=== PATIENT | male | born 1945 | race Caucasian/White ===

== ENCOUNTER 2019-10-08 09:54 | Outpatient (CLI) | payer MEDICARE, OTHER, SELFPAY ==
[2019-10-08 11:52] LABS: Hematocrit 39.4 % (42.0-52.0); Mean Corpuscular Hemoglobin 32.4 pg (28.0-34.0); Mean Corpuscular Volume 98.3 fL (80-94); Mean Platelet Volume 8.3 fL (7.4-10.4); Nucleated Red Blood Cells % 0 %; Platelet Count 307 10^3/cmm (130-400); Red Blood Count 4.01 10^6/uL (4.1-5.3); Red Cell Distribution Width 12.5 % (12.1-15.1)
[2019-10-08 12:03] LABS: Alanine Aminotransferase 23 U/L (0-41); Albumin Level 4.2 g/dL (3.5-5.2); Alkaline Phosphatase 59 IU/L (40-130); Anion Gap 14.4 (5-19); Aspartate Amino Transferase 22 U/L (0-40); Blood Urea Nitrogen 5 mg/dL (8-23); Calcium 9.2 mg/dL (8.5-10.5); Carbon Dioxide 26 mmol/L (22-29); Chloride 93 mmol/L (98-107); Globulin 2.6 g/dL (1.3-4.6); Glucose 91 mg/dL (65-115); Lactate Dehydrogenase 196 U/L (135-225); Osmolality Calculated 263 mOsm/kg (285-295); Potassium 4.4 mmol/L (3.5-5.1); Sodium 129 mmol/L (136-145); Total Bilirubin 0.7 mg/dL (0.15-1.2); Total Protein 6.8 g/dL (6.6-8.7)
[2019-10-08 12:31] LABS: White Blood Count 34.3 10^3/uL (4.0-10.0)
[2019-10-08 12:33] LABS: Absolute Eosinophils 0.3 10^3/cmm (0.0-0.7); Absolute Segmented Neutrophil 6.5 10/cmm (1.6-7.1); Eosinophils 1 %; Lymphocytes 73 %; Lymphocytes Absolute 26.1 10^3/cmm (1.2-3.4); Monocytes Absolute 1.4 10^3/cmm (0.1-0.6); Platelet Estimate Normal (Normal); Segmented Neutrophils 19 %; Total Cells Counted 100 (0-100)
[2019-10-08 12:43] LABS: Erythrocyte Sedimentation Rate 15 mm/hr (0-10)
--- NOTE | 2019-10-08 16:57 | ONC CON_ITS ---
Dr. Conley New Patient Note Patient: Reilly Friedman Unit #: [id number]: 1945 Dicatated By: Reilly Conley M.D.Date of Visit: Oct 08, 2019 Onc MED New Patient/Consult Referring Physician: Dr. Manolo Centeno M.D. Chief Complaint: Chronic leukocytic leukemia. History of Present Illness: This is a 73-year-old man with chronic lymphocytic leukemia, Guerrero stage 0 at initial diagnosis in July 2017. In June 2017 he [place] [facility] for chest pain. His cardiac evaluation was unrevealing. His CBC, though, did show significant lymphocytosis with a total white blood cell count of 22,100 and an absolute lymphocyte count of 15,400. Hemoglobin was normal at 14.1 g with hematocrit 43.5%. The platelet count was slightly elevated at 407,000. His CT pulmonary angiogram at that time showed small pulmonary nodules in both lung bases. There was no lymphadenopathy reported. He was then seen in [place] by Dr. Anjel Pineda on 08/01/2017. A flow cytometry study was consistent with chronic lymphocytic leukemia. His FISH panel for CLL showed 13 q. 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 His staging CT scans of the chest, abdomen, and pelvis on 07/12/2017 showed no lymphadenopathy or hepatosplenomegaly. Small pulmonary nodules were again noted. Overall, his evaluation was consistent with Guerrero stage 0 chronic lymphocytic leukemia with favorable prognostic profile, and he was recommended to be followed on observation/expectant management. As of his follow-up visit with Dr. Goldberg at the [facility] oncology clinic in April 2018 his absolute lymphocyte count was unchanged stable at 15,000 with hemoglobin 14.2 g and platelet count 227,000. He appeared stable clinically, and he continued on observation/expectant management. 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 He was successfully treated with TPA. He was last seen at the [facility] oncology clinic in February 2019. He again appeared stable and he was recommended to continue observation/expectant management. On 09/04/2019 he had seen [address] Dr. Centeno's office with a generalized pruritic skin eruption. He was given a Depo-Medrol injection followed by a prednisone taper. He is seen now for further management of the chronic lymphocytic leukemia. His skin eruption did show improvement on the prednisone, but he had subsequently developed a somewhat different eruption in the axilla and groin area bilaterally. He has been feeling pretty good generally, though he says his energy has not been as good ever since his stroke. 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 He describes his appetite is medium. His weight is down about 5 pounds. He has occasional night sweating. He has had a cough all winter. Is mostly nonproductive. He does not complain of shortness of breath and he has not been having chest pain. He does have some acid reflux, but it is pretty well controlled with medication. He has no other GI complaints. Bladder function remains adequate. He is seeing Dr. House. He has some generalized aching, but that is associated with activity. He has just occasional headache. He has had lightheadedness/dysequilibrium when he bends over and gets up. This is been an ongoing problem since his stroke. He has no numbness/paresthesia or other focal neurologic symptoms. Past Medical History: His medical history includes benign prostatic hypertrophy, chronic lymphocytic leukemia, degenerative arthritis, dyslipidemia, gastroesophageal reflux disease, and hypertension. He has a history of stroke in April 2018. Past Surgical History: His surgical/procedural history includes arthroscopic left knee surgery, colonoscopy, inguinal hernia repair on both sides, and Mohs surgery for left facial skin cancer in 2019. Medications: Aspirin 1 Tablet (of 81 mg) Oral daily, Clopidogrel Bisulfate 1 Tablet (of 75 mg) Oral daily, Flonase 1 [place](s) (of 50 mcg/act) Suspension Nasal daily, Lisinopril 1 Tablet (of 40 mg) Oral daily, Omeprazole 1 Capsule (of 20 mg) Capsule Delayed Release Oral daily, Promethazine-DM 5 - 10 mL (of 6.25-15 mg/5mL) Syrup Oral q 4 to 6 hours PRN, Simvastatin 1 tablespoonful(s) (of 40 mg) Tablet Oral at bedtime, Tamsulosin HCl 1 Capsule (of 0.4 mg) Oral daily Allergies: Celery, Demerol, and Penicillins. Social History: Mr. Friedman is . 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 He is a non-smoker. He does not drink alcohol. Family History: Father of prostate cancer at age 84. Mother had multiple medical problems including heart disease and breast cancer. She at age 85. He had one sister who had rheumatoid arthritis and with complications of dementia. Review Of Symptoms: Constitutional - His energy has been as good since his stroke in 2019. He is able to do moderate farm work. His appetite is good and weight is down 5 pounds over the last month. No fever. He has occasional night sweats. ECOG score is 1, Eyes - He has altered vision, he wears glasses, ENMT - He has hearing loss. No tinnitus. He has sinus congestion/drainage. No mouth sores. No sore throat or difficulty swallowing, Hematologic/Lymphatic - He bruises easily, Respiratory - No shortness of breath. He has had a cough since . It is mostly nonproductive. No pleuritic pain or hemoptysis, Cardiovascular - No angina pain. No palpitations, Gastrointestinal - No nausea or vomiting. His heartburn is adequately managed with omeprazole. No diarrhea or constipation. No blood in the stool or black stools, Genitourinary (M) - No dysuria or hematuria. No urinary frequency. No urgency or incontinence. He sees Dr. House, Musculoskeletal - He has generalized aches, Integumentary - He has a skin rash that has been present for a few weeks, Neurologic - No headache. He has occasional lightheadedness when he bends over. No numbness or tingling. He had a stroke in 2019, Psychiatric - No anxiety or depression. He does not sleep well. Vital Signs: Performed on Oct 08, 2019 10:53: 0, 23.38, 2.00 sq.m, 72.00 in, 97 %, 71 /min, 20 /min, 165/79 mm(hg) (HIGH), 98.1 F (LOW), and 172.4 lbs (HIGH). Physical Examination: Constitutional - He appears to be in good general health, Eyes - Sclerae nonicteric. Conjunctivae clear, ENMT - No lesions noted in the oral cavity, Neck - No mass or thyromegaly, Hematologic/Lymphatic - No cervical, clavicular, or axillary adenopathy, Respiratory - Lungs are clear with good air movement bilaterally, Cardiovascular - Heart rhythm is regular. There is no murmur, gallop, or rub noted, Abdomen - Soft and non-tender. He has a ventral hernia. Liver and spleen are not enlarged. There is no abdominal mass or ascites noted and there is no inguinal adenopathy, Back/Spine - No spine or CVA tenderness noted, Extremities - No edema. Pedal pulses are palpable bilaterally, Integumentary - There is a maculopapular skin eruption in the both axillae and in the groin area bilaterally. There are no suspicious skin lesions noted, Neurologic - He has a mild tremor. There no focal neurologic deficits noted. Impression: 1. Patient with chronic lymphocytic leukemia, Guerrero stage 0 at initial diagnosis in July 2017. He had favorable prognostic indicators including 13q deletion by FISH and mutated IGVH. Observation/expectant management was recommended. 2. He had recently presented with generalized pruritic skin eruption. The underlying cause is uncertain. It is possible that it is associated with the underlying CLL, but unlikely. It does appear to be responding to the steroid. He has a different skin eruption now, which may be a secondary Soila infection. His other medical illnesses include 3. Hypertension. 4. Dyslipidemia. 5. GERD. 6. Benign prostatic hypertrophy. 7. Degenerative arthritis. 8. Anxiety/depression. 9. 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 He has been followed on observation/expectant management for the chronic lymphocytic leukemia. As of his follow-up visit in February 2019 he appeared stable clinically with no significant progression of the leukemia. Plan: He will have laboratory studies today to include CBC, comprehensive metabolic profile, LDH level, and sed rate. In the absence of any significant disease progression, he will continue on observation/expectant management at a 3-month interval schedule. In the meantime, he will be given fluconazole 200 mg daily for 7 days and a prescription for nystatin/triamcinolone cream to use topically. Signed By: Reilly Conley M.D. <<Signature on File>>
== END 2019-10-08 09:55 | disposition home or self-care (01) ==
PROVIDERS: PCP Family Medicine; Visit Provider Internal Medicine Medical Oncology
DX: C91.10 Chronic lymphocytic leukemia of B-cell type not having achieved remission (principal); I10 Essential (primary) hypertension; E78.5 Hyperlipidemia, unspecified; K21.9 Gastro-esophageal reflux disease without esophagitis; N40.0 Benign prostatic hyperplasia without lower urinary tract symptoms; M19.90 Unspecified osteoarthritis, unspecified site; F41.8 Other specified anxiety disorders; Z86.73 Personal history of transient ischemic attack (TIA), and cerebral infarction without residual deficits
CPT/HCPCS: 80053; 83615; 85007; 85025; 85651; 99205

== ENCOUNTER → 2019-11-01 09:08 | Outpatient (BNVA) | payer MEDICARE, OTHER, SELFPAY | PROVIDERS: PCP Family Medicine; Visit Provider Urology | DX: N40.1 Benign prostatic hyperplasia with lower urinary tract symptoms (principal); Z12.5 Encounter for screening for malignant neoplasm of prostate | CPT/HCPCS: 81001 ==

== ENCOUNTER 2020-02-13 14:12 | Outpatient (CLI) | payer MEDICARE, OTHER, SELFPAY ==
[2020-02-13 14:38] LABS: Hematocrit 37.8 % (42.0-52.0); Hemoglobin 12.7 g/dL (11.7-16.6); Mean Corpuscular HGB Conc 33.6 g/dL (30.0-36.0); Mean Corpuscular Hemoglobin 32.9 pg (28.0-34.0); Mean Corpuscular Volume 97.9 fL (80-94); Mean Platelet Volume 8.5 fL (7.4-10.4); Platelet Count 270 10^3/cmm (130-400); Red Blood Count 3.86 10^6/uL (4.1-5.3); Red Cell Distribution Width 12.2 % (12.1-15.1)
[2020-02-13 14:59] LABS: Alanine Aminotransferase 26 U/L (0-41); Albumin Level 4.3 g/dL (3.5-5.2); Alkaline Phosphatase 48 IU/L (40-130); Anion Gap 14.2 (5-19); Aspartate Amino Transferase 23 U/L (0-40); Blood Urea Nitrogen 6 mg/dL (8-23); Calcium 8.9 mg/dL (8.5-10.5); Carbon Dioxide 23 mmol/L (22-29); Chloride 95 mmol/L (98-107); Glucose 108 mg/dL (65-115); Lactate Dehydrogenase 173 U/L (135-225); Osmolality Calculated 264 mOsm/kg (285-295); Potassium 4.2 mmol/L (3.5-5.1); Sodium 128 mmol/L (136-145); Total Bilirubin 0.5 mg/dL (0.15-1.2); Total Protein 6.3 g/dL (6.6-8.7)
[2020-02-13 15:46] LABS: Slide Review Slide Review Perform
[2020-02-13 15:50] LABS: Absolute Eosinophils 0.3 10^3/cmm (0.0-0.7); Absolute Segmented Neutrophil 7.8 10/cmm (1.6-7.1); Eosinophils 1 %; Lymphocytes 34 %; Segmented Neutrophils 23 %; Total Cells Counted 100 (0-100)
[2020-02-13 15:51] LABS: Absolute Neutrophil 7.8 10^3/cmm (1.4-6.5); Platelet Estimate Normal (Normal)
--- NOTE | 2020-02-13 16:43 | ONC FU_ITS ---
Dr. Conley Patient Follow-Up Note Patient: Reilly Friedman Unit #: [id number]: 1945 Dicatated By: Reilly Conley M.D.Date of Visit:Feb 13, 2020 Onc Med Follow-up/Prog Note Chief Complaint: Chronic leukocytic leukemia. History of Present Illness: This is a 74 year-old man with chronic lymphocytic leukemia, Guerrero stage 0 at initial diagnosis in July 2017. In June 2017 he was seen in the [facility] [place] for chest pain. His cardiac evaluation was unrevealing. His CBC, though, did show significant lymphocytosis with a total white blood cell count of 22,100 and an absolute lymphocyte count of 15,400. Hemoglobin was normal at 14.1 g with hematocrit 43.5%. The platelet count was slightly elevated at 407,000. His CT pulmonary angiogram at that time showed small pulmonary nodules in both lung bases. There was no lymphadenopathy reported. He was then seen in [place] by Dr. Anjel Pineda on 08/01/2017. A flow cytometry study was consistent with chronic lymphocytic leukemia. His FISH panel for CLL showed 13 q. 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 His staging CT scans of the chest, abdomen, and pelvis on 07/12/2017 showed no lymphadenopathy or hepatosplenomegaly. Small pulmonary nodules were again noted. Overall, his evaluation was consistent with Guerrero stage 0 chronic lymphocytic leukemia with favorable prognostic profile, and he was recommended to be followed on observation/expectant management. As of his follow-up visit with Dr. Goldberg at the [facility] oncology clinic in April 2018 his absolute lymphocyte count was unchanged stable at 15,000 with hemoglobin 14.2 g and platelet count 227,000. He appeared stable clinically, and he continued on observation/expectant management. 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 He was successfully treated with TPA. He was last seen at the [facility] oncology clinic in February 2019. He again appeared stable and he was recommended to continue observation/expectant management. I had seen him initially on 10/08/2019, as he had desired to continue follow-up for his chronic lymphocytic leukemia locally. At that point he was having some issues with the skin eruption, but there appeared to be no indication for treatment of the chronic lymphocytic leukemia, and he continued on observation/expectant management. His medical illnesses, in addition to the stroke in April 2018, include hypertension, dyslipidemia, GERD, degenerative arthritis, and benign prostatic hypertrophy. He is a non-smoker. He is seen for a follow-up visit. He has been feeling good generally. He does not do as much strenuous work as he used to, but he remains very active. His ECOG score is 1. He has good appetite. He has no fever or night sweats. He has chronic cough, attributable to medication. He has no shortness of breath or chest pain. He has no GI or complaints. He has no significant joint or bone pain. He has no focal neurologic symptoms. Medications: Aspirin 1 Tablet (of 81 mg) Oral daily, Clopidogrel Bisulfate 1 Tablet (of 75 mg) Oral daily, Flonase 1 [place](s) (of 50 mcg/act) Suspension Nasal daily, Lisinopril 1 Tablet (of 40 mg) Oral daily, Omeprazole 1 Capsule (of 20 mg) Capsule Delayed Release Oral daily, Promethazine-DM 5 - 10 mL (of 6.25-15 mg/5mL) Syrup Oral q 4 to 6 hours PRN, Simvastatin 1 tablespoonful(s) (of 40 mg) Tablet Oral at bedtime, Tamsulosin HCl 1 Capsule (of 0.4 mg) Oral daily Allergies: Celery, Demerol, and Penicillins. Review of Systems: Constitutional - He has been feeling good generally. He has pretty good energy and he is very active, but he is not doing strenuous work now. His appetite is okay and his weight is stable. He has no fever or night sweats. ECOG score is 1, ENMT - He has some sinus drainage. No mouth sores. No sore throat or difficulty swallowing, Hematologic/Lymphatic - He has easy bruising, Respiratory - No shortness of breath. He has some chronic cough, presumably medication related. No pleuritic pain or hemoptysis, Cardiovascular - No angina pain. No palpitations, Gastrointestinal - No nausea or vomiting. His acid reflux is adequately managed with medication. No diarrhea or constipation. No blood in the stool or black stools, Genitourinary (M) - No dysuria or hematuria. No urinary frequency. No urgency or incontinence, Musculoskeletal - No joint or bone pain, Integumentary - He has just occasional, mild flareups with the skin eruption, adequately managed with topical medication, Neurologic - He has occasional headache on the left side. He has occasional orthostatic lightheadedness. No numbness or tingling. No other focal neurologic symptoms, Psychiatric - No anxiety or depression. No insomnia. Vital Signs: Performed on Feb 13, 2020 15:48 Height - 72.00 in Weight - 173.4 lbs (HIGH) BSA - 2.01 sq.m BMI - 23.52 Temperature - 98.6 F Pulse - 70 /min Respiration - 18 /min BP - 153/73 mm(hg) (HIGH) O2 Sat - 98 % Pain - 0 Physical Examination: Constitutional - He looks good generally, Eyes - Sclerae nonicteric. Conjunctivae clear, ENMT - No lesions noted in the oral cavity, Hematologic/Lymphatic - No cervical, clavicular, or axillary adenopathy, Respiratory - Lungs are clear with good air movement bilaterally, Cardiovascular - Heart rhythm is regular. There is no murmur, gallop, or rub noted, Abdomen - Soft. Liver and spleen are not enlarged. There is no abdominal mass or ascites noted and there is no inguinal adenopathy, Extremities - No edema, Neurologic - No focal neurologic deficits noted. Lab/Imaging: Test performed on Feb 13, 2020 14:22 LDH (Total) 173 U/L Sodium 128 mmol/L Potassium 4.2 mmol/L Chloride 95 mmol/L CO2 23 mmol/L Anion Gap 14.2 BUN 6 mg/dL Creatinine 0.8 mg/dL Cr Clearance (Est) 90.12 mL/min Glucose 108 mg/dL Osmolality - Calculated 264 mOsm/kg Calcium 8.9 mg/dL Protein, Total 6.3 g/dL Albumin 4.3 g/dL Globulin 2.0 g/dL Bilirubin, Total 0.5 mg/dL ALT (SGPT) 26 U/L AST (SGOT) 23 U/L Alkaline Phosphatase 48 IU/L WBC 34.0 10 3/uL Manual Segs % 23 % Manual Bands % 0.0 % RBC 3.86 10 6/uL HGB 12.7 g/dL Manual Lymphs % 34 % Atypical Lymphs % 42.0 % HCT 37.8 % MCV 97.9 fL Total Cells Counted 100 Manual Monos % 0.0 % MCH 32.9 pg Manual Eos % 1 % MCHC 33.6 g/dL Manual Basos % 0.0 % RDW 12.2 % Platelet Count 270 10 3/cmm MPV 8.5 fL CBC Slide Review Slide Review Perform Platelet Estimate Normal Manual Segs Abs 7.8 10/cmm Manual Bands Abs 0.0 10 3/cmm Manual Neutrophils Abs 7.8 10 3/cmm Manual Monocytes Abs 0.0 10 3/cmm Manual Eosinophils Abs 0.3 10 3/cmm Manual Basophils Abs 0.0 10 3/cmm Impression: 1. Patient with chronic lymphocytic leukemia, Guerrero stage 0 at initial diagnosis in July 2017. He had favorable prognostic indicators including 13q deletion by FISH and mutated IGVH. Observation/expectant management was recommended. 2. He had recently presented with generalized pruritic skin eruption. The underlying cause is uncertain. It is possible that it is associated with the underlying CLL, but unlikely. It does appear to be responding to the steroid. He has a different skin eruption now, which may be a secondary Soila infection. His other medical illnesses include 3. Hypertension. 4. Dyslipidemia. 5. GERD. 6. Benign prostatic hypertrophy. 7. Degenerative arthritis. 8. Anxiety/depression. 9. 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 He has been followed on observation/expectant management. Since initial diagnosis there has been some increase in the lymphocyte count, though recently it has been stable. His other blood counts remain normal. Overall, he has been doing well clinically with no significant progression of the chronic lymphocytic leukemia. Plan: He remains on observation/expectant management. As his blood counts have remained stable, I will just see him for a follow-up visit in 6 months. Signed By: Reilly Conley M.D. <<Signature on File>>
[2020-02-13 17:12] LABS: Erythrocyte Sedimentation Rate 5 mm/hr (0-10)
== END 2020-02-13 14:13 | disposition home or self-care (01) ==
LOC: ONCMED 14:18
PROVIDERS: PCP Family Medicine; Visit Provider Internal Medicine Medical Oncology
DX: Z08 Encounter for follow-up examination after completed treatment for malignant neoplasm (principal); Z85.6 Personal history of leukemia; I10 Essential (primary) hypertension; E78.5 Hyperlipidemia, unspecified; K21.9 Gastro-esophageal reflux disease without esophagitis; N40.0 Benign prostatic hyperplasia without lower urinary tract symptoms; M19.90 Unspecified osteoarthritis, unspecified site; F41.9 Anxiety disorder, unspecified; F32.9 Major depressive disorder, single episode, unspecified; Z86.73 Personal history of transient ischemic attack (TIA), and cerebral infarction without residual deficits; Z79.899 Other long term (current) drug therapy
CPT/HCPCS: 36415; 80053; 83615; 85007; 85025; 85651; G0463

== ENCOUNTER 2020-08-14 10:42 | Outpatient (CLI) | payer MEDICARE, OTHER, SELFPAY ==
[2020-08-14 11:42] LABS: Basophils # 0.1 10^3/uL (0.0-0.1); Basophils % 0.3 %; Eosinophils # 0.1 10^3/uL (0.0-0.8); Eosinophils % 0.4 %; Hematocrit 41.3 % (42.0-52.0); Hemoglobin 13.7 g/dL (11.7-16.6); Lymphocytes # 26.7 10^3/uL (0.8-4.8); Lymphocytes % 83.1 %; Mean Corpuscular HGB Conc 33.2 g/dL (30.0-36.0); Mean Corpuscular Volume 99.5 fL (80-94); Mean Platelet Volume 8.5 fL (7.4-10.4); Monocytes # 0.8 10^3/uL (0.2-0.9); Monocytes % 2.5 %; Neutrophils # 4.34 10^3/uL (1.8-7.7); Neutrophils % 13.5 %; Nucleated Red Blood Cells % 0 %; Platelet Count 297 10^3/cmm (130-400); Red Blood Count 4.15 10^6/uL (4.1-5.3); Red Cell Distribution Width 12.3 % (12.1-15.1)
[2020-08-14 12:02] LABS: Alanine Aminotransferase 26 U/L (0-41); Albumin Level 4.3 g/dL (3.5-5.2); Alkaline Phosphatase 51 IU/L (40-130); Anion Gap 11.2 (5-19); Aspartate Amino Transferase 23 U/L (0-40); Blood Urea Nitrogen 6 mg/dL (8-23); Calcium 8.8 mg/dL (8.5-10.5); Carbon Dioxide 27 mmol/L (22-29); Chloride 96 mmol/L (98-107); Globulin 2.1 g/dL (1.3-4.6); Glucose 91 mg/dL (65-115); Lactate Dehydrogenase 188 U/L (135-225); Osmolality Calculated 267 mOsm/kg (285-295); Potassium 4.2 mmol/L (3.5-5.1); Sodium 130 mmol/L (136-145); Total Bilirubin 0.7 mg/dL (0.15-1.2); Total Protein 6.4 g/dL (6.6-8.7)
[2020-08-14 12:08] LABS: White Blood Count 32.2 10^3/uL (4.0-10.0)
[2020-08-14 12:09] LABS: Slide Review Slide Review Perform
--- NOTE | 2020-08-17 13:09 | ONC FU_ITS ---
Dr. Conley Patient Follow-Up Note Patient: Reilly Friedman Unit #: [id number]: 1945 Dicatated By: Reilly Conley M.D.Date of Visit:August 14, 2020 Onc Med Follow-up/Prog Note Chief Complaint: Chronic leukocytic leukemia. History of Present Illness: This is a 74 year-old man with chronic lymphocytic leukemia, Guerrero stage 0 at initial diagnosis in July 2017. In June 2017 he was seen in the [facility] [place] emergency room for chest pain. His cardiac evaluation was unrevealing. His CBC, though, did show significant lymphocytosis with a total white blood cell count of 22,100 and an absolute lymphocyte count of 15,400. Hemoglobin was normal at 14.1 g with hematocrit 43.5%. The platelet count was slightly elevated at 407,000. His CT pulmonary angiogram at that time showed small pulmonary nodules in both lung bases. There was no lymphadenopathy reported. He was then seen in [place] by Dr. Anjel Pineda on 08/01/2017. A flow cytometry study was consistent with chronic lymphocytic leukemia. His FISH panel for CLL showed 13 q. 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 His staging CT scans of the chest, abdomen, and pelvis on 07/12/2017 showed no lymphadenopathy or hepatosplenomegaly. Small pulmonary nodules were again noted. Overall, his evaluation was consistent with Guerrero stage 0 chronic lymphocytic leukemia with favorable prognostic profile, and he was recommended to be followed on observation/expectant management. As of his follow-up visit with Dr. Goldberg at the [facility] oncology clinic in April 2018 his absolute lymphocyte count was unchanged stable at 15,000 with hemoglobin 14.2 g and platelet count 227,000. He appeared stable clinically, and he continued on observation/expectant management. 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 He was successfully treated with TPA. He was last seen at the [facility] oncology clinic in February 2019. He again appeared stable and he was recommended to continue observation/expectant management. I had seen him initially on 10/08/2019, as he had desired to continue follow-up for his chronic lymphocytic leukemia locally. At that point he was having some issues with the skin eruption, but there appeared to be no indication for treatment of the chronic lymphocytic leukemia, and he continued on observation/expectant management. His medical illnesses, in addition to the stroke in April 2018, include hypertension, dyslipidemia, GERD, degenerative arthritis, and benign prostatic hypertrophy. He is a non-smoker. He is seen for a follow-up visit. He has been feeling good generally. His main complaint is that during the winter he had fallen backward on the ice and sustained an injury to his upper back/shoulders. It took a couple of months, but he has finally recovered from that. He has good energy and activity tolerance. ECOG score is 0. Appetite is not all that good, but he does eat. His weight is down about 5 pounds. He does not have fever or night sweats. He always has sinus drainage and he has some cough associated with it. He does not have shortness of breath or chest pain. He has no GI or complaints. He has no significant joint or bone pain. He occasionally has headache. He occasionally has numbness in his fingers, and he says they get cold very easily. He has had no recurrence of the skin eruption. Medications: Aspirin 1 Tablet (of 81 mg) Oral daily, Clopidogrel Bisulfate 1 Tablet (of 75 mg) Oral daily, Flonase 1 [place](s) (of 50 mcg/act) Suspension Nasal daily, Lisinopril 1 Tablet (of 40 mg) Oral daily, Omeprazole 1 Capsule (of 20 mg) Capsule Delayed Release Oral daily, Promethazine-DM 5 - 10 mL (of 6.25-15 mg/5mL) Syrup Oral q 4 to 6 hours PRN, Simvastatin 1 tablespoonful(s) (of 40 mg) Tablet Oral at bedtime, Tamsulosin HCl 1 Capsule (of 0.4 mg) Oral daily Allergies: Celery, Demerol, and Penicillins. Vital Signs: Performed on August 14, 2020 12:47 Height - 72.00 in Weight - 167.8 lbs (LOW) BSA - 1.98 sq.m BMI - 22.76 Temperature - 98.4 F Pulse - 62 /min Respiration - 18 /min BP - 166/83 mm(hg) (HIGH) O2 Sat - 97 % Pain - 0 Fatigue - 0 Physical Examination: Constitutional - He looks good generally, Eyes - Sclerae nonicteric. Conjunctivae clear, ENMT - No lesions noted in the oral cavity, Hematologic/Lymphatic - No cervical, clavicular, or axillary adenopathy, Respiratory - Lungs are clear with good air movement bilaterally, Cardiovascular - Heart rhythm is regular. There is no murmur, gallop, or rub noted, Abdomen - Soft. Liver and spleen are not enlarged. There is no abdominal mass or ascites noted and there is no inguinal adenopathy, Extremities - No edema. Pedal pulses are palpable bilaterally, Neurologic - No focal neurologic deficits noted. Lab/Imaging: Test performed on August 14, 2020 11:13 LDH (Total) 188 U/L Sodium 130 mmol/L Potassium 4.2 mmol/L Chloride 96 mmol/L CO2 27 mmol/L Anion Gap 11.2 BUN 6 mg/dL Creatinine 0.7 mg/dL Cr Clearance (Est) 99.67 mL/min Glucose 91 mg/dL Osmolality - Calculated 267 mOsm/kg Calcium 8.8 mg/dL Protein, Total 6.4 g/dL Albumin 4.3 g/dL Globulin 2.1 g/dL Bilirubin, Total 0.7 mg/dL ALT (SGPT) 26 U/L AST (SGOT) 23 U/L Alkaline Phosphatase 51 IU/L WBC 32.2 10 3/uL RBC 4.15 10 6/uL HGB 13.7 g/dL HCT 41.3 % MCV 99.5 fL MCH 33.0 pg MCHC 33.2 g/dL RDW 12.3 % Platelet Count 297 10 3/cmm MPV 8.5 fL Neutrophils 4.34 10 3/uL Lymphocytes 26.7 10 3/uL Monocytes 0.8 10 3/uL Eosinophils 0.1 10 3/uL Basophils 0.1 10 3/uL Neutrophil % 13.5 % Lymphocyte % 83.1 % Monocyte % 2.5 % Eosinophil % 0.4 % Basophils % 0.3 % NRBC % 0 % CBC Slide Review Slide Review Perform SLIDE REVIEW AGREES WITH AUTOMATED RESULTS Problem List: 1. Chronic lymphocytic leukemia, Guerrero stage 0 at initial diagnosis in July 2017. He had favorable prognostic indicators including 13q deletion by FISH and mutated IGVH. Observation/expectant management was recommended. 2. Hypertension. 3. Dyslipidemia. 4. GERD. 5. Benign prostatic hypertrophy. 6. Degenerative arthritis. 7. Anxiety/depression. 8. 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 Problems Addressed with this Encounter and Plan: Patient with chronic lymphocytic leukemia, Guerrero stage 0 at initial diagnosis in July 2017. He had favorable prognostic indicators including 13q deletion by FISH and mutated IGVH. Observation/expectant management was recommended. Duirng followup there initially was some increase in the lymphocyte count, but has subsequently stabilized. Overall, he is doing very well clinically with no significant progression of the chronic lymphocytic leukemia. He continues on observation/expectant management. I will see him again in 6 months. Signed By: Reilly Conley M.D. <<Signature on File>>
== END 2020-08-14 10:43 | disposition home or self-care (01) ==
LOC: ONCMED 10:49
PROVIDERS: PCP Family Medicine; Visit Provider Internal Medicine Medical Oncology
DX: Z08 Encounter for follow-up examination after completed treatment for malignant neoplasm (principal); C91.10 Chronic lymphocytic leukemia of B-cell type not having achieved remission; I10 Essential (primary) hypertension; E78.5 Hyperlipidemia, unspecified; K21.9 Gastro-esophageal reflux disease without esophagitis; N40.0 Benign prostatic hyperplasia without lower urinary tract symptoms; M19.90 Unspecified osteoarthritis, unspecified site; F41.9 Anxiety disorder, unspecified; F32.9 Major depressive disorder, single episode, unspecified; Z86.73 Personal history of transient ischemic attack (TIA), and cerebral infarction without residual deficits; Z79.899 Other long term (current) drug therapy
CPT/HCPCS: 36415; 80053; 83615; 85025; G0463

== ENCOUNTER 2021-02-09 12:34 | Outpatient (CLI) | payer MEDICARE, OTHER, SELFPAY ==
[2021-02-09 13:48] LABS: Basophils # 0.1 10^3/uL (0.0-0.1); Basophils % 0.1 %; Eosinophils # 0.3 10^3/uL (0.0-0.8); Eosinophils % 0.7 %; Hematocrit 42.1 % (42.0-52.0); Hemoglobin 13.9 g/dL (11.7-16.6); Lymphocytes # 36.9 10^3/uL (0.8-4.8); Lymphocytes % 85.9 %; Mean Corpuscular Hemoglobin 32.6 pg (28.0-34.0); Mean Corpuscular Volume 98.8 fl (80-94); Monocytes # 0.7 10^3/uL (0.2-0.9); Monocytes % 1.7 %; Neutrophils # 4.92 10^3/uL (1.8-7.7); Neutrophils % 11.5 %; Nucleated Red Blood Cells % 0 %; Platelet Count 268 10^3/cmm (130-400); Red Blood Count 4.26 10^6/uL (4.1-5.3); Red Cell Distribution Width 12.5 % (12.1-15.1)
[2021-02-09 14:03] LABS: Alanine Aminotransferase 30 U/L (0-41); Albumin Level 4.4 g/dL (3.5-5.2); Alkaline Phosphatase 44 IU/L (40-130); Anion Gap 13.9 (5-19); Aspartate Amino Transferase 27 U/L (0-40); Blood Urea Nitrogen 7 mg/dL (8-23); Carbon Dioxide 26 mmol/L (22-29); Chloride 98 mmol/L (98-107); Globulin 1.9 g/dL (1.3-4.6); Glucose 91 mg/dL (65-115); Lactate Dehydrogenase 211 U/L (135-225); Osmolality Calculated 276 mOsm/kg (285-295); Potassium 3.9 mmol/L (3.5-5.1); Sodium 134 mmol/L (136-145); Total Bilirubin 0.6 mg/dL (0.15-1.2); Total Protein 6.3 g/dL (6.6-8.7)
[2021-02-09 14:50] LABS: White Blood Count 42.9 10^3/uL (4.0-10.0)
== END 2021-02-09 12:35 | disposition home or self-care (01) ==
PROVIDERS: PCP Family Medicine; Visit Provider Internal Medicine Medical Oncology
DX: N40.1 Benign prostatic hyperplasia with lower urinary tract symptoms (principal); N41.1 Chronic prostatitis; Z80.42 Family history of malignant neoplasm of prostate
CPT/HCPCS: 36415; 80053; 83615; 85025

== ENCOUNTER 2021-02-11 15:14 | Outpatient (CLI) | payer MEDICARE, OTHER, SELFPAY ==
--- NOTE | 2021-02-14 10:37 | ONC FU_ITS ---
Dr. Cnoley Patient Follow-Up Note Patient: Reilly Friedman Unit #: [id number]: 1945 Dicatated By: Reilly Conley M.D.Date of Visit:Feb 11, 2021 Onc Med Follow-up/Prog Note Chief Complaint: Chronic leukocytic leukemia. History of Present Illness: This is a 75 year-old man with chronic lymphocytic leukemia, Guerrero stage 0 at initial diagnosis in July 2017. In June 2017 he was seen in the [facility] emergency room for chest pain. His cardiac evaluation was unrevealing. His CBC, though, did show significant lymphocytosis with a total white blood cell count of 22,100 and an absolute lymphocyte count of 15,400. Hemoglobin was normal at 14.1 g with hematocrit 43.5%. The platelet count was slightly elevated at 407,000. His CT pulmonary angiogram at that time showed small pulmonary nodules in both lung bases. There was no lymphadenopathy reported. He was then seen in [place] by Dr. Anjel Pineda on 08/01/2017. A flow cytometry study was consistent with chronic lymphocytic leukemia. His FISH panel for CLL showed 13 q. 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 His staging CT scans of the chest, abdomen, and pelvis on 07/12/2017 showed no lymphadenopathy or hepatosplenomegaly. Small pulmonary nodules were again noted. Overall, his evaluation was consistent with Guerrero stage 0 chronic lymphocytic leukemia with favorable prognostic profile, and he was recommended to be followed on observation/expectant management. As of his follow-up visit with Dr. Goldberg at the [facility] oncology clinic in April 2018 his absolute lymphocyte count was unchanged stable at 15,000 with hemoglobin 14.2 g and platelet count 227,000. He appeared stable clinically, and he continued on observation/expectant management. 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 He was successfully treated with TPA. He was last seen at the [facility] oncology clinic in February 2019. He again appeared stable and he was recommended to continue observation/expectant management. I had seen him initially on 10/08/2019, as he had desired to continue follow-up for his chronic lymphocytic leukemia locally. At that point he was having some issues with the skin eruption, but there appeared to be no indication for treatment of the chronic lymphocytic leukemia, and he continued on observation/expectant management. His medical illnesses, in addition to the stroke in April 2018, include hypertension, dyslipidemia, GERD, degenerative arthritis, and benign prostatic hypertrophy. He is a non-smoker. He is seen for a follow-up visit. He has been feeling good generally. Has good energy and activity tolerance. He remains very active. ECOG score is 0. He has good appetite. He has no fever or night sweats. He has some allergy related sinus symptoms. He occasionally has a little cough. He does not complain of shortness of breath or chest pain. His acid reflux is adequately managed with medication. He has no other GI or complaints. He has some normal joint pain. He occasionally has headache. He has no focal neurologic symptoms. However, he has developed a mild intention tremor. Medications: Aspirin 1 Tablet (of 81 mg) Oral daily, Clopidogrel Bisulfate 1 Tablet (of 75 mg) Oral daily, Flonase 1 [place](s) (of 50 mcg/act) Suspension Nasal daily, Lisinopril 1 Tablet (of 40 mg) Oral daily, Omeprazole 1 Capsule (of 20 mg) Capsule Delayed Release Oral daily, Promethazine-DM 5 - 10 mL (of 6.25-15 mg/5mL) Syrup Oral q 4 to 6 hours PRN, Simvastatin 1 tablespoonful(s) (of 40 mg) Tablet Oral at bedtime, Tamsulosin HCl 1 Capsule (of 0.4 mg) Oral daily Allergies: Celery, Demerol, and Penicillins. Vital Signs: Performed on Feb 11, 2021 15:43 Height - 72.00 in Weight - 168.4 lbs (HIGH) BSA - 1.98 sq.m BMI - 22.84 Temperature - 98.0 F (LOW) Pulse - 61 /min Respiration - 18 /min BP - 160/90 mm(hg) (HIGH) O2 Sat - 98 % Pain - 0 Fatigue - 0 Physical Examination: Constitutional - He looks good generally, Eyes - Sclerae nonicteric. Conjunctivae clear, ENMT - No lesions noted in the oral cavity, Hematologic/Lymphatic - No cervical, clavicular, or axillary adenopathy, Respiratory - Lungs are clear with good air movement bilaterally, Cardiovascular - Heart rhythm is regular. There is no murmur, gallop, or rub noted, Abdomen - Soft. Liver and spleen are not enlarged. There is no abdominal mass or ascites noted and there is no inguinal adenopathy, Extremities - No edema. Pedal pulses are palpable bilaterally, Neurologic - No focal neurologic deficits noted. Lab/Imaging: CBC shows hemoglobin 13.9 g with hematocrit 42.1%. The white blood cell count is 42,900 with the differential showing 11% neutrophils, 85% lymphocytes, and 1% monocytes. The platelet count is normal at 268,000. Comprehensive metabolic profile shows normal renal function with BUN 7 and creatinine 0.6 mg/dL. Bilirubin and liver enzymes are normal. LDH is normal at 211 U/L. Problem List: 1. Chronic lymphocytic leukemia, Guerrero stage 0 at initial diagnosis in July 2017. He had favorable prognostic indicators including 13q deletion by FISH and mutated IGVH. Observation/expectant management was recommended. 2. Hypertension. 3. Dyslipidemia. 4. GERD. 5. Benign prostatic hypertrophy. 6. Degenerative arthritis. 7. Anxiety/depression. 8. 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 Problems Addressed with this Encounter and Plan: Patient with chronic lymphocytic leukemia, Guerrero stage 0 at initial diagnosis in July 2017. He had favorable prognostic indicators including 13q deletion by FISH and mutated IGVH. Observation/expectant management was recommended. Duirng followup there has been a gradual increase in the lymphocyte count, but his other blood counts remain normal. Overall, he appears to be doing well clinically. He can continue on expectant management for the chronic lymphocytic leukemia. I will see him again in 6 months. Signed By: Reilly Conley M.D. <<Signature on File>>
== END 2021-02-11 15:15 | disposition home or self-care (01) ==
LOC: ONCMED 15:14
PROVIDERS: PCP Family Medicine; Visit Provider Internal Medicine Medical Oncology
DX: Z08 Encounter for follow-up examination after completed treatment for malignant neoplasm (principal); Z85.6 Personal history of leukemia; I10 Essential (primary) hypertension; E78.5 Hyperlipidemia, unspecified; K21.9 Gastro-esophageal reflux disease without esophagitis; N40.0 Benign prostatic hyperplasia without lower urinary tract symptoms; M19.90 Unspecified osteoarthritis, unspecified site; F41.9 Anxiety disorder, unspecified; F32.9 Major depressive disorder, single episode, unspecified; Z86.73 Personal history of transient ischemic attack (TIA), and cerebral infarction without residual deficits; Z79.899 Other long term (current) drug therapy
CPT/HCPCS: G0463

== ENCOUNTER → 2021-07-20 15:46 | Outpatient (BNVA) | payer MEDICARE, OTHER, SELFPAY | PROVIDERS: PCP Family Medicine; Visit Provider Urology | DX: N40.1 Benign prostatic hyperplasia with lower urinary tract symptoms (principal); N13.8 Other obstructive and reflux uropathy; Z12.5 Encounter for screening for malignant neoplasm of prostate | CPT/HCPCS: 81003; G0103 ==

== ENCOUNTER 2021-10-05 11:50 | Oncology outpatient (recurring) (ONCR) | payer MEDICARE, OTHER, SELFPAY | END 2021-10-08 23:59 | disposition home or self-care (01) | PROVIDERS: PCP Family Medicine; Referring Provider Family Medicine; Visit Provider Internal Medicine Medical Oncology | DX: C91.10 Chronic lymphocytic leukemia of B-cell type not having achieved remission (principal); I10 Essential (primary) hypertension; Z79.899 Other long term (current) drug therapy | CPT/HCPCS: 80053; 83615; 85007; 85025; G0463 ==

== ENCOUNTER 2022-04-27 13:26 | Oncology outpatient (recurring) (ONCR) | payer MEDICARE, OTHER, SELFPAY ==
[2022-04-27 14:09] LABS: Basophils # 0.1 10^3/uL (0.0-0.1); Basophils % 0.1 %; Eosinophils # 0.2 10^3/uL (0.0-0.8); Eosinophils % 0.4 %; Hematocrit 39.1 % (42.0-52.0); Hemoglobin 12.9 g/dL (11.7-16.6); Lymphocytes # 34.6 10^3/uL (0.8-4.8); Lymphocytes % 86.1 %; Mean Corpuscular Hemoglobin 33.5 pg (28.0-34.0); Mean Corpuscular Volume 101.6 fl (80-94); Mean Platelet Volume 8.6 fL (7.4-10.4); Monocytes # 0.8 10^3/uL (0.2-0.9); Monocytes % 2.1 %; Neutrophils # 4.49 10^3/uL (1.8-7.7); Neutrophils % 11.1 %; Nucleated Red Blood Cells % 0 %; Platelet Count 323 10^3/cmm (130-400); Red Blood Count 3.85 10^6/uL (4.1-5.3); Red Cell Distribution Width 12.2 % (12.1-15.1)
[2022-04-27 14:26] LABS: Alanine Aminotransferase 25 U/L (0-41); Albumin Level 4.6 g/dL (3.5-5.2); Alkaline Phosphatase 56 U/L (40-130); Anion Gap 15.7 (5-19); Aspartate Amino Transferase 27 U/L (0-40); Blood Urea Nitrogen 6 mg/dL (8-23); Calcium 8.7 mg/dL (8.5-10.5); Carbon Dioxide 23 mmol/L (22-29); Chloride 95 mmol/L (98-107); Globulin 2.1 g/dL (1.3-4.6); Glucose 104 mg/dL (65-115); Lactate Dehydrogenase 174 U/L (135-225); Osmolality Calculated 268 mOsm/kg (285-295); Potassium 3.7 mmol/L (3.5-5.1); Sodium 130 mmol/L (136-145); Total Bilirubin 0.4 mg/dL (0.15-1.2); Total Protein 6.7 g/dL (6.6-8.7)
[2022-04-27 14:47] LABS: Slide Review Slide Review Perform; White Blood Count 40.2 10^3/uL (4.0-10.0)
== END 2022-05-11 23:59 | disposition home or self-care (01) ==
PROVIDERS: PCP Family Medicine; Visit Provider Internal Medicine Medical Oncology
DX: C91.10 Chronic lymphocytic leukemia of B-cell type not having achieved remission (principal); K13.0 Diseases of lips; Z79.2 Long term (current) use of antibiotics
CPT/HCPCS: 36415; 80053; 83615; 85025; 99213

== ENCOUNTER 2022-06-30 11:08 | Outpatient (CLI) | payer MEDICARE, OTHER, SELFPAY ==
--- NOTE | 2022-06-30 11:35 | XRR_ITS ---
PROCEDURE INFORMATION: Exam: XR Lumbosacral Spine Exam date and time: 06/30/2022 11:37 AM Age: 76 years old Clinical indication: Low back pain; Patient HX: HX of leukemia; Additional info: Acute low back pain TECHNIQUE: Imaging protocol: Radiologic exam of the lumbosacral spine. Views: 2 or 3 views. COMPARISON: No relevant prior studies available. FINDINGS: Bones/joints: Spinal alignment is normal. Vertebral body height is maintained. Intervertebral disc height is maintained. Mild lower lumbar facet spondylosis. No acute fracture. Visible portions of the ribs are intact. The visible portion of the pelvis and sacrum is intact. Soft tissues: Unremarkable. Vasculature: There is severe aortic atherosclerotic disease. XR/XR lumbar spine 2-3V* [id number] IMPRESSION: No acute findings.
== END 2022-06-30 11:09 | disposition home or self-care (01) ==
LOC: RAD 11:15
PROVIDERS: PCP Family Medicine; Visit Provider Family Medicine
DX: M54.50 Low back pain, unspecified (principal); M62.838 Other muscle spasm; N41.1 Chronic prostatitis
CPT/HCPCS: 72100; 81000

== ENCOUNTER 2022-07-13 08:56 | Inpatient (IN) | payer MEDICARE, OTHER, SELFPAY ==
[2022-07-13] VITALS (53 sets, daily range): BP systolic 114–208; BP diastolic 67–108; PULSE 62–90; RESP 15–25; TEMP 36.5–37; O2SAT 86–97; BMI 23.7
--- NOTE | 2022-07-13 09:53 | CT_ITS ---
WS: [id number] CT LUMBAR SPINE, noncontrast. HISTORY: low back pain radiating to abdomen TECHNIQUE: Contiguous 2.0 mm axial imaging are performed. Sagittal and coronal reformats are submitte d and reviewed. All CT scans at [facility] [place] use at least one of these dose optimization techni ques: automated exposure control; mA and/or kV adjustment per patient size (includes targeted exams w here dose is matched to clinical indication); or iterative reconstruction. IV contrast: None DLP: 538.79 mGy.cm COMPARISON: Lumbar spine radiograph 06/30/2022 New severe compression fracture at T12 by 60%. Retropulsion of the posterior vertebral body by 5 mm. This fracture was not present on the radiographs of 06/30/2022. Mild vertebral body encroachment upon the ventral thecal sac. Mild subarticular recess encroachment. The remaining vertebral bodies are normally aligned. No additional fractures are identified. L1-2: Mild annular disc bulge. No stenosis. L2-3: Mild annular disc bulge no stenosis. L3-4: Mild annular disc bulge. No stenosis. L4-5: Mild annular disc bulge and ligamentum flavum hypertrophy. Mild central and subarticular recess encroachment. L5-S1: No stenosis. Extensive atherosclerosis aorta. No aneurysm. Small LEFT pleural effusion fusion is partially identif ied. CT/CT lumbar spine wo con* [id number] IMPRESSION: 1. Acute T12 compression fracture by 60% with retropulsion by 5 mm encroaching upon the ventral thecal sac. Mild bilateral subarticular recess encroachment. 2. No additional acute fractures. 3. Small LEFT pleural effusion.
--- NOTE | 2022-07-13 09:55 | W.ED.BACK ---
Documented by User: NUBIA Houston 07/14/22 07:35 HPI - Back Pain/Injury General: Chief Complaint: Back Pain/Injury Stated Complaint: Extreme Back Pain Time Seen by Provider: 07/13/22 08:59 History of Present Illness: Patient is a 76-year-old male comes to the ED with lower back pain. Past medical history of hypertension and chronic lymphocytic leukemia of B-cell type. approximately 6 weeks ago patient states he was lifting some cases of water and injured his lower back. He reinjured his back a couple weeks later after he was lifting 50 pound bag of seeds. Patient saw his PCP Dr. Centeno and he sent him home on some hydrocodone to help with back pain. Back pain improved some initially but is now gotten worse. Patient says for the last week he just bent over to pick something small up off the floor because of worsening pain. Pain is located throughout his lower back bilaterally. Denies any pain radiating down his legs. Pain does radiate around to his abdomen. He endorses having loss of appetite and feeling full. pt had some constipation a week ago but that is since improved. Patient is currently on hydrocodone that he takes at night to help with pain. Denies any bladder or bowel incontinence, pelvic anesthesia or any weakness to lower extremities. Denies any dysuria, hematuria, diarrhea, blood in stool, fevers, chills, vomiting. Associated symptoms: Deny abdominal pain, chills, dysuria, fatigue, fever(s), hematuria, nausea or vomiting Review of Systems Const: Denies: fever(s), chills or fatigue Eyes: Denies: change in vision or eye discomfort ENMT: Denies: throat pain, odynophagia, nasal discharge or nasal congestion Card: Denies: chest pain, palpitations, edema, swelling of feet/ankles, dyspnea on exertion or orthopnea Resp: Denies: dyspnea, productive cough or non-productive cough GI: Denies: abdominal pain, nausea, vomiting, diarrhea, constipation or hematochezia : Denies: flank pain, difficulty urinating, dysuria or hematuria Musc: Reports: back pain; Denies: neck pain or extremity swelling Skin/Breast: Denies: rash or new lesions Neuro: Denies: headache(s), numbness in extremities or weakness in extremities PFS ED PFSH: Medical History 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 Degenerative arthritis Dyslipidemia GERD (gastroesophageal reflux disease) History of stroke (04/2018) HTN (hypertension) Surgical History H/O Mohs micrographic surgery for skin cancer (2018) Hx of bilateral inguinal hernia repair S/P arthroscopic surgery of left knee Family History Father , AT AGE 84 PROSTATE CANCER Cancer Mother , AT AGE 84 Hypertension CAD (coronary artery disease) Sister Dementia Other Hyperlipidemia Stroke Denies family history of Diabetes Clotting disorder Psychiatric illness Chronic kidney disease (CKD) Suicide Anesthesia complication Bleeding disorder Lung disease Social History Smoking and tobacco status: never smoked Alcohol intake: never Adopted: No Caregiver/support person: No Lives independently: No Household members: spouse Marital status: Current occupational status: employed Physical Exam Const: COMMON NORMALS: patient oriented x3 HENMT: COMMON NORMALS: normocephalic HEAD & SCALP: normocephalic MOUTH: Normal oral and palatal mucosa present THROAT: posterior oropharynx normal and uvula midline Neck/C-Spine: COMMON NORMALS: supple GENERAL: Yes normal visual inspection Resp: COMMON NORMALS: normal respiratory effort, No retractions, No use of accessory muscles and clear to auscultation bilaterally AUSCULTATION: clear to auscultation bilaterally Cardio: COMMON NORMALS: regular rate, regular rhythm, S1 normal heart sound present, S2 normal heart sound present, No gallops present (Cardio), No clicks present (Cardio), No murmurs present (Cardio) and Peripheral pulses 2+ throughout RATE: regular rate RHYTHM: regular rhythm HEART SOUNDS: S1 normal heart sound present and S2 normal heart sound present PERIPHERAL PULSES: Peripheral pulses 2+ throughout GI: COMMON NORMALS: Normal to inspection, nondistended, normoactive bowel sounds present, Soft to palpation, non-tender and no masses PALPATION: Yes Soft to palpation : COMMON NORMALS: Yes no CVA tenderness BLADDER/KIDNEY EXAM: Yes no CVA tenderness Back/Pelvis: COMMON NORMALS: no CVA tenderness LUMBAR SPINE/LOWER BACK: Yes lumbar spinal tenderness Lumbar spinal tenderness location: L1 and L2 and Yes paraspinal muscle tenderness Lumbar paraspinal muscle tenderness: bilateral Bilateral lumbar paraspinal muscle tenderness: L4 and L5 Extremity: COMMON NORMALS: normal to inspection Neuro: COMMON NORMALS: patient oriented x3 GAIT: Yes Normal gait present Skin: GENERAL SKIN EXAM: dry skin Course Vital Signs: Vital signs: Vital Signs Temperature 97.7 F 07/14/22 07:47 Pulse Rate 63 07/14/22 08:31 Respiratory Rate 16 07/14/22 07:47 Blood Pressure 122/76 07/14/22 07:47 Pulse Oximetry 94 07/14/22 08:31 Oxygen Delivery Me thod 07/14/22 08:31 Oxygen Flow Rate 2 07/14/22 08:31 MDM - Back Pain/Injury Medical Decision Making Patient is a 76-year-old male comes to the ED with lower back pain. Past medical history of hypertension and chronic lymphocytic leukemia of B-cell type. Back pain has been progressing for 6 weeks. Denies any fevers, pain rating down the leg, weakness to the legs or pelvic anesthesia. Blood pressure 208/102 and the rest of vitals are stable. patient has some L1-L2 lumbar spinal tenderness along with some bilateral lumbar paraspinal muscle tenderness around L4 and L5. Rest of exam is benign. White blood cell count 56, potassium 2.6, sodium 124. CT lumbar spine showed acute T12 compression fracture by 60% with retropulsion by 5 mm encroaching upon the ventral thecal sac. here in the ED patient was having trouble urinating. He urinated 300 mL out and then a bladder scan was done and it showed he had over 500 mL of urine in his bladder. Talbot catheter was placed and over 600 mL of urine drained out. Patient's blood pressures did not go down once pain was controlled, and he was given a dose of IV hydralazine. Given patient's hypertensive urgency, T12 compression fracture, acute urinary retention, hypokalemia and elevated white blood cell count I discussed patient's case with Dr. Asher and recommended he be admitted. Dr. Forbes agreed and took over care of patient and contacted hospitalist for admission. Labs I reviewed the patient's lab results. 07/13/22 09:27 07/13/22 09:27 Radiology Impressions Lumbar Spine CT 07/13/22 09:53 IMPRESSION: 1. Acute T12 compression fracture by 60% with retropulsion by 5 mm encroaching upon the ventral thecal sac. Mild bilateral subarticular recess encroachment. 2. No additional acute fractures. 3. Small LEFT pleural effusion. Abdomen/Pelvis CT 07/13/22 13:55 IMPRESSION: 1. Subsegmental bilateral atelectasis at the lung bases with a small LEFT pleural effusion. 2. No acute abdominal or pelvic abnormalities are identified. 3. No ascites or free air. 4. Talbot catheter in the urinary bladder. 5. Acute compression fractures at T9, T10 and T12 as described above. T12 compression fracture with retropulsion as described on the prior CT of 07/13/2022. Chest CTA 07/13/22 16:18 IMPRESSION: 1. No evidence for pulmonary embolus. 2. Trace pleural effusions and dependent atelectasis. 3. Multiple newly acquired thoracic compression fractures, most likely chronic. COMMENTS: Consistent with the [employer]'s Incidental Findings Committee white paper (J Am Nieves Radiol 2018): Any incidental renal lesion less than 1 cm or classified as too small to characterize, or any incidental cystic renal lesion characterized as simple-appearing, is likely benign. No follow-up imaging is recommended for these lesions per consensus recommendations based on imaging criteria. Thoracic Spine MRI 07/14/22 17:44 IMPRESSION: 1. Acute compression fractures with edema T9, T10, and T12. Fluid-filled fracture cleft at T12. 2. Minimal posterior retropulsion cortical buckling at T10 and T12 with mild central canal stenosis and slight contact of the thoracic cord at T10. 3. No high-grade central canal stenosis. 4. Chronic compression deformities with anterior wedging in the upper thoracic spine without edema. 5. Moderate facet arthropathy in the lower thoracic spine. 6. Trace bilateral pleural fluid. Laboratory Results WBC 56.8 10^3/uL (4.0-10.0) H* 07/13/22 09:27 RBC 3.74 10^6/uL (4.1-5.3) L 07/13/22 09:27 Hgb 12.8 g/dL (11.7-16.6) 07/13/22 09:27 Hct 36.1 % (42.0-52.0) L 07/13/22 09:27 MCV 96.5 fl (80-94) H 07/13/22 09:27 MCH 34.2 pg (28.0-34.0) H 07/13/22 09: MCHC 35.5 g/dL (30.0-36.0) 07/13/22 09: RDW 12.1 % (12.1-15.1) 07/13/22 09: Plt Count 322 10^3/cmm (130-400) 07/13/22 09:27 MPV 8.7 fL (7.4-10.4) 07/13/22 09:27 Neut % (Auto) 15.8 % 07/13/22 09: Lymph % (Auto) 81.0 % 07/13/22 09: [place] % (Auto) 2.7 % 07/13/22 09: Eos % (Auto) 0.1 % 07/13/22 09: Baso % (Auto) 0.1 % 07/13/22 09: Neut # (Auto) 9.01 10^3/uL (1.8-7.7) H 07/13/22 09:27 Lymph # (Auto) 46.0 10^3/uL (0.8-4.8) H 07/13/22 09:27 [place] # (Auto) 1.6 10^3/uL (0.2-0.9) H 07/13/22 09:27 Eos # (Auto) 0.0 10^3/uL (0.0-0.8) 07/13/22 09: Baso # (Auto) 0.1 10^3/uL (0.0-0.1) 07/13/22 09:27 Nucleated RBC % (auto) 0 % 07/13/22: Nucleated RBCs # 0.0 /100WBC 07/13/22 09: Sodium 124 mmol/L (136-145) L 07/13/22 09: Potassium 2.6 mmol/L (3.5-5.1) L* 07/13/22 09: Chloride 84 mmol/L (98-107) L 07/13/22 09: Carbon Dioxide 27 mmol/L (22-29) 07/13/22 09:27 Anion Gap 15.6 (5-19) 07/13/22 09:27 BUN 5 mg/dL (8-23) L 07/13/22 09:27 Creatinine 0.6 mg/dL (0.7-1.2) L 07/13/22 09:27 GFR Calculation Not Reportable 07/13/22 09:27 Glucose 109 mg/dL (65-115) 07/13/22 09:27 Calculated Osmolality 256 mOsm/kg (285-295) L 07/13/22 09:27 Calcium 9.0 mg/dL (8.5-10.5) 07/13/22 09:27 Total Bilirubin 1.0 mg/dL (0.15-1.2) 07/13/22 09:27 AST 24 U/L (0-40) 07/13/22 09:27 ALT 23 U/L (0-41) 07/13/22 09:27 Alkaline Phosphatase 79 U/L (40-130) 07/13/22 09:27 Total Protein 6.5 g/dL (6.6-8.7) L 07/13/22 09:27 Albumin 4.0 g/dL (3.5-5.2) 07/13/22 09:27 Globulin 2.5 g/dL (1.3-4.6) 07/13/22 09:27 Urine Color Yellow (Yellow) 07/13/22 12:47 Urine Appearance Clear (CLEAR) 07/13/22 12:47 Urine pH 6 (5-7) 07/13/22 12:47 Ur Specific [place] 1.015 (1.005-1.030) 07/13/22 12:47 Urine Protein Neg (Negative) 07/13/22 12:47 Urine Glucose (UA) Norm (Normal) 07/13/22 12:47 Urine Ketones 1+ (Negative) H 07/13/22 12:47 Urine Blood Neg (Negative) 07/13/22 12:47 Urine Nitrate Negative (Negative) 07/13/22 12:47 Urine Bilirubin Neg (Negative) 07/13/22 12:47 Urine Urobilinogen Norm mg/dL (Negative) 07/13/22 12:47 Ur Leukocyte Esterase Negative (Negative) 07/13/22 12:47 Discharge Plan Discharge Patient Disposition: Admitted As Inpatient Admit Provider: Christine Ambriz Clinical Impression: Traumatic compression fracture of T12 thoracic vertebra, Acute hypokalemia, Acute urinary retention Condition: Stable Sign Out Sign Out Data: Patient Sign Out occurred on 07/13/22 at 13:26. Patient's care was discussed, and care was transferred from to Khang Asher DO. Coding Level of Care Code ED Jewelry Casting Model Maker Apprentice for Chg Fwd Documented by User: Khang Asher DO 07/14/22 11:28 HPI - Back Pain/Injury General: Chief Complaint: Back Pain/Injury Stated Complaint: Extreme Back Pain Time Seen by Provider: 07/13/22 08:59 PFSH ED PFSH: Medical History 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 Degenerative arthritis Dyslipidemia GERD (gastroesophageal reflux disease) History of stroke (04/2018) HTN (hypertension) Surgical History H/O Mohs micrographic surgery for skin cancer (2018) Hx of bilateral inguinal hernia repair S/P arthroscopic surgery of left knee Family History Father , AT AGE 84 PROSTATE CANCER Cancer Mother , AT AGE 84 Hypertension CAD (coronary artery disease) Sister Dementia Other Hyperlipidemia Stroke Denies family history of Diabetes Clotting disorder Psychiatric illness Chronic kidney disease (CKD) Suicide Anesthesia complication Bleeding disorder Lung disease Social History Smoking and tobacco status: never smoked Alcohol intake: never Adopted: No Caregiver/support person: No Lives independently: No Household members: spouse Marital status: Current occupational status: employed Course Vital Signs: Vital signs: Vital Signs Temperature 97.7 F 07/14/22 07:47 Pulse Rate 63 07/14/22 08:31 Respiratory Rate 16 07/14/22 07:47 Blood Pressure 122/76 07/14/22 07:47 Pulse Oximetry 94 07/14/22 08:31 Oxygen Delivery Me thod 07/14/22 08:31 Oxygen Flow Rate 2 07/14/22 08:31 MDM - Back Pain/Injury Medical Decision Making Patient is a 76-year-old male comes to the ED with lower back pain. Past medical history of hypertension and chronic lymphocytic leukemia of B-cell type. Back pain has been progressing for 6 weeks. Denies any fevers, pain rating down the leg, weakness to the legs or pelvic anesthesia. Blood pressure 208/102 and the rest of vitals are stable. patient has some L1-L2 lumbar spinal tenderness along with some bilateral lumbar paraspinal muscle tenderness around L4 and L5. Rest of exam is benign. White blood cell count 56, potassium 2.6, sodium 124. CT lumbar spine showed acute T12 compression fracture by 60% with retropulsion by 5 mm encroaching upon the ventral thecal sac. here in the ED patient was having trouble urinating. He urinated 300 mL out and then a bladder scan was done and it showed he had over 500 mL of urine in his bladder. Talbot catheter was placed and over 600 mL of urine drained out. Patient's blood pressures did not go down once pain was controlled, and he was given a dose of IV hydralazine. Given patient's hypertensive urgency, T12 compression fracture, acute urinary retention, hypokalemia and elevated white blood cell count I discussed patient's case with Dr. Asher and recommended he be admitted. Dr. Forbes agreed and took over care of patient and contacted hospitalist for admission. Patient care handoff received from Vipul Tovar continuation of ED evaluation. I personally saw and evaluated patient and reperformed [place] portions of E/M. Labs and imaging. CTA of the chest done because of history of CLL and new oxygen requirement. Multiple thoracic compression fractures possibly pathologic no central spinal canal stenosis or significant retropulsion discussed with radiology. Additionally has urinary retention hypokalemia hyponatremia. His white count has been increasing. He had urinary retention. Will admit discussed with hospitalist orders written. Dr. Rapp will consult. Medical Records I reviewed the patient's medical records. Labs I reviewed the patient's lab results. 07/13/22 09:27 07/13/22 09:27 Radiology Impressions Lumbar Spine CT 07/13/22 09:53 IMPRESSION: 1. Acute T12 compression fracture by 60% with retropulsion by 5 mm encroaching upon the ventral thecal sac. Mild bilateral subarticular recess encroachment. 2. No additional acute fractures. 3. Small LEFT pleural effusion. Abdomen/Pelvis CT 07/13/22 13:55 IMPRESSION: 1. Subsegmental bilateral atelectasis at the lung bases with a small LEFT pleural effusion. 2. No acute abdominal or pelvic abnormalities are identified. 3. No ascites or free air. 4. Talbot catheter in the urinary bladder. 5. Acute compression fractures at T9, T10 and T12 as described above. T12 compression fracture with retropulsion as described on the prior CT of 07/13/2022. Chest CTA 07/13/22 16:18 IMPRESSION: 1. No evidence for pulmonary embolus. 2. Trace pleural effusions and dependent atelectasis. 3. Multiple newly acquired thoracic compression fractures, most likely chronic. COMMENTS: Consistent with the [employer]'s Incidental Findings Committee white paper (J Am Nieves Radiol 2018): Any incidental renal lesion less than 1 cm or classified as too small to characterize, or any incidental cystic renal lesion characterized as simple-appearing, is likely benign. No follow-up imaging is recommended for these lesions per consensus recommendations based on imaging criteria. Thoracic Spine MRI 07/14/22 17:44 IMPRESSION: 1. Acute compression fractures with edema T9, T10, and T12. Fluid-filled fracture cleft at T12. 2. Minimal posterior retropulsion cortical buckling at T10 and T12 with mild central canal stenosis and slight contact of the thoracic cord at T10. 3. No high-grade central canal stenosis. 4. Chronic compression deformities with anterior wedging in the upper thoracic spine without edema. 5. Moderate facet arthropathy in the lower thoracic spine. 6. Trace bilateral pleural fluid. Laboratory Results WBC 56.8 10^3/uL (4.0-10.0) H* 07/13/22 09:27 RBC 3.74 10^6/uL (4.1-5.3) L 07/13/22 09:27 Hgb 12.8 g/dL (11.7-16.6) 07/13/22 09:27 Hct 36.1 % (42.0-52.0) L 07/13/22 09:27 MCV 96.5 fl (80-94) H 07/13/22 09:27 MCH 34.2 pg (28.0-34.0) H 07/13/22 09: MCHC 35.5 g/dL (30.0-36.0) 07/13/22 09: RDW 12.1 % (12.1-15.1) 07/13/22 09: Plt Count 322 10^3/cmm (130-400) 07/13/22 09:27 MPV 8.7 fL (7.4-10.4) 07/13/22 09:27 Neut % (Auto) 15.8 % 07/13/22 09: Lymph % (Auto) 81.0 % 07/13/22 09: [place] % (Auto) 2.7 % 07/13/22 09: Eos % (Auto) 0.1 % 07/13/22 09: Baso % (Auto) 0.1 % 07/13/22 09: Neut # (Auto) 9.01 10^3/uL (1.8-7.7) H 07/13/22 09:27 Lymph # (Auto) 46.0 10^3/uL (0.8-4.8) H 07/13/22 09: [place] # (Auto) 1.6 10^3/uL (0.2-0.9) H 07/13/22 09:27 Eos # (Auto) 0.0 10^3/uL (0.0-0.8) 07/13/22 09: Baso # (Auto) 0.1 10^3/uL (0.0-0.1) 07/13/22 09: Nucleated RBC % (auto) 0 % 07/13/22 09: Nucleated RBCs # 0.0 /100WBC 07/13/22 09: Sodium 124 mmol/L (136-145) L 07/13/22 09: Potassium 2.6 mmol/L (3.5-5.1) L* 07/13/22 09: Chloride 84 mmol/L (98-107) L 07/13/22 09: Carbon Dioxide 27 mmol/L (22-29) 07/13/22 09:27 Anion Gap 15.6 (5-19) 07/13/22 09:27 BUN 5 mg/dL (8-23) L 07/13/22 09:27 Creatinine 0.6 mg/dL (0.7-1.2) L 07/13/22 09:27 GFR Calculation Not Reportable 07/13/22 09:27 Glucose 109 mg/dL (65-115) 07/13/22 09:27 Calculated Osmolality 256 mOsm/kg (285-295) L 07/13/22 09:27 Calcium 9.0 mg/dL (8.5-10.5) 07/13/22 09:27 Total Bilirubin 1.0 mg/dL (0.15-1.2) 07/13/22 09:27 AST 24 U/L (0-40) 07/13/22 09:27 ALT 23 U/L (0-41) 07/13/22 09:27 Alkaline Phosphatase 79 U/L (40-130) 07/13/22 09:27 Total Protein 6.5 g/dL (6.6-8.7) L 07/13/22 09:27 Albumin 4.0 g/dL (3.5-5.2) 07/13/22 09:27 Globulin 2.5 g/dL (1.3-4.6) 07/13/22 09:27 Urine Color Yellow (Yellow) 07/13/22 12:47 Urine Appearance Clear (CLEAR) 07/13/22 12:47 Urine pH 6 (5-7) 07/13/22 12:47 Ur Specific [place] 1.015 (1.005-1.030) 07/13/22 12:47 Urine Protein Neg (Negative) 07/13/22 12:47 Urine Glucose (UA) Norm (Normal) 07/13/22 12:47 Urine Ketones 1+ (Negative) H 07/13/22 12:47 Urine Blood Neg (Negative) 07/13/22 12:47 Urine Nitrate Negative (Negative) 07/13/22 12:47 Urine Bilirubin Neg (Negative) 07/13/22 12:47 Urine Urobilinogen Norm mg/dL (Negative) 07/13/22 12:47 Ur Leukocyte Esterase Negative (Negative) 07/13/22 12:47 Discharge Plan Discharge Patient Disposition: Admitted As Inpatient Admit Provider: Christine Ambriz Clinical Impression: Traumatic compression fracture of T12 thoracic vertebra, Acute hypokalemia, Acute urinary retention Condition: Stable Sign Out Sign Out Data: Patient Sign Out occurred on 07/13/22 at 13:26. Patient's care was discussed, and care was transferred from to Khang Asher DO. Coding Level of Care Code ED Jewelry Casting Model Maker Apprentice for mi Ching
[2022-07-13] MEDS: morphine 4 mg/mL SDV 1 mL IVP ×2 (10:00→14:51)
[2022-07-13] MEDS: ondansetron 2 mg/ML SDV 2 mL 4 MG IVP (10:02)
[2022-07-13] MEDS: orphenadrine 30 mg/mL Inj 2 mL 60 MG IVP (10:03)
[2022-07-13 10:09] LABS: Basophils # 0.1 10^3/uL (0.0-0.1); Basophils % 0.1 %; Eosinophils % 0.1 %; Hematocrit 36.1 % (42.0-52.0); Hemoglobin 12.8 g/dL (11.7-16.6); Mean Corpuscular HGB Conc 35.5 g/dL (30.0-36.0); Mean Corpuscular Hemoglobin 34.2 pg (28.0-34.0); Mean Corpuscular Volume 96.5 fl (80-94); Mean Platelet Volume 8.7 fL (7.4-10.4); Monocytes # 1.6 10^3/uL (0.2-0.9); Monocytes % 2.7 %; Neutrophils # 9.01 10^3/uL (1.8-7.7); Neutrophils % 15.8 %; Nucleated Red Blood Cells % 0 %; Platelet Count 322 10^3/cmm (130-400); Red Blood Count 3.74 10^6/uL (4.1-5.3); Red Cell Distribution Width 12.1 % (12.1-15.1)
[2022-07-13 10:13] LABS: Alanine Aminotransferase 23 U/L (0-41); Alkaline Phosphatase 79 U/L (40-130); Anion Gap 15.6 (5-19); Aspartate Amino Transferase 24 U/L (0-40); Blood Urea Nitrogen 5 mg/dL (8-23); Carbon Dioxide 27 mmol/L (22-29); Chloride 84 mmol/L (98-107); Globulin 2.5 g/dL (1.3-4.6); Glucose 109 mg/dL (65-115); Osmolality Calculated 256 mOsm/kg (285-295); Sodium 124 mmol/L (136-145); Total Protein 6.5 g/dL (6.6-8.7)
[2022-07-13 10:15] LABS: Creatinine Clr Calc Pharmacy 84.4716; Potassium 2.6 mmol/L (3.5-5.1)
--- NOTE | 2022-07-13 10:31 | ECG_ITS ---
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 Measurements Intervals [place] Rate: 78 P: -15 MA: 201 QRS: -22 QRSD: 110 T: 0 QT: 411 QTc: 471 Interpretive Statements SINUS RHYTHM WITH OCCASIONAL SUPRAVENTRICULAR PREMATURE COMPLEXES POSSIBLE LEFT ATRIAL ENLARGEMENT [-0.1mV P-WAVE IN V1/V2] BORDERLINE LEFT AXIS DEVIATION [QRS AXIS < -20] POSSIBLE LEFT VENTRICULAR HYPERTROPHY [VOLTAGE CRITERIA PLUS LAE OR QRS WIDENING] MODERATE T-WAVE ABNORMALITY, CONSIDER ANTERIOR ISCHEMIA [-0.1+ mV T-WAVE IN V3/V4] Compared to ECG 04/28/2018 12:28:59 T-wave abnormality now present Possible ischemia now present First degree AV block no longer present Electronically Signed On 07-13-2022 11:54:12 CDT by Yobani King M.D. [id number]
[2022-07-13] MEDS: lidocaine 1% 5 ML in potassium chloride premix 100 ML 26.25 ML IV (10:33)
[2022-07-13 10:35] LABS: Slide Review Slide Review Perform
[2022-07-13 10:36] LABS: White Blood Count 56.8 10^3/uL (4.0-10.0)
--- NOTE | 2022-07-13 10:42 | PC.PHAR ---
pts verified pts medications-pts states she has been giving the pt lexapro 10mg bid for the last week ext med history shows last filled 06/22/22 30d/s for 10mg daily-pts states for the last week she has been giving him miralax 17g hs,colace 200mg hs and senna s 2 tabs hs-pts states the pt is taking lisinopril 40mg qam [facility] states [facility] ha[facility] for the pt states they have an rx on hold from 04/14/21 40mg daily-
[2022-07-13] MEDS: sodium chloride 0.9% 500 ML 125 ML IV (10:50)
--- NOTE | 2022-07-13 12:38 | PC.NURSE ---
pt resting in room with significant other, pt stated he still cannot go pee at this time, student nurse educated pt on possible straight cath for urine specimen
[2022-07-13 12:56] LABS: Add Urine Microscopic? NO; Charge for UA Resulting for Rev
[2022-07-13 13:16] LABS: Bilirubin Urine Neg (Negative); Blood Urine Neg (Negative); Glucose Urine UA Norm (Normal); Ketones Urine 1+ (Negative); Leukocyte Esterase Urine Negative (Negative); Nitrate Urine Negative (Negative); Protein Urine Neg (Negative); Specific Gravity, Urine 1.015 (1.005-1.030); Urine Appearance Clear (CLEAR); Urine Color Yellow (Yellow); Urobilinogen Urine Norm (Negative); pH Urine 6 (5-7)
[2022-07-13] MEDS: hyDRALAzine 20 mg/mL INJ 1 mL IVP (13:23)
--- NOTE | 2022-07-13 13:55 | CT_ITS ---
WS: [id number] CT ABDOMEN AND PELVIS WITH CONTRAST HISTORY: Pain. TECHNIQUE: Imaging performed of the abdomen and pelvis with IV contrast. Single phase imaging of the abdomen. Coronal and sagittal reformats are submitted. All CT scans at [facility] use at [address] one of these dose optimization techniques: automated exposure control; mA and/or kV adjustment per patient size (includes targeted exams where dose is matched to clinical indication); or iterative re construction. IV CONTRAST: Omnipaque 350; 100 mL IV. Oral contrast: No DLP: 461.40 mGy.cm COMPARISON: None available. Lower thorax: Dependent changes and mild atelectasis at the lung bases. There is a small LEFT pleural effusion. Mild cardiomegaly. No hiatal hernia. Liver/biliary system: Normal size with no intrahepatic dilatation. Gallbladder: Normal. No gallstones or wall thickening. No pericholecystic fluid. Pancreas: Normal size pancreas and pancreatic duct. No adjacent inflammation. Spleen: Normal size spleen. No mass or infarct. Granulomata. Adrenal glands: Normal. Right kidney: Normal size kidney. 8 mm cortical cyst upper pole. No solid mass or obstruction. Left kidney: Normal size kidney with no obstruction. Mild perinephric stranding. Aorta: Moderate atherosclerosis with no aneurysm. Lymphadenopathy: None. Free fluid: No free fluid. Mild mesenteric edema and anasarca. GI tract: Nondistended stomach. No small bowel obstruction. The appendix is not identified and may be en surgically removed. No colon obstruction. Abdominal wall: Fat containing umbilical hernia. Pelvis: No free fluid or adenopathy within the pelvis. Talbot catheter in the urinary bladder. Small a mount of air in the bladder. Bones: Osteoporotic compression fractures identified in the lower lumbar spine. The T12 compression f racture by 60% with retropulsion of the vertebral body was described on the lumbar spine CT performed today. Additional T9 and T10 vertebral body compression fractures are identified. T9 fracture is inc ompletely visualized. The T10 fracture is at least 30% without retropulsion. CT/CT abdomen pelvis w con* [id number] IMPRESSION: 1. Subsegmental bilateral atelectasis at the lung bases with a small LEFT pleu ral effusion. 2. No acute abdominal or pelvic abnormalities are identified. 3. No ascites or free air. 4. Talbot catheter in the urinary bladder. 5. Acute compression fractures at T9, T10 and T12 as described above. T12 comp ression fracture with retropulsion as described on the prior CT of 07/13/2022.
--- NOTE | 2022-07-13 14:27 | DCPLANNER ---
Addendum entered by Mariel Whelan 07/16/22 08:41: This appointment will be rescheduled due to patient being admitted to hospital Addendum entered by Mariel Whelan 07/14/22 07:44: Patient has a follow up appointment scheduled for July at 8:00 with Danis Dodd at ortho. demand manager received the following message from the ortho clinic regarding follow up appointment: patient scheduled for 07/15 at 8am w/ danis ovalle - pt did advise me that he was being admitted so they will keep us posted if he is not out by then Original Note: demand manager had message to schedule a follow up appointment for patient with ortho. demand manager sent patients information to the front office staff at ortho. Patients information will be printed and reviewed. Clinic will call patient with appointment information.
[2022-07-13] MEDS: iohexol 350 mg/mL 500 mL Btl (per mL) IV ×2 (15:25→16:53)
--- NOTE | 2022-07-13 16:18 | CTR_ITS ---
PROCEDURE INFORMATION: Exam: CTA Chest With Contrast Exam date and time: 07/13/2022 4:37 PM Age: 76 years old Clinical indication: Dyspnea and other: Cll cancer; Additional info: Dyspnea, hypoxia, cll TECHNIQUE: Imaging protocol: Computed tomographic angiography of the chest with contrast. 3D rendering (Not supervised by radiologist): MIP and/or 3D reconstructed images were created by the technologist. Radiation optimization: All CT scans at this facility use at least one of these dose optimization techniques: automated exposure control; mA and/or kV adjustment per patient size (includes targeted exams where dose is matched to clinical indication); or iterative reconstruction. Contrast material: OMNI 350; Contrast volume: 100 ml; Contrast route: INTRAVENOUS (IV); REPORTING DATA: Count of CT and Cardiac NM exams in prior 12 months: This patient has received 2 known CTs and 0 known cardiac nuclear medicine studies in the 12 months prior to the current study. COMPARISON: CT angio chest PE protcl [id number] 06/22/2017 1:03 AM RADIATION DOSE METRICS: Total DLP (mGy-cm): 381.06 FINDINGS: Pulmonary arteries: Normal. No pulmonary emboli. 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 No dissection. Lungs: Azygos fissure. Dependent atelectasis in both lower lobes and lingula. Shallow inspiration with crowding. Pleural spaces: Trace left and right pleural effusions. No pneumothorax. Heart: Unremarkable. No cardiomegaly. No pericardial effusion. Coronary arteries: Coronary artery calcifications. Lymph nodes: Unremarkable. No enlarged lymph nodes. Gallbladder and bile ducts: Fluid distended gallbladder. No wall thickening. Spleen: Calcified granulomas in the spleen. Kidneys and ureters: Hypodensity in the right kidney is too small to characterize but is most likely a cyst. No follow-up imaging is recommended. Perinephric stranding is chronic and unchanged. Bones/joints: Thoracic curvature and kyphosis. New T2, T5, T6, T9, T10, and T12 compression fractures. Mild chronic T7 compression fracture. Soft tissues: Unremarkable. CT/CT angio chest PE protcl [id number] IMPRESSION: 1. No evidence for pulmonary embolus. 2. Trace pleural effusions and dependent atelectasis. 3. Multiple newly acquired thoracic compression fractures, most likely chronic. COMMENTS: Consistent with the [employer]'s Incidental Findings Committee white paper (J Am Nieves Radiol 2018): Any incidental renal lesion less than 1 cm or classified as too small to characterize, or any incidental cystic renal lesion characterized as simple-appearing, is likely benign. No follow-up imaging is recommended for these lesions per consensus recommendations based on imaging criteria.
--- NOTE | 2022-07-13 17:34 | P.CONIM_ITS ---
Providers/Reason For Consult Consulting Physician/Specialty*: Ortho SPine Reason for Consult*: Back Pain Attending Physician: Christine Ambriz MD Primary Care Provider: Manolo Centeno DO History of Present Illness History of Present Illness Reilly Friedman is a 76 year old male who presented to [facility] following increased back pain. 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 He has a history of stroke and takes Plavix. He denies any leg pain describes his back pain is sharp stabbing constant in nature. Any movement makes it much worse rest has not given him any relief either. He presented to the emergency room where orthopedics was consulted for his back pain he was belén luated in room 260 with his family present. He reports constant sharp stabbing pain in his mid and low back. Ranks the pain as 6 out of 10 on the pain scale. Denies any loss of bowel or bladder control. He is under the care of Dr. Conley for his leukemia. Review of Systems Const: Denies: fever(s), chills or fatigue Eyes: Denies: change in vision or eye discomfort ENMT: Denies: throat pain, odynophagia, nasal discharge or nasal congestion Card: Denies: chest pain, palpitations, edema, swelling of feet/ankles, dyspnea on exertion or orthopnea Resp: Denies: dyspnea, productive cough or non-productive cough GI: Denies: abdominal pain, nausea, vomiting, diarrhea, constipation or hematochezia : Denies: flank pain, difficulty urinating, dysuria or hematuria Musc: Reports: back pain; Denies: neck pain or extremity swelling Skin/Breast: Denies: rash or new lesions Neuro: Denies: headache(s), numbness in extremities or weakness in extremities Medications/Allergies Home Medications Medication Instructions Recorded Confirmed Last Taken Type aspirin 81 mg tablet,delayed 81 mg PO QAM 10/09/19 07/13/22 07/13/22 History release (Adult Low Dose Aspirin) clopidogrel 75 mg tablet 75 mg PO QAM 10/09/19 07/13/22 07/13/22 07:30 History hydrocodone 5 mg-acetaminophen 325 1 tab PO Q4H PRN back pain, muscle 07/05/22 07/13/22 Unknown Rx mg tablet spasm 1 week #30 tabs acetaminophen 500 mg tablet 1,000 mg PO Q6H PRN Pain 07/13/22 07/13/22 Unknown History amlodipine 5 mg tablet 5 mg PO BEDTIME 07/13/22 07/13/22 07/12/22 History docusate sodium 100 mg capsule 200 mg PO BEDTIME 07/13/22 07/13/22 07/12/22 History (Colace) escitalopram oxalate 10 mg tablet 10 mg PO BID 07/13/22 07/13/22 07/13/22 07:30 History for the last week bi fluticasone propionate 50 1 spray intranasal BEDTIME PRN 07/13/22 07/13/22 Unknown History mcg/actuation nasal Allergy Symptoms spray,suspension ibuprofen 200 mg tablet 800 mg PO Q8H PRN Pain 07/13/22 07/13/22 Unknown History lisinopril 40 mg tablet 40 mg PO QAM 07/13/22 07/13/22 07/13/22 07:30 History see pharmacy comment omeprazole 20 mg capsule,delayed 20 mg PO QAM 07/13/22 07/13/22 07/13/22 History release polyethylene glycol 3350 17 gram 17 g PO BEDTIME 07/13/22 07/13/22 Unknown History oral powder packet (Miralax) sennosides 8.6 mg-docusate sodium 2 tab PO BEDTIME 07/13/22 07/13/22 07/12/22 History 50 mg tablet (Senna-S) simvastatin 40 mg tablet 40 mg PO BEDTIME 07/13/22 07/13/22 07/12/22 History tamsulosin 0.4 mg capsule 0.4 mg PO QAM 07/13/22 07/13/22 07/13/22 History Allergies Allergy/AdvReac Type Severity Reaction Status Date / Time meperidine [From Demerol] Allergy Unknown UNKNOWN Verified 07/13/22 10:25 Penicillins Allergy Unknown Unknown Verified 07/13/22 10:25 Sulfa (Sulfonamide Allergy Unknown UNKNOWN Verified 07/13/22 10:25 Antibiotics) CELERY SEED Allergy Severe ALGY-Difficulty Uncoded 04/27/22 14:44 Breathing PFSH Acute PFSH: Medical History 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 Degenerative arthritis Dyslipidemia GERD (gastroesophageal reflux disease) History of stroke (04/2018) HTN (hypertension) Surgical History H/O Mohs micrographic surgery for skin cancer (2018) Hx of bilateral inguinal hernia repair S/P arthroscopic surgery of left knee Family History Father , AT AGE 84 PROSTATE CANCER Cancer Mother , AT AGE 84 Hypertension CAD (coronary artery disease) Sister Dementia Other Hyperlipidemia Stroke Denies family history of Diabetes Clotting disorder Psychiatric illness Chronic kidney disease (CKD) Suicide Anesthesia complication Bleeding disorder Lung disease Social History Smoking and tobacco status: never smoked Alcohol intake: never Adopted: No Caregiver/support person: No Lives independently: No Household members: spouse Marital status: Current occupational status: employed Vitals/I&O/Wt Last Vital Signs Temp 97.7 F 07/13/22 09:14 Pulse 90 07/13/22 14:15 Resp 16 07/13/22 14:51 BP 154/76 07/13/22 14:15 Pulse Ox 94 07/13/22 14:51 O2 Del Method 07/13/22 09:18 07/13/22 07/13/22 07/13/22 06:59 14:59 22:59 Intake Total 605 / 605 Balance 605 / 605 Weight last 48 hrs Weight 170 lb Physical Exam Narrative: Patient is alert orient x3 has a good general appearance normal mood and affect. Severe palpatory and percussion pain throughout the paraspinous musculature of the thoracolumbar spine. Normal sensation to light touch through all dermatomal layers. Normal sensation light touch down both lower extremities with 4/5 motor strength throughout all motor groups. No palpable pain over the SI joints bilaterally. Negative Dontrell and Fabere sign. Negative straight leg raise bilaterally. Skin is clear warm with normal sensation to light touch, calves are supple with no medial thigh tenderness, negative Homans' sign. No palpable lymphadenopathy bilaterally. Reflexes are 2+ and symmetric about the knees and Achilles. No hyperreflexia or clonus. Downgoing Babinski's bilaterally. Dorsalis pedis and posterior tibial pulses are 2+. No palpable edema bilaterally. HENMT: COMMON NORMALS: normocephalic and atraumatic HEAD & SCALP: normocephalic and atraumatic Resp: COMMON NORMALS: normal respiratory effort Cardio: COMMON NORMALS: regular rate and regular rhythm RATE: regular rate RHYTHM: regular rhythm GI: COMMON NORMALS: Soft to palpation and non-tender PALPATION: Yes Soft to palpation : COMMON NORMALS: Yes no CVA tenderness BLADDER/KIDNEY EXAM: Yes no CVA tenderness Back/Pelvis: COMMON NORMALS: no CVA tenderness Psych: COMMON NORMALS: mental status grossly normal and cooperative Urinary Catheter Management: Coude: Cath Placed During This Visit: yes Urinary Catheter Date of Insertion: 07/13/22 Urinary Catheter Time of Insertion: 13:22 Data 07/13/22 09:27 07/13/22 09:27 A&P Assessment and plan (1) Traumatic compression fracture of T12 thoracic vertebra: At this point will recommend MRI scans of his thoracic and lumbar spine. He is on Plavix discussed with him treatment options involve TLSO brace versus kyphoplasty procedure. We will await the studies to discuss more further treatment recommendations. (2) Chronic lymphocytic leukemia of B-cell type not having achieved remission: (3) Back pain: Coding Level of Care Code Acute Code for [facility] Diagnoses Traumatic compression fracture of T12 thoracic vertebra S22.080A Chronic lymphocytic leukemia of B-cell type not having achieved remission C91.10 Back pain M54.9
[2022-07-13] MEDS: sodium chloride 0.9% 1,000 ML 100 ML IV (17:48)
--- NOTE | 2022-07-13 18:21 | PM.HP ---
Providers/Chief Complaint Admitting Physician: Christine Ambriz MD Primary Care Provider: Manolo Centeno DO Chief Complaint: Extreme Back Pain History of Present Illness Reilly Friedman is a 76 year old male with known CLL currently on expectant management presents to the hospital today with chief complaints of worsening back pain. He had initially visited with his primary care provider on June 30, 2022 for back pain which started after he was lifting some heavy cases of water and injured his lower back. After a few days he was lifting heavy weight again by way of 50 pound bag of seeds, was diagnosed with musculoskeletal pain and started on hydrocodone. Initially his back pain was improving but is now getting worse. He presented to the emergency room for this reason. He denies any bladder or bowel incontinence, paresthesias or weakness to lower extremities. However he was noted to be retaining 500 cc of urine for which a Talbot catheter was placed with drainage. He has been constipated at home and taking laxatives for the same. He denies any fever chills nausea vomiting diarrhea. He is noted to have hypokalemia today on labs. CT of his abdomen and pelvis was performed which showed a small left pleural effusion incidentally, an acute compression fractures at T9-T10 and T12. At the T12 level there was retropulsion also noted. Orthopedic service has been consulted given these findings. No history of being on chronic steroids. Do not see any medications on his list that would predispose him to a pathological fracture. He is not known to have any metastatic disease. Upon initial presentation he was requiring 2 L/min supplemental oxygen. Due to concern for PE a CT of the chest was performed and study is negative for the same. Review of Systems General: Reports: 10 or more systems reviewed and unremarkable except in HPI and below Const: Denies: fever(s), chills or body aches Eyes: Denies: change in vision, blurry vision or photophobia ENMT: Reports: hoarseness; Denies: throat pain, enlarged tonsils, odynophagia or nasal congestion Card: Denies: chest pain, palpitations, irregular heart rhythm, edema, swelling of feet/ankles, lightheadedness, pre-syncope, dyspnea on exertion or orthopnea Resp: Denies: dyspnea, productive cough, non-productive cough, wheezing, stridor, pain on inspiration, change in phlegm color, hemoptysis or chest congestion GI: Denies: abdominal pain, nausea, vomiting, hematemesis, coffee ground emesis, dysphagia, heartburn, diarrhea, constipation, GI cramping, change in stool character, hematochezia or melena : Denies: flank pain, dysuria, urinary frequency, urinary urgency, urinary hesitancy or hematuria Musc: Denies: neck pain, back pain, extremity pain, joint swelling, joint warmth or deformity Neuro: Denies: headache(s), numbness in extremities, weakness in extremities, sensory changes, difficulty walking, frequent falls, dizziness, vertigo, behavioral changes, Slurred speech present or seizure-like activity Psych: Denies: anxiety, depression, suicidal ideation or homicidal ideation Endo: Denies: polyuria, polydipsia, tired all the time, cold intolerance or hot flashes Elver/Lymph: Denies: easy bruising or easy bleeding Medications/Allergies Home Medications Medication Instructions Recorded Confirmed Last Taken Type aspirin 81 mg tablet,delayed 81 mg PO [facility] 10/09/19 07/13/22 07/13/22 History release (Adult Low Dose Aspirin) clopidogrel 75 mg tablet 75 mg PO QAM 10/09/19 07/13/22 07/13/22 07:30 History hydrocodone 5 mg-acetaminophen 325 1 tab PO Q4H PRN back pain, muscle 07/05/22 07/13/22 Unknown Rx mg tablet spasm 1 week #30 tabs acetaminophen 500 mg tablet 1,000 mg PO Q6H PRN Pain 07/13/22 07/13/22 Unknown History amlodipine 5 mg tablet 5 mg PO BEDTIME 07/13/22 07/13/22 07/12/22 History docusate sodium 100 mg capsule 200 mg PO BEDTIME 07/13/22 07/13/22 07/12/22 History (Colace) escitalopram oxalate 10 mg tablet 10 mg PO BID 07/13/22 07/13/22 07/13/22 07:30 History for the last week bi fluticasone propionate 50 1 spray intranasal BEDTIME PRN 07/13/22 07/13/22 Unknown History mcg/actuation nasal Allergy Symptoms spray,suspension ibuprofen 200 mg tablet 800 mg PO Q8H PRN Pain 07/13/22 07/13/22 Unknown History lisinopril 40 mg tablet 40 mg PO QAM 07/13/22 07/13/22 07/13/22 07:30 History see pharmacy comment omeprazole 20 mg capsule,delayed 20 mg PO QAM 07/13/22 07/13/22 07/13/22 History release polyethylene glycol 3350 17 gram 17 g PO BEDTIME 07/13/22 07/13/22 Unknown History oral powder packet (Miralax) sennosides 8.6 mg-docusate sodium 2 tab PO BEDTIME 07/13/22 07/13/22 07/12/22 History 50 mg tablet (Senna-S) simvastatin 40 mg tablet 40 mg PO BEDTIME 07/13/22 07/13/22 07/12/22 History tamsulosin 0.4 mg capsule 0.4 mg PO QAM 07/13/22 07/13/22 07/13/22 History Allergies Allergy/AdvReac Type Severity Reaction Status Date / Time meperidine [From Demerol] Allergy Unknown UNKNOWN Verified 07/13/22 10:25 Penicillins Allergy Unknown Unknown Verified 07/13/22 10:25 Sulfa (Sulfonamide Allergy Unknown UNKNOWN Verified 07/13/22 10:25 Antibiotics) CELERY SEED Allergy Severe ALGY-Difficulty Uncoded 04/27/22 14:44 Breathing PFSH Acute PFSH: Medical History 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 Degenerative arthritis Dyslipidemia GERD (gastroesophageal reflux disease) History of stroke (04/2018) HTN (hypertension) Surgical History H/O Mohs micrographic surgery for skin cancer (2018) Hx of bilateral inguinal hernia repair S/P arthroscopic surgery of left knee Family History Father , AT AGE 84 PROSTATE CANCER Cancer Mother , AT AGE 84 Hypertension CAD (coronary artery disease) Sister Dementia Other Hyperlipidemia Stroke Denies family history of Diabetes Clotting disorder Psychiatric illness Chronic kidney disease (CKD) Suicide Anesthesia complication Bleeding disorder Lung disease Social History Smoking and tobacco status: never smoked Alcohol intake: never Adopted: No Caregiver/support person: No Lives independently: No Household members: spouse Marital status: Current occupational status: employed Vitals/I&O/Wt Last Vital Signs Temp 97.7 F 07/13/22 09:14 Pulse 90 07/13/22 14:15 Resp 16 07/13/22 14:51 BP 154/76 07/13/22 14:15 Pulse Ox 94 07/13/22 14:51 O2 Del Method 07/13/22 17:30 07/13/22 07/13/22 07/13/22 06:59 14:59 22:59 Intake Total 605 / 605 Balance 605 / 605 Weight last 48 hrs Weight 77.111 kg Physical Exam Narrative: General: No acute distress, AO x3 HEENT: PERRLA, pupils bilaterally equal and reactive, pallors not present Chest: Normal vesicular breath sounds, no added sounds, equal good air entry bilaterally CVS: S1-S2 regular, no murmurs, no tachycardia, no gallops, no rubs Abdomen: Soft, nontender, no organomegaly, bowel sounds present Neuro: No focal deficits, no facial deformity, AO x3, power 5/5 in all limbs Urinary Catheter Management: Coude: Cath Placed During This Visit: yes Urinary Catheter Date of Insertion: 07/13/22 Urinary Catheter Time of Insertion: 13:22 Data 07/13/22 09:27 07/13/22 09:27 Other Labs: Launch?Image [id number] [place] [address] CT Scan Report Signed Patient: Reilly Friedman Unit #: [id number] : 1945 Age/Sex: 76 / M ADM Date: 07/13/22 Loc: ER Room/Bed: Attending Dr: Ordering Provider/Ordering MD: Khang Asher DO Date of Service: 07/13/22 Procedure(s): CT abdomen pelvis w con* [id number] Accession Number(s): [id number] Report Number: [id number] WS: [id number] CT ABDOMEN AND PELVIS WITH CONTRAST HISTORY: Pain. TECHNIQUE: Imaging performed of the abdomen and pelvis with IV contrast.? Single phase imaging of the abdomen. Coronal and sagittal reformats are submitted.? All [facility] scans at [facility] use at least one of these dose optimization techniques: automated exposure control; mA and/or kV adjustment per patient size (includes targeted exams where dose is matched to clinical indication); or iterative reconstruction. IV CONTRAST: Omnipaque 350; 100? mL IV. Oral contrast: No DLP: 461.40 mGy.cm COMPARISON: None available. Lower thorax: Dependent changes and mild atelectasis at the lung bases. There is a small LEFT pleural effusion. Mild cardiomegaly. No hiatal hernia. Liver/biliary system: Normal size with no intrahepatic dilatation. Gallbladder: Normal. No gallstones or wall thickening. No pericholecystic fluid.? Pancreas: Normal size pancreas and pancreatic duct. No adjacent inflammation. Spleen: Normal size spleen. No mass or infarct.? Granulomata. Adrenal glands: Normal. Right kidney: Normal size kidney. 8 mm cortical cyst upper pole. No solid mass or obstruction. Left kidney: Normal size kidney with no obstruction. Mild perinephric stranding. Aorta: Moderate atherosclerosis with no aneurysm. Lymphadenopathy: None. Free fluid: No free fluid. Mild mesenteric edema and anasarca. GI tract: Nondistended stomach. No small bowel obstruction. The appendix is not identified and may been surgically removed. No colon obstruction. Abdominal wall: Fat containing umbilical hernia. Pelvis: No free fluid or adenopathy within the pelvis. Talbot catheter in the urinary bladder. Small amount of air in the bladder. Bones: Osteoporotic compression fractures identified in the lower lumbar spine. The T12 compression fracture by 60% with retropulsion of the vertebral body was described on the lumbar spine CT performed today. Additional T9 and T10 vertebral body compression fractures are identified. T9 fracture is incompletely visualized. The T10 fracture is at least 30% without retropulsion. CT/CT abdomen pelvis w con* [id number] IMPRESSION: ? 1.? Subsegmental bilateral atelectasis at the lung bases with a small LEFT pleural effusion. 2.? No acute abdominal or pelvic abnormalities are identified. 3.? No ascites or free air. 4.? Talbot catheter in the urinary bladder. 5.? Acute compression fractures at T9, T10 and T12 as described above. T12 compression fracture with retropulsion as described on the prior CT of 07/13/2022. Radiology Impressions Lumbar Spine CT 07/13/22 09:53 IMPRESSION: 1. Acute T12 compression fracture by 60% with retropulsion by 5 mm encroaching upon the ventral thecal sac. Mild bilateral subarticular recess encroachment. 2. No additional acute fractures. 3. Small LEFT pleural effusion. Abdomen/Pelvis CT 07/13/22 13:55 IMPRESSION: 1. Subsegmental bilateral atelectasis at the lung bases with a small LEFT pleural effusion. 2. No acute abdominal or pelvic abnormalities are identified. 3. No ascites or free air. 4. Talbot catheter in the urinary bladder. 5. Acute compression fractures at T9, T10 and T12 as described above. T12 compression fracture with retropulsion as described on the prior CT of 07/13/2022. Chest CTA 07/13/22 16:18 IMPRESSION: 1. No evidence for pulmonary embolus. 2. Trace pleural effusions and dependent atelectasis. 3. Multiple newly acquired thoracic compression fractures, most likely chronic. COMMENTS: Consistent with the [employer]'s Incidental Findings Committee white paper (J Am Nieves Radiol 2018): Any incidental renal lesion less than 1 cm or classified as too small to characterize, or any incidental cystic renal lesion characterized as simple-appearing, is likely benign. No follow-up imaging is recommended for these lesions per consensus recommendations based on imaging criteria. Lumbar Spine MRI 07/14/22 17:42 IMPRESSION: 1. Biconcave compression at T12 vertebral body with fluid-filled fracture cleft. Associated edema. Findings consistent with recent acute compression. 2. Mild buckling of the posterior T12 cortex with mild central canal stenosis. 3. Annular bulging L3-L4 with slight impingement on the RIGHT subarticular recess and traversing RIGHT L4 nerve root. Mild RIGHT foraminal narrowing. 4. Mild annular bulging L4-L5 with slight effacement of the thecal sac. Mild RIGHT foraminal narrowing. 5. Mild facet arthropathy L3-L5. 6. Mild RIGHT L2-L3 foraminal narrowing with narrowing of the RIGHT subarticular recess. Thoracic Spine MRI 07/14/22 17:44 IMPRESSION: 1. Acute compression fractures with edema T9, T10, and T12. Fluid-filled fracture cleft at T12. 2. Minimal posterior retropulsion cortical buckling at T10 and T12 with mild central canal stenosis and slight contact of the thoracic cord at T10. 3. No high-grade central canal stenosis. 4. Chronic compression deformities with anterior wedging in the upper thoracic spine without edema. 5. Moderate facet arthropathy in the lower thoracic spine. 6. Trace bilateral pleural fluid. Laboratory Results WBC 45.7 10^3/uL (4.0-10.0) H* 07/14/22 04:30 RBC 3.32 10^6/uL (4.1-5.3) L 07/14/22 04:30 Hgb 11.2 g/dL (11.7-16.6) L 07/14/22 04:30 Hct 33.0 % (42.0-52.0) L 07/14/22 04:30 MCV 99.4 fl (80-94) H 07/14/22 04:30 MCH 33.7 pg (28.0-34.0) 07/14/22 04:30 MCHC 33.9 g/dL (30.0-36.0) 07/14/22 04:30 RDW 12.6 % (12.1-15.1) 07/14/22 04:30 Plt Count 297 10^3/cmm (130-400) 07/14/22 04:30 MPV 8.6 fL (7.4-10.4) 07/14/22 04:30 Neut % (Auto) 14.4 % 07/14/22 04:30 Lymph % (Auto) 80.7 % 07/14/22 04:30 [place] % (Auto) 3.7 % 07/14/22 04:30 Eos % (Auto) 0.6 % 07/14/22 04:30 Baso % (Auto) 0.3 % 07/14/22 04:30 Neut # (Auto) 6.56 10^3/uL (1.8-7.7) 07/14/22 04:30 Lymph # (Auto) 36.9 10^3/uL (0.8-4.8) H 07/14/22 04:30 [place] # (Auto) 1.7 10^3/uL (0.2-0.9) H 07/14/22 04:30 Eos # (Auto) 0.3 10^3/uL (0.0-0.8) 07/14/22 04:30 Baso # (Auto) 0.1 10^3/uL (0.0-0.1) 07/14/22 04:30 Nucleated RBC % (auto) 0 % 07/14/22 04:30 Nucleated RBCs # 0.0 /100WBC 07/14/22 04:30 Sodium 122 mmol/L (136-145) L 07/14/22 04:30 Potassium 3.2 mmol/L (3.5-5.1) L 07/14/22 04:30 Chloride 85 mmol/L (98-107) L 07/14/22 04:30 Carbon Dioxide 29 mmol/L (22-29) 07/14/22 04:30 Anion Gap 11.2 (5-19) 07/14/22 04:30 BUN 7 mg/dL (8-23) L 07/14/22 04:30 Creatinine 0.8 mg/dL (0.7-1.2) 07/14/22 04:30 GFR Calculation Not Reportable 07/14/22 04:30 Glucose 85 mg/dL (65-115) 07/14/22 04:30 Calculated Osmolality 251 mOsm/kg (285-295) L 07/14/22 04:30 Calcium 8.5 mg/dL (8.5-10.5) 07/14/22 04:30 Total Bilirubin 0.7 mg/dL (0.15-1.2) 07/14/22 04:30 AST 19 U/L (0-40) 07/14/22 04:30 ALT 19 U/L (0-41) 07/14/22 04:30 Alkaline Phosphatase 69 U/L (40-130) 07/14/22 04:30 NT-Pro-B Natriuret Pep 1912 pg/mL (0-450) H 07/14/22 04:30 Total Protein 5.6 g/dL (6.6-8.7) L 07/14/22 04:30 Albumin 3.5 g/dL (3.5-5.2) 07/14/22 04:30 Globulin 2.1 g/dL (1.3-4.6) 07/14/22 04:30 Urine Color Yellow (Yellow) 07/13/22 12:47 Urine Appearance Clear (CLEAR) 07/13/22 12:47 Urine pH 6 (5-7) 07/13/22 12:47 Ur Specific [place] 1.015 (1.005-1.030) 07/13/22 12:47 Urine Protein Neg (Negative) 07/13/22 12:47 Urine Glucose (UA) Norm (Normal) 07/13/22 12:47 Urine Ketones 1+ (Negative) H 07/13/22 12:47 Urine Blood Neg (Negative) 07/13/22 12:47 Urine Nitrate Negative (Negative) 07/13/22 12:47 Urine Bilirubin Neg (Negative) 07/13/22 12:47 Urine Urobilinogen Norm mg/dL (Negative) 07/13/22 12:47 Ur Leukocyte Esterase Negative (Negative) 07/13/22 12:47 A&P Assessment and plan (1) Acute hypokalemia: (2) Acute urinary retention: (3) Traumatic compression fracture of T12 thoracic vertebra: (4) Back pain: (5) Chronic lymphocytic leukemia of B-cell type not having achieved remission: Plan 76-year-old male with known CLL presenting to the hospital with fracture over the thoracic spine sustained after lifting heavy weights most likely. Currently has significant pain Also had urinary retention of about 500 cc for which Talbot needed to be placed. He is constipated. We will admit him to the hospital due to significant pain and patient will need appropriate measures to control pain. Started on IV morphine which is not currently helping. Will place patient on fentanyl patch. 25 mcg. Morphine 2 mg IV every 4 as needed, [place] 08/11/2024 every 4 hours as needed, add t Toradol 15 mg IV every 8 hours. Locally will also apply lidocaine patch. MRI of the spine has been ordered to evaluate for spinal root compression. Orthopedic consult has been sought Other issues at this time include hypokalemia which has been repleted IV. Also has hyponatremia with sodium of 124, currently on normal saline, will monitor with a.m. labs. Per he has had poor p.o. intake over the last few days due to his pain. Also reporting constipation. Attestations Medical Necessity Statement*: Greater than 2 midnight admission is anticipated for pain management, pending MRI, orthopedic assessment regarding spinal root compression. Coding Level of Care Code Acute Code for Chg Fwd Moderate MDM includes number and complexity of problems actively addressed during encounter, amount and/or complexity of data reviewed/ordered and described risk of complication, morbidity or mortality of management as documented Diagnoses Acute hypokalemia E87.6 Acute urinary retention R33.8 Traumatic compression fracture of T12 thoracic vertebra S22.080A Back pain M54.9 Chronic lymphocytic leukemia of B-cell type not having achieved remission C91.10
[2022-07-13] MEDS: HYDROcodone-acetaminophen 5-325 mg Tablet 1 TAB PO ×2 (18:33→22:52)
[2022-07-13] MEDS: enoxaparin 40 mg/0.4 mL Syringe SUBCUT (18:33)
[2022-07-13] MEDS: ketorolac 30 mg/mL INJ 15 MG IVP (18:34)
[2022-07-13] MEDS: fentaNYL 25 mcg Patch 1 PATCH TRANSDERMA (18:50)
[2022-07-13] MEDS: lidocaine 5% Patch 1 PATCH TOPICAL (18:51)
[2022-07-13] MEDS: amlodipine 10 mg Tablet PO (21:21)
[2022-07-13] MEDS: atorvastatin 40 mg Tablet 20 MG PO (21:22)
[2022-07-14] VITALS (8 sets, daily range): BP systolic 122–193; BP diastolic 67–94; PULSE 61–84; RESP 14–18; TEMP 36.5–36.7; O2SAT 91–98
[2022-07-14] MEDS: aspirin 81 mg EC Tablet PO (05:07)
[2022-07-14] MEDS: lisinopril 20 mg Tablet 40 MG PO (05:07)
[2022-07-14] MEDS: tamsulosin 0.4 mg Capsule PO (05:07)
[2022-07-14] MEDS: pantoprazole DR 40 mg Tablet PO (05:08)
[2022-07-14 05:16] LABS: Basophils # 0.1 10^3/uL (0.0-0.1); Basophils % 0.3 %; Eosinophils # 0.3 10^3/uL (0.0-0.8); Eosinophils % 0.6 %; Hemoglobin 11.2 g/dL (11.7-16.6); Lymphocytes # 36.9 10^3/uL (0.8-4.8); Lymphocytes % 80.7 %; Mean Corpuscular HGB Conc 33.9 g/dL (30.0-36.0); Mean Corpuscular Hemoglobin 33.7 pg (28.0-34.0); Mean Corpuscular Volume 99.4 fl (80-94); Mean Platelet Volume 8.6 fL (7.4-10.4); Monocytes # 1.7 10^3/uL (0.2-0.9); Monocytes % 3.7 %; Neutrophils # 6.56 10^3/uL (1.8-7.7); Neutrophils % 14.4 %; Nucleated Red Blood Cells % 0 %; Platelet Count 297 10^3/cmm (130-400); Red Blood Count 3.32 10^6/uL (4.1-5.3); Red Cell Distribution Width 12.6 % (12.1-15.1)
[2022-07-14 05:47] LABS: Alanine Aminotransferase 19 U/L (0-41); Albumin Level 3.5 g/dL (3.5-5.2); Alkaline Phosphatase 69 U/L (40-130); Anion Gap 11.2 (5-19); Aspartate Amino Transferase 19 U/L (0-40); Blood Urea Nitrogen 7 mg/dL (8-23); Calcium 8.5 mg/dL (8.5-10.5); Carbon Dioxide 29 mmol/L (22-29); Chloride 85 mmol/L (98-107); Creatinine Clr Calc Pharmacy 84.4716; Globulin 2.1 g/dL (1.3-4.6); Glucose 85 mg/dL (65-115); NT Pro B Type Natriuretic Pept 1912 pg/mL (0-450); Osmolality Calculated 251 mOsm/kg (285-295); Potassium 3.2 mmol/L (3.5-5.1); Sodium 122 mmol/L (136-145); Total Bilirubin 0.7 mg/dL (0.15-1.2); Total Protein 5.6 g/dL (6.6-8.7)
[2022-07-14 06:26] LABS: Slide Review Slide Review Perform
[2022-07-14 06:28] LABS: White Blood Count 45.7 10^3/uL (4.0-10.0)
[2022-07-14] MEDS: HYDROcodone-acetaminophen 5-325 mg Tablet 1 TAB PO ×3 (07:06→22:57)
[2022-07-14] MEDS: escitalopram 10 mg Tablet PO ×2 (08:55→17:49)
[2022-07-14] MEDS: lactulose oral liq 20 gm/30 mL UDC 10 GM PO (08:55)
--- NOTE | 2022-07-14 09:38 | PC.CHAP ---
Pastoral Care Encounter/Spiritual Assessment Type of Contact [] Declined supervisor graphite visit [] Patient/Family/Request visit [] Outpatient visit [] Follow-up visit [] Physician referral [] Code/Alert [x] Routine visit [] Staff referral [] Actively dying [] Patient sleeping [] Family support [] [] Out of room [] Palliative care [] [] Receiving care in room [] Pre-surgical visit [] Trauma [] Long length of stay [] ICU visit [] Other: Relational/Emotional Strength [x] Patient feels connected with others/family/visitors/staff [] Distress [] Loneliness/isolation [] Abandonment Spirituality of Patient [x] Person of Aimee [] Attends Lutheran of their Aimee [] Believes in Prayer [x] Reads Bible or Judaism materials [] There are Spiritual issues to be addressed Cub Reporter Interventions [] Prayer [x] Active listening [x] Non-anxious presence [x] Spiritual/emotional support [] Crisis/trauma care [] Spiritual counseling [] Bereavement support [] Provided bereavement packet [x] Provided Bible/devotional materials [] Provided toy/stuffed animal, coloring book to patient or family member [] Provided Communion [] Anointing/[place] [] Salvation [x] Completed spiritual assessment [] Other: Impact on Illness or Injury [] Angry [] Fearful [] Anxious [] Often cries [] Exhaustion [] Unable to work [] Unable to attend sikhism [] Unable to walk/stand [] Unable to read [] Unable to drive [] Unable to eat/drink [] Unable to sleep [] Unable to be with family [] Patient intubated [] Other: Summary Son and spouse were in room at time of visit. Pt requested supervisor graphite return at another time since he and his family were going over things . Time spent with patient 2m
[2022-07-14] MEDS: sodium chloride 0.9% 1,000 ML 75 ML IV (11:37)
[2022-07-14] MEDS: morphine 4 mg/mL SDV 1 mL 2 MG IVP (11:38)
--- NOTE | 2022-07-14 12:08 | P.PN_ITS ---
Subjective Subjective: Patient just returned from MRI). Was having pain from compression fractures. Vitals/I&O/Wt Last Vital Signs Temp 97.7 F 07/14/22 07:47 Pulse 63 07/14/22 08:31 Resp 16 07/14/22 07:47 BP 122/76 07/14/22 07:47 Pulse Ox 94 07/14/22 08:31 O2 Del Method 07/14/22 08:31 O2 Flow Rate 2 07/14/22 08:31 07/13/22 07/14/22 07/14/22 22:59 06:59 14:59 Intake Total 90 / 695 240 / 240 Output Total 1350 / 1350 300 / 1650 Balance -1260 / -655 -300 / -955 240 / 240 Weight last 48 hrs Weight 170 lb Physical Exam Narrative: Patient just returned from the MRI scan has pain in his back. No complaints of any pain in his legs Urinary Catheter Management: Coude: Cath Placed During This Visit: yes Reason for Continuing Indwelling Catheter: Other Urinary Catheter Date of Insertion: 07/13/22 Urinary Catheter Time of Insertion: 13:22 Data 07/14/22 04:30 07/14/22 04:30 A&P Assessment and plan (1) Traumatic compression fracture of T12 thoracic vertebra: Patient has compression fractures at T9-10 and 12. Discussed with him options of treating in a brace versus kyphoplasty. Patient like to proceed with kyphoplasty. At this point patient has stopped Plavix 1 day he needs to stop it for 5 days the plan will be to do a T9-10 and 12 kyphoplasty on July 19. I had an open and honest discussion with the patient about the risks, benefits and alternatives to both surgical and nonsurgical treatment. The patient verbalized understanding of the inherent unpredictability associated with surgery. Risk of surgery were discussed including, but not limited to, infection, bleeding, temporary and permanent nerve damage, continued pain, stiffness, incomplete healing, need for revision surgery, blood clot and other complications. The patient verbalized understanding that there is spine is elective in nature and if they find any of these risks to be unacceptable then they should choose not to have the surgery. The patient verbalized understanding of these risks and elected to proceed with the surgery. Attestations Medical Necessity Statement*: per primary service Coding Level of Care Code Acute Code for [employer] Fwd Diagnoses Traumatic compression fracture of T12 thoracic vertebra S22.080A
--- NOTE | 2022-07-14 16:49 | PM.PN ---
Subjective Subjective: Patient underwent MRI today. Plan for surgical intervention on Tuesday after holding Plavix for 5 days. Pain continues to be uncontrolled. Sodium down at 122 this morning. Vitals/I&O/Wt Last Vital Signs Temp 98.0 F 07/14/22 12:00 Pulse 84 07/14/22 12:00 Resp 18 07/14/22 12:00 BP 180/85 07/14/22 12:00 Pulse Ox 91 07/14/22 12:00 O2 Del Method 07/14/22 12:00 O2 Flow Rate 2 07/14/22 08:31 07/14/22 07/14/22 07/14/22 06:59 14:59 22:59 Intake Total 240 / 240 Output Total 300 / 1650 Balance -300 / -955 240 / 240 Weight last 48 hrs Weight 77.111 kg Physical Exam Narrative: General: No acute distress, AO x3 HEENT: PERRLA, pupils bilaterally equal and reactive, pallors not present Chest: Normal vesicular breath sounds, no added sounds, equal good air entry bilaterally CVS: S1-S2 regular, no murmurs, no tachycardia, no gallops, no rubs Abdomen: Soft, nontender, no organomegaly, bowel sounds present Neuro: No focal deficits, no facial deformity, AO x3, power 5/5 in all limbs Urinary Catheter Management: Coude: Cath Placed During This Visit: yes Reason for Continuing Indwelling Catheter: Other Urinary Catheter Date of Insertion: 07/13/22 Urinary Catheter Time of Insertion: 13:22 Data 07/14/22 04:30 07/14/22 04:30 Other data: MR/MR thoracic spin wo con* [id number] IMPRESSION: ? 1.? Acute compression fractures with edema T9, T10, and T12. Fluid-filled fracture cleft at T12. 2.? Minimal posterior retropulsion cortical buckling at T10 and T12 with mild central canal stenosis and slight contact of the thoracic cord at T10. 3.? No high-grade central canal stenosis. 4.? Chronic compression deformities with anterior wedging in the upper thoracic spine without edema. 5.? Moderate facet arthropathy in the lower thoracic spine. 6.? Trace bilateral pleural fluid. ? MR/MR lumbar spine wo con* [id number] IMPRESSION: ? 1.? Biconcave compression at T12 vertebral body with fluid-filled fracture cleft. Associated edema. Findings consistent with recent acute compression. 2.? Mild buckling of the posterior T12 cortex with mild central canal stenosis. 3.? Annular bulging L3-L4 with slight impingement on the RIGHT subarticular recess and traversing RIGHT L4 nerve root. Mild RIGHT foraminal narrowing. 4.? Mild annular bulging L4-L5 with slight effacement of the thecal sac. Mild RIGHT foraminal narrowing. 5.? Mild facet arthropathy L3-L5. 6.? Mild RIGHT L2-L3 foraminal narrowing with narrowing of the RIGHT subarticular recess. CT/CT angio chest PE protcl [id number] IMPRESSION: 1. No evidence for pulmonary embolus. 2. Trace pleural effusions and dependent atelectasis. 3. Multiple newly acquired thoracic compression fractures, most likely chronic. A&P Assessment and plan (1) Acute hypokalemia: (2) Acute urinary retention: (3) Traumatic compression fracture of T12 thoracic vertebra: (4) Back pain: (5) Chronic lymphocytic leukemia of B-cell type not having achieved remission: (6) Hyponatremia: Plan 76-year-old male with known CLL presenting to the hospital with multiple fracture over the thoracic spine Minimal posterior retropulsion cortical buckling at T10 and T12 with mild central canal stenosis and slight contact of the thoracic cord at T10. Plan for surgical intervention on July 19 after holding Plavix for 5 days. Currently still has significant pain We will increase fentanyl to 50 mcg daily. Complains of constipation. CT abdomen without any acute abdominal issues. At home he was taking senna Colace and MiraLAX which we will resume. Additionally he is also taking lactulose without bowel movement currently. Will use enema as needed. Also had urinary retention of about 500 cc for which Talbot needed to be placed. He is constipated. continue IV morphine, norco 5/325 every 4 hours as needed, Toradol and lidocaine patch. Appreciate orthopedics consult hyponatremia with Na down to 122 today. Started NS , recheck Na this evening. Hypokalemia, supplement po 40meq. Attestations Medical Necessity Statement*: optimal pain control, correction of electrolytes Coding Level of Care Code Acute Code for Chg Fwd Moderate MDM includes number and complexity of problems actively addressed during encounter, amount and/or complexity of data reviewed/ordered and described risk of complication, morbidity or mortality of management as documented Diagnoses Acute hypokalemia E87.6 Acute urinary retention R33.8 Traumatic compression fracture of T12 thoracic vertebra S22.080A Back pain M54.9 Chronic lymphocytic leukemia of B-cell type not having achieved remission C91.10 Hyponatremia E87.1
--- NOTE | 2022-07-14 17:42 | MR_ITS ---
WS: [id number] MRI LUMBAR SPINE NONCONTRAST TECHNIQUE: Sagittal T1, T2 and STIR imaging. Axial T1 and T2 imaging. CLINICAL INFORMATION: comp fracture COMPARISON: CT July 13, 2022 FINDINGS: Mild lumbar curve. Acute compression fracture T12 vertebral body with biconcave compression. Fluid-fi lled fracture cleft in the mid vertebral body. Loss of approximately 75% vertebral body height centra lly. Minimal buckling of the posterior cortex with mild central canal stenosis. No other acute compre ssion fractures. L1-L2: Tiny annular fissure. Spinal canal and foramen are patent. L2-L3: Mild annular bulging. Slight narrowing of the RIGHT subarticular recess. Mild facet arthropath y. Spinal canal is patent. Mild LEFT foraminal narrowing. L3-L4: Mild annular bulging. Slight narrowing of the subarticular recess RIGHT greater than LEFT. Mil d RIGHT foraminal narrowing. Mild facet arthropathy. L4-L5: Mild annular bulging with slight effacement of the ventral thecal sac. Mild RIGHT foraminal na rrowing. Mild facet arthropathy. L5-S1: No significant disc bulging. Mild facet arthropathy. Spinal canal and foramen are patent. Visualized pelvic bony structures: Normal. Paravertebral soft tissues: Normal. MR/MR lumbar spine wo con* [id number] IMPRESSION: 1. Biconcave compression at T12 vertebral body with fluid-filled fracture clef t. Associated edema. Findings consistent with recent acute compression. 2. Mild buckling of the posterior T12 cortex with mild central canal stenosis. 3. Annular bulging L3-L4 with slight impingement on the RIGHT subarticular rec ess and traversing RIGHT L4 nerve root. Mild RIGHT foraminal narrowing. 4. Mild annular bulging L4-L5 with slight effacement of the thecal sac. Mild R IGHT foraminal narrowing. 5. Mild facet arthropathy L3-L5. 6. Mild RIGHT L2-L3 foraminal narrowing with narrowing of the RIGHT subarticul ar recess.
--- NOTE | 2022-07-14 17:44 | MR_ITS ---
WS: [id number] MRI THORACIC SPINE WITHOUT CONTRAST TECHNIQUE: Sagittal T1, T2 and STIR imaging. Axial T2 imaging. Noncontrast imaging obtained. CLINICAL INFORMATION: comp fracture COMPARISON: None. FINDINGS: Moderate to advanced thoracic kyphosis. Cord signal is normal. No high-grade central canal stenosis. Acute appearing compression fractures in the mid thoracic spine with biconcave compression at T9 and T10 with associated edema and visualized fracture clefts. No significant retropulsion. Minimal buckli ng of the posterior cortex at T10 with mild central canal stenosis and slight contact of the thoracic cord. Mild chronic central canal stenosis at T9-T10 with moderate facet arthropathy. Loss of approxi mately 50% vertebral body height at T9 and 40% vertebral body height at T10. Biconcave compression fracture T12 with fluid-filled midline fracture cleft with edema. Loss of appro ximately 75% vertebral body height centrally. Mild retropulsion and buckling of the posterior cortex with mild central canal stenosis. Additional chronic compression deformities with anterior wedging in the upper thoracic spine without edema Moderate facet arthropathy lower thoracic spine. Trace pleural fluid. Normal caliber thoracic aorta. Small central disc osteophyte complex at C5-C6. Mild bilateral bony foraminal narrowing T8-T9, T9-T10, T10-T11, T11-T12 and T12-L1. MR/MR thoracic spin wo con* [id number] IMPRESSION: 1. Acute compression fractures with edema T9, T10, and T12. Fluid-filled fract ure cleft at T12. 2. Minimal posterior retropulsion cortical buckling at T10 and T12 with mild c entral canal stenosis and slight contact of the thoracic cord at T10. 3. No high-grade central canal stenosis. 4. Chronic compression deformities with anterior wedging in the upper thoracic spine without edema. 5. Moderate facet arthropathy in the lower thoracic spine. 6. Trace bilateral pleural fluid.
[2022-07-14] MEDS: ondansetron 2 mg/ML SDV 2 mL 4 MG IVP (17:49)
[2022-07-14] MEDS: sennosides-docusate Tablet 1 TAB PO (17:49)
[2022-07-14] MEDS: potassium chloride ER 20 mEq Tablet 40 MEQ PO (17:49)
[2022-07-14] MEDS: enoxaparin 40 mg/0.4 mL Syringe SUBCUT (17:50)
[2022-07-14] MEDS: fentaNYL 50 mcg Patch 1 PATCH TRANSDERMA (17:50)
[2022-07-14 19:14] LABS: Alanine Aminotransferase 20 U/L (0-41); Albumin Level 3.9 g/dL (3.5-5.2); Alkaline Phosphatase 69 U/L (40-130); Anion Gap 12.2 (5-19); Aspartate Amino Transferase 18 U/L (0-40); Blood Urea Nitrogen 8 mg/dL (8-23); Calcium 8.3 mg/dL (8.5-10.5); Carbon Dioxide 26 mmol/L (22-29); Chloride 82 mmol/L (98-107); Globulin 1.9 g/dL (1.3-4.6); Glucose 138 mg/dL (65-115); Osmolality Calculated 245 mOsm/kg (285-295); Potassium 3.2 mmol/L (3.5-5.1); Total Bilirubin 0.7 mg/dL (0.15-1.2); Total Protein 5.8 g/dL (6.6-8.7)
[2022-07-14 19:26] LABS: Creatinine Clr Calc Pharmacy 84.4716; Sodium 117 mmol/L (136-145)
[2022-07-14] MEDS: amlodipine 10 mg Tablet PO (20:18)
[2022-07-14] MEDS: atorvastatin 40 mg Tablet 20 MG PO (20:18)
[2022-07-14] MEDS: bisacodyl 5 mg Tablet 10 MG PO (20:19)
[2022-07-15] VITALS (8 sets, daily range): BP systolic 148–193; BP diastolic 75–94; PULSE 65–96; RESP 14–18; TEMP 36.5–36.7; O2SAT 84–97
[2022-07-15] MEDS: sodium chloride 0.9% 1,000 ML 75 ML IV (01:06)
[2022-07-15] MEDS: HYDROcodone-acetaminophen 5-325 mg Tablet 1 TAB PO ×2 (03:08→09:21)
[2022-07-15 05:35] LABS: Basophils # 0.1 10^3/uL (0.0-0.1); Basophils % 0.1 %; Eosinophils # 0.3 10^3/uL (0.0-0.8); Eosinophils % 0.5 %; Hematocrit 32.7 % (42.0-52.0); Hemoglobin 11.2 g/dL (11.7-16.6); Lymphocytes # 41.3 10^3/uL (0.8-4.8); Lymphocytes % 83.2 %; Mean Corpuscular HGB Conc 34.3 g/dL (30.0-36.0); Mean Corpuscular Hemoglobin 33.6 pg (28.0-34.0); Mean Corpuscular Volume 98.2 fl (80-94); Mean Platelet Volume 8.5 fL (7.4-10.4); Monocytes # 1.5 10^3/uL (0.2-0.9); Neutrophils # 6.45 10^3/uL (1.8-7.7); Nucleated Red Blood Cells % 0 %; Platelet Count 261 10^3/cmm (130-400); Red Blood Count 3.33 10^6/uL (4.1-5.3); Red Cell Distribution Width 12.3 % (12.1-15.1)
[2022-07-15 05:57] LABS: Alanine Aminotransferase 20 U/L (0-41); Albumin Level 3.6 g/dL (3.5-5.2); Alkaline Phosphatase 70 U/L (40-130); Anion Gap 11.7 (5-19); Aspartate Amino Transferase 20 U/L (0-40); Blood Urea Nitrogen 7 mg/dL (8-23); Calcium 8.4 mg/dL (8.5-10.5); Carbon Dioxide 27 mmol/L (22-29); Chloride 86 mmol/L (98-107); Creatinine Clr Calc Pharmacy 84.4716; Glucose 99 mg/dL (65-115); Osmolality Calculated 250 mOsm/kg (285-295); Potassium 3.7 mmol/L (3.5-5.1); Sodium 121 mmol/L (136-145); Total Bilirubin 0.7 mg/dL (0.15-1.2); Total Protein 5.6 g/dL (6.6-8.7)
[2022-07-15 06:03] LABS: Slide Review Slide Review Perform
[2022-07-15 06:06] LABS: White Blood Count 49.7 10^3/uL (4.0-10.0)
[2022-07-15] MEDS: pantoprazole DR 40 mg Tablet PO (06:10)
[2022-07-15] MEDS: tamsulosin 0.4 mg Capsule PO (06:10)
[2022-07-15] MEDS: lisinopril 20 mg Tablet 40 MG PO (06:11)
--- NOTE | 2022-07-15 06:58 | PM.PN ---
Subjective Subjective: Patient resting comfortably. Family is present. Discussed at length treatment course. Because of his Plavix will hold off until Tuesday to stabilize the fractures in his thoracic spine. Vitals/I&O/Wt Last Vital Signs Temp 98.0 F 07/15/22 03:36 Pulse 65 07/15/22 03:36 Resp 18 07/15/22 03:36 BP 148/86 07/15/22 03:36 Pulse Ox 95 07/15/22 03:36 O2 Del Method 07/15/22 03:36 O2 Flow Rate 2 07/14/22 20:00 07/14/22 07/14/22 07/15/22 14:59 22:59 06:59 Intake Total 240 / 240 480 / 720 1120 / 1840 Output Total 800 / 800 800 / 1600 Balance 240 / 240 -320 / -80 320 / 240 Weight last 48 hrs Weight 170 lb Physical Exam Narrative: Patient is alert orient x3 has good general appearance normal mood and affect. Continues to be tender with palpation in the thoracic region. He has good sensation light touch in all dermatomal layers. Moves all 4 extremities with good strength. 4/5 strength in his arms and legs. Normal sensation light touch throughout hands and feet. Calves are supple no medial thigh tenderness. Const: COMMON NORMALS: no acute distress HENMT: COMMON NORMALS: normocephalic HEAD & SCALP: normocephalic Resp: COMMON NORMALS: normal respiratory effort Cardio: COMMON NORMALS: regular rate and regular rhythm RATE: regular rate RHYTHM: regular rhythm GI: COMMON NORMALS: Soft to palpation and non-tender PALPATION: Yes Soft to palpation : COMMON NORMALS: Yes no CVA tenderness BLADDER/KIDNEY EXAM: Yes no CVA tenderness Back/Pelvis: COMMON NORMALS: no CVA tenderness Psych: COMMON NORMALS: mental status grossly normal and cooperative Urinary Catheter Management: Coude: Cath Placed During This Visit: yes Reason for Continuing Indwelling Catheter: Acute Urinary Retention or Obstruction Urinary Catheter Date of Insertion: 07/13/22 Urinary Catheter Time of Insertion: 13:22 Data 07/15/22 04:56 07/15/22 04:56 A&P Assessment and plan (1) Pathologic thoracic fracture: Discussed the treatment course with the family. We will set him up for a TLSO brace for stability of his thoracic spine to allow him to mobilize with physical therapy to a chair and around the room. No bending lifting or twisting. We will plan for n.p.o. after midnight on Tuesday for procedure on Tuesday. Continue to hold Plavix and no aspirin. Continue incentive spirometry for pulmonary toilet. Mechanical SCDs for DVT prophylaxis. Attestations Medical Necessity Statement*: Defer To medical team Coding Level of Care Code Acute Code for Chg Fwd Diagnoses Pathologic thoracic fracture M84.48XA
[2022-07-15] MEDS: escitalopram 10 mg Tablet PO ×2 (09:20→17:24)
[2022-07-15] MEDS: sennosides-docusate Tablet 1 TAB PO ×2 (09:20→17:24)
[2022-07-15] MEDS: polyethylene glycol 3350 Pkt 17 gm PO (09:21)
[2022-07-15] MEDS: lactulose oral liq 20 gm/30 mL UDC 10 GM PO (09:21)
[2022-07-15] MEDS: sodium chloride 1 gm Tablet PO ×2 (12:53→17:24)
--- NOTE | 2022-07-15 16:19 | PM.PN ---
Subjective Subjective: Pain is much better controlled today, however patient noted to be more somnolent than on previous exams. Falling asleep midsentence and while eating. This is likely related to his fentanyl being increased from 25 mics to 50 mics yesterday for better pain control. He has been using less of the as needed opiates today. Blood pressure remains uncontrolled ranging between 1 70-1 90 systolic. Medications: Reviewed: Yes Vitals/I&O/Wt Last Vital Signs Temp 98.0 F 07/15/22 03:36 Pulse 77 07/15/22 12:00 Resp 16 07/15/22 11:09 BP 171/94 07/15/22 12:00 Pulse Ox 94 07/15/22 12:00 O2 Del Method 07/15/22 11:09 O2 Flow Rate 1 07/15/22 11:09 07/15/22 07/15/22 07/15/22 06:59 14:59 22:59 Intake Total 1120 / 1840 1401.25 / 1401.25 Output Total 800 / 1600 Balance 320 / 240 1401.25 / 1401.25 Physical Exam Narrative: General: No acute distress, AO x3 HEENT: PERRLA, pupils bilaterally equal and reactive, pallors not present Chest: Normal vesicular breath sounds, no added sounds, equal good air entry bilaterally CVS: S1-S2 regular, no murmurs, no tachycardia, no gallops, no rubs Abdomen: Soft, nontender, no organomegaly, bowel sounds present Neuro: No focal deficits, no facial deformity, AO x3, power 5/5 in all limbs Extremities: Healthy surgical dressing present on the right hip, mild tenderness, soft no erythema. Urinary Catheter Management: Coude: Cath Placed During This Visit: yes Reason for Continuing Indwelling Catheter: Acute Urinary Retention or Obstruction Urinary Catheter Date of Insertion: 07/13/22 Urinary Catheter Time of Insertion: 13:22 Data 07/15/22 04:56 07/15/22 04:56 A&P Assessment and plan (1) Acute hypokalemia: (2) Acute urinary retention: (3) Traumatic compression fracture of T12 thoracic vertebra: (4) Back pain: (5) Chronic lymphocytic leukemia of B-cell type not having achieved remission: (6) Hyponatremia: Plan 76-year-old male with known CLL presenting to the hospital with multiple fracture over the thoracic spine Minimal posterior retropulsion cortical buckling at T10 and T12 with mild central canal stenosis and slight contact of the thoracic cord at T10. Plan for surgical intervention on July 19 after holding Plavix for 5 days. Currently pain is much better controlled after increasing fentanyl to 50 caitlin patch daily, however patient has become more somnolent today. Falling asleep midsentence. We will cut back fentanyl from 50 caitlin patch to 37.5 mics daily. Monitor for response. As needed Narcan if needed. Cut back on as needed opiates. Constipation resolved, patient had a good bowel movement today. Talbot placed for urinary retention, to continue Continue Toradol and lidocaine patch. Cut back on opiates Appreciate orthopedics consult hyponatremia with Na down to 121 today. Discontinue normal saline. Placed fluid restriction. Added salt tablets normal NaCl 1 tab p.o. daily Uncontrolled blood pressure, add hydralazine as a standing dose Attestations Medical Necessity Statement*: Blood pressure control, optimization of pain regimen, impending surgery Coding Level of Care Code Acute Code for [facility] Diagnoses Acute hypokalemia E87.6 Acute urinary retention R33.8 Traumatic compression fracture of T12 thoracic vertebra S22.080A Back pain M54.9 Chronic lymphocytic leukemia of B-cell type not having achieved remission C91.10 Hyponatremia E87.1
[2022-07-15] MEDS: hyDRALAzine 20 mg/mL INJ 1 mL 10 MG IVP (16:32)
[2022-07-15] MEDS: enoxaparin 40 mg/0.4 mL Syringe SUBCUT (17:24)
[2022-07-15] MEDS: fentaNYL 25 mcg Patch 1 PATCH TRANSDERMA (18:33)
[2022-07-15] MEDS: hyDRALAzine 25 mg Tablet PO (20:25)
[2022-07-15] MEDS: amlodipine 10 mg Tablet PO (20:25)
[2022-07-15] MEDS: atorvastatin 40 mg Tablet 20 MG PO (20:25)
[2022-07-16] VITALS (8 sets, daily range): BP systolic 140–175; BP diastolic 71–81; PULSE 65–74; RESP 11–18; TEMP 36.4–36.8; O2SAT 94–96
[2022-07-16 05:17] LABS: Basophils # 0.1 10^3/uL (0.0-0.1); Basophils % 0.1 %; Eosinophils # 0.5 10^3/uL (0.0-0.8); Eosinophils % 0.9 %; Hematocrit 32.1 % (42.0-52.0); Hemoglobin 10.9 g/dL (11.7-16.6); Lymphocytes # 44.4 10^3/uL (0.8-4.8); Lymphocytes % 83.6 %; Mean Corpuscular Hemoglobin 33.3 pg (28.0-34.0); Mean Corpuscular Volume 98.2 fl (80-94); Mean Platelet Volume 8.4 fL (7.4-10.4); Monocytes # 1.5 10^3/uL (0.2-0.9); Monocytes % 2.8 %; Neutrophils # 6.56 10^3/uL (1.8-7.7); Neutrophils % 12.3 %; Nucleated Red Blood Cells % 0 %; Platelet Count 325 10^3/cmm (130-400); Red Blood Count 3.27 10^6/uL (4.1-5.3); Red Cell Distribution Width 12.3 % (12.1-15.1)
[2022-07-16 05:28] LABS: Alanine Aminotransferase 22 U/L (0-41); Albumin Level 3.5 g/dL (3.5-5.2); Alkaline Phosphatase 63 U/L (40-130); Anion Gap 13.7 (5-19); Aspartate Amino Transferase 23 U/L (0-40); Blood Urea Nitrogen 7 mg/dL (8-23); Calcium 8.5 mg/dL (8.5-10.5); Carbon Dioxide 25 mmol/L (22-29); Chloride 83 mmol/L (98-107); Glucose 88 mg/dL (65-115); Osmolality Calculated 243 mOsm/kg (285-295); Potassium 3.7 mmol/L (3.5-5.1); Total Bilirubin 0.8 mg/dL (0.15-1.2); Total Protein 5.5 g/dL (6.6-8.7)
[2022-07-16 05:29] LABS: Creatinine Clr Calc Pharmacy 84.4716
[2022-07-16 05:32] LABS: Sodium 118 mmol/L (136-145)
[2022-07-16 06:05] LABS: Slide Review Slide Review Perform
[2022-07-16 06:06] LABS: White Blood Count 53.1 10^3/uL (4.0-10.0)
[2022-07-16] MEDS: lisinopril 20 mg Tablet 40 MG PO (06:29)
[2022-07-16] MEDS: tamsulosin 0.4 mg Capsule PO (06:29)
[2022-07-16] MEDS: pantoprazole DR 40 mg Tablet PO (06:29)
[2022-07-16] MEDS: sodium chloride 1 gm Tablet PO ×2 (08:38→16:59)
[2022-07-16] MEDS: lactulose oral liq 20 gm/30 mL UDC 10 GM PO (08:39)
[2022-07-16] MEDS: HYDROcodone-acetaminophen 5-325 mg Tablet 1 TAB PO ×2 (08:39→17:00)
[2022-07-16] MEDS: escitalopram 10 mg Tablet PO ×2 (08:39→16:59)
[2022-07-16] MEDS: aspirin 81 mg EC Tablet PO (08:39)
[2022-07-16] MEDS: sennosides-docusate Tablet 1 TAB PO ×2 (08:39→16:59)
[2022-07-16] MEDS: polyethylene glycol 3350 Pkt 17 gm PO (08:40)
[2022-07-16] MEDS: hyDRALAzine 25 mg Tablet PO ×3 (08:50→20:14)
[2022-07-16] MEDS: ondansetron 2 mg/ML SDV 2 mL 4 MG IVP (11:00)
--- NOTE | 2022-07-16 11:00 | PC.SOCIAL ---
Imm update Imm updated with patient at bedside. Copy of page 2 provided. Patient verbalized understanding. Copy in chart initialed, dated and timed.
[2022-07-16 15:06] LABS: Sodium 117 mmol/L (136-145)
--- NOTE | 2022-07-16 15:21 | PM.PN ---
Subjective Subjective: Says that he is feeling better today. His pain is better controlled. He did request pain medication this morning and says that it was the first pill he has asked for since yesterday. No other concerns at this time. Vitals/I&O/Wt Last Vital Signs Temp 98.1 F 07/16/22 12:00 Pulse 71 07/16/22 12:00 Resp 16 07/16/22 12:00 BP 144/73 07/16/22 12:00 Pulse Ox 95 07/16/22 12:00 O2 Del Method 07/16/22 07:34 O2 Flow Rate 2 07/16/22 07:34 07/16/22 07/16/22 07/16/22 06:59 14:59 22:59 Intake Total 460 / 460 Output Total 400 / 600 Balance -400 / 1281.25 460 / 460 Physical Exam Narrative: General: Cooperative patient in no apparent distress. Well developed. HEENT: Normocephalic, Atraumatic. External ears normal. Nasal passages patent without drainage. MMM. Heart: RRR. 2/6 systolic murmur present. Resp: LCTA. No respiratory distress, no use of accessory muscles. Abd: Soft, non-tender. Non-distended. Extremities: No edema. Skin: No rash or lesions on exposed areas. Urinary Catheter Management: Coude: Cath Placed During This Visit: yes Reason for Continuing Indwelling Catheter: Acute Urinary Retention or Obstruction Urinary Catheter Date of Insertion: 07/13/22 Urinary Catheter Time of Insertion: 13:22 Data 07/16/22 04:16 07/16/22 14:32 A&P Assessment and plan (1) Acute hypokalemia: (2) Acute urinary retention: (3) Traumatic compression fracture of T12 thoracic vertebra: (4) Back pain: (5) Chronic lymphocytic leukemia of B-cell type not having achieved remission: (6) Hyponatremia: Plan 76-year-old male with known CLL presenting to the hospital with multiple fracture over the thoracic spine Continue close inpatient monitoring. His pain is well controlled currently. He was able to be up and walking about the room, in the hallways today. He still appears slightly sleepy, but he is able to converse. His fentanyl dose was decreased back to 25 mcg. Continue Toradol and lidocaine patch. Appreciate orthopedics consult. Plan is for kyphoplasty on Tuesday. We are currently holding his Plavix in preparation for surgery. Na is down to 118 today. Will start hypertonic saline. Initial bolus of 100 mils, followed by 25 mils per hour with every 2 hour sodium checks. Goal of correction will be 6 to 8 mEq over the next 24 hours. Placed fluid restriction. Continue salt tablets normal NaCl 1 tab p.o. daily Blood pressure remains slightly elevated. Likely this is in response to his pain. Pressures have improved with addition of hydralazine and will continue. Code Status: Full IVF: 3% saline DVT PPx: Lovenox GI PPx: Protonix ABx: None Diet: Regular Discharge plan: Home Attestations Medical Necessity Statement*: Continue inpatient management for pain control, hyponatremia, hypertonic saline physical therapy, kyphoplasty. Diagnoses Acute hypokalemia E87.6 Acute urinary retention R33.8 Traumatic compression fracture of T12 thoracic vertebra S22.080A Back pain M54.9 Chronic lymphocytic leukemia of B-cell type not having achieved remission C91.10 Hyponatremia E87.1
[2022-07-16] MEDS: sodium chloride 3% 100 ML in empty flexible container 1 EACH 200 ML IV (16:02)
[2022-07-16] MEDS: sodium chloride 3% 100 ML in empty flexible container 1 EACH 25 ML IV (16:25)
[2022-07-16] MEDS: enoxaparin 40 mg/0.4 mL Syringe SUBCUT (16:59)
[2022-07-16 17:46] LABS: Sodium 118 mmol/L (136-145)
[2022-07-16 19:34] LABS: Sodium 118 mmol/L (136-145)
[2022-07-16] MEDS: atorvastatin 40 mg Tablet 20 MG PO (20:14)
[2022-07-16] MEDS: amlodipine 10 mg Tablet PO (20:14)
[2022-07-17] VITALS (8 sets, daily range): BP systolic 143–165; BP diastolic 58–79; PULSE 68–81; RESP 11–17; TEMP 36.4–37.1; O2SAT 90–96
[2022-07-17] MEDS: lisinopril 20 mg Tablet 40 MG PO (05:48)
[2022-07-17] MEDS: pantoprazole DR 40 mg Tablet PO (05:48)
[2022-07-17] MEDS: tamsulosin 0.4 mg Capsule PO (05:48)
[2022-07-17 06:05] LABS: Alanine Aminotransferase 25 U/L (0-41); Albumin Level 3.4 g/dL (3.5-5.2); Alkaline Phosphatase 60 U/L (40-130); Anion Gap 13.3 (5-19); Aspartate Amino Transferase 24 U/L (0-40); Blood Urea Nitrogen 8 mg/dL (8-23); Calcium 8.1 mg/dL (8.5-10.5); Carbon Dioxide 26 mmol/L (22-29); Chloride 84 mmol/L (98-107); Glucose 85 mg/dL (65-115); Magnesium 1.9 mg/dL (1.7-2.3); Osmolality Calculated 248 mOsm/kg (285-295); Potassium 3.3 mmol/L (3.5-5.1); Sodium 120 mmol/L (136-145); Thyroid Stimulating Hormone 1.39 uIU/mL (0.27-4.20); Total Bilirubin 0.7 mg/dL (0.15-1.2); Total Protein 5.4 g/dL (6.6-8.7)
[2022-07-17 06:19] LABS: Creatinine Clr Calc Pharmacy 84.4716
[2022-07-17] MEDS: sodium chloride 3% 100 ML in empty flexible container 1 EACH 25 ML IV (06:45)
[2022-07-17] MEDS: sodium chloride 1 gm Tablet PO ×2 (09:16→17:38)
[2022-07-17] MEDS: escitalopram 10 mg Tablet PO ×2 (09:16→17:38)
[2022-07-17] MEDS: hyDRALAzine 25 mg Tablet PO ×3 (09:16→21:51)
[2022-07-17] MEDS: sennosides-docusate Tablet 1 TAB PO ×2 (09:16→17:38)
[2022-07-17] MEDS: lactulose oral liq 20 gm/30 mL UDC 10 GM PO (09:17)
[2022-07-17] MEDS: polyethylene glycol 3350 Pkt 17 gm PO (09:17)
[2022-07-17] MEDS: HYDROcodone-acetaminophen 5-325 mg Tablet 1 TAB PO ×2 (09:31→21:58)
[2022-07-17] MEDS: potassium chloride ER 20 mEq Tablet 40 MEQ PO (11:54)
[2022-07-17] MEDS: sodium chloride 3% 100 ML in empty flexible container 1 EACH 200 ML IV ×2 (11:55→16:41)
[2022-07-17 12:17] LABS: Sodium 123 mmol/L (136-145)
[2022-07-17 14:02] LABS: Sodium 124 mmol/L (136-145)
--- NOTE | 2022-07-17 14:20 | PM.PN ---
Subjective Subjective: Pain remains well controlled. Sodium did not improve significantly overnight, up to 120. Denies other problems at this time. Vitals/I&O/Wt Last Vital Signs Temp 97.5 F L 07/17/22 11:47 Pulse 80 07/17/22 11:47 Resp 16 07/17/22 11:47 BP 143/58 07/17/22 11:47 Pulse Ox 95 07/17/22 11:47 O2 Del Method 07/17/22 03:22 O2 Flow Rate 1.5 07/17/22 08:00 07/16/22 07/17/22 07/17/22 22:59 06:59 14:59 Intake Total 440 / 900 200 / 200 Output Total 1150 / 1150 300 / 1450 Balance -710 / -250 -300 / -550 200 / 200 Physical Exam Narrative: General: Cooperative patient in no apparent distress. Well developed. HEENT: Normocephalic, Atraumatic. External ears normal. Nasal passages patent without drainage. MMM. Heart: RRR. 2/6 systolic murmur present. Resp: LCTA. No respiratory distress, no use of accessory muscles. Abd: Soft, non-tender. Non-distended. Extremities: No edema. Skin: No rash or lesions on exposed areas. Urinary Catheter Management: Coude: Cath Placed During This Visit: yes Reason for Continuing Indwelling Catheter: Acute Urinary Retention or Obstruction Urinary Catheter Date of Insertion: 07/13/22 Urinary Catheter Time of Insertion: 13:22 Data 07/16/22 04:16 07/17/22 13:16 A&P Assessment and plan (1) Acute hypokalemia: (2) Acute urinary retention: (3) Traumatic compression fracture of T12 thoracic vertebra: (4) Back pain: (5) Chronic lymphocytic leukemia of B-cell type not having achieved remission: (6) Hyponatremia: Plan 76-year-old male with known CLL presenting to the hospital with multiple fracture over the thoracic spine Continue close inpatient monitoring. His pain is well controlled currently. His fentanyl dose was decreased back to 25 mcg. Continue Toradol and lidocaine patch. Appreciate orthopedics consult. Plan is for kyphoplasty on Tuesday. We are currently holding his Plavix in preparation for surgery. Na is down to 118 today. We will continue hypertonic saline. Continue salt tabs and fluid restriction. Every 2 hour sodium checks. Blood pressure remains slightly elevated. Likely this is in response to his pain. Pressures have improved with addition of hydralazine and will continue. Code Status: Full IVF: 3% saline DVT PPx: Lovenox GI PPx: Protonix ABx: None Diet: Regular Discharge plan: Home Attestations Medical Necessity Statement*: Continue inpatient management for pain control, hyponatremia, hypertonic saline physical therapy, kyphoplasty. Coding Level of Care Code Acute Code for Chg Fwd Moderate MDM includes number and complexity of problems actively addressed during encounter, amount and/or complexity of data reviewed/ordered and described risk of complication, morbidity or mortality of management as documented Diagnoses Acute hypokalemia E87.6 Acute urinary retention R33.8 Traumatic compression fracture of T12 thoracic vertebra S22.080A Back pain M54.9 Chronic lymphocytic leukemia of B-cell type not having achieved remission C91.10 Hyponatremia E87.1
[2022-07-17 15:37] LABS: Sodium 125 mmol/L (136-145)
[2022-07-17 17:31] LABS: Sodium 124 mmol/L (136-145)
[2022-07-17] MEDS: enoxaparin 40 mg/0.4 mL Syringe SUBCUT (18:31)
[2022-07-17] MEDS: atorvastatin 40 mg Tablet 20 MG PO (21:51)
[2022-07-17] MEDS: amlodipine 10 mg Tablet PO (21:52)
[2022-07-18] VITALS (8 sets, daily range): BP systolic 152–175; BP diastolic 71–85; PULSE 66–84; RESP 16–18; TEMP 36.4–37.1; O2SAT 92–96
[2022-07-18 06:01] LABS: Basophils % 0.1 %; Eosinophils # 0.3 10^3/uL (0.0-0.8); Eosinophils % 0.7 %; Hematocrit 31.9 % (42.0-52.0); Hemoglobin 10.6 g/dL (11.7-16.6); Lymphocytes # 37.1 10^3/uL (0.8-4.8); Lymphocytes % 84.3 %; Mean Corpuscular HGB Conc 33.2 g/dL (30.0-36.0); Mean Corpuscular Hemoglobin 33.1 pg (28.0-34.0); Mean Corpuscular Volume 99.7 fl (80-94); Mean Platelet Volume 8.5 fL (7.4-10.4); Monocytes # 1.2 10^3/uL (0.2-0.9); Monocytes % 2.8 %; Neutrophils # 5.29 10^3/uL (1.8-7.7); Neutrophils % 11.9 %; Nucleated Red Blood Cells % 0 %; Platelet Count 329 10^3/cmm (130-400); Red Cell Distribution Width 12.5 % (12.1-15.1)
[2022-07-18 06:16] LABS: Alanine Aminotransferase 25 U/L (0-41); Albumin Level 3.3 g/dL (3.5-5.2); Alkaline Phosphatase 62 U/L (40-130); Anion Gap 11.8 (5-19); Aspartate Amino Transferase 25 U/L (0-40); Blood Urea Nitrogen 6 mg/dL (8-23); Calcium 8.2 mg/dL (8.5-10.5); Carbon Dioxide 28 mmol/L (22-29); Chloride 86 mmol/L (98-107); Creatinine Clr Calc Pharmacy 84.4716; Glucose 83 mg/dL (65-115); Osmolality Calculated 251 mOsm/kg (285-295); Potassium 3.8 mmol/L (3.5-5.1); Sodium 122 mmol/L (136-145); Total Bilirubin 0.6 mg/dL (0.15-1.2); Total Protein 5.3 g/dL (6.6-8.7)
[2022-07-18] MEDS: tamsulosin 0.4 mg Capsule PO (06:34)
[2022-07-18] MEDS: pantoprazole DR 40 mg Tablet PO (06:34)
[2022-07-18] MEDS: lisinopril 20 mg Tablet 40 MG PO (06:34)
[2022-07-18 06:53] LABS: Slide Review Slide Review Perform
[2022-07-18] MEDS: HYDROcodone-acetaminophen 5-325 mg Tablet 1 TAB PO ×2 (07:53→19:20)
[2022-07-18] MEDS: escitalopram 10 mg Tablet PO ×2 (10:18→18:46)
[2022-07-18] MEDS: sennosides-docusate Tablet 1 TAB PO ×2 (10:18→18:47)
[2022-07-18] MEDS: sodium chloride 1 gm Tablet PO ×4 (10:20→20:10)
[2022-07-18] MEDS: lactulose oral liq 20 gm/30 mL UDC 10 GM PO (10:20)
[2022-07-18] MEDS: polyethylene glycol 3350 Pkt 17 gm PO (10:20)
[2022-07-18] MEDS: hyDRALAzine 25 mg Tablet PO ×3 (10:20→20:10)
--- NOTE | 2022-07-18 18:43 | PM.PN ---
Subjective Subjective: Denies any pain at this time. His sodium did improve slightly. He has been up and walking to the bathroom and in the hallway. Vitals/I&O/Wt Last Vital Signs Temp 97.9 F 07/18/22 16:00 Pulse 74 07/18/22 16:00 Resp 18 07/18/22 16:00 BP 175/85 07/18/22 16:00 Pulse Ox 92 07/18/22 16:00 O2 Del Method 07/18/22 12:00 O2 Flow Rate 1.5 07/18/22 08:00 07/18/22 07/18/22 07/18/22 06:59 14:59 22:59 Intake Total 600 / 600 240 / 840 Output Total 700 / 2050 Balance -700 / -816 600 / 600 240 / 840 Physical Exam Narrative: General: Cooperative patient in no apparent distress. Well developed. HEENT: Normocephalic, Atraumatic. External ears normal. Nasal passages patent without drainage. MMM. Heart: RRR. 2/6 systolic murmur present. Resp: LCTA. No respiratory distress, no use of accessory muscles. Abd: Soft, non-tender. Non-distended. Extremities: No edema. Skin: No rash or lesions on exposed areas. Urinary Catheter Management: Coude: Cath Placed During This Visit: yes Reason for Continuing Indwelling Catheter: Other Urinary Catheter Date of Insertion: 07/13/22 Urinary Catheter Time of Insertion: 13:22 Data 07/18/22 04:26 07/18/22 04:26 A&P Assessment and plan (1) Acute hypokalemia: (2) Acute urinary retention: (3) Traumatic compression fracture of T12 thoracic vertebra: (4) Back pain: (5) Chronic lymphocytic leukemia of B-cell type not having achieved remission: (6) Hyponatremia: Plan 76-year-old male with known CLL presenting to the hospital with multiple fracture over the thoracic spine Continue close inpatient monitoring. His pain is well controlled currently. Continue Toradol and lidocaine patch. Appreciate orthopedics consult. Plan is for kyphoplasty on Tuesday. We are currently holding his Plavix in preparation for surgery. Na is down to 118 today. We will continue hypertonic saline. Continue salt tabs and fluid restriction. Every 2 hour sodium checks. Blood pressure remains slightly elevated. Likely this is in response to his pain. Pressures have improved with addition of hydralazine and will continue. NPO at midnight tonight. Code Status: Full IVF: None DVT PPx: Lovenox GI PPx: Protonix ABx: None Diet: Regular Discharge plan: Home Attestations Medical Necessity Statement*: Continue inpatient management for pain control, hyponatremia, hypertonic saline physical therapy, kyphoplasty. Coding Level of Care Code Acute Code for Chg Fwd Moderate MDM includes number and complexity of problems actively addressed during encounter, amount and/or complexity of data reviewed/ordered and described risk of complication, morbidity or mortality of management as documented Diagnoses Acute hypokalemia E87.6 Acute urinary retention R33.8 Traumatic compression fracture of T12 thoracic vertebra S22.080A Back pain M54.9 Chronic lymphocytic leukemia of B-cell type not having achieved remission C91.10 Hyponatremia E87.1
[2022-07-18] MEDS: enoxaparin 40 mg/0.4 mL Syringe SUBCUT (18:46)
[2022-07-18] MEDS: fentaNYL 25 mcg Patch 1 PATCH TRANSDERMA (18:47)
[2022-07-18] MEDS: atorvastatin 40 mg Tablet 20 MG PO (20:10)
[2022-07-18] MEDS: amlodipine 10 mg Tablet PO (20:10)
[2022-07-19] VITALS (18 sets, daily range): BP systolic 117–183; BP diastolic 64–91; PULSE 72–86; RESP 15–19; TEMP 36.4–36.8; O2SAT 90–97
--- NOTE | 2022-07-19 | SC_ITS ---
WS: [id number] EXAMINATION: XR lumbar spine 1V [id number] L-SPINE : 2 views REASON FOR EXAM: OR PICS COMPARISON: 06/30/2022 ORDER DATE: 07/19/2022 11:09 AM FINDINGS: There are vertebroplasty changes at T8, T9 and T11, with corresponding compression fractures. SC/C-arm FL for Kyphoplasty IMPRESSION: Total fluoroscopy time 112.8 seconds
[2022-07-19 04:57] LABS: Hematocrit 32.8 % (42.0-52.0); Hemoglobin 11.1 g/dL (11.7-16.6); Mean Corpuscular HGB Conc 33.8 g/dL (30.0-36.0); Mean Corpuscular Hemoglobin 33.2 pg (28.0-34.0); Mean Corpuscular Volume 98.2 fl (80-94); Platelet Count 334 10^3/cmm (130-400); Red Blood Count 3.34 10^6/uL (4.1-5.3); Red Cell Distribution Width 12.4 % (12.1-15.1)
[2022-07-19 05:05] LABS: White Blood Count 44.3 10^3/uL (4.0-10.0)
[2022-07-19 05:16] LABS: Alanine Aminotransferase 27 U/L (0-41); Albumin Level 3.4 g/dL (3.5-5.2); Alkaline Phosphatase 63 U/L (40-130); Anion Gap 14.6 (5-19); Aspartate Amino Transferase 25 U/L (0-40); Blood Urea Nitrogen 5 mg/dL (8-23); Calcium 8.3 mg/dL (8.5-10.5); Carbon Dioxide 27 mmol/L (22-29); Chloride 86 mmol/L (98-107); Globulin 2.1 g/dL (1.3-4.6); Glucose 94 mg/dL (65-115); Osmolality Calculated 255 mOsm/kg (285-295); Potassium 3.6 mmol/L (3.5-5.1); Sodium 124 mmol/L (136-145); Total Bilirubin 0.7 mg/dL (0.15-1.2); Total Protein 5.5 g/dL (6.6-8.7)
[2022-07-19 05:17] LABS: Creatinine Clr Calc Pharmacy 84.4716
[2022-07-19 05:30] LABS: Total Cells Counted 100 (0-100)
--- NOTE | 2022-07-19 05:32 | PC.NURSE ---
Held PO morning meds per Dr Ramsay's order for surgery this morning.
[2022-07-19 05:33] LABS: Eosinophils 0 %
[2022-07-19 05:34] LABS: Absolute Segmented Neutrophil 8.4 10/cmm (1.6-7.1); Segmented Neutrophils 19 %
[2022-07-19 05:35] LABS: Absolute Neutrophil 8.4 10^3/cmm (1.4-6.5); Lymphocytes 78 %; Lymphocytes Absolute 34.6 10^3/cmm (1.2-3.4); Monocytes Absolute 0.9 10^3/cmm (0.1-0.6); Platelet Estimate Normal (Normal)
[2022-07-19 05:39] LABS: Smudge Cells 3+
[2022-07-19 05:40] LABS: Macrocytosis 1+
[2022-07-19] MEDS: morphine 4 mg/mL SDV 1 mL 2 MG IVP (06:05)
--- NOTE | 2022-07-19 08:03 | ANES.PREANE2 ---
Pre-Anesthetic Assessment Height/Weight: Height 1.8 m Weight 77.111 kg Temp Pulse Resp BP Pulse Ox O2 Del Method O2 Flow Rate 98.3 F 83 16 183/91 91 1.5 07/19/22 07:43 07/19/22 07:43 07/19/22 07:43 07/19/22 07:43 07/19/22 07:43 07/19/22 07:43 07/18/22 08:00 Preop Diagnosis: Thoracic vertebrae fracture T9-T10 and T12, CLL Operation Date: 07/19/22 09:20 Proposed Procedures p Kyphoplasty(Not Applicable) - uGanako Rapp, DO Familial anesthetic complications: None Was Beta Kathleen taken within 24 hours: N/A Was Clonidine taken within 24 hours: N/A Last intake: Intake Last Liquid Date 07/18/22 Last Liquid Time 23:00 Last Solid Date 07/18/22 Last Solid Time 20:00 Social No alcohol and No tobacco Exam alert, oriented x 3, clear to auscultation bilaterally and regular rate & rhythm Airway Mallampati: Class III Dentition: other (missing teeth) CV/HEM Hypertension CLL Metabolic hypokaleia, hypnonatremia Musc/skel Osteoarthritis/DJD Neuropsych Cerebrovascular Accident (2019 - no residual deficits) Anesthetic Plan ASA status: 4 Anesthesia: General Risk of > 500 ml blood loss (7ml/kg in children): No Medications/Allergies Home Medications Medication Instructions Recorded Confirmed Last Taken Type aspirin 81 mg tablet,delayed 81 mg PO QAM 10/09/19 07/13/22 07/13/22 History release (Adult Low Dose Aspirin) clopidogrel 75 mg tablet 75 mg PO QAM 10/09/19 07/13/22 07/13/22 07:30 History hydrocodone 5 mg-acetaminophen 325 1 tab PO Q4H PRN back pain, muscle 07/05/22 07/13/22 Unknown Rx mg tablet spasm 1 week #30 tabs acetaminophen 500 mg tablet 1,000 mg PO Q6H PRN Pain 07/13/22 07/13/22 Unknown History amlodipine 5 mg tablet 5 mg PO BEDTIME 07/13/22 07/13/22 07/12/22 History docusate sodium 100 mg capsule 200 mg PO BEDTIME 07/13/22 07/13/22 07/12/22 History (Colace) escitalopram oxalate 10 mg tablet 10 mg PO BID 07/13/22 07/13/22 07/13/22 07:30 History for the last week bi fluticasone propionate 50 1 spray intranasal BEDTIME PRN 07/13/22 07/13/22 Unknown History mcg/actuation nasal Allergy Symptoms spray,suspension ibuprofen 200 mg tablet 800 mg PO Q8H PRN Pain 07/13/22 07/13/22 Unknown History lisinopril 40 mg tablet 40 mg PO QAM 07/13/22 07/13/22 07/13/22 07:30 History see pharmacy comment omeprazole 20 mg capsule,delayed 20 mg PO QAM 07/13/22 07/13/22 07/13/22 History release polyethylene glycol 3350 17 gram 17 g PO BEDTIME 07/13/22 07/13/22 Unknown History oral powder packet (Miralax) sennosides 8.6 mg-docusate sodium 2 tab PO BEDTIME 07/13/22 07/13/22 07/12/22 History 50 mg tablet (Senna-S) simvastatin 40 mg tablet 40 mg PO BEDTIME 07/13/22 07/13/22 07/12/22 History tamsulosin 0.4 mg capsule 0.4 mg PO QAM 07/13/22 07/13/22 07/13/22 History Allergies Allergy/AdvReac Type Severity Reaction Status Date / Time meperidine [From Demerol] Allergy Unknown UNKNOWN Verified 07/13/22 10:25 Penicillins Allergy Unknown Unknown Verified 07/13/22 10:25 Sulfa (Sulfonamide Allergy Unknown UNKNOWN Verified 07/13/22 10:25 Antibiotics) CELERY SEED Allergy Severe ALGY-Difficulty Uncoded 04/27/22 14:44 Breathing Current Medications Generic Name Dose Route Start Last Admin Trade Name Freq PRN Reason Stop Dose Admin Hydrocodone Bitart/Acetaminophen 1 tab 07/15/22 18:58 07/18/22 19:20 Hydrocodone-Acetaminophen 5-325 Mg Tablet PO 1 tab Q8H PRN Administration back pain, muscle spasm Amlodipine Besylate 10 mg 07/13/22 21:00 07/18/22 20:10 Amlodipine 10 Mg Tablet PO 10 mg BEDTIME FLORINA Administration Aspirin 81 mg 07/14/22 06:00 07/19/22 05:33 Aspirin 81 Mg Ec Tablet PO Not Given QAM [place] Atorvastatin Calcium 20 mg 07/13/22 21:00 07/18/22 20:10 Atorvastatin 40 Mg Tablet PO 20 mg BEDTIME FLORINA Administration Enoxaparin Sodium 40 mg 07/13/22 18:30 07/18/22 18:46 Enoxaparin 40 Mg/0.4 Ml Syringe SUBCUT 40 mg Q24H [place]ORINA Administration Escitalopram Oxalate 10 mg 07/14/22 09:00 07/18/22 18:46 Escitalopram 10 Mg Tablet PO 10 mg BID [facility] Administration Fentanyl 1 patch 07/15/22 18:15 07/18/22 18:47 Fentanyl 25 Mcg Patch TRANSDERMA 1 patch Q72H [place] Administration Hydralazine HCl 25 mg 07/15/22 21:00 07/18/22 20:10 Hydralazine 25 Mg Tablet PO 25 mg TID [facility] Administration Lactulose 10 gm 07/14/22 09:00 07/18/22 10:20 Lactulose Oral Liq 20 Gm/30 Ml Udc PO 10 gm DAILY [facility] Administration Lisinopril 40 mg 07/14/22 06:00 07/19/22 05:33 Lisinopril 20 Mg Tablet [facility] Morph[facility] Sulfate 2 mg 07/15/22 18:58 07/19/22 06:05 Morphine 4 Mg/Ml Sdv 1 Ml IVP 2 mg Q8H PRN Administration SEVERE PAIN Ondansetron HCl 4 mg 07/13/22 17:24 07/16/22 11:00 Ondansetron 2 Mg/Ml Sdv 2 Ml IVP 4 mg Q6H PRN Administration NAUSEA AND VOMITING Pantoprazole Sodium 40 mg 07/14/22 06:00 07/19/22 05:[address] 40 Mg Tablet PO Not Given QAM [facility] Polyethylene Glycol 17 gm 07/15/22 09:00 07/18/22 10:20 Polyethylene Glycol 3350 Pkt 17 Gm PO 17 gm DAILY [facility] Administration Senna/Docusate Sodium 1 tab 07/14/22 18:00 07/18/22 18:47 Sennosides-Docusate Tablet PO 1 tab BID [facility] Administration Sodium Chloride 1 gm 07/18/22 13:00 07/18/22 20:10 Sodium Chloride 1 Gm Tablet PO 1 gm QID [facility] Administration Tamsulosin HCl 0.4 mg 07/14/22 06:00 07/19/22 05:33 Tamsulosin 0.4 Mg Capsule PO Not Given [facility] Anest[facility] Medical History 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 Degenerative arthritis Dyslipidemia GERD (gastroesophageal reflux disease) History of stroke (04/2018) HTN (hypertension) Surgical History H/O Mohs micrographic surgery for skin cancer (2018) Hx of bilateral inguinal hernia repair S/P arthroscopic surgery of left knee Family History Father , AT AGE 84 PROSTATE CANCER Cancer Mother , AT AGE 84 Hypertension CAD (coronary artery disease) Sister Dementia Other Hyperlipidemia Stroke Denies family history of Diabetes Clotting disorder Psychiatric illness Chronic kidney disease (CKD) Suicide Anesthesia complication Bleeding disorder Lung disease Social History Smoking and tobacco status: never smoked Alcohol intake: never Adopted: No Caregiver/support person: No Lives independently: No Household members: spouse Marital status: Current occupational status: employed Data Anesthesia 07/19/22 04:44 07/19/22 04:44 Short CBC 07/18/22 07/19/22 Range/Units 04:26 04:44 WBC 44.0 H* 44.3 H* (4.0-10.0) 10^3/uL Hgb 10.6 L 11.1 L (11.7-16.6) g/dL Hct 31.9 L 32.8 L (42.0-52.0) % MCV 99.7 H 98.2 H (80-94) fl Plt Count 329 334 (130-400) 10^3/cmm Neut % (Auto) 11.9 % Neut # (Auto) 5.29 (1.8-7.7) 10^3/uL BMP 07/17/22 07/17/22 07/17/22 11:40 13:16 15:00 Sodium 123 L 124 L 125 L Potassium Chloride Carbon Dioxide BUN Creatinine Glucose Calcium 07/17/22 07/18/22 07/19/22 17:03 04:26 04:44 Sodium 124 L 122 L 124 L Potassium 3.8 3.6 Chloride 86 L 86 L Carbon Dioxide 28 27 BUN 6 L 5 L Creatinine 0.5 L 0.5 L Glucose 83 94 Calcium 8.2 L 8.3 L Liver Function 07/18/22 07/19/22 Range/Units 04:26 04:44 Total Bilirubin 0.6 0.7 (0.15-1.2) mg/dL AST 25 25 (0-40) U/L ALT 25 27 (0-41) U/L Alkaline Phosphatase 62 63 (40-130) U/L Albumin 3.3 L 3.4 L (3.5-5.2) g/dL Cardiac Studies: No Data to Display
[2022-07-19] MEDS: sodium chloride 0.9% 1,000 ML 30 ML IV (08:04)
--- NOTE | 2022-07-19 09:29 | W.PM.OPSUD ---
Surgery/Procedure H&P Update DATE OF PROCEDURE: July 19, 2022 DATE H&P PERFORMED: 07/13/22 H&P UPDATE INFORMATION: I have reviewed H&P completed within last 30 days, I have examined patient prior to procedure and No changes to prior documentation PREOP DIAGNOSIS: Thoracic vertebrae fracture T9-T10 and T12, CLL PLANNED PROCEDURE: Operation Date: 07/19/22 09:20 Proposed Procedures p Kyphoplasty(Not Applicable) - Guanako Rapp DO
[2022-07-19] MEDS: clindamycin 900 MG/50 ML PREMIX 100 MG IV ×2 (09:36→18:05)
[2022-07-19] MEDS: lidocaine-epi 2% 20 mL INJ INJECTION (10:26)
--- NOTE | 2022-07-19 10:28 | P.PN_ITS ---
Subjective Subjective: Patient went to the OR this morning, vitals and labs have been reviewed. Medications: Reviewed: Yes Medication Review Details: Generic Name Dose Route Start Last Admin Trade Name Freq PRN Reason Stop Dose Admin Hydrocodone Bitart /Acetaminophen 1 tab 07/15/22 18:58 07/18/22 19:20 Hydrocodone-Acet aminophen 5-325 Mg Tablet PO 1 tab Q8H PRN Administration back pain, muscle spasm Amlodipine Besylat e 10 mg 07/13/22 21:00 07/18/22 20:10 Amlodipine 10 Mg Tablet PO 10 mg BEDTIME FLORINA Administration Aspirin 81 mg 07/14/22 06:00 07/19/22 05:33 Aspirin 81 Mg Ec Tablet PO Not Given QAM [place] Atorvastatin Calci um 20 mg 07/13/22 21:00 07/18/22 20:10 Atorvastatin 40 Mg Tablet PO 20 mg BEDTIME [place] Administration Enoxaparin Sodium 40 mg 07/13/22 18:30 07/18/22 18:46 Enoxaparin 40 Mg /0.4 Ml Syringe SUBCUT 40 mg Q24H [place] Administration Escitalopram Oxala te 10 mg 07/14/22 09:00 07/18/22 18:46 Escitalopram 10 Mg Tablet PO 10 mg BID [place] Administration Fentanyl 1 patch 07/15/22 18:15 07/18/22 18:47 Fentanyl 25 Mcg Patch TRANSDERMA 1 patch Q72H [place] Administration Hydralazine HCl 25 mg 07/15/22 21:00 07/18/22 20:10 Hydralazine 25 M g Tablet PO 25 mg TID [place] Administration Sodium Chloride 1,000 mls @ 30 ml s/hr 07/19/22 07:45 07/19/22 08:04 Sodium Chloride 0.9% IV 07/20/22 07:44 30 mls/hr .Q24H [place] Administration Lactulose 10 gm 07/14/22 09:00 07/18/22 10:20 Lactulose Oral L iq 20 Gm/30 Ml Udc PO 10 gm DAILY [place] Administration Lisinopril 40 mg 07/14/22 06:00 07/19/22 05:33 Lisinopril 20 Mg Tablet PO Not Given QAM [place] Morphine Sulfate 2 mg 07/15/22 18:58 07/19/22 06:05 Morphine 4 Mg/Ml Sdv 1 Ml IVP 2 mg Q8H PRN Administration SEVERE PAIN Ondansetron HCl 4 mg 07/13/22 17:24 07/16/22 11:00 Ondansetron 2 Mg /Ml Sdv 2 Ml IVP 4 mg Q6H PRN Administration NAUSEA AND VOMITI NG Pantoprazole Sodiu m 40 mg 07/14/22 06:00 07/19/22 05:[address] 40 Mg Tablet PO Not Given QAM [facility] Polyethylene Glyco l 17 gm 07/15/22 09:00 07/18/22 10:20 Polyethylene Gly col 3350 Pkt 17 Gm PO 17 gm DAILY [place] Administration Senna/Docusate Sod ium 1 tab 07/14/22 18:00 07/18/22 18:47 Sennosides-Docus ate Tablet PO 1 tab BID [place] Administration Sodium Chloride 1 gm 07/18/22 13:00 07/18/22 20:10 Sodium Chloride 1 Gm Tablet PO 1 gm QID [place] Administration Tamsulosin HCl 0.4 mg 07/14/22 06:00 07/19/22 05:33 Tamsulosin 0.4 M g Capsule PO Not Given QAM [facility] Vitals/I&O/Wt Last Vital Signs Temp 98.3 F 07/19/22 07:43 Pulse 83 07/19/22 07:43 Resp 16 07/19/22 07:43 BP 183/91 07/19/22 07:43 Pulse Ox 91 07/19/22 07:43 O2 Del Method 07/19/22 07:43 O2 Flow Rate 1.5 07/18/22 08:00 07/18/22 07/19/22 07/19/22 22:59 06:59 14:59 Intake Total 360 / 960 0 / 960 Output Total 1000 / 1000 Balance -640 / -40 0 / -40 Physical Exam Const: COMMON NORMALS: patient oriented x3 HENMT: COMMON NORMALS: normocephalic and atraumatic HEAD & SCALP: normocephalic and atraumatic Resp: COMMON NORMALS: clear to auscultation bilaterally AUSCULTATION: clear to auscultation bilaterally Cardio: COMMON NORMALS: regular rate, regular rhythm, S1 normal heart sound present and S2 normal heart sound present RATE: regular rate RHYTHM: regular rhythm HEART SOUNDS: S1 normal heart sound present and S2 normal heart sound present GI: COMMON NORMALS: Normal to inspection, nondistended, normoactive bowel sounds present, Soft to palpation, non-tender, No hepatosplenomegaly present and no masses AUSCULTATION: Yes normoactive bowel sounds PALPATION: Yes Soft to palpation and Yes No hepatosplenomegaly present RECTAL EXAM: Yes deferred Extremity: COMMON NORMALS: no clubbing, cyanosis or edema and no pedal edema Neuro: COMMON NORMALS: patient oriented x3 Urinary Catheter Management: Coude: Cath Placed During This Visit: yes Reason for Continuing Indwelling Catheter: Accurate Measurement of Urinary Output in Critically Ill Patients Urinary Catheter Date of Insertion: 07/13/22 Urinary Catheter Time of Insertion: 13:22 Data 07/19/22 04:44 07/19/22 04:44 A&P Assessment and plan (1) Acute hypokalemia: (2) Acute urinary retention: (3) Traumatic compression fracture of T12 thoracic vertebra: (4) Back pain: (5) Chronic lymphocytic leukemia of B-cell type not having achieved remission: (6) Hyponatremia: Plan 76-year-old male with known CLL presenting to the hospital with multiple fracture over the thoracic spine Continue close inpatient monitoring. His pain is well controlled currently. Continue Toradol and lidocaine patch. Appreciate orthopedics consult. Plan is for kyphoplasty on Tuesday. We are currently holding his Plavix in preparation for surgery. Na is down to 118 today. We will continue hypertonic saline. Continue salt tabs and fluid restriction. Every 2 hour sodium checks. Blood pressure remains slightly elevated. Likely this is in response to his pain. Pressures have improved with addition of hydralazine and will continue. NPO at midnight tonight. Code Status: Full IVF: None DVT PPx: Lovenox GI PPx: Protonix ABx: None Diet: Regular Discharge plan: Home Attestations Medical Necessity Statement*: Needs to be in hospital for management of multiple fracture over the thoracic spine. Coding Level of Care Code 72028 Diagnoses Acute hypokalemia E87.6 Acute urinary retention R33.8 Traumatic compression fracture of T12 thoracic vertebra S22.080A Back pain M54.9 Chronic lymphocytic leukemia of B-cell type not having achieved remission C91.10 Hyponatremia E87.1
[2022-07-19] MEDS: iohexol 350 mg/mL 100 mL Btl 10 ML XX (10:48)
--- NOTE | 2022-07-19 11:09 | XR_ITS ---
WS: [id number] EXAMINATION: XR lumbar spine 1V [id number] L-SPINE : 2 views REASON FOR EXAM: OR PICS COMPARISON: 06/30/2022 ORDER DATE: 07/19/2022 11:09 AM FINDINGS: There are vertebroplasty changes at T8, T9 and T11, with corresponding compression fractures.
--- NOTE | 2022-07-19 11:29 | PM.OP ---
Operative Report Date of procedure: July 19, 2022 Pre-op diagnosis: Preop Diagnosis compression wedge traumatic osteoporotic Thoracic vertebrae fracture T9-T10 and T12, CLL Post-op diagnosis: same Procedure done: 1. T9 kyphoplasty 2. T10 Kyphoplasty 3. T12 kyphoplasty 4. Biopsy T10 Surgeon: Guanako Rapp Piece Cutter: none Estimated blood loss (mL): 20 Procedure: 1. T9 kyphoplasty 2. T10 Kyphoplasty 3. T12 kyphoplasty 4. Biopsy T10 Patient brought the op suite after undergoing anesthesia patient was has significant kyphosis so patient was positioned in lateral to the prone. AP lateral fluoroscopy by planar fluoroscopy was still brought in all areas impingement well-padded. Patient was prepped and draped normal sterile fashion. AP and lateral fluoroscopy attention was first brought to the T12 level the stab incision was made. This was done on the lateral edge of the right pedicle. The awl was inserted followed by the drill followed by the balloon followed by the cement. AP and lateral fluoroscopy were used and cement was felt to be in good position. X-rays were brought to the T10 level. This again was done by previous demonstration on the outer edge of the lateral pedicle wall. Awl was inserted. Followed by the drill bone was actually on the drill this was sent for biopsy. The balloon was inserted. Inflated. And then cement was then inserted. AP lateral fluoroscopy again ensured that the cement was in good position. She was brought to the T9 level. The extremity was made on the outer edge of the right pedicle of the awl was inserted followed by the drill followed by the balloon. There was inflated deflated and then cement was injected. AP lateral fluoroscopy ensure that the cement was in good position. There was some leak in the superior disc base. AP lateral fluoroscopy were taken showed good position of cement. No cement going into the posterior canal. The wounds were irrigated and incisions were closed with nylon suture sterile dressings applied patient was transferred to the PACU in stable condition.
[2022-07-19] MEDS: lactated ringers 1,000 ML 90 ML IV ×2 (13:21→20:46)
--- NOTE | 2022-07-19 14:11 | ANE.PACU2 ---
Inpatient post-anesthesia follow up: Airway intact: Yes Vital signs: Temperature 98.3 F Pulse Rate 72 Respiratory Rate 18 Blood Pressure 155/74 Pulse Oximetry 94 Oxygen Delivery Me thod [ Nasal Cannula Current Rate & Del april] Oxygen Delivery Me thod Nasal Cannula Oxygen Flow Rate [ Current Rate 2 & Delivery] Oxygen Flow Rate 2.5 Fraction of Inspir ed Oxygen Hydration adequate: Yes Nausea and vomiting: No Pain level: 1 Mental status: Baseline
[2022-07-19] MEDS: sodium chloride 1 gm Tablet PO ×3 (15:29→20:45)
[2022-07-19] MEDS: hyDRALAzine 25 mg Tablet PO ×2 (15:29→20:45)
[2022-07-19] MEDS: enoxaparin 40 mg/0.4 mL Syringe SUBCUT (18:04)
[2022-07-19] MEDS: docusate sodium 100 mg Capsule PO (18:05)
[2022-07-19] MEDS: sennosides-docusate Tablet 1 TAB PO (18:05)
[2022-07-19] MEDS: escitalopram 10 mg Tablet PO (18:05)
[2022-07-19] MEDS: ketorolac 30 mg/mL INJ IVP (20:45)
[2022-07-19] MEDS: amlodipine 10 mg Tablet PO (20:45)
[2022-07-19] MEDS: atorvastatin 40 mg Tablet 20 MG PO (20:45)
[2022-07-20 00:03] VITALS: BP 163/76; PULSE 68; RESP 16; TEMP 37; O2SAT 94
[2022-07-20] MEDS: clindamycin 900 MG/50 ML PREMIX 100 MG IV ×2 (01:02→09:36)
[2022-07-20 04:20] VITALS: BP 169/90; PULSE 71; RESP 17; TEMP 36.7; O2SAT 96
[2022-07-20 05:10] LABS: Hematocrit 33.1 % (42.0-52.0); Hemoglobin 11.2 g/dL (11.7-16.6); Lymphocytes # 42.8 10^3/uL (0.8-4.8); Mean Corpuscular HGB Conc 33.8 g/dL (30.0-36.0); Mean Corpuscular Hemoglobin 33.1 pg (28.0-34.0); Mean Corpuscular Volume 97.9 fl (80-94); Mean Platelet Volume 8.3 fL (7.4-10.4); Monocytes # 1.4 10^3/uL (0.2-0.9); Monocytes % 2.7 %; Neutrophils # 7.23 10^3/uL (1.8-7.7); Nucleated Red Blood Cells % 0 %; Platelet Count 337 10^3/cmm (130-400); Red Blood Count 3.38 10^6/uL (4.1-5.3); Red Cell Distribution Width 12.5 % (12.1-15.1)
[2022-07-20] MEDS: pantoprazole DR 40 mg Tablet PO (05:16)
[2022-07-20] MEDS: lisinopril 20 mg Tablet 40 MG PO (05:16)
[2022-07-20] MEDS: aspirin 81 mg EC Tablet PO (05:16)
[2022-07-20] MEDS: tamsulosin 0.4 mg Capsule PO (05:16)
[2022-07-20 05:40] LABS: Anion Gap 13.8 (5-19); Blood Urea Nitrogen 7 mg/dL (8-23); Calcium 8.6 mg/dL (8.5-10.5); Carbon Dioxide 29 mmol/L (22-29); Chloride 88 mmol/L (98-107); Glucose 105 mg/dL (65-115); Osmolality Calculated 262 mOsm/kg (285-295); Potassium 3.8 mmol/L (3.5-5.1); Sodium 127 mmol/L (136-145)
[2022-07-20 05:46] LABS: Creatinine Clr Calc Pharmacy 84.4716
[2022-07-20 05:59] LABS: Slide Review Slide Review Perform
[2022-07-20 06:03] LABS: White Blood Count 51.5 10^3/uL (4.0-10.0)
--- NOTE | 2022-07-20 06:05 | PC.NURSE ---
Critical lab value of WBC reported to Dr Ball.
[2022-07-20 08:16] VITALS: BP 167/87; PULSE 72; RESP 17; TEMP 36.4; O2SAT 97
[2022-07-20] MEDS: docusate sodium 100 mg Capsule PO (08:48)
[2022-07-20] MEDS: polyethylene glycol 3350 Pkt 17 gm PO (08:48)
[2022-07-20] MEDS: sennosides-docusate Tablet 1 TAB PO (08:48)
[2022-07-20] MEDS: sodium chloride 1 gm Tablet PO ×2 (08:48→14:38)
[2022-07-20] MEDS: lactulose oral liq 20 gm/30 mL UDC 10 GM PO (08:48)
[2022-07-20] MEDS: hyDRALAzine 25 mg Tablet PO ×2 (08:49→14:38)
[2022-07-20] MEDS: escitalopram 10 mg Tablet PO ×2 (08:49→17:00)
[2022-07-20] MEDS: lactated ringers 1,000 ML 90 ML IV (09:36)
[2022-07-20] MEDS: ketorolac 30 mg/mL INJ IVP (10:11)
[2022-07-20 12:23] VITALS: BP 158/76; PULSE 68; RESP 15; TEMP 36.4; O2SAT 92
--- NOTE | 2022-07-20 12:43 | PC.SOCIAL ---
IMM Updated Updated pt on IMM. No questions voiced. Provided pt a copy. Initialed, dated, & timed copy in chart.
--- NOTE | 2022-07-20 15:03 | P.DS_ITS ---
Discharge Providers Date of Admission: 07/13/22 16:42 Date of Discharge: July 20, 2022 Attending Provider at Admission: Christine Ambriz MD Attending Provider at Discharge: Heri Forbes MD Primary Care Provider: Manolo Centeno DO Diagnoses at Discharge Discharge Diagnosis (1) Acute hypokalemia: Status: Inactive (2) Acute urinary retention: Status: Inactive (3) Traumatic compression fracture of T12 thoracic vertebra: Status: Inactive (4) Back pain: Status: Inactive (5) Chronic lymphocytic leukemia of B-cell type not having achieved remission: Status: Inactive (6) Hyponatremia: Status: Inactive Reason for Visit Reason for Visit: Extreme Back Pain Hospital Course Hospital Course Reilly Friedman is a 76 year old male with known CLL currently on expectant management presents to the hospital today with chief complaints of worsening back pain, he was admitted for the management of fracture of thoracic spine possibly secondary to heavy weightlifting. S/p: T9- T12: Kyphoplasty: Spine surgery on board, during the hospital stay patient was also managed for; hyponatremia: For which he received hypertonic saline, serum sodium was frequently monitored, serum sodium at the time of discharge was 127, he was discharged on p.o. salt tablets, he will follow-up with repeat BMP in 1 week, with his primary care physician, at that point in time, based on the serum sodium status, decision regarding salt tablet can be taken. Patient was also managed for acute urinary retention: Status post Stoll catheter placement initially: At the time of discharge patient underwent voiding trial which he failed, stoll catheter was reinserted and patient will follow urology on discharge. Responded well to above medical and surgical management and was discharged in stable condition to home. He will continue to follow PCP as well as orthopedic as outpatient. Physical Exam Const: COMMON NORMALS: patient oriented x3 HENMT: COMMON NORMALS: normocephalic and atraumatic HEAD & SCALP: normocephalic and atraumatic Resp: COMMON NORMALS: clear to auscultation bilaterally AUSCULTATION: clear to auscultation bilaterally Cardio: COMMON NORMALS: regular rate, regular rhythm, S1 normal heart sound present and S2 normal heart sound present RATE: regular rate RHYTHM: regular rhythm HEART SOUNDS: S1 normal heart sound present and S2 normal heart sound present GI: COMMON NORMALS: Normal to inspection, nondistended, normoactive bowel sounds present, Soft to palpation, non-tender, No hepatosplenomegaly present and no masses AUSCULTATION: Yes normoactive bowel sounds PALPATION: Yes Soft to palpation and Yes No hepatosplenomegaly present RECTAL EXAM: Yes deferred Extremity: COMMON NORMALS: no clubbing, cyanosis or edema and no pedal edema Neuro: COMMON NORMALS: patient oriented x3 Urinary Catheter Management: Coude: Cath Placed During This Visit: yes Reason for Continuing Indwelling Catheter: Acute Urinary Retention or Obstruction Urinary Catheter Date of Insertion: 07/13/22 Urinary Catheter Time of Insertion: 13:22 Discharge Data Studies Completed and Pending Completed Studies During Hospitalization Category Date Time Status CT abdomen pelvis w con* [id number] Stat Cat Scan 07/13/22 13:[address] angio chest PE protcl [id number] Stat Cat Scan 07/13/22 16:[address] lumbar spine wo con* [id number] Stat Cat Scan 07/13/22 09:53 Completed MR lumbar spine wo con* [id number] Routine MRI 07/14/22 17:42 Completed MR thoracic spin wo con* [id number] Routine MRI 07/14/22 17:44 Completed Pathology: Surgical [PTH] Routine Pth 07/19/22 10:52 Completed Pending at discharge Category Date Time Status BMP [Basic Metabolic Panel] AM LABS Lab 07/21/22 04:00 Ordered CBC Auto Diff [Complete Blood Count w/Auto] AM LABS Lab 07/21/22 04:00 Ordered Radiology Impressions Lumbar Spine CT 07/13/22 09:53 IMPRESSION: 1. Acute T12 compression fracture by 60% with retropulsion by 5 mm encroaching upon the ventral thecal sac. Mild bilateral subarticular recess encroachment. 2. No additional acute fractures. 3. Small LEFT pleural effusion. Abdomen/Pelvis CT 07/13/22 13:55 IMPRESSION: 1. Subsegmental bilateral atelectasis at the lung bases with a small LEFT pleural effusion. 2. No acute abdominal or pelvic abnormalities are identified. 3. No ascites or free air. 4. Stoll catheter in the urinary bladder. 5. Acute compression fractures at T9, T10 and T12 as described above. T12 compression fracture with retropulsion as described on the prior CT of 07/13/2022. Chest CTA 07/13/22 16:18 IMPRESSION: 1. No evidence for pulmonary embolus. 2. Trace pleural effusions and dependent atelectasis. 3. Multiple newly acquired thoracic compression fractures, most likely chronic. COMMENTS: Consistent with the [employer]'s Incidental Findings Committee white paper (J Am Nieves Radiol 2018): Any incidental renal lesion less than 1 cm or classified as too small to characterize, or any incidental cystic renal lesion characterized as simple-appearing, is likely benign. No follow-up imaging is recommended for these lesions per consensus recommendations based on imaging criteria. Lumbar Spine MRI 07/14/22 17:42 IMPRESSION: 1. Biconcave compression at T12 vertebral body with fluid-filled fracture cleft. Associated edema. Findings consistent with recent acute compression. 2. Mild buckling of the posterior T12 cortex with mild central canal stenosis. 3. Annular bulging L3-L4 with slight impingement on the RIGHT subarticular recess and traversing RIGHT L4 nerve root. Mild RIGHT foraminal narrowing. 4. Mild annular bulging L4-L5 with slight effacement of the thecal sac. Mild RIGHT foraminal narrowing. 5. Mild facet arthropathy L3-L5. 6. Mild RIGHT L2-L3 foraminal narrowing with narrowing of the RIGHT subarticular recess. Thoracic Spine MRI 07/14/22 17:44 IMPRESSION: 1. Acute compression fractures with edema T9, T10, and T12. Fluid-filled fracture cleft at T12. 2. Minimal posterior retropulsion cortical buckling at T10 and T12 with mild central canal stenosis and slight contact of the thoracic cord at T10. 3. No high-grade central canal stenosis. 4. Chronic compression deformities with anterior wedging in the upper thoracic spine without edema. 5. Moderate facet arthropathy in the lower thoracic spine. 6. Trace bilateral pleural fluid. C-Arm Fluoroscopy 07/19/22 00:00 IMPRESSION: Total fluoroscopy time 112.8 seconds Laboratory Results WBC 51.5 10^3/uL (4.0-10.0) H* 07/20/22 04:27 RBC 3.38 10^6/uL (4.1-5.3) L 07/20/22 04:27 Hgb 11.2 g/dL (11.7-16.6) L 07/20/22 04:27 Hct 33.1 % (42.0-52.0) L 07/20/22 04:27 MCV 97.9 fl (80-94) H 07/20/22 04:27 MCH 33.1 pg (28.0-34.0) 07/20/22 04:27 MCHC 33.8 g/dL (30.0-36.0) 07/20/22 04:27 RDW 12.5 % (12.1-15.1) 07/20/22 04:27 Plt Count 337 10^3/cmm (130-400) 07/20/22 04:27 MPV 8.3 fL (7.4-10.4) 07/20/22 04:27 Neut % (Auto) 14.0 % 07/20/22 04:27 Lymph % (Auto) 83.0 % 07/20/22 04:27 [place] % (Auto) 2.7 % 07/20/22 04:27 Eos % (Auto) 0.0 % 07/20/22 04:27 Baso % (Auto) 0.0 % 07/20/22 04:27 Neut # (Auto) 7.23 10^3/uL (1.8-7.7) 07/20/22 04:27 Lymph # (Auto) 42.8 10^3/uL (0.8-4.8) H 07/20/22 04:27 [place] # (Auto) 1.4 10^3/uL (0.2-0.9) H 07/20/22 04:27 Eos # (Auto) 0.0 10^3/uL (0.0-0.8) 07/20/22 04:27 Baso # (Auto) 0.0 10^3/uL (0.0-0.1) 07/20/22 04:27 Nucleated RBC % (auto) 0 % 07/20/22 04:27 Total Counted 100 (0-100) 07/19/22 04:44 Atypical Lymphs % 0.0 % (0-5) 07/19/22 04:44 Absolute Neutrophils 8.4 10^3/cmm (1.4-6.5) H 07/19/22 04:44 Segmented Neutrophils 19 % 07/19/22 04:44 Abs Segm Neuts (Man) 8.4 10/cmm (1.6-7.1) H 07/19/22 04:44 Band Neutrophils 0.0 % 07/19/22 04:44 Abs Band Neuts (Man) 0.0 10^3/cmm (0.0-1.2) 07/19/22 04:44 Absolute Lymphocytes 34.6 10^3/cmm (1.2-3.4) H 07/19/22 04:44 Lymphocytes (Manual) 78 % 07/19/22 04:44 Monocytes (Manual) 2.0 % 07/19/22 04:44 Absolute Monocytes 0.9 10^3/cmm (0.1-0.6) H 07/19/22 04:44 Eosinophils (Manual) 0 % 07/19/22 04:44 Absolute Eosinophils 0.0 10^3/cmm (0.0-0.7) 07/19/22 04:44 Basophils (Manual) 0.0 % 07/19/22 04:44 Absolute Basophils 0.0 10^3/cmm (0.0-0.2) 07/19/22 04:44 Metamyelocytes 1.0 % 07/19/22 04:44 Nucleated RBCs # 0.0 /100WBC 07/20/22 04:27 Smudge Cells 3+ H 07/19/22 04:44 Platelet Estimate Normal (Normal) 07/19/22 04:44 Macrocytosis 1+ H 07/19/22 04:44 Sodium 127 mmol/L (136-145) L 07/20/22 04:27 Potassium 3.8 mmol/L (3.5-5.1) 07/20/22 04:27 Chloride 88 mmol/L (98-107) L 07/20/22 04:27 Carbon Dioxide 29 mmol/L (22-29) 07/20/22 04:27 Anion Gap 13.8 (5-19) 07/20/22 04:27 BUN 7 mg/dL (8-23) L 07/20/22 04:27 Creatinine 0.6 mg/dL (0.7-1.2) L 07/20/22 04:27 GFR Calculation Not Reportable 07/20/22 04:27 Glucose 105 mg/dL (65-115) 07/20/22 04:27 Calculated Osmolality 262 mOsm/kg (285-295) L 07/20/22 04:27 Calcium 8.6 mg/dL (8.5-10.5) 07/20/22 04:27 Magnesium 1.9 mg/dL (1.7-2.3) 07/17/22 04:30 Total Bilirubin 0.7 mg/dL (0.15-1.2) 07/19/22 04:44 AST 25 U/L (0-40) 07/19/22 04:44 ALT 27 U/L (0-41) 07/19/22 04:44 Alkaline Phosphatase 63 U/L (40-130) 07/19/22 04:44 NT-Pro-B Natriuret Pep 1912 pg/mL (0-450) H 07/14/22 04:30 Total Protein 5.5 g/dL (6.6-8.7) L 07/19/22 04:44 Albumin 3.4 g/dL (3.5-5.2) L 07/19/22 04:44 Globulin 2.1 g/dL (1.3-4.6) 07/19/22 04:44 TSH 1.39 uIU/mL (0.27-4.20) 07/17/22 04:30 Urine Color Yellow (Yellow) 07/13/22 12:47 Urine Appearance Clear (CLEAR) 07/13/22 12:47 Urine pH 6 (5-7) 07/13/22 12:47 Ur Specific [place] 1.015 (1.005-1.030) 07/13/22 12:47 Urine Protein Neg (Negative) 07/13/22 12:47 Urine Glucose (UA) Norm (Normal) 07/13/22 12:47 Urine Ketones 1+ (Negative) H 07/13/22 12:47 Urine Blood Neg (Negative) 07/13/22 12:47 Urine Nitrate Negative (Negative) 07/13/22 12:47 Urine Bilirubin Neg (Negative) 07/13/22 12:47 Urine Urobilinogen Norm mg/dL (Negative) 07/13/22 12:47 Ur Leukocyte Esterase Negative (Negative) 07/13/22 12:47 Vitals Last Vital Signs Temp 97.6 F 07/20/22 12:23 Pulse 68 07/20/22 12:23 Resp 15 07/20/22 12:23 BP 158/76 07/20/22 12:23 Pulse Ox 92 04/11/23 12:23 O2 Del Method 07/20/22 12:23 O2 Flow Rate 3 07/20/22 08:16 Discharge Plan Discharge Patient Disposition: Home Condition: Stable Prescriptions: New amlodipine 10 mg tablet 10 mg PO DAILY Qty: 30 1RF sodium chloride 1,000 mg Tablet,Soluble 1 g PO TID 7 Days Qty: 21 0RF ketorolac 10 mg tablet 10 mg PO Q6H PRN (Reason: pain) Qty: 20 0RF Continued clopidogrel 75 mg tablet 75 mg PO QAM aspirin [Adult Low Dose Aspirin] 81 mg tablet,delayed release (DR/EC) 81 mg PO QAM hydrocodone-acetaminophen 5-325 mg tablet 1 tab PO Q4H PRN (Reason: back pain, muscle spasm) 7 Days Qty: 30 0RF Miralax 17 gram Powder In Packet 17 g PO BEDTIME Senna-S 8.6-50 mg Tablet 2 tab PO BEDTIME Colace 100 mg Capsule 200 mg PO BEDTIME lisinopril 40 mg Tablet 40 mg PO QAM simvastatin 40 mg tablet 40 mg PO BEDTIME tamsulosin 0.4 mg capsule 0.4 mg PO QAM omeprazole 20 mg capsule,delayed release(DR/EC) 20 mg PO QAM fluticasone propionate 50 mcg/actuation spray,suspension 1 spray intranasal BEDTIME PRN (Reason: Allergy Symptoms) escitalopram oxalate 10 mg tablet 10 mg PO BID acetaminophen 500 mg Tablet 1,000 mg PO Q6H PRN (Reason: Pain) 14 Days Qty: 25 0RF Discontinued ibuprofen 200 mg Tablet 800 mg PO Q8H PRN (Reason: Pain) amlodipine 5 mg tablet 5 mg PO BEDTIME Discharge Orders: Discharge Order (Routine); Ordered 07/20/22 Ordered By: Heri Forbes Other Ambulatory Orders: Basic Metabolic Panel (Routine) Timeframe: 1 Week Facility: [facility] - Location: Lab - Main Lab Ordered By: Heri Forbes Referrals: Guanako Rapp DO [Physician] - 07/27/22 10:30 am Michael House MD [Physician] - (Dr House's office will call with appointment) Manolo Centeno DO [Primary Care Provider] - 07/27/22 11:00 am Patient Instructions: Ketorolac (By mouth), Amlodipine (By mouth), Sodium Chloride (By breathing), Stoll Catheter Placement and Care (GEN), Kyphoplasty (PRE), Opioid Safety Discharge Attestations Time Spent in Discharge Care*: less than 30 min Quality Metrics Clinical Quality Measures [ No reported AMI, CVA or VTE this stay] Coding Level of Care Code Acute Code for Chg Fwd Diagnoses Acute hypokalemia E87.6 Acute urinary retention R33.8 Traumatic compression fracture of T12 thoracic vertebra S22.080A Back pain M54.9 Chronic lymphocytic leukemia of B-cell type not having achieved remission C91.10 Hyponatremia E87.1
[2022-07-20] MEDS: HYDROcodone-acetaminophen 5-325 mg Tablet 1 TAB PO (17:00)
[2022-07-20 19:19] VITALS: BP 158/76; PULSE 68; RESP 15; TEMP 36.4; O2SAT 92
== END 2022-07-20 19:19 | disposition home or self-care (01) | DRG 478 ==
LOC: ER 15:02 → MEDSURG 16:42
PROVIDERS: Family Medicine; Orthopaedic Surgery; Physician Assistant; Admitting Provider Student in an Organized Health Care Education/Training Program; Emergency Provider Family Medicine; PCP Family Medicine; Visit Provider Internal Medicine
PROC: 0PB43ZX Excision of Thoracic Vertebra, Percutaneous Approach, Diagnostic (ICD-10-PCS; principal; 2022-07-19 09:10)
DX: S22.070A Wedge compression fracture of T9-T10 vertebra, initial encounter for closed fracture (principal); C91.10 Chronic lymphocytic leukemia of B-cell type not having achieved remission; E87.1 Hypo-osmolality and hyponatremia; N13.8 Other obstructive and reflux uropathy; S22.080A Wedge compression fracture of T11-T12 vertebra, initial encounter for closed fracture; X50.0XXA Overexertion from strenuous movement or load, initial encounter; Z79.02 Long term (current) use of antithrombotics/antiplatelets; Z79.82 Long term (current) use of aspirin; N40.1 Benign prostatic hyperplasia with lower urinary tract symptoms; R33.8 Other retention of urine; E78.5 Hyperlipidemia, unspecified; K21.9 Gastro-esophageal reflux disease without esophagitis; Z86.73 Personal history of transient ischemic attack (TIA), and cerebral infarction without residual deficits; I10 Essential (primary) hypertension; Z85.828 Personal history of other malignant neoplasm of skin; K59.00 Constipation, unspecified; E87.6 Hypokalemia
CPT/HCPCS: 36415; 51702; 51798; 71275; 72020; 72131; 72146; 72148; 74177; 76000; 80048; 80053; 81003; 83735; 83880; 84295; 84443; 85007; 85025; 88307; 88311; 93005; 96372; 96374; 96375; 96376; 97116; 97161; 97530; 97760; 99285; J0360; J1100; J1650; J1885; J2270; J2360; J2405; J2704; J2710; J3010; J3480; J3490; J7030; J7040; J7120; J7131; L0456; Q9967

== ENCOUNTER → 2022-07-26 08:17 | Outpatient (BNVA) | payer MEDICARE, OTHER, SELFPAY | PROVIDERS: PCP Family Medicine; Visit Provider Family Medicine | DX: E87.6 Hypokalemia (principal); N13.8 Other obstructive and reflux uropathy; N40.1 Benign prostatic hyperplasia with lower urinary tract symptoms | CPT/HCPCS: 80048; 85025 ==

== ENCOUNTER → 2022-07-27 10:18 | Outpatient (BNVA) | payer MEDICARE, OTHER, SELFPAY | PROVIDERS: PCP Family Medicine; Visit Provider Physician Assistant | DX: M84.48XA Pathological fracture, other site, initial encounter for fracture (principal); Z98.890 Other specified postprocedural states; X58.XXXA Exposure to other specified factors, initial encounter | CPT/HCPCS: 99024 ==

== ENCOUNTER 2022-08-03 14:32 | Outpatient (CLI) | payer MEDICARE, OTHER, SELFPAY ==
[2022-08-03 16:06] LABS: Anion Gap 14.5 (5-19); Blood Urea Nitrogen 7 mg/dL (8-23); Calcium 8.6 mg/dL (8.5-10.5); Carbon Dioxide 26 mmol/L (22-29); Chloride 96 mmol/L (98-107); Glucose 102 mg/dL (65-115); Osmolality Calculated 274 mOsm/kg (285-295); Potassium 3.5 mmol/L (3.5-5.1); Sodium 133 mmol/L (136-145)
== END 2022-08-03 14:33 | disposition home or self-care (01) ==
LOC: LAB 14:38
PROVIDERS: PCP Family Medicine; Visit Provider Family Medicine
DX: E87.1 Hypo-osmolality and hyponatremia (principal); E87.6 Hypokalemia
CPT/HCPCS: 36415; 80048

== ENCOUNTER → 2022-08-04 15:28 | Outpatient (BNVA) | payer MEDICARE, OTHER, SELFPAY | PROVIDERS: PCP Family Medicine; Visit Provider Urology | DX: N13.8 Other obstructive and reflux uropathy (principal); N40.1 Benign prostatic hyperplasia with lower urinary tract symptoms; R33.8 Other retention of urine | CPT/HCPCS: 52000; 99213 ==

== ENCOUNTER 2022-08-10 10:24 | Outpatient (RCR) | payer MEDICARE, OTHER, SELFPAY | END 2022-09-08 23:59 | disposition home or self-care (01) | LOC: SPT 10:24 | PROVIDERS: PCP Family Medicine; Visit Provider Physician Assistant | DX: Z47.89 Encounter for other orthopedic aftercare (principal) | CPT/HCPCS: 97110; 97112; 97161 ==

== ENCOUNTER → 2022-08-13 11:31 | Outpatient (BNVA) | payer MEDICARE, OTHER, SELFPAY | PROVIDERS: PCP Family Medicine; Visit Provider Nurse Practitioner Family | DX: R50.9 Fever, unspecified (principal); E87.6 Hypokalemia | CPT/HCPCS: 80053; 81000; 85007; 85025 ==

== ENCOUNTER → 2022-08-27 11:53 | Outpatient (BNVA) | payer MEDICARE, OTHER, SELFPAY | PROVIDERS: PCP Family Medicine; Visit Provider Family Medicine | DX: E87.1 Hypo-osmolality and hyponatremia (principal); C91.10 Chronic lymphocytic leukemia of B-cell type not having achieved remission; M19.90 Unspecified osteoarthritis, unspecified site; E87.6 Hypokalemia | CPT/HCPCS: 80048; 85025 ==

== ENCOUNTER 2022-09-09 06:00 | Outpatient (RCR) | payer MEDICARE, OTHER, SELFPAY | END 2022-10-08 23:59 | disposition home or self-care (01) | LOC: SPT 06:00 | PROVIDERS: PCP Family Medicine; Visit Provider Physician Assistant | DX: M40.294 Other kyphosis, thoracic region (principal); Z47.89 Encounter for other orthopedic aftercare | CPT/HCPCS: 97110; 97112 ==

== ENCOUNTER → 2022-09-27 11:02 | Outpatient (BNVA) | payer MEDICARE, OTHER, SELFPAY | PROVIDERS: PCP Family Medicine; Visit Provider Family Medicine | DX: E87.1 Hypo-osmolality and hyponatremia (principal); E87.6 Hypokalemia | CPT/HCPCS: 80048 ==

== ENCOUNTER 2022-10-09 06:00 | Outpatient (RCR) | payer MEDICARE, OTHER, SELFPAY | END 2022-11-08 23:59 | disposition home or self-care (01) | LOC: SPT 06:00 | PROVIDERS: PCP Family Medicine; Visit Provider Physician Assistant | DX: Z47.89 Encounter for other orthopedic aftercare (principal); M40.294 Other kyphosis, thoracic region | CPT/HCPCS: 97110 ==

== ENCOUNTER 2022-11-19 13:15 | Outpatient (CLI) | payer MEDICARE, OTHER, SELFPAY ==
--- NOTE | 2022-11-19 13:30 | XR_ITS ---
WS: [id number] SCREENING DEXA SCAN [employer] CLINICAL INFORMATION: compression fracture COMPARISON: None. FINDINGS: The L1-L4 bone mineral density measures 1.618 g/cm2. This corresponds to a T score score of 3.3 and Z score of 4.4. Left femoral neck bone mineral density measures 0.691 g/cm2. This corresponds to a T score of -2.8 an d Z score of -1.6. Right femoral neck bone mineral density measures 0.697 g/cm2. This corresponds to a T score -2.8of an d Z score of -1.6. Mean femoral neck bone mineral density measures 0.694 g/cm2. This corresponds to a T score of -2.8 an d Z score of -1.6. IMPRESSION: Normal bone mineralization lumbar spine. Osteoporosis femoral necks. Patient's FRAX calculated 10 year probability for major osteoporotic fracture is 12.9% and osteoporot ic hip fracture is 6.1%.
== END 2022-11-19 13:16 | disposition home or self-care (01) ==
LOC: RAD 13:16
PROVIDERS: PCP Family Medicine; Visit Provider Internal Medicine Medical Oncology
DX: M48.50XA Collapsed vertebra, not elsewhere classified, site unspecified, initial encounter for fracture (principal); M81.0 Age-related osteoporosis without current pathological fracture
CPT/HCPCS: 77080

== ENCOUNTER → 2022-11-26 10:00 | Day surgery (SDC) | payer MEDICARE, OTHER, SELFPAY ==
[2022-11-26] MEDS: cosyntropin 0.25 mg SDV IVP (10:17)
[2022-11-26 10:27] VITALS: BP 141/73; PULSE 70; RESP 18; TEMP 36.6; O2SAT 98
[2022-11-26 10:53] LABS: Cosyntropin Baseline 13.93 mcg/dL
[2022-11-26 11:27] LABS: Cosyntropin 30 Minute 25.66 mcg/dL
--- NOTE | 2022-11-26 11:59 | PC.NURSE ---
Pt referred to GI infusions for Cosyntropin stim test. Procedure competed. Dr. Conley's nurse, Saida, notified.
[2022-11-26 12:11] LABS: Cosyntropin 1 Hour 31.47 mcg/dL
== END ==
PROVIDERS: PCP Family Medicine; Visit Provider Internal Medicine Medical Oncology
DX: E87.1 Hypo-osmolality and hyponatremia (principal)
CPT/HCPCS: 36415; 82533; 96374; J0834

== ENCOUNTER 2022-12-07 10:00 | Oncology outpatient (recurring) (ONCR) | payer MEDICARE, OTHER, SELFPAY ==
[2022-11-17 09:05] VITALS: BP 131/78; PULSE 70; RESP 18; TEMP 37.1; O2SAT 98
[2022-11-17 09:26] LABS: Hemoglobin 12.3 g/dL (11.7-16.6); Mean Corpuscular HGB Conc 33.2 g/dL (30.0-36.0); Mean Corpuscular Hemoglobin 33.8 pg (28.0-34.0); Mean Corpuscular Volume 101.6 fl (80-94); Mean Platelet Volume 8.2 fL (7.4-10.4); Platelet Count 293 10^3/cmm (130-400); Red Blood Count 3.64 10^6/uL (4.1-5.3)
[2022-11-17 09:41] LABS: Alanine Aminotransferase 14 U/L (0-41); Alkaline Phosphatase 79 U/L (40-130); Aspartate Amino Transferase 19 U/L (0-40); Blood Urea Nitrogen 7 mg/dL (8-23); Calcium 9.1 mg/dL (8.5-10.5); Carbon Dioxide 26 mmol/L (22-29); Chloride 92 mmol/L (98-107); Creatinine Clr Calc Pharmacy 79.2298; Globulin 2.2 g/dL (1.3-4.6); Glucose 84 mg/dL (65-115); Osmolality Calculated 263 mOsm/kg (285-295); Sodium 128 mmol/L (136-145); Total Bilirubin 0.6 mg/dL (0.15-1.2); Total Protein 6.2 g/dL (6.6-8.7)
[2022-11-17 09:42] LABS: Anion Gap 14.7 (5-19); Lactate Dehydrogenase 197 U/L (135-225); Potassium 4.7 mmol/L (3.5-5.1)
[2022-11-17 10:00] LABS: Slide Review Slide Review Perform
[2022-11-17 10:01] LABS: White Blood Count 37.2 10^3/uL (4.0-10.0)
[2022-11-17 10:02] LABS: Absolute Eosinophils 0.7 10^3/cmm (0.0-0.7); Absolute Segmented Neutrophil 5.2 10/cmm (1.6-7.1); Eosinophils 2 %; Lymphocytes 33 %; Lymphocytes Absolute 30.5 10^3/cmm (1.2-3.4); Monocytes Absolute 0.7 10^3/cmm (0.1-0.6); Segmented Neutrophils 14 %; Total Cells Counted 100 (0-100)
[2022-11-17 10:03] LABS: Absolute Neutrophil 5.2 10^3/cmm (1.4-6.5); Anisocytosis 1+; Macrocytosis 1+; Ovalocytes 1+; Platelet Estimate Normal (Normal); Poikilocytosis 1+
[2022-11-17 12:05] LABS: 25 Hydroxy Vitamin D 20 ng/mL (30-100)
[2022-11-17 12:12] LABS: Testosterone Total 394.5 ng/dL (193-740)
[2022-12-07] MEDS: denosumab 60 mg SDV SUBCUT (10:30)
[2022-12-07 10:31] VITALS: BP 139/76; PULSE 62; RESP 18; TEMP 36.4; O2SAT 98
[2022-12-07 10:32] VITALS: BP 139/76; PULSE 62; RESP 18; TEMP 36.8; O2SAT 98
--- NOTE | 2022-12-07 12:26 | PC.NURSE ---
Patient has been instructed with the Prolia injections with written material of the effects and side effects. His next 6 month schedule was made.dayana
== END 2022-12-09 23:59 | disposition home or self-care (01) ==
PROVIDERS: PCP Family Medicine; Visit Provider Internal Medicine Medical Oncology
DX: C91.10 Chronic lymphocytic leukemia of B-cell type not having achieved remission (principal); M48.54XA Collapsed vertebra, not elsewhere classified, thoracic region, initial encounter for fracture; Z79.899 Other long term (current) drug therapy
CPT/HCPCS: 36415; 80053; 82306; 83615; 84403; 85007; 85025; 96401; 99214; J0897

== ENCOUNTER 2022-12-14 11:57 | Emergency (ER) | payer MEDICARE, OTHER, SELFPAY ==
[2022-12-14 12:21] VITALS: BP 162/84; PULSE 77; RESP 18; TEMP 36.7; O2SAT 96; BMI 23.9
--- NOTE | 2022-12-14 14:14 | ED_ITS ---
HPI - Back Pain/Injury General: Chief Complaint: Back Pain/Injury Stated Complaint: back pain Time Seen by Provider: 12/14/22 12:58 Source: patient and family Mode of arrival: wheelchair Limitations: no limitations History of Present Illness: Patient is an extremely pleasant 77-year-old male who presents to ED today with a complaint of lower back pain over the past 4 days or so. Patient states back in July he was diagnosed with multiple thoracic compression fractures and received kyphoplasties to T9, T10, T12 by Dr. Rapp. Patient states he has been doing well following those surgeries and is still active in physical therapy. He believes on Tuesday he may have overdone it stating that he was using a machine that required him to reach up and pull down a weighted bar. He also states over the weekend [place] and it was bumpy . No radicular symptoms. Has been using Tylenol without much relief. MD elicited complaint: back pain Pertinent past history: prior back pain and back surgery Onset (ago): day(s) Timing: constant Severity: severe Similar Symptoms Previously: Yes Location: lumbar spine Radiation: none Exacerbating factors: movement, walking and lifting Relieving factors: sitting upright Associated symptoms: Reports no associated symptoms and difficulty walking; Deny abdominal pain, chills, dysuria, fatigue, fever(s) or hematuria Work related injury: No Review of Systems Const: Denies: fever(s), chills, body aches, fatigue or malaise Card: Denies: chest pain Resp: Denies: dyspnea GI: Denies: abdominal pain : Denies: flank pain, dysuria or hematuria Musc: Reports: back pain; Denies: neck pain, extremity pain, extremity swelling, joint pain or joint swelling Skin/Breast: Denies: rash Neuro: Reports: difficulty walking; Denies: numbness in extremities or sensory changes PFSH ED PFSH: Medical History Acute hypokalemia Acute urinary retention Back pain 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 Degenerative arthritis Dyslipidemia GERD (gastroesophageal reflux disease) History of stroke (04/2018) HTN (hypertension) Hyponatremia Pathologic thoracic fracture Traumatic compression fracture of T12 thoracic vertebra Surgical History H/O Mohs micrographic surgery for skin cancer (2019) Hx of bilateral inguinal hernia repair S/P arthroscopic surgery of left knee Family History Father , AT AGE 84 PROSTATE CANCER Cancer Mother , AT AGE 84 Hypertension CAD (coronary artery disease) Sister Dementia Other Hyperlipidemia Stroke Denies family history of Diabetes Clotting disorder Psychiatric illness Chronic kidney disease (CKD) Suicide Anesthesia complication Bleeding disorder Lung disease Social History Smoking and tobacco status: never smoked Alcohol intake: never Substance/Drug Use: unknown Adopted: No Caregiver/support person: No Lives independently: No Household members: spouse Marital status: Current occupational status: employed Physical Exam Const: COMMON NORMALS: no acute distress, patient oriented x3, no limitations and alert GENERAL APPEARANCE: cooperative ORIENTATION/CONSCIOUSNESS: Yes awake, Yes oriented to person, Yes oriented to place and Yes oriented to time Resp: COMMON NORMALS: normal respiratory effort and clear to auscultation bilaterally AUSCULTATION: clear to auscultation bilaterally Cardio: COMMON NORMALS: regular rate and regular rhythm RATE: regular rate RHYTHM: regular rhythm GI: COMMON NORMALS: Normal to inspection, nondistended, normoactive bowel sounds present, Soft to palpation and non-tender PALPATION: Yes Soft to palpation : COMMON NORMALS: Yes no CVA tenderness BLADDER/KIDNEY EXAM: Yes no CVA tenderness Back/Pelvis: COMMON NORMALS: no CVA tenderness THORACIC SPINE/UPPER BACK: No thoracic spinal tenderness, No paraspinal muscle tenderness and Yes kyphosis present (severe) LUMBAR SPINE/LOWER BACK: Yes ROM limited, Yes lumbar spinal tenderness and Yes paraspinal muscle tenderness Lumbar paraspinal muscle tenderness: bilateral PELVIS: Yes buttocks normal and No sciatic notch tenderness SACROILIAC JOINTS: Yes SI joints normal SACRUM: no tenderness COCCYX: no tenderness Extremity: COMMON NORMALS: normal to inspection and full ROM GENERAL: Yes normal exam except as noted Neuro: COMMON NORMALS: patient oriented x3, moves all extremities, no focal motor deficits and no sensory deficits noted SENSORIUM/ORIENTATION: Yes alert, Yes oriented to person, Yes oriented to place and Yes oriented to time Skin: COMMON NORMALS: no rashes or lesions noted GENERAL SKIN EXAM: no rashes or lesions noted Course Vital Signs: Vital signs: Vital Signs Temperature 98.1 F 12/14/22 12:21 Pulse Rate 77 12/14/22 12:21 Respiratory Rate 18 12/14/22 16:37 Blood Pressure 162/84 12/14/22 12:21 Pulse Oximetry 96 12/14/22 12:21 Oxygen Delivery Me thod Room Air 12/14/22 12:21 MDM - Back Pain/Injury Medical Decision Making Patient unfortunately has compression fractures throughout his lumbar spine most notably at L2, L4, L5. These are new compared to his MRI on file from [facility] in July. At this point we will have him follow up with Dr. Rapp (they actually already contacted his office and have an appointment scheduled for next Tuesday). He has a back brace he can start wearing. Will send him home with pain medications. CT showing a pulmonary nodule-he can get outpatient chest CT for further characterization. Return to ED precautions given. Labs Radiology Impressions Lumbar Spine CT 12/14/22 14:21 IMPRESSION: 1. Compression fractures throughout the lumbar spine without retropulsion of bony fragments, new compared to prior exam, age indeterminate. 2. Emphysematous changes. 3. Bibasilar bronchiectasis. 4. Left lower lobe 3.7 mm pulmonary nodule, dedicated chest CT could further characterize this. 5. Bibasilar subsegmental atelectasis versus infiltrate. 6. T12 vertebroplasty changes. Discharge Plan Discharge Patient Disposition: Home Clinical Impression: Compression fracture of lumbar vertebra Qualifiers: Encounter type: initial encounter Lumbar vertebra fracture level: unspecified lumbar vertebra Qualified Code(s): S32.000A - Wedge compression fracture of unspecified lumbar vertebra, initial encounter for closed fracture Condition: Stable Prescriptions: New hydrocodone-acetaminophen 5-325 mg tablet 1 tab PO Q4H PRN (Reason: pain) Qty: 20 0RF No Action aspirin [Adult Low Dose Aspirin] 81 mg tablet,delayed release (DR/EC) 81 mg PO QAM hydrocodone-acetaminophen 5-325 mg tablet 1 tab PO Q4H PRN (Reason: back pain, muscle spasm) 7 Days Qty: 30 0RF amlodipine 10 mg tablet 10 mg PO DAILY Qty: 90 1RF potassium chloride 10 mEq capsule, extended release 10 meq PO BID Qty: 60 5RF lisinopril 40 mg tablet 40 mg PO QAM Qty: 90 3RF cholecalciferol (vitamin D3) 25 mcg (1,000 unit) capsule 25 mcg PO DAILY Qty: 30 0RF cholecalciferol (vitamin D3) 1,250 mcg (50,000 unit) tablet 50,000 unit PO DIRECTED Qty: 10 0RF Rx Instructions: take weekly for 4 weeks on Tuesday, then monthly thereafter sennosides-docusate sodium [Senna-S] 8.6-50 mg Tablet 2 tab PO BEDTIME PRN (Reason: Constipation) docusate sodium [Colace] 100 mg Capsule 200 mg PO BEDTIME PRN (Reason: Constipation) simvastatin 40 mg tablet 40 mg PO BEDTIME tamsulosin 0.4 mg capsule 0.4 mg PO QAM omeprazole 20 mg capsule,delayed release(DR/EC) 20 mg PO QAM acetaminophen 500 mg Tablet 1,000 mg PO Q6H PRN (Reason: Pain) 14 Days Qty: 25 0RF amlodipine 5 mg tablet 5 mg PO DAILY ketorolac 10 mg tablet 10 mg PO Q6H PRN (Reason: Pain) clopidogrel 75 mg tablet 75 mg PO DAILY fluticasone propionate 50 mcg/actuation spray,suspension See Rx Instructions .ROUTE .COMPLEX PRN (Reason: Allergic Symptoms) Rx Instructions: USE 1 SPRAY IN EACH NOSTRIL DAILY escitalopram oxalate 10 mg tablet 10 mg PO DAILY Discharge Orders: Discharge ED (Routine); Ordered 12/14/22 Ordered By: Pat Bell Referrals: Manolo Centeno DO [Primary Care Provider] - Patient Instructions: Fractures - Compression, Opioid Safety, Pain Management Activity Restrictions/Additional Instructions: As we discussed we will try to get case management to get you a sooner appoint ment with Dr. Rapp. If not please keep your appointment for Tuesday. You indicated you have a back brace at home. I recommend you begin wearing this. You may take pain medications as needed for significant discomfort. Coding Level of Care Code ED Service Developer for Sena Ching
--- NOTE | 2022-12-14 14:21 | CTR_ITS ---
PROCEDURE INFORMATION: Exam: CT Lumbar Spine Without Contrast Exam date and time: 12/14/2022 4:13 PM Age: 77 years old Clinical indication: Low back pain; Additional info: Low back pain, cancer PT. TECHNIQUE: Imaging protocol: Computed tomography of the lumbar spine without contrast. Radiation optimization: All CT scans at this facility use at least one of these dose optimization techniques: automated exposure control; mA and/or kV adjustment per patient size (includes targeted exams where dose is matched to clinical indication); or iterative reconstruction. REPORTING DATA: Count of CT and Cardiac NM exams in prior 12 months: This patient has received 3 known CTs and 0 known cardiac nuclear medicine studies in the 12 months prior to the current study. COMPARISON: MR lumbar spine wo con* [id number] 07/14/2022 10:53 AM RADIATION DOSE METRICS: Total DLP (mGy-cm): 753.9 FINDINGS: Bones/joints: Compression fractures throughout the lumbar spine without retropulsion of bony fragments, new compared to prior exam, age indeterminate. T12 vertebroplasty changes. L1-L2: No significant disc bulge or herniation. No severe spinal canal stenosis. No significant neural foraminal narrowing. L2-L3: No significant disc bulge or herniation. No severe spinal canal stenosis. No significant neural foraminal narrowing. L3-L4: No significant disc bulge or herniation. No severe spinal canal stenosis. No significant neural foraminal narrowing. L4-L5: No significant disc bulge or herniation. No severe spinal canal stenosis. No significant neural foraminal narrowing. L5-S1: No significant disc bulge or herniation. No severe spinal canal stenosis. No significant neural foraminal narrowing. Lungs: Emphysematous changes. Bibasilar bronchiectasis. Left lower lobe 3.7 mm pulmonary nodule, dedicated chest CT could further characterize this. Bibasilar subsegmental atelectasis versus infiltrate. Soft tissues: Unremarkable. CT/CT lumbar spine wo con* [id number] IMPRESSION: 1. Compression fractures throughout the lumbar spine without retropulsion of bony fragments, new compared to prior exam, age indeterminate. 2. Emphysematous changes. 3. Bibasilar bronchiectasis. 4. Left lower lobe 3.7 mm pulmonary nodule, dedicated chest CT could further characterize this. 5. Bibasilar subsegmental atelectasis versus infiltrate. 6. T12 vertebroplasty changes.
[2022-12-14 14:37] VITALS: RESP 16
[2022-12-14] MEDS: morphine 4 mg/mL SDV 1 mL IM ×2 (14:37→16:37)
[2022-12-14 16:37] VITALS: RESP 18
--- NOTE | 2022-12-15 07:27 | DCPLANNER ---
Addendum entered by Mariel Whelan 12/15/22 11:10: Patient has a follow up appointment scheduled for December at 3:15 with Mat Cabrera at ortho. Original Note: financial institution branch manager had message to schedule a follow up appointment for patient with ortho. financial institution branch manager sent patients information to the front office staff at ortho. Patients information will be printed and reviewed. Clinic will call patient with appointment information.
== END 2022-12-14 17:08 | disposition home or self-care (01) ==
PROVIDERS: Emergency Provider Physician Assistant; PCP Family Medicine
DX: S32.000A Wedge compression fracture of unspecified lumbar vertebra, initial encounter for closed fracture (principal); Z79.82 Long term (current) use of aspirin; Z79.02 Long term (current) use of antithrombotics/antiplatelets; Z85.6 Personal history of leukemia; E78.5 Hyperlipidemia, unspecified; Z86.73 Personal history of transient ischemic attack (TIA), and cerebral infarction without residual deficits; I10 Essential (primary) hypertension; X50.9XXA Other and unspecified overexertion or strenuous movements or postures, initial encounter
CPT/HCPCS: 72131; 96372; 99284; J2270

== ENCOUNTER → 2022-12-16 14:23 | Outpatient (BNVA) | payer MEDICARE, OTHER, SELFPAY | PROVIDERS: PCP Family Medicine; Visit Provider Physician Assistant | DX: S32.000D Wedge compression fracture of unspecified lumbar vertebra, subsequent encounter for fracture with routine healing; X58.XXXD Exposure to other specified factors, subsequent encounter; M19.90 Unspecified osteoarthritis, unspecified site; M62.838 Other muscle spasm | CPT/HCPCS: 72070; 99213 ==

== ENCOUNTER 2022-12-21 14:56 | Outpatient (CLI) | payer MEDICARE, OTHER, SELFPAY ==
--- NOTE | 2022-12-21 16:00 | MR_ITS ---
WS: [id number] MRI LUMBAR SPINE NONCONTRAST TECHNIQUE: Sagittal T1, T2 and STIR imaging. Axial T1 and T2 imaging. CLINICAL INFORMATION: back pain COMPARISON: CT 12/14/2022 FINDINGS: Some images degraded by motion. Recent acute appearing compression fractures involving the superior endplate L1 with loss of approxim ately 20% vertebral body height. No retropulsion. Additional acute compression superior endplate L5. No retropulsion. Prior vertebroplasty changes at T10 and T12. Mild acute to subacute appearing biconcave compression at L3 with mild edema More chronic appearing biconcave compression at L2 and L4 without significant edema. These are stable since 12/14/2022 but new since 07/14/2022 Mild chronic appearing retropulsion of T10 and T12 posterior cortex with mild central canal stenosis. L1-L2: Normal. L2-L3: Minimal disc bulging with narrowing of the subarticular recess. Mild facet arthropathy. L3-L4: Mild disc bulging with slight effacement of the ventral thecal sac. Mild facet arthropathy. Sp inal canal and foramen are patent. L4-L5: Mild annular bulging. Slight narrowing of the RIGHT greater than LEFT subarticular recess. Mil d bilateral foraminal narrowing RIGHT greater than LEFT. Moderate arthropathy. L5-S1: Disc osteophytic ridging. Mild facet arthropathy. Spinal canal and foramen are patent. Visualized pelvic bony structures: Normal. Paravertebral soft tissues: Normal. IMPRESSION: 1. Numerous compression fractures of various ages throughout the lumbar spine are new since the MRI of 07/14/2022. 2. Recent appearing acute compression fractures at L1 and L5 with edema. No significant retropulsion . 3. Acute to subacute compression fracture at L3 with mild biconcave compression and mild edema. 4. More chronic appearing biconcave compression fractures at L2 and L4 without significant edema. 5. Prior vertebroplasty changes at T10 and T12 with mild retropulsion and mild central canal stenosi s.
== END 2022-12-21 14:57 | disposition home or self-care (01) ==
LOC: RAD 14:59
PROVIDERS: PCP Family Medicine; Visit Provider Physician Assistant
DX: M19.90 Unspecified osteoarthritis, unspecified site (principal); S32.010A Wedge compression fracture of first lumbar vertebra, initial encounter for closed fracture; S32.050A Wedge compression fracture of fifth lumbar vertebra, initial encounter for closed fracture; S32.038A Other fracture of third lumbar vertebra, initial encounter for closed fracture; X58.XXXA Exposure to other specified factors, initial encounter; M48.04 Spinal stenosis, thoracic region; Z98.890 Other specified postprocedural states
CPT/HCPCS: 72148

== ENCOUNTER → 2022-12-23 14:27 | Outpatient (BNVA) | payer MEDICARE, OTHER, SELFPAY | PROVIDERS: PCP Family Medicine; Visit Provider Orthopaedic Surgery | DX: S32.010A Wedge compression fracture of first lumbar vertebra, initial encounter for closed fracture (principal); S32.050A Wedge compression fracture of fifth lumbar vertebra, initial encounter for closed fracture; S32.030A Wedge compression fracture of third lumbar vertebra, initial encounter for closed fracture; X58.XXXA Exposure to other specified factors, initial encounter | CPT/HCPCS: 36415; 80053; 81001; 85007; 85025; 99214 ==

== ENCOUNTER 2022-12-27 09:52 | Emergency (ER) | payer MEDICARE, OTHER, SELFPAY ==
[2022-12-27 10:22] LABS: Eosinophils # 0.1 10^3/uL (0.0-0.8); Eosinophils % 0.1 %; Hematocrit 36.7 % (37-53); Lymphocytes # 58.6 10^3/uL (0.8-4.8); Lymphocytes % 83.6 %; Mean Corpuscular HGB Conc 33.8 g/dL (30-55); Mean Corpuscular Hemoglobin 33.5 pg (27-33); Mean Corpuscular Volume 99.2 fl (82-101); Mean Platelet Volume 7.8 fL (7.4-10.4); Monocytes # 1.4 10^3/uL (0.2-0.9); Neutrophils # 9.78 10^3/uL (1.8-7.7); Nucleated Red Blood Cells % 0 %; Platelet Count 365 10^3/cmm (157-399); Red Cell Distribution Width 12.9 % (12.1-15.1)
[2022-12-27 10:34] LABS: Alanine Aminotransferase 25 U/L (0-41); Albumin Level 4.1 g/dL (3.5-5.2); Alkaline Phosphatase 78 U/L (40-130); Anion Gap 12.6 (5-19); Aspartate Amino Transferase 23 U/L (0-40); Blood Urea Nitrogen 13 mg/dL (8-23); Calcium 8.4 mg/dL (8.5-10.5); Carbon Dioxide 26 mmol/L (22-29); Chloride 85 mmol/L (98-107); Glucose 126 mg/dL (65-115); Osmolality Calculated 252 mOsm/kg (285-295); Potassium 3.6 mmol/L (3.5-5.1); Sodium 120 mmol/L (136-145); Total Bilirubin 0.8 mg/dL (0.15-1.2); Total Protein 6.1 g/dL (6.6-8.7)
[2022-12-27 10:36] VITALS: BP 165/85; PULSE 78; TEMP 36.7; O2SAT 97; BMI 22.3
[2022-12-27 10:39] LABS: Slide Review Slide Review Perform
[2022-12-27 10:40] LABS: White Blood Count 70.08 10^3/uL (3.29-11.43)
--- NOTE | 2022-12-27 11:17 | XR_ITS ---
WS: [id number] XR chest 1V portable [id number] REASON FOR EXAM: worsening leukocytosis FINDINGS: Significant chest deformity, presumably kyphosis as there are multiple vertebroplasties. The heart and mediastinum are within normal limits. Calcified granulomatous disease in both hemithoraces. No acute pulmonary parenchymal or pleural abnormality is identified. IMPRESSION: No acute chest abnormality.
[2022-12-27 11:24] VITALS: BP 157/82; PULSE 81; O2SAT 97
--- NOTE | 2022-12-27 11:26 | ED_ITS ---
HPI - Recheck/Abnormal Lab/Rx General: Chief Complaint: Recheck/Abnormal Lab/Rx Stated Complaint: labs came back bad office sent him down Time Seen by Provider: 12/27/22 10:07 Source: patient and family Mode of arrival: wheelchair Limitations: no limitations History of Present Illness: Patient is a very nice 77-year-old male with a history of CLL here after he was called for critical lab results. I saw patient recently in the emergency department and he was found to have multiple lumbar compression fractures. He has since met with Dr. Rapp and is scheduled for lumbar kyphoplasties on 01/07. Patient had preop lab work ordered which showed a critically high white count of 70.08. He was also told his sodium was low and that he needed to come to the emergency department. Patient states that he is asymptomatic apart from his back pain. MD complaint: abnormal lab Returns today for: called because of abnormal lab/test Symptoms since prior visit: no new symptoms Context: called for abnormal lab result Associated symptoms: none Review of Systems Const: Denies: fever(s), chills, body aches, fatigue or malaise Card: Denies: chest pain Resp: Denies: dyspnea, productive cough, non-productive cough or chest conge stion GI: Denies: abdominal pain, nausea or vomiting Musc: Reports: back pain; Denies: neck pain, extremity pain or joint pain Skin/Breast: Denies: rash Neuro: Denies: headache(s), numbness in extremities, weakness in extremities, sensory changes or dizziness PFS ED PFSH: Medical History Acute hypokalemia Acute urinary retention Back pain 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 Degenerative arthritis Dyslipidemia GERD (gastroesophageal reflux disease) History of stroke (04/2018) HTN (hypertension) Hyponatremia Pathologic thoracic fracture Traumatic compression fracture of T12 thoracic vertebra Surgical History H/O Mohs micrographic surgery for skin cancer (2019) Hx of bilateral inguinal hernia repair S/P arthroscopic surgery of left knee Family History Father , AT AGE 84 PROSTATE CANCER Cancer Mother , AT AGE 84 Hypertension CAD (coronary artery disease) Sister Dementia Other Hyperlipidemia Stroke Denies family history of Diabetes Clotting disorder Psychiatric illness Chronic kidney disease (CKD) Suicide Anesthesia complication Bleeding disorder Lung disease Social History Smoking and tobacco status: never smoked Alcohol intake: never Substance/Drug Use: unknown Adopted: No Caregiver/support person: No Lives independently: No Household members: spouse Marital status: Current occupational status: employed Physical Exam Const: COMMON NORMALS: no acute distress, patient oriented x3, no limitations and alert GENERAL APPEARANCE: cooperative and frail appearing ORIENTAT ION/CONSCIOUSNESS: Yes awake, Yes oriented to person, Yes oriented to place and Yes oriented to time Resp: COMMON NORMALS: normal respiratory effort and clear to auscultation bilaterally AUSCULTATION: clear to auscultation bilaterally Cardio: COMMON NORMALS: regular rate and regular rhythm RATE: regular rate RHYTHM: regular rhythm GI: COMMON NORMALS: Normal to inspection, nondistended, normoactive bowel sounds present, Soft to palpation and non-tender PALPATION: Yes Soft to palpation Back/Pelvis: THORACIC SPINE/UPPER BACK: Yes kyphosis present (severe) LUMBAR SPINE/LOWER BACK: Yes lumbar spinal tenderness Extremity: COMMON NORMALS: normal to inspection GENERAL: Yes normal exam except as noted Neuro: JAKE COMA SCALE: document GCS findings [place] coma scale eye opening: Spontaneous Jake coma scale verbal response: Orientated [place] coma scale motor response: Obey commands Jake coma scale total score: 15 COMMON NORMALS: patient oriented x3, moves all extremities, no focal motor deficits and no sensory deficits noted SENSORIUM/ORIENTATION: Yes alert, Yes oriented to person, Yes oriented to place and Yes oriented to time Skin: COMMON NORMALS: no rashes or lesions noted GENERAL SKIN EXAM: no rashes or lesions noted Course Consultations: Consultation #1: Dr. Conley-discussed labs-he stated with CLL they more so watch their hemoglobin and platelet counts vs the wbc count so unless it is significantly elevated (i.e 500,000) then there would be no reason to initiate treatment and stated his labs today are not contraindications to his upcoming surgery Vital Signs: Vital signs: Vital Signs Temperature 98.0 F 12/27/22 10:36 Pulse Rate 84 12/27/22 12:13 Blood Pressure 157/82 12/27/22 11:24 Pulse Oximetry 97 12/27/22 12:13 Oxygen Delivery Me thod Room Air 12/27/22 11:24 MDM - Recheck/Abnormal Lab/Rx Medical Decision Making Patient is a 77-year-old male with a history of CLL sent for abnormal labs. He had a critically high WBC count at 70.08. Looks like his baseline is roughly 30-40. He was also hyponatremic at 120. He has chronic hyponatremia. Baseline seems to be somewhere close to 124. He is not complaining of nausea or vomiting. He has no headache, lethargy, altered mental status. Lab work from 12/23 reviewed along with labs today. He had a UA on 12/23. CXR today showing no acute disease. He was given 500 cc normal saline. Recommend follow-up with primary care provider. Dr. Conley also stated he would be following up with patient. Return ED precautions given. Dr. Ramirez aware of patient/case and ag luz with plan for discharge. Lab Data 12/27/22 10:05 12/27/22 10:05 Laboratory Results WBC 70.08 10^3/uL (3.29-11.43) H* 12/27/22 10:05 RBC 3.70 10^6/uL (3.85-5.65) L 12/27/22 10:05 Hgb 12.40 g/dL (11.27-16.99) 12/27/22 10:05 Hct 36.7 % (37-53) L 12/27/22 10:05 MCV 99.2 fl (82-101) 12/27/22 10:05 MCH 33.5 pg (27-33) H 12/27/22 10:05 MCHC 33.8 g/dL (30-55) 12/27/22 10:05 RDW 12.9 % (12.1-15.1) 12/27/22 10:05 Plt Count 365 10^3/cmm (157-399) 12/27/22 10:05 MPV 7.8 fL (7.4-10.4) 12/27/22 10:05 Neut % (Auto) 14.0 % 12/27/22 10:05 Lymph % (Auto) 83.6 % 12/27/22 10:05 Duval % (Auto) 2.0 % 12/27/22 10:05 Eos % (Auto) 0.1 % 12/27/22 10:05 Baso % (Auto) 0.0 % 12/27/22 10:05 Neut # (Auto) 9.78 10^3/uL (1.8-7.7) H 12/27/22 10:05 Lymph # (Auto) 58.6 10^3/uL (0.8-4.8) H 12/27/22 10:05 Duval # (Auto) 1.4 10^3/uL (0.2-0.9) H 12/27/22 10:05 Eos # (Auto) 0.1 10^3/uL (0.0-0.8) 12/27/22 10:05 Baso # (Auto) 0.0 10^3/uL (0.0-0.1) 12/27/22 10:05 Nucleated RBC % (auto) 0 % 12/27/22 10:05 Nucleated RBCs # 0.0 /100WBC 12/27/22 10:05 Sodium 120 mmol/L (136-145) L 12/27/22 10:05 Potassium 3.6 mmol/L (3.5-5.1) 12/27/22 10:05 Chloride 85 mmol/L (98-107) L 12/27/22 10:05 Carbon Dioxide 26 mmol/L (22-29) 12/27/22 10:05 Anion Gap 12.6 (5-19) 12/27/22 10:05 BUN 13 mg/dL (8-23) 12/27/22 10:05 Creatinine 0.6 mg/dL (0.7-1.2) L 12/27/22 10:05 GFR Calculation Not Reportable 12/27/22 10:05 Glucose 126 mg/dL (65-115) H 12/27/22 10:05 Calculated Osmolality 252 mOsm/kg (285-295) L 12/27/22 10:05 Calcium 8.4 mg/dL (8.5-10.5) L 12/27/22 10:05 Total Bilirubin 0.8 mg/dL (0.15-1.2) 12/27/22 10:05 AST 23 U/L (0-40) 12/27/22 10:05 ALT 25 U/L (0-41) 12/27/22 10:05 Alkaline Phosphatase 78 U/L (40-130) 12/27/22 10:05 Total Protein 6.1 g/dL (6.6-8.7) L 12/27/22 10:05 Albumin 4.1 g/dL (3.5-5.2) 12/27/22 10:05 Globulin 2.0 g/dL (1.3-4.6) 12/27/22 10:05 All radiology interpretation(s) finalized by discharge Discharge Plan Discharge Patient Disposition: Home Clinical Impression: Chronic lymphocytic leukemia, Hyponatremia Condition: Stable Prescriptions: No Action aspirin [Adult Low Dose Aspirin] 81 mg tablet,delayed release (DR/EC) 81 mg PO QAM amlodipine 10 mg tablet 10 mg PO DAILY Qty: 90 1RF potassium chloride 10 mEq capsule, extended release 10 meq PO BID Qty: 60 5RF lisinopril 40 mg tablet 40 mg PO QAM Qty: 90 3RF cholecalciferol (vitamin D3) 1,250 mcg (50,000 unit) tablet 50,000 unit PO DIRECTED Qty: 10 0RF Rx Instructions: take weekly for 4 weeks on Tuesday, then monthly thereafter hydrocodone-acetaminophen 5-325 mg tablet 1 tab PO Q4H PRN (Reason: Lumbar fractures) 5 Days Qty: 30 0RF simvastatin 40 mg tablet 40 mg PO BEDTIME tamsulosin 0.4 mg capsule 0.4 mg PO QAM omeprazole 20 mg capsule,delayed release(DR/EC) 20 mg PO QAM acetaminophen 500 mg Tablet 1,000 mg PO Q6H PRN (Reason: Pain) 14 Days Qty: 25 0RF clopidogrel 75 mg tablet 75 mg PO DAILY fluticasone propionate 50 mcg/actuation spray,suspension See Rx Instructions .ROUTE .COMPLEX PRN (Reason: Allergic Symptoms) Rx Instructions: USE 1 SPRAY IN EACH NOSTRIL DAILY escitalopram oxalate 10 mg tablet 10 mg PO DAILY Discharge Orders: Discharge ED (Routine); Ordered 12/27/22 Ordered By: Pat Bell Referrals: Manolo Centeno DO [Primary Care Provider] - Patient Instructions: Hyponatremia Activity Restrictions/Additional Instructions: As we discussed please follow-up with his primary care provider later this week for reevaluation. Dr. Conley stated he will be following up with you next month. He stated your white count is not a contraindication for your upcoming surgery. Coding Level of Care Code ED Cryptologic Supervisor for Sena Ching
[2022-12-27] MEDS: sodium chloride 0.9% 500 ML 999 ML IV (11:37)
--- NOTE | 2022-12-27 11:37 | PC.PHAR ---
PT PROVIDED MED LIST FOR VERIFICATION. MEDS NOT ON LIST HAVE BEEN VERIFIED WITH GUARDIAN.
[2022-12-27 12:13] VITALS: PULSE 84; O2SAT 97
== END 2022-12-27 12:13 | disposition home or self-care (01) ==
PROVIDERS: Emergency Medicine; Emergency Provider Physician Assistant; PCP Family Medicine
DX: C91.10 Chronic lymphocytic leukemia of B-cell type not having achieved remission (principal); E87.1 Hypo-osmolality and hyponatremia; Z79.82 Long term (current) use of aspirin; Z79.02 Long term (current) use of antithrombotics/antiplatelets; E78.5 Hyperlipidemia, unspecified; I10 Essential (primary) hypertension; Z86.73 Personal history of transient ischemic attack (TIA), and cerebral infarction without residual deficits
CPT/HCPCS: 36415; 71045; 80053; 85025; 96360; 99284; J7040

== ENCOUNTER 2022-12-29 07:59 | Inpatient (IN) | payer MEDICARE, OTHER, SELFPAY ==
[2022-12-29] VITALS (67 sets, daily range): BP systolic 131–183; BP diastolic 76–97; PULSE 74–96; RESP 14–33; TEMP 36.3–37.3; O2SAT 89–97; BMI 20.5
--- NOTE | 2022-12-29 08:00 | CT_ITS ---
WS: [id number] CT HEAD TECHNIQUE: Noncontrast CT of the head obtained from the skullbase to the vertex. CLINICAL INFORMATION: ams COMPARISON: 2019 DLP: 14[address] scans at [facility] use at least one of these dose optimization techniques: automated e xposure control; mA and/or kV adjustment per patient size (includes targeted exams where dose is matc hed to clinical indication); or iterative reconstruction. FINDINGS: Significant limited examination due to marked kyphosis. Patient was scanned in the semiupri ght position. Beam-hardening artifact degrades images. No apparent evidence of intracranial hemorrhage or mass effe ct. Ventricular system appears similar in size to previous. Vascular calcification. Polypoid mucosal thickening in the paranasal sinuses. Mastoid air cells are well aerated. IMPRESSION: Very limited examination due to marked kyphosis 1. No evidence of gross intracranial hemorrhage considering limitations 2. No hydrocephalus
--- NOTE | 2022-12-29 08:00 | XR_ITS ---
WS: [id number] XR chest 1V portable [id number] REASON FOR EXAM: ams FINDINGS: Low volume lungs due to severe kyphosis secondary to multiple collapsed vertebrae with multiple verte broplasties. Cardiomegaly. The chest is unchanged compared to the examination of 12/27/2022. No acute pulmonary parenchymal or pl eural abnormality is noted. IMPRESSION: Stable chest without acute abnormality.
--- NOTE | 2022-12-29 08:07 | ECG_ITS ---
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 Measurements Intervals Robinson Rate: 89 P: 20 MS: 206 QRS: -33 QRSD: 92 T: 43 QT: 359 QTc: 438 Interpretive Statements SINUS RHYTHM LEFT AXIS DEVIATION [QRS AXIS < -30] POSSIBLE RIGHT VENTRICULAR CONDUCTION DELAY [RSR (QR) IN V1/V2] MODERATE T-WAVE ABNORMALITY, CONSIDER LATERAL ISCHEMIA [-0.1+ mV T-WAVE IN I/aVL/V5/V6] Compared to ECG 07/13/2022 10:31:38 No significant changes Baseline artifact, need to repeat the study Electronically Signed On 12-30-2022 7:59:24 CDT by Kassy Winston M.D. [id number]
[2022-12-29 08:14] LABS: Hematocrit 37.8 % (37-53); Mean Corpuscular HGB Conc 33.6 g/dL (30-55); Mean Corpuscular Hemoglobin 33.3 pg (27-33); Mean Corpuscular Volume 99.2 fl (82-101); Mean Platelet Volume 7.8 fL (7.4-10.4); Platelet Count 383 10^3/cmm (157-399); Red Blood Count 3.81 10^6/uL (3.85-5.65); Red Cell Distribution Width 12.8 % (12.1-15.1)
[2022-12-29 08:32] LABS: Alanine Aminotransferase 29 U/L (0-41); Albumin Level 4.4 g/dL (3.5-5.2); Alkaline Phosphatase 86 U/L (40-130); Anion Gap 13.6 (5-19); Aspartate Amino Transferase 21 U/L (0-40); Blood Urea Nitrogen 15 mg/dL (8-23); Calcium 8.9 mg/dL (8.5-10.5); Carbon Dioxide 28 mmol/L (22-29); Chloride 89 mmol/L (98-107); Globulin 2.4 g/dL (1.3-4.6); Glucose 121 mg/dL (65-115); Osmolality Calculated 264 mOsm/kg (285-295); Potassium 4.6 mmol/L (3.5-5.1); Sodium 126 mmol/L (136-145); Total Protein 6.8 g/dL (6.6-8.7)
--- NOTE | 2022-12-29 08:36 | W.ED.AMS ---
HPI - Altered Mental Status General: Chief Complaint: Altered Mental Status Stated Complaint: AMS Time Seen by Provider: 12/29/22 08:00 Source: patient and EMS Mode of arrival: EMS Limitations: no limitations History of Present Illness: 77 yo male who has a hx of CLL. he was seen here 2 days ago for hyponatremia and given iv fluids and is chronically hyponatremic. familey states that over night he was altered and when they tried to wake him up this morning he was unresponsive. he is now awake and answering my questions appropriately. 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 Degenerative arthritis Depression Dyslipidemia GERD (gastroesophageal reflux disease) History of stroke (04/2018) HTN (hypertension) Hyperlipidemia Hyponatremia Pathologic thoracic fracture Traumatic compression fracture of T12 thoracic vertebra Surgical History (Updated 12/29/22 @ 10:28 by Alberto Nelson MD) H/O Mohs micrographic surgery for skin cancer (2018) History of kyphoplasty Hx of bilateral inguinal hernia repair S/P arthroscopic surgery of left knee Family History Father , AT AGE 84 PROSTATE CANCER Cancer Mother , AT AGE 84 Hypertension CAD (coronary artery disease) Sister Dementia Other Hyperlipidemia Stroke Denies family history of Diabetes Clotting disorder Psychiatric illness Chronic kidney disease (CKD) Suicide Anesthesia complication Bleeding disorder Lung disease Social History Smoking and tobacco status: never smoked Alcohol intake: never Substance/Drug Use: unknown Adopted: No Caregiver/support person: No Lives independently: No Household members: spouse Marital status: Current occupational status: employed Physical Exam Const: COMMON NORMALS: patient oriented x3 HENMT: COMMON NORMALS: normocephalic and atraumatic HEAD & SCALP: normocephalic and atraumatic Resp: COMMON NORMALS: clear to auscultation bilaterally AUSCULTATION: clear to auscultation bilaterally Cardio: COMMON NORMALS: regular rate, regular rhythm, S1 normal heart sound present and S2 normal heart sound present RATE: regular rate RHYTHM: regular rhythm HEART SOUNDS: S1 normal heart sound present and S2 normal heart sound present GI: COMMON NORMALS: Normal to inspection, nondistended, normoactive bowel sounds present, Soft to palpation, non-tender, No hepatosplenomegaly present and no masses AUSCULTATION: Yes normoactive bowel sounds PALPATION: Yes Soft to palpation and Yes No hepatosplenomegaly present RECTAL EXAM: Yes deferred Extremity: COMMON NORMALS: no clubbing, cyanosis or edema and no pedal edema Neuro: COMMON NORMALS: patient oriented x3 Urinary Catheter Management: Coude: Cath Placed During This Visit: yes Reason for Continuing Indwelling Catheter: Acute Urinary Retention or Obstruction Urinary Catheter Date of Insertion: 07/13/22 Urinary Catheter Time of Insertion: 13:22 Course Vital Signs: Vital signs: Vital Signs Temperature 98.0 F 12/29/22 08:00 Pulse Rate 86 12/29/22 09:10 Respiratory Rate 21 H 12/29/22 09:10 Blood Pressure 157/90 12/29/22 09:10 Pulse Oximetry 94 12/29/22 09:10 Oxygen Delivery Me thod Room Air 12/29/22 08:00 MDM - Altered Mental Status Medical Decision Making pt presents here with ams overnight along with compression fractures. Pt seen by dr. nelson in ed and will admit. Medical Records I reviewed the patient's medical records. Lab Data I reviewed the patient's lab results. 12/29/22 08:05 12/29/22 08:05 Laboratory Results WBC 74.75 10^3/uL (3.29-11.43) H* 12/29/22 08:05 RBC 3.81 10^6/uL (3.85-5.65) L 12/29/22 08:05 Hgb 12.70 g/dL (11.27-16.99) 12/29/22 08:05 Hct 37.8 % (37-53) 12/29/22 08:05 MCV 99.2 fl (82-101) 12/29/22 08:05 MCH 33.3 pg (27-33) H 12/29/22 08:05 MCHC 33.6 g/dL (30-55) 12/29/22 08:05 RDW 12.8 % (12.1-15.1) 12/29/22 08:05 Plt Count 383 10^3/cmm (157-399) 12/29/22 08:05 MPV 7.8 fL (7.4-10.4) 12/29/22 08:05 Lymph % (Auto) Not Reportable 12/29/22 08:05 Calloway % (Auto) Not Reportable 12/29/22 08:05 Lymph # (Auto) Not Reportable 12/29/22 08:05 Calloway # (Auto) Not Reportable 12/29/22 08:05 Total Counted 100 (0-100) 12/29/22 08:05 Atypical Lymphs % 9.0 % (0-5) H 12/29/22 08:05 Absolute Neutrophils 14.2 10^3/cmm (1.4-6.5) H 12/29/22 08:05 Segmented Neutrophils 19 % 12/29/22 08:05 Abs Segm Neuts (Man) 14.2 10/cmm (1.6-7.1) H 12/29/22 08:05 Band Neutrophils 0.0 % 12/29/22 08:05 Abs Band Neuts (Man) 0.0 10^3/cmm (0.0-1.2) 12/29/22 08:05 Absolute Lymphocytes 59.8 10^3/cmm (1.2-3.4) H 12/29/22 08:05 Lymphocytes (Manual) 71 % 12/29/22 08:05 Monocytes (Manual) 1.0 % 12/29/22 08:05 Absolute Monocytes 0.7 10^3/cmm (0.1-0.6) H 12/29/22 08:05 Eosinophils (Manual) 0 % 12/29/22 08:05 Absolute Eosinophils 0.0 10^3/cmm (0.0-0.7) 12/29/22 08:05 Basophils (Manual) 0.0 % 12/29/22 08:05 Absolute Basophils 0.0 10^3/cmm (0.0-0.2) 12/29/22 08:05 Smudge Cells 2+ H 12/29/22 08:05 Platelet Estimate Normal (Normal) 12/29/22 08:05 Acanthocytes (Spur) 2+ H 12/29/22 08:05 Sodium 126 mmol/L (136-145) L 12/29/22 08:05 Potassium 4.6 mmol/L (3.5-5.1) 12/29/22 08:05 Chloride 89 mmol/L (98-107) L 12/29/22 08:05 Carbon Dioxide 28 mmol/L (22-29) 12/29/22 08:05 Anion Gap 13.6 (5-19) 12/29/22 08:05 BUN 15 mg/dL (8-23) 12/29/22 08:05 Creatinine 0.5 mg/dL (0.7-1.2) L 12/29/22 08:05 GFR Calculation Not Reportable 12/29/22 08:05 Glucose 121 mg/dL (65-115) H 12/29/22 08:05 Calculated Osmolality 264 mOsm/kg (285-295) L 12/29/22 08:05 Calcium 8.9 mg/dL (8.5-10.5) 12/29/22 08:05 Total Bilirubin 1.0 mg/dL (0.15-1.2) 12/29/22 08:05 AST 21 U/L (0-40) 12/29/22 08:05 ALT 29 U/L (0-41) 12/29/22 08:05 Alkaline Phosphatase 86 U/L (40-130) 12/29/22 08:05 Total Protein 6.8 g/dL (6.6-8.7) 12/29/22 08:05 Albumin 4.4 g/dL (3.5-5.2) 12/29/22 08:05 Globulin 2.4 g/dL (1.3-4.6) 12/29/22 08:05 All radiology interpretation(s) finalized by discharge Discharge Plan Discharge Patient Disposition: Admitted As Inpatient Clinical Impression: Hyponatremia, Compression fracture, Altered mental status Condition: Stable Prescriptions: No Action aspirin [Adult Low Dose Aspirin] 81 mg tablet,delayed release (DR/EC) 81 mg PO QAM amlodipine 10 mg tablet 10 mg PO DAILY Qty: 90 1RF potassium chloride 10 mEq capsule, extended release 10 meq PO BID Qty: 60 5RF lisinopril 40 mg tablet 40 mg PO QAM Qty: 90 3RF cholecalciferol (vitamin D3) 1,250 mcg (50,000 unit) tablet 50,000 unit PO DIRECTED Qty: 10 0RF Rx Instructions: take weekly for 4 weeks on Tuesday, then monthly thereafter hydrocodone-acetaminophen 5-325 mg tablet 1 tab PO Q4H PRN (Reason: Lumbar fractures) 5 Days Qty: 30 0RF nystatin 100,000 unit/mL suspension 5 ml PO TID 10 Days Qty: 150 0RF Rx Instructions: swish and swallow BMX See Rx Instructions .ROUTE .COMPLEX Qty: 300 0RF Rx Instructions: mix equal portions of viscous lidocaine2%, Maalox, and elixir of benadryl. Swish thoroughly, gargle, and spit 5-10ml [id number] prn; simvastatin 40 mg tablet 40 mg PO BEDTIME tamsulosin 0.4 mg capsule 0.4 mg PO QAM omeprazole 20 mg capsule,delayed release(DR/EC) 20 mg PO QAM acetaminophen 500 mg Tablet 1,000 mg PO Q6H PRN (Reason: Pain) 14 Days Qty: 25 0RF clopidogrel 75 mg tablet 75 mg PO DAILY fluticasone propionate 50 mcg/actuation spray,suspension 1 spray intranasal DAILY PRN (Reason: Allergic Symptoms) escitalopram oxalate 10 mg tablet 10 mg PO DAILY Referrals: Manolo Centeno DO [Primary Care Provider] - Patient Instructions: Hyponatremia (ED), Benzodiazepine Use Disorder (ED), Dementia (ED), Non-diabetic Hypoglycemia (ED), Hypoglycemia in a Person with Diabetes (ED), Concussion (ED), Alcohol Intoxication (ED), Subarachnoid Hemorrhage (GEN), Altered Mental Status (ED) Coding Level of Care Code ED Pediatric Clinical Dietician for Sena Ching
[2022-12-29 08:55] LABS: Slide Review Slide Review Perform; White Blood Count 74.75 10^3/uL (3.29-11.43)
[2022-12-29 08:59] LABS: Absolute Neutrophil 14.2 10^3/cmm (1.4-6.5); Absolute Segmented Neutrophil 14.2 10/cmm (1.6-7.1); Eosinophils 0 %; Lymphocytes 71 %; Lymphocytes Absolute 59.8 10^3/cmm (1.2-3.4); Monocytes Absolute 0.7 10^3/cmm (0.1-0.6); Platelet Estimate Normal (Normal); Segmented Neutrophils 19 %; Total Cells Counted 100 (0-100)
[2022-12-29 09:00] LABS: Acanthocytes 2+; Smudge Cells 2+
--- NOTE | 2022-12-29 10:24 | PM.HP ---
Providers/Chief Complaint Admitting Physician: Alberto Marquez MD Primary Care Provider: Manolo Centeno DO Chief Complaint: AMS History of Present Illness Reilly Friedman is a 77 year old male that presents to the emergency department with progressive weakness, decreased p.o. intake, and confusion. Confusion has been more evident in the last 24 hours. He has been dealing with significant osteoporosis, resulting in compression fractures and kyphosis of his back. He has been awaiting surgery on his lumbar area, kyphoplasty, secondary to severe pain. He is becoming less stable on his feet. He has been having some difficulty swallowing, and some issues with sores in his mouth. He has not had any vomiting or diarrhea. He continues to have significant pain and is eager to receive surgery. He has not had any recent focal weakness. He denies any chest discomfort. He does have some shortness of breath. Review of Systems General: Reports: 10 or more systems reviewed and unremarkable except in HPI and below Card: Denies: chest pain Resp: Reports: dyspnea GI: Denies: abdominal pain, nausea, vomiting, hematochezia or melena Medications/Allergies Home Medications Medication Instructions Recorded Confirmed Last Taken Type aspirin 81 mg tablet,delayed 81 mg PO QAM 10/09/19 12/29/22 12/28/22 History release (Adult Low Dose Aspirin) omeprazole 20 mg capsule,delayed 20 mg PO QAM 07/13/22 12/29/22 12/28/22 History release simvastatin 40 mg tablet 40 mg PO BEDTIME 07/13/22 12/29/22 12/28/22 History tamsulosin 0.4 mg capsule 0.4 mg PO QAM 07/13/22 12/29/22 12/28/22 History acetaminophen 500 mg tablet 1,000 mg PO Q6H PRN Pain 14 days 07/20/22 12/29/22 12/28/22 Rx #25 tabs amlodipine 10 mg tablet 10 mg PO DAILY #90 tabs 09/10/22 12/29/22 12/28/22 Rx potassium chloride 10 mEq 10 meq PO BID #60 caps 09/20/22 12/29/22 12/28/22 Rx capsule,extended release lisinopril 40 mg tablet 40 mg PO QAM #90 tabs 09/28/22 12/29/22 12/28/22 Rx cholecalciferol (vitamin D3) 1,250 50,000 unit PO DIRECTED #10 tabs 11/18/22 12/29/22 12/10/22 Rx mcg (50,000 unit) tablet clopidogrel 75 mg tablet 75 mg PO DAILY 12/14/22 12/29/22 12/28/22 History escitalopram oxalate 10 mg tablet 10 mg PO DAILY 12/14/22 12/29/22 12/28/22 History fluticasone propionate 50 1 spray intranasal DAILY PRN 12/14/22 12/29/22 12/28/22 History mcg/actuation nasal Allergic Symptoms spray,suspension hydrocodone 5 mg-acetaminophen 325 1 tab PO Q4H PRN Lumbar fractures 12/23/22 12/29/22 Unknown Rx mg tablet 5 days #30 tabs BMX See Rx Instructions .Route 12/27/22 12/29/22 Unknown Rx .COMPLEX #300 mL nystatin 100,000 unit/mL oral 5 ml PO TID thrush 10 days #150 mL 12/27/22 12/29/22 Unknown Rx suspension Allergies Allergy/AdvReac Type Severity Reaction Status Date / Time meperidine [From Demerol] Allergy Unknown UNKNOWN Verified 12/27/22 10:41 Penicillins Allergy Unknown Unknown Verified 12/27/22 10:41 Sulfa (Sulfonamide Allergy Unknown UNKNOWN Verified 12/27/22 10:41 Antibiotics) CELERY SEED Allergy Severe ALGY-Difficulty Uncoded 12/27/22 10:41 Breathing PFSH Acute PFSH: Medical History (Updated 12/29/22 @ 10:37 by Alberto Marquez MD) Acute hypokalemia Acute urinary retention Back pain 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 Degenerative arthritis Depression Dyslipidemia GERD (gastroesophageal reflux disease) History of stroke (04/2018) HTN (hypertension) Hyperlipidemia Hyponatremia Pathologic thoracic fracture Traumatic compression fracture of T12 thoracic vertebra Surgical History (Updated 12/29/22 @ 10:28 by Alberto Marquez MD) H/O Mohs micrographic surgery for skin cancer (2018) History of kyphoplasty Hx of bilateral inguinal hernia repair S/P arthroscopic surgery of left knee Family History Father , AT AGE 84 PROSTATE CANCER Cancer Mother , AT AGE 84 Hypertension CAD (coronary artery disease) Sister Dementia Other Hyperlipidemia Stroke Denies family history of Diabetes Clotting disorder Psychiatric illness Chronic kidney disease (CKD) Suicide Anesthesia complication Bleeding disorder Lung disease Social History Smoking and tobacco status: never smoked Alcohol intake: never Substance/Drug Use: unknown Adopted: No Caregiver/support person: No Lives independently: No Household members: spouse Marital status: Current occupational status: employed Vitals/I&O/Wt Last Vital Signs Temp 98.0 F 12/29/22 08:00 Pulse 86 12/29/22 09:10 Resp 21 H 12/29/22 09:10 BP 157/90 12/29/22 09:10 Pulse Ox 94 12/29/22 09:10 O2 Del Method Room Air 12/29/22 08:00 Weight last 48 hrs Weight 54.431 kg Physical Exam Narrative: General exam demonstrates a white male, slightly tachypneic, occasionally spitting out a little mucus. HEENT: Atraumatic and normocephalic. Oropharynx demonstrates a few aphthous ulcers, most prominent 1 left side of tongue Neck is supple no lymphadenopathy or thyromegaly Back significant kyphoscoliosis likely causing restrictive lung disease Cardiovascular regular rate and rhythm, no murmur Lungs diminished breath sounds bilaterally. No wheezes or crackles Abdomen is soft. No obvious tenderness. No obvious organomegaly exam is deferred Extremities show trace edema bilaterally. Skin shows no rash Neuro slightly confused, hard of hearing, but with no neurologic deficit. Urinary Catheter Management: Coude: Cath Placed During This Visit: yes Reason for Continuing Indwelling Catheter: Acute Urinary Retention or Obstruction Urinary Catheter Date of Insertion: 07/13/22 Urinary Catheter Time of Insertion: 13:22 Data 12/29/22 08:05 12/29/22 08:05 Other Labs: Liver function tests are normal Calcium and magnesium are normal Albumin is normal Urinalysis is pending but ordered I have ordered a TSH and cortisol level as well as ABG which is pending Head CT which I also reviewed no acute findings or bleeding Chest x-ray which I also reviewed no infiltrate, vertebroplasties noted. Significant kyphosis noted. EKG which I reviewed demonstrates sinus rhythm, left axis deviation, baseline artifact, nonspecific ST-T wave changes A&P Assessment and plan (1) Acute encephalopathy: Patient presents with significant acute encephalopathy. No etiology is yet defined other than weakness. He did not take a narcotic dose prior to becoming more confused yesterday that his family is aware of. We will work-up further by repeating urinalysis, obtaining TSH, obtaining cortisol level, obtaining ABG to look for any CO2 retention. (2) Severe back pain: Arrange for physical therap and Occupational Therapy Orthopedic surgery consult Hold Plavix in case kyphoplasty is done here in the hospital Tylenol, as needed. Oxycodone as needed. Morphine for breakthrough pain. (3) Dehydration: Rehydrate cautiously with IV fluids. Recheck electrolytes tomorrow (4) Hyponatremia: At this point secondary to dehydration we will have to cautiously give fluids. Because of his significant hyponatremia this will be just at 50 cc an hour. Repeat BMP later tonight to make sure no worsening occurs. If this happens, may need to add low-dose of loop diuretic or discontinue IV fluids. Repeat BMP tomorrow. (5) Stomatitis: Magic mouthwash as needed (6) Dysphagia: Patient currently with dysphagia. No new findings on CT. Does have history of stroke. I believe that it is likely his dysphagia is from weakness, encephalopathy, and possibly weakness in face of old CVA. Speech therapy evaluation (7) Weakness: Patient with progressive weakness since the initiation of his severe back pain which has limited his mobility. I fear this will continue to progress should intervention not occur. (8) Chronic lymphocytic leukemia: Discussed briefly with oncology. No indications for treatment currently. 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 Check ABG Other medical problems as outlined in his past medical history Allow natural Lovenox for DVT prophylaxis I conferred with multiple physicians regarding the patient and his current condition. This included is primary care provider, patient's oncologist, his spine surgeon, and the emergency department physician. Attestations Medical Necessity Statement*: Will require greater than 2 midnight stay for treatment of hyponatremia, treatment and exploration of acute encephalopathy, treatment of severe pain, treatment of dehydration. Diagnoses Acute encephalopathy G93.40 Severe back pain M54.9 Dehydration E86.0 Hyponatremia E87.1 Stomatitis K12.1 Dysphagia R13.10 Weakness R53.1 Chronic lymphocytic leukemia C91.10 Time Spent (min) 85
[2022-12-29 10:43] LABS: ABG PH Result 7.47 (7.35-7.45); Arterial Blood Gas Hematocrit 36.7 % (42-52); Base Excess ABG 3.4 mmol/L (-2.0-2.0); Blood Gas Allen Test Pos; Blood Gas Operator Identificat glc; Blood Gas Sample Site Radial, right; Blood Gas Sample Type Arterial; HCO3 ABG 27.3 mmol/L (22-26); Oxygen Device ROOM AIR; PO2 ABG 64.8 mmHg (80.0-100.0)
[2022-12-29 11:00] LABS: Cortisol Random 18.98 ug/dL (2.47-19.5); Thyroid Stimulating Hormone 0.67 uIU/mL (0.27-4.20)
[2022-12-29] MEDS: acetaminophen 325 mg Tablet 650 MG PO ×2 (11:20→20:13)
[2022-12-29 11:59] LABS: Add Urine Microscopic? YES; Bilirubin Urine Neg (Negative); Blood Urine Neg (Negative); Glucose Urine UA Norm (Normal); Ketones Urine 2+ (Negative); Leukocyte Esterase Urine Negative (Negative); Nitrate Urine Negative (Negative); Protein Urine 1+ (Negative); Urine Appearance Clear (CLEAR); Urine Color Dark Yellow (Yellow); Urobilinogen Urine Norm (Negative); pH Urine 6 (5-7)
[2022-12-29 12:12] LABS: Fine Granular Casts Urine RARE /lpf; Hyaline Casts Urine RARE /lpf; Mucus Urine 2+ /hpf; RBC Urine 0-4 /hpf (0-2); Squamous Epithelial Cell Urine 0-4 /hpf (0-5); WBC Urine 0-4 /hpf (0-5)
[2022-12-29 12:13] LABS: Add Urine Culture? No
[2022-12-29] MEDS: sodium chloride 0.9% 1,000 ML 50 ML IV (15:23)
[2022-12-29] MEDS: enoxaparin 40 mg/0.4 mL Syringe SUBCUT (15:23)
[2022-12-29] MEDS: ketorolac 30 mg/mL INJ 15 MG IVP ×2 (15:27→21:59)
[2022-12-29] MEDS: docusate sodium 100 mg Capsule PO (17:08)
[2022-12-29 19:38] LABS: Anion Gap 13.3 (5-19); Blood Urea Nitrogen 15 mg/dL (8-23); Calcium 8.3 mg/dL (8.5-10.5); Carbon Dioxide 27 mmol/L (22-29); Chloride 91 mmol/L (98-107); Glucose 146 mg/dL (65-115); Osmolality Calculated 267 mOsm/kg (285-295); Potassium 4.3 mmol/L (3.5-5.1); Sodium 127 mmol/L (136-145)
[2022-12-29] MEDS: atorvastatin 40 mg Tablet 20 MG PO (20:13)
[2022-12-30] VITALS (9 sets, daily range): BP systolic 120–173; BP diastolic 71–87; PULSE 48–97; RESP 15–18; TEMP 36.5–37.4; O2SAT 90–97
[2022-12-30] MEDS: ketorolac 30 mg/mL INJ 15 MG IVP ×3 (03:43→18:51)
[2022-12-30 05:46] LABS: Basophils # 0.1 10^3/uL (0.0-0.1); Basophils % 0.1 %; Eosinophils # 0.1 10^3/uL (0.0-0.8); Eosinophils % 0.1 %; Hematocrit 35.5 % (37-53); Lymphocytes # 51.5 10^3/uL (0.8-4.8); Lymphocytes % 79.6 %; Mean Corpuscular Hemoglobin 33.5 pg (27-33); Mean Corpuscular Volume 101.7 fl (82-101); Mean Platelet Volume 7.8 fL (7.4-10.4); Monocytes # 1.5 10^3/uL (0.2-0.9); Monocytes % 2.3 %; Neutrophils # 11.34 10^3/uL (1.8-7.7); Neutrophils % 17.5 %; Nucleated Red Blood Cells % 0 %; Platelet Count 303 10^3/cmm (157-399); Red Blood Count 3.49 10^6/uL (3.85-5.65); Red Cell Distribution Width 12.9 % (12.1-15.1)
[2022-12-30 06:12] LABS: Alanine Aminotransferase 24 U/L (0-41); Albumin Level 3.6 g/dL (3.5-5.2); Alkaline Phosphatase 73 U/L (40-130); Aspartate Amino Transferase 24 U/L (0-40); Blood Urea Nitrogen 14 mg/dL (8-23); Calcium 8.2 mg/dL (8.5-10.5); Carbon Dioxide 26 mmol/L (22-29); Chloride 94 mmol/L (98-107); Globulin 2.2 g/dL (1.3-4.6); Glucose 132 mg/dL (65-115); Magnesium 2.2 mg/dL (1.7-2.3); Osmolality Calculated 270 mOsm/kg (285-295); Sodium 129 mmol/L (136-145); Total Bilirubin 0.9 mg/dL (0.15-1.2); Total Protein 5.8 g/dL (6.6-8.7)
[2022-12-30 06:13] LABS: Anion Gap 13.5 (5-19); Potassium 4.5 mmol/L (3.5-5.1)
[2022-12-30 06:14] LABS: Slide Review Slide Review Perform
[2022-12-30 06:15] LABS: White Blood Count 64.71 10^3/uL (3.29-11.43)
--- NOTE | 2022-12-30 06:38 | P.CONIM_ITS ---
Providers/Reason For Consult Consulting Physician/Specialty*: Orthopedic spine Reason for Consult*: Back pain Attending Physician: Alberto Marquez MD Primary Care Provider: Manolo Centeno DO History of Present Illness History of Present Illness Reilly Friedman is a 77 year old male who is well-known to our practice following T9,T10,T12 KYPHOPLASTIES DOS 07/19/22. Patient is 5 months post operative. Patient states he has been having increased pain. He presented to the emergency room where he was admitted for more definitive management. MRI scan of the lumbar spine found multiple fractures in his lumbar region. Patient denies any numbness or tingling.? Pain is intensified in the last week without any specific injury.? He has been wearing the TLSO brace at home but is not wearing it currently.? He is here with his family and complaining of increased mid and low back pain.? He has had progressive gibbus formation which is made it difficult for him to undergo thoracic MRI scan as he was not able to tolerate that. He has started Prolia injections he has had a recent bone density scan. He was evaluated in room 259 bed 2 with family present. Sitting upright in bed with continued low back pain that radiates around his abdominal region. Ranks the pain as 6 out of 10 on the pain scale. Describes a sharp stabbing in nature. Movement makes it much worse. Patient and family report being off Plavix since 12/27/2022. Review of Systems General: Reports: 10 or more systems reviewed and unremarkable except in HPI and below Card: Denies: chest pain Resp: Reports: dyspnea GI: Denies: abdominal pain, nausea, vomiting, hematochezia or melena Medications/Allergies Home Medications Medication Instructions Recorded Confirmed Last Taken Type aspirin 81 mg tablet,delayed 81 mg PO QAM 10/09/19 12/29/22 12/28/22 History release (Adult Low Dose Aspirin) omeprazole 20 mg capsule,delayed 20 mg PO QAM 07/13/22 12/29/22 12/28/22 History release simvastatin 40 mg tablet 40 mg PO BEDTIME 07/13/22 12/29/22 12/28/22 History tamsulosin 0.4 mg capsule 0.4 mg PO QAM 07/13/22 12/29/22 12/28/22 History acetaminophen 500 mg tablet 1,000 mg PO Q6H PRN Pain 14 days 07/20/22 12/29/22 12/28/22 Rx #25 tabs amlodipine 10 mg tablet 10 mg PO DAILY #90 tabs 09/10/22 12/29/22 12/28/22 Rx potassium chloride 10 mEq 10 meq PO BID #60 caps 09/20/22 12/29/22 12/28/22 Rx capsule,extended release lisinopril 40 mg tablet 40 mg PO QAM #90 tabs 09/28/22 12/29/22 12/28/22 Rx cholecalciferol (vitamin D3) 1,250 50,000 unit PO DIRECTED #10 tabs 11/18/22 12/29/22 12/10/22 Rx mcg (50,000 unit) tablet clopidogrel 75 mg tablet 75 mg PO DAILY 12/14/22 12/29/22 12/28/22 History escitalopram oxalate 10 mg tablet 10 mg PO DAILY 12/14/22 12/29/22 12/28/22 History fluticasone propionate 50 1 spray intranasal DAILY PRN 12/14/22 12/29/22 12/28/22 History mcg/actuation nasal Allergic Symptoms spray,suspension hydrocodone 5 mg-acetaminophen 325 1 tab PO Q4H PRN Lumbar fractures 12/23/22 12/29/22 Unknown Rx mg tablet 5 days #30 tabs BMX See Rx Instructions .Route 12/27/22 12/29/22 Unknown Rx .COMPLEX #300 mL nystatin 100,000 unit/mL oral 5 ml PO TID thrush 10 days #150 mL 12/27/22 12/29/22 Unknown Rx suspension Allergies Allergy/AdvReac Type Severity Reaction Status Date / Time meperidine [From Demerol] Allergy Unknown UNKNOWN Verified 12/27/22 10:41 Penicillins Allergy Unknown Unknown Verified 12/27/22 10:41 Sulfa (Sulfonamide Allergy Unknown UNKNOWN Verified 12/27/22 10:41 Antibiotics) CELERY SEED Allergy Severe ALGY-Difficulty Uncoded 12/27/22 10:41 Breathing Current Medications Generic Name Dose Route Start Last Admin Trade Name Freq PRN Reason Stop Dose Admin Acetaminophen 650 mg 12/29/22 14:16 12/29/22 20:13 Acetaminophen 325 Mg Tablet PO 650 mg Q6H PRN Administration Temp >/= 101 Atorvastatin Calcium 20 mg 12/29/22 21:00 12/29/22 20:13 Atorvastatin 40 Mg Tablet PO 20 mg BEDTIME FLORINA Administration Docusate Sodium 100 mg 12/29/22 18:00 12/29/22 17:08 Docusate Sodium 100 Mg Capsule PO 100 mg BID FLORINA Administration Enoxaparin Sodium 40 mg 12/29/22 13:37 12/29/22 15:23 Enoxaparin 40 Mg/0.4 Ml Syringe SUBCUT 40 mg Q24H FLORINA Administration Sodium Chloride 1,000 mls @ 50 mls/hr 12/29/22 13:37 12/29/22 15:23 Sodium Chloride 0.9% IV 50 mls/hr .Q20H FLORINA Administration Ketorolac Tromethamine 15 mg 12/29/22 14:11 12/30/22 03:43 Ketorolac 30 Mg/Ml Inj IVP 01/03/23 14:10 15 mg Q6H PRN Administration mild PAIN PFSH Acute PFSH: Medical History (Updated 12/30/22 @ 06:46 by Mat Patiño PA-C) Acute hypokalemia Acute urinary retention Back pain 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 Degenerative arthritis Depression Dyslipidemia GERD (gastroesophageal reflux disease) History of stroke (04/2018) HTN (hypertension) Hyperlipidemia Hyponatremia Pathologic thoracic fracture Traumatic compression fracture of T12 thoracic vertebra Surgical History (Updated 12/29/22 @ 10:28 by Alberto Marquez MD) H/O Mohs micrographic surgery for skin cancer (2018) History of kyphoplasty Hx of bilateral inguinal hernia repair S/P arthroscopic surgery of left knee Family History Father , AT AGE 84 PROSTATE CANCER Cancer Mother , AT AGE 84 Hypertension CAD (coronary artery disease) Sister Dementia Other Hyperlipidemia Stroke Denies family history of Diabetes Clotting disorder Psychiatric illness Chronic kidney disease (CKD) Suicide Anesthesia complication Bleeding disorder Lung disease Social History Smoking and tobacco status: never smoked Alcohol intake: never Substance/Drug Use: unknown Adopted: No Caregiver/support person: No Lives independently: No Household members: spouse Marital status: Current occupational status: employed Vitals/I&O/Wt Last Vital Signs Temp 99.3 F 12/30/22 04:16 Pulse 87 12/30/22 04:16 Resp 16 12/30/22 04:16 BP 159/71 12/30/22 04:16 Pulse Ox 93 12/30/22 04:16 O2 Del Method Room Air 12/30/22 04:16 12/29/22 12/29/22 12/30/22 14:59 22:59 06:59 Intake Total 120 / 120 Balance 120 / 120 Weight last 48 hrs Weight 120 lb Physical Exam Narrative: Patient is alert oriented has good general appearance but very cachectic appearing, normal mood and affect. Has a large gibbus formation in a hunched forward position. Diffuse palpable pain through the thoracolumbar spine worse in the lumbar spine. He wiggles his toes he can move both lower extremities no obvious pain with movement in his legs. He does have palpable and percussion pain in the lumbar spine. Well-healed incisions in the mid back from previous kyphoplasty's. He has good sensation light touch down both lower extremities dorsalis pedis and posterior tibial pulses are palpable. Calves are supple, negative logroll bilaterally HENMT: COMMON NORMALS: normocephalic HEAD & SCALP: normocephalic Resp: COMMON NORMALS: normal respiratory effort Cardio: COMMON NORMALS: regular rate and regular rhythm RATE: regular rate RHYTHM: regular rhythm GI: COMMON NORMALS: Soft to palpation and non-tender PALPATION: Yes Soft to palpation : COMMON NORMALS: Yes no CVA tenderness BLADDER/KIDNEY EXAM: Yes no CVA tenderness Back/Pelvis: COMMON NORMALS: no CVA tenderness Psych: COMMON NORMALS: mental status grossly normal and cooperative Urinary Catheter Management: Coude: Cath Placed During This Visit: yes Reason for Continuing Indwelling Catheter: Acute Urinary Retention or Obstruction Urinary Catheter Date of Insertion: 07/13/22 Urinary Catheter Time of Insertion: 13:22 Data 12/30/22 04:58 12/30/22 04:58 MRI: Radiologist's impression: IMPRESSION: 1.? Numerous compression fractures of various ages throughout the lumbar spine are new since the MRI of 07/14/2022. 2.? Recent appearing acute compression fractures at L1 and L5 with edema. No significant retropulsion. 3.? Acute to subacute compression fracture at L3 with mild biconcave compression and mild edema. 4.? More chronic appearing biconcave compression fractures at L2 and L4 without significant edema. 5.? Prior vertebroplasty changes at T10 and T12 with mild retropulsion and mild central canal stenosis. A&P Assessment and plan (1) Compression fracture of lumbar spine, non-traumatic: Discussed options with the family and the patient and they would like to proceed with kyphoplasties at L1 L3 and L5 which appear acute on the MRI scans. Patient has been off his Plavix since 12/27/2022. We will keep him n.p.o. after midnight to proceed with kyphoplasty procedures on 12/31/2022 if medically stable. Explained the risks and benefits of the procedure which include but not limited to bleeding infection increased back pain need for further surgery reaction anesthesia understands these risks and wished to proceed. Discussed this with Dr. Rapp he agrees above-stated plan. More than 50% of the time spent with the patient today involved coordination of care, counseling and discussion of conservative versus surgical treatment options. Total amount of time spent with the patient was 45 minutes. (2) Chronic lymphocytic leukemia: Coding Level of Care Code Acute Code for [facility] Fwd Diagnoses Compression fracture of lumbar spine, non-traumatic M48.56XA Chronic lymphocytic leukemia C91.10 Time Spent (min) 45
--- NOTE | 2022-12-30 06:49 | SC_ITS ---
WS: [id number] EXAMINATION: C-arm FL for Kyphoplasty ORDER DATE: 12/30/2022 6:49 AM REASON FOR EXAM: Kyphoplasties L1, L3, L5 COMPARISON: None available. FLUOROSCOPY TIME: 107 seconds # OF SPOT FILMS: 4 FINDINGS: Previous vertebroplasties at T10 and T12. Vertebral plasties currently at L1, L3, and L5 IMPRESSION: Confirmatory intraoperative images as above.
--- NOTE | 2022-12-30 07:58 | P.PN_ITS ---
Subjective Subjective: Reilly reports he seems to be doing a little bit better. Family reports no significant confusion last night. They are happy his sodium is improved. Still having significant back pain, wants to go ahead and get kyphoplasty tomorrow. Denies shortness of breath. Medications: Reviewed: Yes Vitals/I&O/Wt Last Vital Signs Temp 97.7 F 12/30/22 07:47 Pulse 72 12/30/22 07:47 Resp 17 12/30/22 07:47 BP 173/87 12/30/22 07:47 Pulse Ox 96 12/30/22 07:47 O2 Del Method Room Air 12/30/22 04:16 12/29/22 12/30/22 12/30/22 22:59 06:59 14:59 Intake Total 120 / 120 Balance 120 / 120 Weight last 48 hrs Weight 54.431 kg Physical Exam Narrative: General exam demonstrates a white male, no distress Oropharynx not examined today Neck is supple no lymphadenopathy or thyromegaly Cardiovascular regular rate and rhythm, no murmur Lungs diminished breath sounds bilaterally. Upper airway noise noted when patient has chin on chest, clears completely with extension of neck. Abdomen is soft. No obvious tenderness. No obvious organomegaly Extremities no cyanosis clubbing or edema today. Neurologic: No obvious focal deficits or confusion Urinary Catheter Management: Coude: Cath Placed During This Visit: yes Reason for Continuing Indwelling Catheter: Acute Urinary Retention or Obstruction Urinary Catheter Date of Insertion: 07/13/22 Urinary Catheter Time of Insertion: 13:22 Data 12/30/22 04:58 12/30/22 04:58 A&P Assessment and plan (1) Acute encephalopathy: Patient presents with significant acute encephalopathy. No etiology is yet defined other than weakness. He did not take a narcotic dose prior to becoming more confused yesterday that his family is aware of. TSH, cortisol, urinalysis, ABG without significant concerns. Encephalopathy appears to be improving, with correction of sodium further. (2) Severe back pain: Appreciate physical therapy and Occupational Therapy evaluation Orthopedic surgery consult appreciated, planning on kyphoplasty tomorrow. Plavix on hold. Tylenol, as needed. Oxycodone as needed. Morphine for breakthrough pain. (3) Dehydration: Continue low-dose IV fluids. Sodium improved to 129. (4) Hyponatremia: Improved with cautious initiation of IV fluids. Repeat BMP tomorrow (5) Stomatitis: Magic mouthwash as needed. Patient reports pain is better (6) Dysphagia: Patient currently with dysphagia. No new findings on CT. Does have history of stroke. I believe that it is likely his dysphagia is from weakness, encephalopathy, and possibly weakness in face of old CVA. Speech therapy evaluation appreciated. Currently on pur?ed diet. (7) Weakness: Patient with progressive weakness since the initiation of his severe back pain which has limited his mobility. I fear this will continue to progress should intervention not occur. Kyphoplasty planned for tomorrow (8) Chronic lymphocytic leukemia: Discussed briefly with oncology. No indications for treatment currently. 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 ABG did not demonstrate any CO2 retention Allow natural Lovenox for DVT prophylaxis. On hold for kyphoplasty Attestations Medical Necessity Statement*: Needs continued hospitalization for severe intractable back pain, encephalopathy, dehydration which is now resolving, severe weakness with likely need for rehabilitation. Diagnoses Acute encephalopathy G93.40 Severe back pain M54.9 Dehydration E86.0 Hyponatremia E87.1 Stomatitis K12.1 Dysphagia R13.10 Weakness R53.1 Chronic lymphocytic leukemia C91.10 Time Spent (min) 22
[2022-12-30] MEDS: tamsulosin 0.4 mg Capsule PO (08:21)
[2022-12-30] MEDS: lisinopril 20 mg Tablet 40 MG PO (08:21)
[2022-12-30] MEDS: amlodipine 10 mg Tablet PO (08:21)
[2022-12-30] MEDS: escitalopram 10 mg Tablet PO (08:21)
[2022-12-30] MEDS: docusate sodium 100 mg Capsule PO (08:21)
[2022-12-30] MEDS: pantoprazole DR 40 mg Tablet PO (08:21)
[2022-12-30] MEDS: sodium chloride 0.9% 1,000 ML 50 ML IV (10:01)
--- NOTE | 2022-12-30 10:31 | PC.CHAP ---
Pastoral Care Encounter/Spiritual Assessment Type of Contact [] Declined brim raiser visit [] Patient/Family/Request visit [] Outpatient visit [] Follow-up visit [] Physician referral [] Code/Alert [x] Routine visit [] Staff referral [] Actively dying [] Patient sleeping [] Family support [] [] Out of room [] Palliative care [] [x] Receiving care in room [] Pre-surgical visit [] Trauma [] Long length of stay [] ICU visit [] Other: Relational/Emotional Strength [x] Patient feels connected with others/family/visitors/staff [] Distress [] Loneliness/isolation [] Abandonment Spirituality of Patient [x] Person of Aimee [] Attends Jehovah[employer] Witness of their Aimee [x] Believes in Prayer [] Reads Bible or Yarsanism materials [] There are Spiritual issues to be addressed 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 Interventions [x] Prayer [x] Active listening [x] Non-anxious presence [x] Spiritual/emotional support [] Crisis/trauma care [x] Spiritual counseling [] Bereavement support [] Provided bereavement packet [] Provided Bible/devotional materials [] Provided toy/stuffed animal, coloring book to patient or family member [] Provided Communion [] Anointing/Rescue [] Salvation [x] Completed spiritual assessment [] Other: Impact on Illness or Injury [] Angry [] Fearful [] Anxious [] Often cries [] Exhaustion [] Unable to work [] Unable to attend gnosticism [] Unable to walk/stand [] Unable to read [] Unable to drive [] Unable to eat/drink [] Unable to sleep [] Unable to be with family [] Patient intubated [] Other: Summary senior well be having back surgery unable to communicate \+ 1 able to communicate Time spent with patient 10 mins
[2022-12-30] MEDS: lidocaine 2% viscous 1.667 ML, diphenhydrAMINE oral liq 4.165 MG, aluminum-mag hydrox-s... MUCOUS MEM (17:53)
[2022-12-30] MEDS: TRAMadol 50 mg Tablet PO (20:00)
[2022-12-30] MEDS: atorvastatin 40 mg Tablet 20 MG PO (20:01)
--- NOTE | 2022-12-30 21:04 | PC.NURSE ---
SCDs ordered on patient. Medium sized SCDs are too large for patient. No size small SCDs in stock at this time.
--- NOTE | 2022-12-30 21:45 | PC.NURSE ---
Family at bedside asking for patient to have something for anxiety. Dr. Ambriz notified. No new orders received.
[2022-12-30] MEDS: oxyCODONE 5 mg IR Tab/Cap PO (23:41)
[2022-12-31] VITALS (22 sets, daily range): BP systolic 134–187; BP diastolic 72–97; PULSE 67–91; RESP 13–22; TEMP 36.3–37.1; O2SAT 91–100
[2022-12-31] MEDS: TRAMadol 50 mg Tablet PO ×2 (01:50→17:26)
[2022-12-31 04:42] LABS: Basophils # 0.1 10^3/uL (0.0-0.1); Basophils % 0.1 %; Eosinophils # 0.1 10^3/uL (0.0-0.8); Eosinophils % 0.1 %; Hematocrit 35.8 % (37-53); Lymphocytes # 50.2 10^3/uL (0.8-4.8); Lymphocytes % 78.7 %; Mean Corpuscular HGB Conc 33.2 g/dL (30-55); Mean Corpuscular Hemoglobin 33.2 pg (27-33); Monocytes # 1.5 10^3/uL (0.2-0.9); Monocytes % 2.3 %; Neutrophils # 11.71 10^3/uL (1.8-7.7); Neutrophils % 18.4 %; Nucleated Red Blood Cells % 0 %; Platelet Count 351 10^3/cmm (157-399); Red Blood Count 3.58 10^6/uL (3.85-5.65); Red Cell Distribution Width 12.7 % (12.1-15.1)
[2022-12-31 04:53] LABS: Slide Review Slide Review Perform
[2022-12-31 04:54] LABS: White Blood Count 63.77 10^3/uL (3.29-11.43)
[2022-12-31 05:01] LABS: Anion Gap 12.2 (5-19); Blood Urea Nitrogen 10 mg/dL (8-23); Carbon Dioxide 28 mmol/L (22-29); Chloride 93 mmol/L (98-107); Glucose 105 mg/dL (65-115); Osmolality Calculated 267 mOsm/kg (285-295); Potassium 4.2 mmol/L (3.5-5.1); Sodium 129 mmol/L (136-145)
[2022-12-31] MEDS: oxyCODONE 5 mg IR Tab/Cap PO (05:27)
[2022-12-31] MEDS: sodium chloride 0.9% 1,000 ML 50 ML IV (05:27)
[2022-12-31] MEDS: lanolin oint 7 gm 1 APPLIC TOPICAL (05:42)
--- NOTE | 2022-12-31 06:22 | PC.NURSE ---
Patient to surgery at this time.
--- NOTE | 2022-12-31 06:31 | W.PM.OPSUD ---
Surgery/Procedure H&P Update DATE OF PROCEDURE: December 31, 2022 DATE H&P PERFORMED: 12/30/22 H&P UPDATE INFORMATION: I have reviewed H&P completed within last 30 days, I have examined patient prior to procedure and No changes to prior documentation PREOP DIAGNOSIS: Lumbar compression fractures L1 3 and 5 PLANNED PROCEDURE: Operation Date: 12/31/22 07:00 Proposed Procedures p kyphoplasty's at L1 3 and 5(Not Applicable) - Guanako Rapp, DO
[2022-12-31] MEDS: sodium chloride 0.9% 1,000 ML 30 ML IV (06:46)
--- NOTE | 2022-12-31 06:55 | ANES.PREANE2 ---
Pre-Anesthetic Assessment Height/Weight: Height 1.63 m Weight 54.431 kg Temp Pulse Resp BP Pulse Ox O2 Del Method 98.7 F 74 22 H 165/93 93 Room Air 12/31/22 06:29 12/31/22 06:29 12/31/22 06:29 12/31/22 06:32 12/31/22 06:29 12/31/22 06:29 Preop Diagnosis: Lumbar compression fractures L1 3 and 5 Operation Date: 12/31/22 07:00 Proposed Procedures p kyphoplasty's at L1 3 and 5(Not Applicable) - Guanako Rapp, DO Was Beta Kathleen taken within 24 hours: N/A Was Clonidine taken within 24 hours: N/A Last intake: Intake Last Liquid Date 12/30/22 Last Liquid Time 23:00 Last Solid Date 12/30/22 Last Solid Time 18:00 Social No tobacco Exam oriented x 3 and regular rate & rhythm Somnolent, but arouses easily. Follows commands. Airway Submandibular: within normal limits Cervical ROM: Other (Neck extension very limited) Mallampati: Class IV History/ROS No significant history except as noted and No significant complaints CV/HEM Hypertension On plavix. Last taken yesterday GI Gastroesophageal Reflux Disease Musc/skel Lower Back Pain Anesthetic Plan ASA status: 3 Anesthesia: General Risk of > 500 ml blood loss (7ml/kg in children): No Medications/Allergies Home Medications Medication Instructions Recorded Confirmed Last Taken Type aspirin 81 mg tablet,delayed 81 mg PO QAM 10/09/19 12/29/22 12/28/22 History release (Adult Low Dose Aspirin) omeprazole 20 mg capsule,delayed 20 mg PO QAM 07/13/22 12/29/22 12/28/22 History release simvastatin 40 mg tablet 40 mg PO BEDTIME 07/13/22 12/29/22 12/28/22 History tamsulosin 0.4 mg capsule 0.4 mg PO QAM 07/13/22 12/29/22 12/28/22 History acetaminophen 500 mg tablet 1,000 mg PO Q6H PRN Pain 14 days 07/20/22 12/29/22 12/28/22 Rx #25 tabs amlodipine 10 mg tablet 10 mg PO DAILY #90 tabs 09/10/22 12/29/22 12/28/22 Rx potassium chloride 10 mEq 10 meq PO BID #60 caps 09/20/22 12/29/22 12/28/22 Rx capsule,extended release lisinopril 40 mg tablet 40 mg PO QAM #90 tabs 09/28/22 12/29/22 12/28/22 Rx cholecalciferol (vitamin D3) 1,250 50,000 unit PO DIRECTED #10 tabs 11/18/22 12/29/22 12/10/22 Rx mcg (50,000 unit) tablet clopidogrel 75 mg tablet 75 mg PO DAILY 12/14/22 12/29/22 12/28/22 History escitalopram oxalate 10 mg tablet 10 mg PO DAILY 12/14/22 12/29/22 12/28/22 History fluticasone propionate 50 1 spray intranasal DAILY PRN 12/14/22 12/29/22 12/28/22 History mcg/actuation nasal Allergic Symptoms spray,suspension hydrocodone 5 mg-acetaminophen 325 1 tab PO Q4H PRN Lumbar fractures 12/23/22 12/29/22 Unknown Rx mg tablet 5 days #30 tabs BMX See Rx Instructions .Route 12/27/22 12/29/22 Unknown Rx .COMPLEX #300 mL nystatin 100,000 unit/mL oral 5 ml PO TID thrush 10 days #150 mL 12/27/22 12/29/22 Unknown Rx suspension Allergies Allergy/AdvReac Type Severity Reaction Status Date / Time meperidine [From Demerol] Allergy Unknown UNKNOWN Verified 12/27/22 10:41 Penicillins Allergy Unknown Unknown Verified 12/27/22 10:41 Sulfa (Sulfonamide Allergy Unknown UNKNOWN Verified 12/27/22 10:41 Antibiotics) CELERY SEED Allergy Severe ALGY-Difficulty Uncoded 12/27/22 10:41 Breathing Current Medications Generic Name Dose Route Start Last Admin Trade Name Freq PRN Reason Stop Dose Admin Acetaminophen 650 mg 12/29/22 14:16 12/29/22 20:13 Acetaminophen 325 Mg Tablet PO 650 mg Q6H PRN Administration Temp >/= 101 Amlodipine Besylate 10 mg 12/30/22 09:00 12/30/22 08:21 Amlodipine 10 Mg Tablet PO 10 mg DAILY FLORINA Administration Atorvastatin Calcium 20 mg 12/29/22 21:00 12/30/22 20:01 Atorvastatin 40 Mg Tablet PO 20 mg BEDTIME FLORINA Administration Lidocaine HCl 1.667 ml/ 0 ml 12/29/22 13:37 12/30/22 17:53 Diphenhydramine HCl 4.165 mg/ MUCOUS MEM 7.5 ml Al Hydrox/Mg Hydrox/ Q4H PRN Administration Simethicone 1.667 ml MOUTH PAIN Docusate Sodium 100 mg 12/29/22 18:00 12/30/22 17:20 Docusate Sodium 100 Mg Capsule PO Not Given BID FLORINA Enoxaparin Sodium 40 mg 12/29/22 13:37 12/29/22 15:23 Enoxaparin 40 Mg/0.4 Ml Syringe SUBCUT 40 mg Q24H FLORINA Administration Escitalopram Oxalate 10 mg 12/30/22 09:00 12/30/22 08:21 Escitalopram 10 Mg Tablet PO 10 mg DAILY FLORINA Administration Sodium Chloride 1,000 mls @ 50 mls/hr 12/29/22 13:37 12/31/22 05:27 Sodium Chloride 0.9% IV 50 mls/hr .Q20H FLORINA Administration Sodium Chloride 1,000 mls @ 30 mls/hr 12/31/22 06:30 12/31/22 06:46 Sodium Chloride 0.9% IV 01/01/23 06:29 30 mls/hr .Q24H FLORINA Administration Ketorolac Tromethamine 15 mg 12/29/22 14:11 12/30/22 18:51 Ketorolac 30 Mg/Ml Inj IVP 01/03/23 14:10 15 mg Q6H PRN Administration mild PAIN Lanolin 1 applic 12/31/22 05:31 12/31/22 05:42 Lanolin Oint 7 Gm TOPICAL 1 applic PRN PRN Administration DRYNESS Oxycodone HCl 5 mg 12/29/22 13:37 12/31/22 05:27 Oxycodone 5 Mg Ir Tab/Cap PO 5 mg Q6H PRN Administration SEVERE PAIN Tramadol HCl 50 mg 12/29/22 13:37 12/31/22 01:50 Tramadol 50 Mg Tablet PO 50 mg Q6H PRN Administration MODERATE PAIN PFSH Anesthesia Medical History (Updated 12/30/22 @ 06:46 by Mat Patiño PA-C) Acute hypokalemia Acute urinary retention Back pain 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 Degenerative arthritis Depression Dyslipidemia GERD (gastroesophageal reflux disease) History of stroke (04/2018) HTN (hypertension) Hyperlipidemia Hyponatremia Pathologic thoracic fracture Traumatic compression fracture of T12 thoracic vertebra Surgical History (Updated 12/29/22 @ 10:28 by Alberto Marquez MD) H/O Mohs micrographic surgery for skin cancer (2018) History of kyphoplasty Hx of bilateral inguinal hernia repair S/P arthroscopic surgery of left knee Family History Father , AT AGE 84 PROSTATE CANCER Cancer Mother , AT AGE 84 Hypertension CAD (coronary artery disease) Sister Dementia Other Hyperlipidemia Stroke Denies family history of Diabetes Clotting disorder Psychiatric illness Chronic kidney disease (CKD) Suicide Anesthesia complication Bleeding disorder Lung disease Social History Smoking and tobacco status: never smoked Alcohol intake: never Substance/Drug Use: unknown Adopted: No Caregiver/support person: No Lives independently: No Household members: spouse Marital status: Current occupational status: employed Data Anesthesia 12/31/22 04:26 12/31/22 04:26 Short CBC 12/29/22 12/30/22 12/31/22 Range/Units 08:05 04:58 04:26 WBC 74.75 H* 64.71 H* 63.77 H* (3.29-11.43) 10^3/uL Hgb 12.70 11.70 11.90 (11.27-16.99) g/dL Hct 37.8 35.5 L 35.8 L (37-53) % MCV 99.2 101.7 H 100.0 (82-101) fl Plt Count 383 303 351 (157-399) 10^3/cmm Neut % (Auto) 17.5 18.4 % Neut # (Auto) 11.34 H 11.71 H (1.8-7.7) 10^3/uL BMP 12/29/22 12/29/22 12/30/22 08:05 19:12 04:58 Sodium 126 L 127 L 129 L Potassium 4.6 4.3 4.5 Chloride 89 L 91 L 94 L Carbon Dioxide 28 27 26 BUN 15 15 14 Creatinine 0.5 L 0.5 L 0.4 L Glucose 121 H 146 H 132 H Calcium 8.9 8.3 L 8.2 L 12/31/22 04:26 Sodium 129 L Potassium 4.2 Chloride 93 L Carbon Dioxide 28 BUN 10 Creatinine 0.4 L Glucose 105 Calcium 8.0 L Liver Function 12/29/22 12/30/22 Range/Units 08:05 04:58 Total Bilirubin 1.0 0.9 (0.15-1.2) mg/dL AST 21 24 (0-40) U/L ALT 29 24 (0-41) U/L Alkaline Phosphatase 86 73 (40-130) U/L Albumin 4.4 3.6 (3.5-5.2) g/dL Urine 12/29/22 Range/Units 11:40 Urine Color Dark yellow (Yellow) Urine Appearance Clear (CLEAR) Urine pH 6 (5-7) Ur Specific [place] 1.020 (1.005-1.030) Urine Protein 1+ H (Negative) Urine Glucose (UA) Norm (Normal) Urine Ketones 2+ H (Negative) Urine Nitrate Negative (Negative) Urine Bilirubin Neg (Negative) Ur Leukocyte Esterase Negative (Negative) Urine RBC 0-4 H (0-2) /hpf Urine WBC 0-4 H (0-5) /hpf ABG 12/29/22 10:31 Specimen Type Arterial Sample Site Radial, right ABG pH 7.47 H ABG pCO2 38.0 ABG pO2 64.8 L ABG HCO3 27.3 H ABG Base Excess 3.4 H O2 Delivery Device Room air FiO2 21.0 Cardiac Studies: No Data to Display
[2022-12-31] MEDS: vancomycin 1,000 MG in sodium chloride 0.9% 250 ML 250 MG IV (06:57)
[2022-12-31] MEDS: lidocaine-epi 1% 20 mL INJ INJECTION (07:38)
[2022-12-31] MEDS: iohexol 300 mg/mL 50 mL Btl XX (07:41)
--- NOTE | 2022-12-31 08:08 | PM.OP ---
Operative Report Date of procedure: December 31, 2022 Pre-op diagnosis: L1, L3, L5 traumatic osteoporotic wedge compression fractures Post-op diagnosis: same Procedure done: 1. Kyphoplasty at L1 2. kyphoplasty at L3 3. Kyphoplasty at L5 Surgeon: Guanako Rapp DO Estimated blood loss (mL): 5 Procedure: 1. Kyphoplasty at L1 2. kyphoplasty at L3 3. Kyphoplasty at L5 patient brought the operative suite after undergoing anesthesia was placed in the prone position. All his impingement well-padded. Patient's prepped draped normal sterile fashion. Biplanar C-arm was brought in. Attention was first brought to the levels 1 and 3. AP lateral fluoroscopy confirmed the pedicles of L1 and L3. The attention was brought to L1. Skin incision made lateral to the pedicle on the left side. The awl was inserted. Followed by the drill. Followed by the balloon. Next attention was brought to the L3 level stents was made on both the right and left side. He also were inserted lateral to the pedicle on both left and right side. Followed by the drill. Followed by the balloons. The balloon was removed and cement was placed at L1 first AP lateral fluoroscopy ensured that the cement was in good position and did not track posteriorly. And fill the vertebrae completely. She is brought to the L3 level. Cement was placed on the left side first followed by the right side. AP lateral fluoroscopy showed that the cement was in good position. Next tension was brought to the L5 level. Again 2 incisions were made 1 on the right 1 on the left. The awl was inserted through the left pedicle on AP lateral fluoroscopy. Followed by the drill followed by the balloon. This was also repeated on the right side. Next the cement was injected on both the left and right side both AP and lateral fluoroscopy ensured that the cement was in good position. Wounds were irrigated and closed with simple nylon stitch. Sterile dressings were applied patient was transferred to the PACU in stable condition.
--- NOTE | 2022-12-31 08:09 | PC.OT ---
Late Entry for Yesterday 12/30. OT eval received and eval withheld due to patient awaiting surgery. Will proceed once pt is cleared from surgery.
--- NOTE | 2022-12-31 08:47 | ANE.PACU2 ---
Inpatient post-anesthesia follow up: Airway intact: Yes Vital signs: Temperature 98.0 F Pulse Rate 72 Respiratory Rate 18 Blood Pressure 187/87 Pulse Oximetry 98 Oxygen Delivery Me thod Nasal Cannula Oxygen Flow Rate 3 Fraction of Inspir ed Oxygen Hydration adequate: Yes Nausea and vomiting: No Pain level: 2 Mental status: Baseline
--- NOTE | 2022-12-31 09:52 | PM.PN ---
Subjective Subjective: Reilly is directly postoperative. He is still a little groggy. I discussed his case with his family. Current plans are to try to get him to the nursing facility for rehabilitation tomorrow. No complications with surgery. Medications: Reviewed: Yes Vitals/I&O/Wt Last Vital Signs Temp 98.0 F 12/31/22 08:56 Pulse 79 12/31/22 08:56 Resp 22 H 12/31/22 08:56 BP 160/90 12/31/22 08:56 Pulse Ox 97 12/31/22 08:56 O2 Del Method Nasal Cannula 12/31/22 08:56 O2 Flow Rate 3 12/31/22 08:56 12/30/22 12/31/22 12/31/22 22:59 06:59 14:59 Intake Total 240 / 1531.667 971.667 / 2503.334 300 / 300 Output Total 10 / 10 Balance 240 / 1531.667 971.667 / 2503.334 290 / 290 Physical Exam Narrative: General exam no distress Cardiovascular regular rate and rhythm, no murmur Lungs diminished breath sounds bilaterally. Abdomen is soft. No obvious tenderness. No obvious organomegaly Extremities no cyanosis clubbing or edema today. Neurologic: No obvious focal deficits or confusion Urinary Catheter Management: Coude: Cath Placed During This Visit: yes Reason for Continuing Indwelling Catheter: Acute Urinary Retention or Obstruction Urinary Catheter Date of Insertion: 07/13/22 Urinary Catheter Time of Insertion: 13:22 Data 12/31/22 04:26 12/31/22 04:26 A&P Assessment and plan (1) Acute encephalopathy: Patient presents with significant acute encephalopathy. No etiology is yet defined other than weakness. He did not take a narcotic dose prior to becoming more confused yesterday that his family is aware of. TSH, cortisol, urinalysis, ABG without significant concerns. He appears back to baseline (2) Severe back pain: Appreciate physical therapy and Occupational Therapy evaluation Orthopedic surgery consult appreciated, kyphoplasty performed today Tylenol, as needed. Oxycodone as needed. Morphine for breakthrough pain. Ultram as needed for milder pain (3) Dehydration: Continue low-dose IV fluids. Sodium improved to 129 which is around patient's baseline. (4) Hyponatremia: Improved with cautious initiation of IV fluids. Repeat BMP tomorrow (5) Stomatitis: Magic mouthwash as needed. Patient reports pain is better (6) Dysphagia: Patient currently with dysphagia. No new findings on CT. Does have history of stroke. I believe that it is likely his dysphagia is from weakness, encephalopathy, and possibly weakness in face of old CVA. Speech therapy evaluation appreciated. Currently on pur?ed diet. (7) Weakness: Patient with progressive weakness since the initiation of his severe back pain which has limited his mobility. I fear this will continue to progress should intervention not occur. Kyphoplasty performed today. Plan on him going to a skilled care setting tomorrow for rehabilitation. (8) Chronic lymphocytic leukemia: Discussed briefly with oncology. No indications for treatment currently. 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 ABG did not demonstrate any CO2 retention Allow natural Lovenox for DVT prophylaxis. On hold for kyphoplasty Attestations Medical Necessity Statement*: Needs continued hospitalization for close monitoring following surgery, secondary to severe back pain and hyponatremia Coding Level of Care Code Acute Code for g Fwd Diagnoses Acute encephalopathy G93.40 Severe back pain M54.9 Dehydration E86.0 Hyponatremia E87.1 Stomatitis K12.1 Dysphagia R13.10 Weakness R53.1 Chronic lymphocytic leukemia C91.10
--- NOTE | 2022-12-31 11:30 | PC.SOCIAL ---
Pg 2 IMM Explained to pt & family Pg 2 IMM. No questions voiced. Provided pt a copy. Initialed, dated, & timed a copy & placed in chart.
[2022-12-31] MEDS: morphine 4 mg/mL SDV 1 mL 1 MG IVP (11:48)
--- NOTE | 2022-12-31 14:07 | ECG_ITS ---
[facility] Test Date: 2022-12-31 Pat Name: Reilly Friedman Department: Room: 261 Gender: Male Visitor Service Assistant: : 1945 Requested By: Alberto Crespo Order Number: [id number] Burton MD: Kassy Winston M.D. Measurements Intervals [place] Rate: 87 P: 30 ID: [id number] QRS: -24 QRSD: 92 T: 22 QT: 378 QTc: 457 Interpretive Statements SINUS RHYTHM WITH FIRST DEGREE AV BLOCK WITH FREQUENT VENTRICULAR PREMATURE COMPLEXES BORDERLINE LEFT AXIS DEVIATION [QRS AXIS < -20] VOLTAGE CRITERIA FOR LVH [MEETS CRITERIA IN ONE OF: R(aVL), S(V1), R(V5), R(V5/V6)+S(V1)] Compared to ECG 12/29/2022 08:07:14 Ventricular premature complex(es) now present First degree AV block now present Left ventricular hypertrophy now present T-wave abnormality no longer present Possible ischemia no longer present Electronically Signed On 12-31-2022 19:14:58 CDT by Kassy Winston M.D. [id number]
[2022-12-31] MEDS: acetaminophen 325 mg Tablet 650 MG PO ×2 (14:41→20:50)
[2022-12-31] MEDS: enoxaparin 40 mg/0.4 mL Syringe SUBCUT (14:41)
[2022-12-31 15:39] LABS: Magnesium 2.1 mg/dL (1.7-2.3)
[2022-12-31] MEDS: docusate sodium 100 mg Capsule PO (17:26)
[2022-12-31] MEDS: atorvastatin 40 mg Tablet 20 MG PO (20:49)
[2022-12-31] MEDS: lidocaine 2% viscous 1.667 ML, diphenhydrAMINE oral liq 4.165 MG, aluminum-mag hydrox-s... MUCOUS MEM (21:16)
[2023-01-01] VITALS (7 sets, daily range): BP systolic 138–169; BP diastolic 68–80; PULSE 67–76; RESP 13–18; TEMP 36.3–37; O2SAT 90–98
[2023-01-01] MEDS: sodium chloride 0.9% 1,000 ML 50 ML IV (03:28)
[2023-01-01] MEDS: acetaminophen 325 mg Tablet 650 MG PO (03:29)
[2023-01-01] MEDS: aspirin 81 mg EC Tablet PO (05:13)
[2023-01-01 05:29] LABS: Basophils % 0.1 %; Eosinophils % 0.1 %; Hematocrit 33.6 % (37-53); Lymphocytes # 47.1 10^3/uL (0.8-4.8); Mean Corpuscular HGB Conc 32.4 g/dL (30-55); Mean Corpuscular Volume 104.7 fl (82-101); Monocytes # 1.3 10^3/uL (0.2-0.9); Monocytes % 2.3 %; Neutrophils # 8.71 10^3/uL (1.8-7.7); Neutrophils % 15.1 %; Nucleated Red Blood Cells % 0 %; Platelet Count 314 10^3/cmm (157-399); Red Blood Count 3.21 10^6/uL (3.85-5.65); Red Cell Distribution Width 12.9 % (12.1-15.1)
[2023-01-01 05:52] LABS: Anion Gap 10.4 (5-19); Blood Urea Nitrogen 16 mg/dL (8-23); Calcium 7.2 mg/dL (8.5-10.5); Carbon Dioxide 27 mmol/L (22-29); Chloride 96 mmol/L (98-107); Glucose 125 mg/dL (65-115); Osmolality Calculated 273 mOsm/kg (285-295); Potassium 3.4 mmol/L (3.5-5.1); Sodium 130 mmol/L (136-145)
[2023-01-01 06:04] LABS: Slide Review Slide Review Perform
[2023-01-01 06:05] LABS: White Blood Count 57.37 10^3/uL (3.29-11.43)
[2023-01-01 07:16] LABS: SARS Covid-2 Antigen negative (Negative)
--- NOTE | 2023-01-01 08:23 | PM.PN ---
Subjective Subjective: Patient is doing well at this point he is complains about 3 out of 10 pain. He states more from incisions not the fractures. He feels like his pain there is having before is gone Vitals/I&O/Wt Last Vital Signs Temp 97.6 F 01/01/23 08:06 Pulse 68 01/01/23 08:22 Resp 18 01/01/23 08:22 BP 142/77 01/01/23 08:06 Pulse Ox 96 01/01/23 08:22 O2 Del Method Room Air 01/01/23 08:22 O2 Flow Rate 3 12/31/22 08:56 12/31/22 01/01/23 01/01/23 22:59 06:59 14:59 Intake Total 240 / 655.5 1358.667 / 2013.167 480 / 480 Balance 240 / 645.5 1358.667 / 2003.167 480 / 480 Physical Exam Narrative: Resting in bed comfortably Urinary Catheter Management: Coude: Cath Placed During This Visit: yes Reason for Continuing Indwelling Catheter: Acute Urinary Retention or Obstruction Urinary Catheter Date of Insertion: 07/13/22 Urinary Catheter Time of Insertion: 13:22 Data 01/01/23 05:10 01/01/23 05:10 A&P Assessment and plan (1) Compression fracture of lumbar spine, non-traumatic: Continue current treatment plan. Attestations Medical Necessity Statement*: Per primary service Coding Level of Care Code Acute Code for [facility] Fwd Diagnoses Compression fracture of lumbar spine, non-traumatic M48.56XA
[2023-01-01] MEDS: potassium chloride ER 20 mEq Tablet 40 MEQ PO (08:50)
[2023-01-01] MEDS: escitalopram 10 mg Tablet PO (08:51)
[2023-01-01] MEDS: amlodipine 10 mg Tablet PO (08:51)
[2023-01-01] MEDS: lisinopril 20 mg Tablet 40 MG PO (08:51)
[2023-01-01] MEDS: tamsulosin 0.4 mg Capsule PO (08:51)
[2023-01-01] MEDS: pantoprazole DR 40 mg Tablet PO (08:51)
[2023-01-01] MEDS: ketorolac 30 mg/mL INJ 15 MG IVP (08:52)
--- NOTE | 2023-01-01 10:23 | PM.DCS ---
Discharge Providers Date of Admission: 12/29/22 10:20 Date of Discharge: January 01, 2023 Attending Provider at Admission: Alberto Marquez MD Attending Provider at Discharge: Johnathan Whitehead MD Primary Care Provider: Manolo Centeno DO Diagnoses at Discharge Discharge Diagnosis (1) Compression fracture of lumbar spine, non-traumatic: Status: Acute Reason for Visit Reason for Visit: [facility] Hospital Course Hospital Course Reilly Friedman is a 77 year old male that presents to the emergency department with progressive weakness, decreased p.o. intake, and confusion.? Confusion has been more evident in the last 24 hours.? He has been dealing with significant osteoporosis, resulting in compression fractures and kyphosis of his back.? He has been awaiting surgery on his lumbar area, kyphoplasty, secondary to severe pain.? He is becoming less stable on his feet.? He has been having some difficulty swallowing, and some issues with sores in his mouth.? He has not had any vomiting or diarrhea.? He continues to have significant pain and is eager to receive surgery.? He has not had any recent focal weakness.? He denies any chest discomfort.? He does have some shortness of breath. This is a 77-year-old male who presents to [facility] for severe back pain, status post orthopedic consultation, status post kyphoplasty, overall clinically improved, pain controlled, working with physical therapy, discharged to half-way facility for rehab. There was concern for acute encephalopathy on initial presentation, potentially related to narcotic dose, currently alert oriented x3, following all commands, no fevers, no chills. He did have acute on chronic hyponatremia, secondary dehydration, received IV fluids, overall clinically improved, serum sodium on discharge is 130. Has a history of chronic lymphocytic leukemia, had elevated leukocytosis, follow-up with Dr. Conley as outpatient. I had extensive discussion with patient about his risk of DVTs and PEs, he is on aspirin, Plavix, he should continue to be ambulatory, if any signs of DVT or PE to come to the emergency room. Physical Exam Const: COMMON NORMALS: no acute distress and patient oriented x3 Resp: COMMON NORMALS: normal respiratory effort, No retractions, No use of accessory muscles and clear to auscultation bilaterally AUSCULTATION: clear to auscultation bilaterally Cardio: COMMON NORMALS: regular rate, regular rhythm, S1 normal heart sound present and S2 normal heart sound present RATE: regular rate RHYTHM: regular rhythm HEART SOUNDS: S1 normal heart sound present and S2 normal heart sound present GI: COMMON NORMALS: Normal to inspection, nondistended, normoactive bowel sounds present and non-tender Extremity: COMMON NORMALS: no pedal edema Neuro: COMMON NORMALS: patient oriented x3 Psych: COMMON NORMALS: mental status grossly normal Urinary Catheter Management: Coude: Cath Placed During This Visit: yes Reason for Continuing Indwelling Catheter: Acute Urinary Retention or Obstruction Urinary Catheter Date of Insertion: 07/13/22 Urinary Catheter Time of Insertion: 13:22 Discharge Data Studies Completed and Pending Completed Studies During Hospitalization Category Date Time Status CT head wo con* [id number] Stat Cat Scan 12/29/22 08:00 Completed XR chest 1V portable [id number] Stat Exams 12/29/22 08:00 Completed Laboratory Results WBC 57.37 10^3/uL (3.29-11.43) H* 01/01/23 05:10 RBC 3.21 10^6/uL (3.85-5.65) L 01/01/23 05:10 Hgb 10.90 g/dL (11.27-16.99) L 01/01/23 05:10 Hct 33.6 % (37-53) L 01/01/23 05:10 MCV 104.7 fl (82-101) H 01/01/23 05:10 MCH 34.0 pg (27-33) H 01/01/23 05:10 MCHC 32.4 g/dL (30-55) 01/01/23 05:10 RDW 12.9 % (12.1-15.1) 01/01/23 05:10 Plt Count 314 10^3/cmm (157-399) 01/01/23 05:10 MPV 8.0 fL (7.4-10.4) 01/01/23 05:10 Neut % (Auto) 15.1 % 01/01/23 05:10 Lymph % (Auto) 82.0 % 01/01/23 05:10 [place] % (Auto) 2.3 % 01/01/23 05:10 Eos % (Auto) 0.1 % 01/01/23 05:10 Baso % (Auto) 0.1 % 01/01/23 05:10 Neut # (Auto) 8.71 10^3/uL (1.8-7.7) H 01/01/23 05:10 Lymph # (Auto) 47.1 10^3/uL (0.8-4.8) H 01/01/23 05:10 [place] # (Auto) 1.3 10^3/uL (0.2-0.9) H 01/01/23 05:10 Eos # (Auto) 0.0 10^3/uL (0.0-0.8) 01/01/23 05:10 Baso # (Auto) 0.0 10^3/uL (0.0-0.1) 01/01/23 05:10 Nucleated RBC % (auto) 0 % 01/01/23 05:10 Total Counted 100 (0-100) 12/29/22 08:05 Atypical Lymphs % 9.0 % (0-5) H 12/29/22 08:05 Absolute Neutrophils 14.2 10^3/cmm (1.4-6.5) H 12/29/22 08:05 Segmented Neutrophils 19 % 12/29/22 08:05 Abs Segm Neuts (Man) 14.2 10/cmm (1.6-7.1) H 12/29/22 08:05 Band Neutrophils 0.0 % 12/29/22 08:05 Abs Band Neuts (Man) 0.0 10^3/cmm (0.0-1.2) 12/29/22 08:05 Absolute Lymphocytes 59.8 10^3/cmm (1.2-3.4) H 12/29/22 08:05 Lymphocytes (Manual) 71 % 12/29/22 08:05 Monocytes (Manual) 1.0 % 12/29/22 08:05 Absolute Monocytes 0.7 10^3/cmm (0.1-0.6) H 12/29/22 08:05 Eosinophils (Manual) 0 % 12/29/22 08:05 Absolute Eosinophils 0.0 10^3/cmm (0.0-0.7) 12/29/22 08:05 Basophils (Manual) 0.0 % 12/29/22 08:05 Absolute Basophils 0.0 10^3/cmm (0.0-0.2) 12/29/22 08:05 Nucleated RBCs # 0.0 /100WBC 01/01/23 05:10 Smudge Cells 2+ H 12/29/22 08:05 Platelet Estimate Normal (Normal) 12/29/22 08:05 Acanthocytes (Spur) 2+ H 12/29/22 08:05 Specimen Type Arterial 12/29/22 10:31 Sample Site Radial, right 12/29/22 10:31 ABG pH 7.47 (7.35-7.45) H 12/29/22 10:31 ABG pCO2 38.0 mmHg (35-45) 12/29/22 10:31 ABG pO2 64.8 mmHg (80.0-100.0) L 12/29/22 10:31 ABG HCO3 27.3 mmol/L (22-26) H 12/29/22 10:31 ABG Base Excess 3.4 mmol/L (-2.0-2.0) H 12/29/22 10:31 Blair Test Pos 12/29/22 10:31 Hematocrit 36.7 % (42-52) L 12/29/22 10:31 O2 Delivery Device Room air 12/29/22 10:31 FiO2 21.0 % 12/29/22 10:31 Field Party Manager ID glc 12/29/22 10:31 Sodium 130 mmol/L (136-145) L 01/01/23 05:10 Potassium 3.4 mmol/L (3.5-5.1) L 01/01/23 05:10 Chloride 96 mmol/L (98-107) L 01/01/23 05:10 Carbon Dioxide 27 mmol/L (22-29) 01/01/23 05:10 Anion Gap 10.4 (5-19) 01/01/23 05:10 BUN 16 mg/dL (8-23) 01/01/23 05:10 Creatinine 0.6 mg/dL (0.7-1.2) L 01/01/23 05:10 GFR Calculation Not Reportable 01/01/23 05:10 Glucose 125 mg/dL (65-115) H 01/01/23 05:10 Calculated Osmolality 273 mOsm/kg (285-295) L 01/01/23 05:10 Calcium 7.2 mg/dL (8.5-10.5) L 01/01/23 05:10 Magnesium 2.1 mg/dL (1.7-2.3) 12/31/22 04:26 Total Bilirubin 0.9 mg/dL (0.15-1.2) 12/30/22 04:58 AST 24 U/L (0-40) 12/30/22 04:58 ALT 24 U/L (0-41) 12/30/22 04:58 Alkaline Phosphatase 73 U/L (40-130) 12/30/22 04:58 Total Protein 5.8 g/dL (6.6-8.7) L 12/30/22 04:58 Albumin 3.6 g/dL (3.5-5.2) 12/30/22 04:58 Globulin 2.2 g/dL (1.3-4.6) 12/30/22 04:58 TSH 0.67 uIU/mL (0.27-4.20) 12/29/22 08:05 Random Cortisol 18.98 ug/dL (2.47-19.5) 12/29/22 08:05 Urine Color Dark yellow (Yellow) 12/29/22 11:40 Urine Appearance Clear (CLEAR) 12/29/22 11:40 Urine pH 6 (5-7) 12/29/22 11:40 Ur Specific Palm 1.020 (1.005-1.030) 12/29/22 11:40 Urine Protein 1+ (Negative) H 12/29/22 11:40 Urine Glucose (UA) Norm (Normal) 12/29/22 11:40 Urine Ketones 2+ (Negative) H 12/29/22 11:40 Urine Blood Neg (Negative) 12/29/22 11:40 Urine Nitrate Negative (Negative) 12/29/22 11:40 Urine Bilirubin Neg (Negative) 12/29/22 11:40 Urine Urobilinogen Norm mg/dL (Negative) 12/29/22 11:40 Ur Leukocyte Esterase Negative (Negative) 12/29/22 11:40 Urine RBC 0-4 /hpf (0-2) H 12/29/22 11:40 Urine WBC 0-4 /hpf (0-5) H 12/29/22 11:40 Ur Squamous Epith Cells 0-4 /hpf (0-5) H 12/29/22 11:40 Amorphous Sediment Not Reportable 12/29/22 11:40 Urine Bacteria None /hpf (NONE) 12/29/22 11:40 Hyaline Casts Rare /lpf 12/29/22 11:40 Fine Granular Casts Rare /lpf 12/29/22 11:40 Urine Mucus 2+ /hpf 12/29/22 11:40 SARS-CoV-2 Ag (Rapid) negative (Negative) 01/01/23 06:45 Vitals Last Vital Signs Temp 97.6 F 01/01/23 08:06 Pulse 68 01/01/23 08:22 Resp 18 01/01/23 08:22 BP 142/77 01/01/23 08:06 Pulse Ox 96 01/01/23 08:22 O2 Del Method Room Air 01/01/23 08:22 O2 Flow Rate 3 12/31/22 08:56 Discharge Plan Discharge Patient Disposition: Xfer SNF Condition: Stable Prescriptions: New tramadol 50 mg Tablet 50 mg PO Q6H PRN (Reason: Moderate Pain) Qty: 30 0RF docusate sodium 100 mg Capsule 100 mg PO BID Qty: 60 0RF oxycodone 5 mg Tablet 5 mg PO Q6H PRN (Reason: Severe Pain) Qty: 30 0RF Continued aspirin [Adult Low Dose Aspirin] 81 mg tablet,delayed release (DR/EC) 81 mg PO QAM amlodipine 10 mg tablet 10 mg PO DAILY Qty: 90 1RF potassium chloride 10 mEq capsule, extended release 10 meq PO BID Qty: 60 5RF lisinopril 40 mg tablet 40 mg PO QAM Qty: 90 3RF cholecalciferol (vitamin D3) 1,250 mcg (50,000 unit) tablet 50,000 unit PO DIRECTED Qty: 10 0RF Rx Instructions: take weekly for 4 weeks on Tuesday, then monthly thereafter BMX See Rx Instructions .ROUTE .COMPLEX Qty: 300 0RF Rx Instructions: mix equal portions of viscous lidocaine2%, Maalox, and elixir of benadryl. Swish thoroughly, gargle, and spit 5-10ml [id number] prn; simvastatin 40 mg tablet 40 mg PO BEDTIME tamsulosin 0.4 mg capsule 0.4 mg PO QAM omeprazole 20 mg capsule,delayed release(DR/EC) 20 mg PO QAM acetaminophen 500 mg Tablet 1,000 mg PO Q6H PRN (Reason: Pain) 14 Days Qty: 25 0RF clopidogrel 75 mg tablet 75 mg PO DAILY fluticasone propionate 50 mcg/actuation spray,suspension 1 spray intranasal DAILY PRN (Reason: Allergic Symptoms) escitalopram oxalate 10 mg tablet 10 mg PO DAILY Discontinued hydrocodone-acetaminophen 5-325 mg tablet 1 tab PO Q4H PRN (Reason: Lumbar fractures) 5 Days Qty: 30 0RF nystatin 100,000 unit/mL suspension 5 ml PO TID 10 Days Qty: 150 0RF Rx Instructions: swish and swallow Discharge Orders: Discharge Order (Routine); Ordered 01/01/23 Ordered By: Johnathan Whitehead Referrals: [facility] [Outside] Manolo Centeno DO [Primary Care Provider] - Discharge Diet: Cardiac Discharge Activity: Resume usual activity Patient Instructions: Hyponatremia (ED), Non-diabetic Hypoglycemia (ED), Opioid Safety Activity Restrictions/Additional Instructions: -if you have any calf pain, or calf swelling or bloody cough please go to ER Discharge Attestations Time Spent in Discharge Care*: greater than 30 min Quality Metrics Clinical Quality Measures [ No reported AMI, CVA or VTE this stay] Coding Level of Care Code 66155 Total time (in minutes) for Discharge: 45 Diagnoses Compression fracture of lumbar spine, non-traumatic M48.56XA
[2023-01-01] MEDS: TRAMadol 50 mg Tablet PO (11:49)
== END 2023-01-01 12:35 | disposition skilled nursing facility (03) | DRG 516 ==
LOC: ER 10:31 → MEDSURG 15:15
PROVIDERS: Orthopaedic Surgery; Admitting Provider Internal Medicine; Emergency Provider Emergency Medicine; PCP Family Medicine; Visit Provider Family Medicine
PROC: 0QU03JZ Supplement Lumbar Vertebra with Synthetic Substitute, Percutaneous Approach (ICD-10-PCS; principal; 2022-12-31 07:00)
DX: M80.88XA Other osteoporosis with current pathological fracture, vertebra(e), initial encounter for fracture (principal); C91.10 Chronic lymphocytic leukemia of B-cell type not having achieved remission; G93.40 Encephalopathy, unspecified; E87.1 Hypo-osmolality and hyponatremia; N40.1 Benign prostatic hyperplasia with lower urinary tract symptoms; F32.A Depression, unspecified; E78.5 Hyperlipidemia, unspecified; K21.9 Gastro-esophageal reflux disease without esophagitis; Z86.73 Personal history of transient ischemic attack (TIA), and cerebral infarction without residual deficits; I10 Essential (primary) hypertension; Z85.828 Personal history of other malignant neoplasm of skin; E86.0 Dehydration; K12.1 Other forms of stomatitis; R13.10 Dysphagia, unspecified; Z66 Do not resuscitate; Z98.890 Other specified postprocedural states; Z79.02 Long term (current) use of antithrombotics/antiplatelets; Z79.82 Long term (current) use of aspirin
CPT/HCPCS: 36415; 36600; 70450; 71045; 76000; 80048; 80053; 81001; 82533; 82803; 83735; 84443; 85007; 85025; 87426; 92523; 92526; 92610; 93005; 96360; 96372; 97116; 97161; 97165; 97530; 99284; 99285; J1100; J1650; J1885; J2270; J2405; J2704; J3010; J3370; J7030; J7040; J7050; Q9967

== ENCOUNTER → 2023-01-18 14:04 | Outpatient (BNVA) | payer OTHER, SELFPAY | PROVIDERS: PCP Family Medicine; Visit Provider Orthopaedic Surgery | DX: S32.009D Unspecified fracture of unspecified lumbar vertebra, subsequent encounter for fracture with routine healing (principal); X58.XXXD Exposure to other specified factors, subsequent encounter | CPT/HCPCS: 99024; 99213 ==

== ENCOUNTER 2023-02-24 13:42 | Oncology outpatient (recurring) (ONCR) | payer MEDICARE, OTHER, SELFPAY ==
[2023-02-24 14:30] VITALS: BP 147/79; PULSE 71; RESP 18; TEMP 36.6; O2SAT 98
[2023-02-24 14:39] LABS: Basophils # 0.1 10^3/uL (0.0-0.1); Basophils % 0.2 %; Eosinophils # 0.2 10^3/uL (0.0-0.8); Eosinophils % 0.6 %; Hematocrit 36.5 % (37-53); Lymphocytes # 23.7 10^3/uL (0.8-4.8); Lymphocytes % 78.8 %; Mean Corpuscular HGB Conc 33.4 g/dL (30-55); Mean Corpuscular Hemoglobin 34.4 pg (27-33); Mean Corpuscular Volume 102.8 fl (82-101); Mean Platelet Volume 8.1 fL (7.4-10.4); Monocytes % 3.4 %; Neutrophils # 5.02 10^3/uL (1.8-7.7); Neutrophils % 16.8 %; Nucleated Red Blood Cells % 0 %; Platelet Count 281 10^3/cmm (157-399); Red Blood Count 3.55 10^6/uL (3.85-5.65); Red Cell Distribution Width 12.6 % (12.1-15.1); White Blood Count 30.02 10^3/uL (3.29-11.43)
[2023-02-24 14:57] LABS: Alanine Aminotransferase 21 U/L (0-41); Albumin Level 4.2 g/dL (3.5-5.2); Alkaline Phosphatase 49 U/L (40-130); Anion Gap 11.7 (5-19); Aspartate Amino Transferase 18 U/L (0-40); Blood Urea Nitrogen 9 mg/dL (8-23); Calcium 8.8 mg/dL (8.5-10.5); Carbon Dioxide 26 mmol/L (22-29); Chloride 95 mmol/L (98-107); Ferritin 205 ng/mL (30-400); Glucose 88 mg/dL (65-115); Iron 76 ug/dL (59-158); Lactate Dehydrogenase 161 U/L (135-225); Osmolality Calculated 264 mOsm/kg (285-295); Percent Saturation 25.1 % (20-50); Potassium 4.7 mmol/L (3.5-5.1); Sodium 128 mmol/L (136-145); Total Bilirubin 0.4 mg/dL (0.15-1.2); Total Iron Binding Capacity 302 mcg/dl; Total Protein 6.2 g/dL (6.6-8.7); Unsaturated Iron Binding 226 ug/dL (112-347)
[2023-02-24 15:13] LABS: Vitamin B12 497 pg/mL (232-1245)
[2023-02-24 16:28] LABS: Folate Level > 20.0 ng/mL (4.5-32.2)
[2023-02-28 14:20] LABS: Soluble Transferrin Receptor 1.62 mg/L (0.76-1.76)
[2023-03-01 07:10] LABS: Methylmalonic Acid 204 nmol/L (87-318)
== END 2023-03-10 23:59 | disposition home or self-care (01) ==
PROVIDERS: Internal Medicine; PCP Family Medicine; Visit Provider Internal Medicine Medical Oncology
DX: C91.10 Chronic lymphocytic leukemia of B-cell type not having achieved remission (principal); M48.50XA Collapsed vertebra, not elsewhere classified, site unspecified, initial encounter for fracture; D75.89 Other specified diseases of blood and blood-forming organs; E87.1 Hypo-osmolality and hyponatremia; Z79.899 Other long term (current) drug therapy
CPT/HCPCS: 36415; 80053; 82607; 82728; 82746; 83540; 83550; 83615; 83921; 84238; 85025; 99214

== ENCOUNTER → 2023-04-14 11:01 | Outpatient (BNVA) | payer MEDICARE, SELFPAY | PROVIDERS: PCP Family Medicine; Visit Provider Family Medicine | DX: E87.1 Hypo-osmolality and hyponatremia (principal); M19.90 Unspecified osteoarthritis, unspecified site; E87.6 Hypokalemia; Z79.899 Other long term (current) drug therapy | CPT/HCPCS: 80048; 80053; 85007; 85025 ==

== ENCOUNTER → 2023-05-13 11:40 | Outpatient (BNVA) | payer MEDICARE, OTHER, SELFPAY | PROVIDERS: PCP Family Medicine; Visit Provider Family Medicine | DX: C91.10 Chronic lymphocytic leukemia of B-cell type not having achieved remission (principal); E87.1 Hypo-osmolality and hyponatremia; Z79.899 Other long term (current) drug therapy | CPT/HCPCS: 80053; 85025 ==

== ENCOUNTER → 2023-06-22 10:20 | Outpatient (BNVA) | payer MEDICARE, OTHER, SELFPAY | PROVIDERS: PCP Family Medicine; Visit Provider Family Medicine | DX: E87.6 Hypokalemia (principal); E87.1 Hypo-osmolality and hyponatremia; N18.9 Chronic kidney disease, unspecified | CPT/HCPCS: 80053; 85025 ==

== ENCOUNTER 2023-07-16 13:16 | Inpatient (IN) | payer MEDICARE, OTHER, SELFPAY ==
[2023-07-16 13:19] VITALS: BP 122/67; PULSE 82; RESP 18; TEMP 36.5; O2SAT 92; BMI 23.8
--- NOTE | 2023-07-16 13:27 | XRR_ITS ---
PROCEDURE INFORMATION: Exam: XR Left Hip Exam date and time: 07/16/2023 1:38 PM Age: 77 years old Clinical indication: Patient HX: Lt hip pain/rt pelvic pain post fall TECHNIQUE: Imaging protocol: Radiologic exam of the left hip. Views: 2 or 3 views hip with pelvis when performed. COMPARISON: CT abdomen pelvis w con* [id number] 07/13/2022 3:16 PM FINDINGS: Bones/joints: Minimal degenerative change of the left hip and sacroiliac joint. There is a moderately malaligned fracture of the right superior pubic ramus. There is disruption of the left ileo pubic line in the region of the acetabulum consistent with an acetabular fracture. There are also findings suspicious for a right inferior pubic ramus fracture. No sacral fracture visualized. Prior cement stabilization of the S1. Soft tissues: Unremarkable. XR/XR hip LT 2-3V wo/w pel* [id number] IMPRESSION: Fractures of the left acetabulum and right superior pubic ramus with findings suspicious for left inferior pubic ramus fracture. CT recommended for more detailed assessment if clinically warranted.
--- NOTE | 2023-07-16 13:33 | W.ED.EXTPRO ---
HPI - Extremity Problem General: Chief complaint: Extremity Injury, Lower Stated complaint: LEFT HIP PAIN S/P FALL Time Seen by Provider: 07/16/23 13:26 Source: patient Mode of arrival: EMS History of Present Illness: 77-year-old male had a mechanical ground-level fall while he was opening a gate to a barn. He is complaining of left hip pain. He did not strike his head did not lose conscious denies any other injuries. He is on clopidogrel but no other anticoagulants. He was given fentanyl and Zofran while in route. He did have some mild hypoxia develop after he had been given the fentanyl. On arrival here he is awake and alert with no other complaints. MD Complaint: joint pain Onset (ago): minute(s) Pain Consistency: constant Location: left (Hip) Quality: sharp Relieving factors: rest Exacerbating factors: range of motion and palpation Associated symptoms: Deny chest pain, fever(s) or rash Review of Systems Const: Denies: fever(s) or chills Card: Denies: chest pain Resp: Denies: dyspnea GI: Denies: abdominal pain : Denies: dysuria, urinary frequency or urinary urgency Musc: Denies: neck pain or back pain Skin/Breast: Denies: rash PFSH ED PFSH: Medical History Hyperlipidemia Depression Pathologic thoracic fracture Hyponatremia Acute urinary retention Acute hypokalemia Traumatic compression fracture of T12 thoracic vertebra Back pain Chronic lymphocytic leukemia GERD (gastroesophageal reflux disease) History of stroke (04/2018) Dyslipidemia Degenerative arthritis HTN (hypertension) BPH w urinary obs/LUTS Chronic prostatitis Surgical History History of kyphoplasty H/O Mohs micrographic surgery for skin cancer (2018) S/P arthroscopic surgery of left knee Hx of bilateral inguinal hernia repair Family History Father , AT AGE 84 PROSTATE CANCER Cancer Mother , AT AGE 84 Hypertension CAD (coronary artery disease) Sister Dementia Other Hyperlipidemia Stroke Denies family history of Diabetes Clotting disorder Psychiatric illness Chronic kidney disease (CKD) Suicide Anesthesia complication Bleeding disorder Lung disease Social History (Reviewed 07/16/23 @ 13:33 by PRATIBHA Justice Smoking and tobacco/nicotine status: never used tobacco/nicotine Alcohol intake: never Substance/Drug Use: unknown Adopted: No Caregiver/support person: No Lives independently: No Household members: spouse Marital status: Current occupational status: employed Physical Exam Const: COMMON NORMALS: no acute distress GENERAL APPEARANCE: cooperative and comfortable ORIENTATION/CONSCIOUSNESS: Yes awake, Yes oriented to person, Yes oriented to place and Yes oriented to time HENMT: COMMON NORMALS: normocephalic, atraumatic and hearing grossly normal bilaterally HEAD & SCALP: normocephalic and atraumatic Resp: COMMON NORMALS: normal respiratory effort, No retractions, No use of accessory muscles and clear to auscultation bilaterally AUSCULTATION: clear to auscultation bilaterally Cardio: COMMON NORMALS: regular rate, regular rhythm and No murmurs present (Cardio) RATE: regular rate RHYTHM: regular rhythm GI: COMMON NORMALS: Soft to palpation and No hepatosplenomegaly present AUSCULTATION: Yes normoactive bowel sounds PALPATION: Yes Soft to palpation, No Tenderness to palpation present (GI), No Guarding due to palpation present (GI) and Yes No hepatosplenomegaly present Extremity: COMMON NORMALS: normal to inspection, capillary refill normal, no clubbing, cyanosis or edema, no calf tenderness and no pedal edema Neuro: SENSORIUM/ORIENTATION: Yes oriented to person, Yes oriented to place and Yes oriented to time Skin: COMMON NORMALS: no rashes or lesions noted GENERAL SKIN EXAM: no rashes or lesions noted Course Vital Signs: Vital signs: Vital Signs Temperature 97.7 F 07/16/23 13:19 Pulse Rate 80 07/16/23 15:43 Respiratory Rate 18 07/16/23 13:19 Blood Pressure 148/80 07/16/23 15:43 Pulse Oximetry 92 07/16/23 15:43 Oxygen Delivery Me thod Room Air 07/16/23 15:43 Oxygen Flow Rate 2 07/16/23 13:19 MDM - Extremity (Nontraumatic) Medical Decision Making Imaging shows acetabular fracture and on the left and the right superior ramus fracture. Discussed with Dr. Rapp who is on-call for orthopedics he does not feel that these will require surgical intervention. Weightbearing as tolerated rehab. Will admit to hospital for plan to admission for group home for rehab and recovery discussed with family they are agreeable to this discussed Dr. Celis. Dr. Rapp will consult on a nonurgent basis. Medical Records I reviewed the patient's medical records. Lab Data I reviewed the patient's lab results. 07/16/23 15:51 07/16/23 15:51 Radiology Impressions Hip/Pelvis X-Ray 07/16/23 13:27 IMPRESSION: Fractures of the left acetabulum and right superior pubic ramus with findings suspicious for left inferior pubic ramus fracture. CT recommended for more detailed assessment if clinically warranted. Hip CT 07/16/23 14:30 IMPRESSION: Multiple pelvic fractures including left acetabulum, bilateral pubic rami and left sacrum. Abdomen/Pelvis CT 07/16/23 14:40 IMPRESSION: 1. Multiple pelvic fractures including comminuted left acetabular fracture, bilateral pubic ramus fractures and left sacral fracture. Stable multilevel thoracolumbar spine fractures except for interval increase in loss of height of previously treated L1 vertebral body. 2. Left lower lobe airspace disease and right lower lobe atelectasis and/or scar. Laboratory Results WBC 42.96 10^3/uL (3.29-11.43) H* 07/16/23 15:51 RBC 3.47 10^6/uL (3.85-5.65) L 07/16/23 15:51 Hgb 11.50 g/dL (11.27-16.99) 07/16/23 15:51 Hct 34.9 % (37-53) L 07/16/23 15:51 MCV 100.6 fl (82-101) 07/16/23 15:51 MCH 33.1 pg (27-33) H 07/16/23 15:51 MCHC 33.0 g/dL (30-55) 07/16/23 15:51 RDW 12.4 % (12.1-15.1) 07/16/23 15:51 Plt Count 238 10^3/cmm (157-399) 07/16/23 15:51 MPV 8.5 fL (7.4-10.4) 07/16/23 15:51 Neut % (Auto) 40.8 % 07/16/23 15:51 Lymph % (Auto) 55.6 % 07/16/23 15:51 [place] % (Auto) 2.7 % 07/16/23 15:51 Eos % (Auto) 0.0 % 07/16/23 15:51 Baso % (Auto) 0.2 % 07/16/23 15:51 Neut # (Auto) 17.49 10^3/uL (1.8-7.7) H 07/16/23 15:51 Lymph # (Auto) 23.9 10^3/uL (0.8-4.8) H 07/16/23 15:51 [place] # (Auto) 1.2 10^3/uL (0.2-0.9) H 07/16/23 15:51 Eos # (Auto) 0.0 10^3/uL (0.0-0.8) 07/16/23 15:51 Baso # (Auto) 0.1 10^3/uL (0.0-0.1) 07/16/23 15:51 Nucleated RBC % (auto) 0 % 07/16/23 15:51 Nucleated RBCs # 0.0 /100WBC 07/16/23 15:51 Carbon Dioxide 24 mmol/L (22-29) 07/16/23 15:51 BUN 10 mg/dL (8-23) 07/16/23 15:51 GFR Calculation Not Reportable 07/16/23 15:51 Calcium 8.8 mg/dL (8.5-10.5) 07/16/23 15:51 Total Bilirubin 0.7 mg/dL (0.15-1.2) 07/16/23 15:51 AST 27 U/L (0-40) 07/16/23 15:51 ALT 28 U/L (0-41) 07/16/23 15:51 Alkaline Phosphatase 57 U/L (40-130) 07/16/23 15:51 Albumin 3.9 g/dL (3.5-5.2) 07/16/23 15:51 Globulin 2.2 g/dL (1.3-4.6) 07/16/23 15:51 All radiology interpretation(s) finalized by discharge Discharge Plan Discharge Patient Disposition: Placed in Observation Clinical Impression: Chronic lymphocytic leukemia, Closed fracture of left acetabulum, Fracture of sacrum, Bilateral fracture of pubic rami Condition: Stable Prescriptions: No Action aspirin [Adult Low Dose Aspirin] 81 mg tablet,delayed release (DR/EC) 81 mg PO QAM docusate sodium 100 mg capsule 100 mg PO BID PRN (Reason: Constipation) lisinopril 40 mg tablet 40 mg PO QAM Qty: 90 3RF amlodipine 10 mg tablet 10 mg PO DAILY Qty: 90 1RF escitalopram oxalate 10 mg tablet 10 mg PO DAILY Qty: 90 1RF omeprazole 20 mg capsule,delayed release(DR/EC) 20 mg PO QAM Qty: 90 1RF acetaminophen 500 mg Tablet 1,000 mg PO Q6H PRN (Reason: Pain) 14 Days Qty: 25 0RF clopidogrel 75 mg tablet 75 mg PO DAILY fluticasone propionate 50 mcg/actuation spray,suspension 1 spray intranasal DAILY PRN (Reason: Allergic Symptoms) Calcium 500 500 mg calcium (1,250 mg) Tablet 500 mg PO BID cephalexin 500 mg capsule 500 mg PO TID chlorhexidine gluconate 0.12 % mouthwash See Rx Instructions .ROUTE .COMPLEX Rx Instructions: DIRECTED simvastatin 40 mg tablet 40 mg PO QPM tamsulosin 0.4 mg capsule 0.4 mg PO DAILY cholecalciferol (vitamin D3) 1,250 mcg (50,000 unit) tablet 50,000 unit PO BID Referrals: Manolo Centeno DO [Primary Care Provider] - Coding Level of 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
--- NOTE | 2023-07-16 14:30 | CTR_ITS ---
PROCEDURE INFORMATION: Exam: CT Left Lower Extremity Without Contrast, Hip Exam date and time: 07/16/2023 2:36 PM Age: 77 years old Clinical indication: Injury or trauma; Fall; Blunt trauma; Hip; Left TECHNIQUE: Imaging protocol: CT of the left lower extremity without contrast was performed. Exam focused on the hip. Radiation optimization: All CT scans at this facility use at least one of these dose optimization techniques: automated exposure control; mA and/or kV adjustment per patient size (includes targeted exams where dose is matched to clinical indication); or iterative reconstruction. COMPARISON: CR (PELVIS, ) 07/16/2023 1:38 PM RADIATION DOSE METRICS: Total DLP (mGy-cm): 308.81 FINDINGS: Bones/joints: Osteopenia. Parasagittal fracture of the left sacrum. Mild degenerative change of the left sacroiliac joint. Comminuted left acetabular fracture with components involving the medial wall and juxta acetabular superior pubic ramus. Additional fracture involving the left superior pubic ramus medially (series 3, image 53. Comminuted overriding fracture of the left inferior pubic ramus. Nondisplaced right ischial ramus fracture. Mildly displaced right superior pubic ramus fracture. No evidence of proximal femur fracture. Soft tissues: Normal. Bowel: Large amount of colonic stool. Reproductive: Prostate is mildly enlarged. CT/CT hip LT wo con* [id number] IMPRESSION: Multiple pelvic fractures including left acetabulum, bilateral pubic rami and left sacrum.
--- NOTE | 2023-07-16 14:40 | CTR_ITS ---
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 PT C/O of left hip pain TECHNIQUE: Imaging protocol: Computed tomography of the abdomen and pelvis without contrast. Radiation optimization: All CT scans at this facility use at least one of these dose optimization techniques: automated exposure control; mA and/or kV adjustment per patient size (includes targeted exams where dose is matched to clinical indication); or iterative reconstruction. COMPARISON: CT abdomen pelvis w con* [id number] 07/13/2022 3:16 PM RADIATION DOSE METRICS: Total DLP (mGy-cm): 588.3 FINDINGS: Lungs: Left lower lobe airspace disease is present. Right lower lobe atelectasis and/or scar is present. Coronary arteries: Coronary artery calcifications. Liver: No significant liver pathology. Gallbladder and bile ducts: No significant gallbladder pathology. No biliary dilatation. Pancreas: No significant pancreatic pathology. Spleen: No significant splenic pathology. Adrenal glands: No significant adrenal pathology. Kidneys and ureters: No significant renal pathology. 8 mm right pole renal cortical cyst again noted, less well visualized in absence of IV contrast. Stomach and bowel: Large amount of colonic stool. Appendix: No appendiceal pathology evident. Intraperitoneal space: No ascites. Vasculature: No abdominal aortic aneurysm. Lymph nodes: No evidence of lymphadenopathy. Urinary bladder: Urinary bladder mildly distended with mild wall thickening. Reproductive: Prostate is mildly enlarged. Bones/joints: Bones are osteopenic. Nondisplaced parasagittal fracture through the left sacrum. Minimally malaligned. There is a nondisplaced right ischial fracture. There is a malaligned and over riding left inferior pubic ramus fracture. Is a comminuted fracture involving the left acetabulum with components involving the roof, medial wall and juxta acetabular portion of the superior pubic ramus. There is also a fracture of the left superior pubic ramus abutting the pubic body on series 4, image 68. No evidence of femur fracture. No dislocation. There are moderate to severe compression fractures of all lumbar vertebral bodies with prior cement stabilization procedures at L1, L3 and L5. Vertebral bodies are unchanged compared with the MRI of 12/21/2022 except for interval treatment and interval degree of compression of the treated L1 vertebral level. Lower thoracic compression fractures are unchanged in their visualized extent. Old healed right 9th rib fracture laterally. Soft tissues: Small fat containing left inguinal hernia. Small fat containing umbilical hernia. CT/CT abdomen pelvis wo con [id number] IMPRESSION: 1. Multiple pelvic fractures including comminuted left acetabular fracture, bilateral pubic ramus fractures and left sacral fracture. Stable multilevel thoracolumbar spine fractures except for interval increase in loss of height of previously treated L1 vertebral body. 2. Left lower lobe airspace disease and right lower lobe atelectasis and/or scar.
[2023-07-16 15:43] VITALS: BP 148/80; PULSE 80; O2SAT 92
[2023-07-16 16:01] LABS: Basophils # 0.1 10^3/uL (0.0-0.1); Basophils % 0.2 %; Hematocrit 34.9 % (37-53); Lymphocytes # 23.9 10^3/uL (0.8-4.8); Lymphocytes % 55.6 %; Mean Corpuscular Hemoglobin 33.1 pg (27-33); Mean Corpuscular Volume 100.6 fl (82-101); Mean Platelet Volume 8.5 fL (7.4-10.4); Monocytes # 1.2 10^3/uL (0.2-0.9); Monocytes % 2.7 %; Neutrophils # 17.49 10^3/uL (1.8-7.7); Neutrophils % 40.8 %; Nucleated Red Blood Cells % 0 %; Platelet Count 238 10^3/cmm (157-399); Red Blood Count 3.47 10^6/uL (3.85-5.65); Red Cell Distribution Width 12.4 % (12.1-15.1)
[2023-07-16 16:03] LABS: White Blood Count 42.96 10^3/uL (3.29-11.43)
[2023-07-16 16:19] LABS: Alanine Aminotransferase 28 U/L (0-41); Albumin Level 3.9 g/dL (3.5-5.2); Alkaline Phosphatase 57 U/L (40-130); Aspartate Amino Transferase 27 U/L (0-40); Blood Urea Nitrogen 10 mg/dL (8-23); Calcium 8.8 mg/dL (8.5-10.5); Carbon Dioxide 24 mmol/L (22-29); Chloride 95 mmol/L (98-107); Globulin 2.2 g/dL (1.3-4.6); Glucose 123 mg/dL (65-115); Osmolality Calculated 272 mOsm/kg (285-295); Sodium 131 mmol/L (136-145); Total Bilirubin 0.7 mg/dL (0.15-1.2); Total Protein 6.1 g/dL (6.6-8.7)
[2023-07-16] MEDS: morphine 4 mg/mL SDV 1 mL IVP (16:26)
[2023-07-16] MEDS: ondansetron 2 mg/ML SDV 2 mL 4 MG IVP (16:26)
[2023-07-16 16:29] LABS: Creatinine Clr Calc Pharmacy 66.4339
[2023-07-16 16:30] LABS: Anion Gap 15.6 (5-19); Potassium 3.6 mmol/L (3.5-5.1)
--- NOTE | 2023-07-16 17:34 | PM.HP ---
Providers/Chief Complaint Admitting Physician: Augustine Alvarez DO Primary Care Provider: Manolo Centeno DO Chief Complaint: LEFT HIP PAIN S/P FALL History of Present Illness Reilly Friedman is a 77 year old male With history of CLL and multiple thoracic and lumbar compression fractures, osteoporosis, degenerative arthritis BPH, presents after fall after opening barn door today. He complains of left hip pain. In the emergency room scans were obtained and showed bilateral pubic rami fracture and acetabular fracture. Consult with orthopedics states pain management PT and OT patient plans to return to long-term facility for rehab. Review of Systems Const: Denies: fever(s) or chills Eyes: Denies: change in vision ENMT: Denies: throat pain or nasal congestion Card: Denies: chest pain or palpitations Resp: Denies: dyspnea or productive cough GI: Denies: abdominal pain, nausea, vomiting or change in stool character : Denies: difficulty urinating or dysuria Musc: Reports: back pain, extremity pain, loss of height and deformity Skin/Breast: Denies: rash or lesions Neuro: Denies: headache(s) or dizziness Psych: Denies: anxiety or depression [place]/Lymph: Denies: easy bruising or easy bleeding Medications/Allergies Home Medications Medication Instructions Recorded Confirmed Last Taken Type aspirin 81 mg tablet,delayed 81 mg PO QAM 10/09/19 07/16/23 07/16/23 History release (Adult Low Dose Aspirin) acetaminophen 500 mg tablet 1,000 mg (2 x 500 mg) PO Q6H PRN 07/20/22 07/16/23 12/28/22 Rx Pain 14 days #25 tabs lisinopril 40 mg tablet 40 mg PO QAM #90 tabs 09/28/22 07/16/23 07/16/23 Rx clopidogrel 75 mg tablet 75 mg PO DAILY 12/14/22 07/16/23 07/16/23 History fluticasone propionate 50 1 spray intranasal DAILY PRN 12/14/22 07/16/23 12/28/22 History mcg/actuation nasal Allergic Symptoms spray,suspension docusate sodium 100 mg capsule 100 mg PO BID PRN Constipation 02/24/23 07/16/23 Unknown History amlodipine 10 mg tablet 10 mg PO DAILY #90 tabs 05/30/23 07/16/23 07/16/23 Rx escitalopram oxalate 10 mg tablet 10 mg PO DAILY #90 tabs 06/09/23 07/16/23 07/16/23 Rx omeprazole 20 mg capsule,delayed 20 mg PO QAM #90 caps 06/09/23 07/16/23 07/16/23 Rx release calcium carbonate 500 mg calcium 500 mg PO BID 07/16/23 07/16/23 07/16/23 History (1,250 mg) tablet cephalexin 500 mg capsule 500 mg PO TID 07/16/23 07/16/23 07/16/23 History chlorhexidine gluconate 0.12 % See Rx Instructions .Route .COMPLEX 07/16/23 07/16/23 07/16/23 History mouthwash cholecalciferol (vitamin D3) 1,250 50,000 unit PO BID 07/16/23 07/16/23 07/16/23 History mcg (50,000 unit) tablet simvastatin 40 mg tablet 40 mg PO QPM 07/16/23 07/16/23 07/15/23 History tamsulosin 0.4 mg capsule 0.4 mg PO DAILY 07/16/23 07/16/23 07/16/23 History Allergies Allergy/AdvReac Type Severity Reaction Status Date / Time meperidine [From Demerol] Allergy Unknown UNKNOWN Verified 07/16/23 14:02 Penicillins Allergy Unknown Unknown Verified 07/16/23 14:02 Sulfa (Sulfonamide Allergy Unknown UNKNOWN Verified 07/16/23 14:02 Antibiotics) CELERY SEED Allergy Severe ALGY-Difficulty Uncoded 06/23/23 11:54 Breathing PFSH Acute PFSH: Medical History Hyperlipidemia Depression Pathologic thoracic fracture Hyponatremia Acute urinary retention Acute hypokalemia Traumatic compression fracture of T12 thoracic vertebra Back pain Chronic lymphocytic leukemia GERD (gastroesophageal reflux disease) History of stroke (04/2018) Dyslipidemia Degenerative arthritis HTN (hypertension) BPH w urinary obs/LUTS Chronic prostatitis Surgical History History of kyphoplasty H/O Mohs micrographic surgery for skin cancer (2019) S/P arthroscopic surgery of left knee Hx of bilateral inguinal hernia repair Family History Father , AT AGE 84 PROSTATE CANCER Cancer Mother , AT AGE 84 Hypertension CAD (coronary artery disease) Sister Dementia Other Hyperlipidemia Stroke Denies family history of Diabetes Clotting disorder Psychiatric illness Chronic kidney disease (CKD) Suicide Anesthesia complication Bleeding disorder Lung disease Social History Smoking and tobacco/nicotine status: never used tobacco/nicotine Alcohol intake: never Substance/Drug Use: unknown Adopted: No Caregiver/support person: No Lives independently: No Household members: spouse Marital status: Current occupational status: employed Vitals/I&O/Wt Last Vital Signs Temp 97.7 F 07/16/23 13:19 Pulse 80 07/16/23 15:43 Resp 18 07/16/23 13:19 BP 148/80 07/16/23 15:43 Pulse Ox 92 07/16/23 15:43 O2 Del Method Room Air 07/16/23 15:43 O2 Flow Rate 2 07/16/23 13:19 Weight last 48 hrs Weight 63.049 kg Physical Exam Narrative: Patient is a 77-year-old male who appears older than his stated age. He is in no acute distress at time of examination he has an obvious kyphosis just sitting in hospital bed. Neuro alert and oriented to person place time and situation patient's exam is nonfocal HEENT head is normocephalic atraumatic pupils equal and reactive to light and accommodation extraocular's intact no scleral icterus neck is supple no JVD carotid bruits or lymphadenopathy Chest rises symmetrically with inspiration no chest tenderness to palpation Heart regular normal S1-S2 loud 4/6 systolic murmur heard best in the left upper sternal border Lungs: Clear to auscultation without wheezes rales or rhonchi Abdomen soft nontender nondistended positive bowel sounds no hepatosplenomegaly Extremities no clubbing cyanosis or edema Skin: Patient has 2 skin lesions on face that were recently biopsied and he is scheduled to return to dermatology otherwise warm and dry no other lesions or rashes Psych: Mood and affect appropriate for illness Back severe kyphosis of the thoraciolumbar spine, no CVA tenderness Data 07/16/23 15:51 07/16/23 15:51 A&P Assessment and plan (1) Bilateral fracture of pubic rami: Qualifiers: Encounter type: initial encounter Fracture type: closed Qualified Code(s): S32.591A - Other specified fracture of right pubis, initial encounter for closed fracture; S32.592A - Other specified fracture of left pubis, initial encounter for closed fracture (2) Fracture of sacrum: Qualifiers: Encounter type: initial encounter Zone of sacrum fracture: unspecified portion of sacrum Fracture type: closed Qualified Code(s): S32.10XA - Unspecified fracture of sacrum, initial encounter for closed fracture (3) Closed fracture of left acetabulum: Qualifiers: Encounter type: initial encounter Sublocation of acetabulum: unspecified portion of acetabulum Fracture alignment: nondisplaced Qualified Code(s): S32.402A - Unspecified fracture of left acetabulum, initial encounter for closed fracture (4) Compression fracture: (5) Osteoporosis: Qualifiers: Osteoporosis type: unspecified Presence of current pathological fracture: without current pathological fracture Qualified Code(s): M81.0 - Age-related osteoporosis without current pathological fracture (6) Degenerative arthritis: Qualifiers: Osteoarthritis location: multiple joints Osteoarthritis type: primary Qualified Code(s): M15.9 - Polyosteoarthritis, unspecified (7) Chronic lymphocytic leukemia: (8) Hyponatremia: Plan Patient is admitted for pain control PT and OT evaluation and transfer to long-term facility. Attestations Medical Necessity Statement*: Patient is stay is likely to cross 2 midnights as new and long-term facility placement needs to be obtained and nursing homes around this area do not accept patients on the weekend. Patient is also required to stay for pain control and PT OT evaluation with 4 different fractures sustained from trauma today Coding Level of Care Code Acute Code for [facility] Fwd Diagnoses Closed bilateral fracture of pubic rami, initial encounter S32.591A; S32.592A Encounter type: initial encounter Fracture type: closed Closed fracture of sacrum, unspecified portion of sacrum, initial encounter S32.10XA Encounter type: initial encounter Zone of sacrum fracture: unspecified portion of sacrum Fracture type: closed Closed nondisplaced fracture of left acetabulum, unspecified portion of acetabulum, initial encounter S32.402A Encounter type: initial encounter Sublocation of acetabulum: unspecified portion of acetabulum Fracture alignment: nondisplaced Compression fracture Osteoporosis without current pathological fracture, unspecified osteoporosis type M81.0 Osteoporosis type: unspecified Presence of current pathological fracture: without current pathological fracture 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
--- NOTE | 2023-07-16 17:44 | PC.NURSE ---
Report to floor delayed, per Gis Programmer to wait to call report until after shift change.
[2023-07-16 18:27] VITALS: PULSE 80; RESP 17; O2SAT 97
--- NOTE | 2023-07-16 18:28 | PC.NURSE ---
Report given to Yue, no further questions at end of report. this nurse informed oncoming nurse of delay in medication admin for medications ordered @1800.
[2023-07-16 18:52] VITALS: BMI 23.8
[2023-07-16] MEDS: atorvastatin 40 mg Tablet 20 MG PO (18:53)
[2023-07-16] MEDS: calcium carbonate 500 mg Chew Tablet PO (18:54)
[2023-07-16] MEDS: docusate sodium 100 mg Capsule PO (18:54)
[2023-07-16] MEDS: HYDROcodone-acetaminophen 5-325 mg Tablet 1 TAB PO ×2 (19:41→23:43)
[2023-07-16] MEDS: enoxaparin 40 mg/0.4 mL Syringe SUBCUT (19:42)
[2023-07-16 20:00] VITALS: BP 138/75; PULSE 87; RESP 18; TEMP 36.4; O2SAT 90
[2023-07-16] MEDS: cephALEXin 500 mg Capsule PO (21:27)
[2023-07-16 22:03] LABS: Add Urine Microscopic? NO; Charge for UA Resulting for Rev
[2023-07-16 22:11] LABS: Bilirubin Urine Neg (Negative); Blood Urine Neg (Negative); Glucose Urine UA Norm (Normal); Ketones Urine Negative (Negative); Leukocyte Esterase Urine Negative (Negative); Nitrate Urine Negative (Negative); Protein Urine Neg (Negative); Specific Gravity, Urine 1.015 (1.005-1.030); Urine Appearance Clear (CLEAR); Urine Color Yellow (Yellow); Urobilinogen Urine Neg (Negative); pH Urine 6 (5-7)
[2023-07-16 22:20] VITALS: PULSE 77
[2023-07-17] VITALS (7 sets, daily range): BP systolic 115–166; BP diastolic 49–82; PULSE 63–77; RESP 16–20; TEMP 36.4–36.8; O2SAT 91–94
[2023-07-17 03:20] LABS: Anion Gap 14.1 (5-19); Blood Urea Nitrogen 13 mg/dL (8-23); Calcium 8.5 mg/dL (8.5-10.5); Carbon Dioxide 24 mmol/L (22-29); Chloride 96 mmol/L (98-107); Creatinine Clr Calc Pharmacy 66.4339; Glucose 123 mg/dL (65-115); Osmolality Calculated 271 mOsm/kg (285-295); Potassium 4.1 mmol/L (3.5-5.1); Sodium 130 mmol/L (136-145)
[2023-07-17] MEDS: lisinopril 20 mg Tablet 40 MG PO (06:15)
[2023-07-17] MEDS: HYDROcodone-acetaminophen 5-325 mg Tablet 1 TAB PO ×3 (06:15→17:32)
[2023-07-17] MEDS: pantoprazole DR 40 mg Tablet PO (06:15)
[2023-07-17] MEDS: aspirin 81 mg EC Tablet PO (06:16)
--- NOTE | 2023-07-17 09:02 | P.CONIM_ITS ---
Providers/Reason For Consult 2 Consulting Physician/Specialty*: Hospitalist Reason for Consult*: Pelvic fractures Attending Physician: Augustine Alvarez DO Primary Care Provider: Manolo Centeno DO History of Present Illness History of Present Illness Reilly Friedman is a 77 year old male presents after fall after opening barn door today. He complains of left hip pain. I have also treated this patient for compression fractures with kyphoplasty in the past. Review of Systems 2 Const: Denies: fever(s) or chills Eyes: Denies: change in vision ENMT: Denies: throat pain or nasal congestion Card: Denies: chest pain or palpitations Resp: Denies: dyspnea or productive cough GI: Denies: abdominal pain, nausea, vomiting or change in stool character : Denies: difficulty urinating or dysuria Musc: Reports: back pain, extremity pain, loss of height and deformity Skin/Breast: Denies: rash or lesions Neuro: Denies: headache(s) or dizziness Psych: Denies: anxiety or depression Elver/Lymph: Denies: easy bruising or easy bleeding Medications/Allergies Home Medications Medication Instructions Recorded Confirmed Last Taken Type aspirin 81 mg tablet,delayed 81 mg PO QAM 10/09/19 07/16/23 07/16/23 History release (Adult Low Dose Aspirin) acetaminophen 500 mg tablet 1,000 mg (2 x 500 mg) PO Q6H PRN 07/20/22 07/16/23 12/28/22 Rx Pain 14 days #25 tabs lisinopril 40 mg tablet 40 mg PO QAM #90 tabs 09/28/22 07/16/23 07/16/23 Rx clopidogrel 75 mg tablet 75 mg PO DAILY 12/14/22 07/16/23 07/16/23 History fluticasone propionate 50 1 spray intranasal DAILY PRN 12/14/22 07/16/23 12/28/22 History mcg/actuation nasal Allergic Symptoms spray,suspension docusate sodium 100 mg capsule 100 mg PO BID PRN Constipation 02/24/23 07/16/23 Unknown History amlodipine 10 mg tablet 10 mg PO DAILY #90 tabs 05/30/23 07/16/23 07/16/23 Rx escitalopram oxalate 10 mg tablet 10 mg PO DAILY #90 tabs 06/09/23 07/16/23 07/16/23 Rx omeprazole 20 mg capsule,delayed 20 mg PO QAM #90 caps 06/09/23 07/16/23 07/16/23 Rx release calcium carbonate 500 mg calcium 500 mg PO BID 07/16/23 07/16/23 07/16/23 History (1,250 mg) tablet cephalexin 500 mg capsule 500 mg PO TID 07/16/23 07/16/23 07/16/23 History chlorhexidine gluconate 0.12 % See Rx Instructions .Route .COMPLEX 07/16/23 07/16/23 07/16/23 History mouthwash cholecalciferol (vitamin D3) 1,250 50,000 unit PO BID 07/16/23 07/16/23 07/16/23 History mcg (50,000 unit) tablet simvastatin 40 mg tablet 40 mg PO QPM 07/16/23 07/16/23 07/15/23 History tamsulosin 0.4 mg capsule 0.4 mg PO DAILY 07/16/23 07/16/23 07/16/23 History Allergies Allergy/AdvReac Type Severity Reaction Status Date / Time meperidine [From Demerol] Allergy Unknown UNKNOWN Verified 07/16/23 14:02 Penicillins Allergy Unknown Unknown Verified 07/16/23 14:02 Sulfa (Sulfonamide Allergy Unknown UNKNOWN Verified 07/16/23 14:02 Antibiotics) CELERY SEED Allergy Severe ALGY-Difficulty Uncoded 06/23/23 11:54 Breathing Current Medications Generic Name Dose Route Start Last Admin Trade Name Freq PRN Reason Stop Dose Admin Hydrocodone Bitart/Acetaminophen 1 tab 07/16/23 18:44 07/17/23 06:15 Hydrocodone-Acetaminophen 5-325 Mg Tablet PO 1 tab Q4H PRN Administration MODERATE TO SEVERE PAIN Aspirin 81 mg 07/17/23 06:00 07/17/23 06:16 Aspirin 81 Mg Ec Tablet PO 81 mg QAM [facility]OR[facility] Administration Atorvastatin Calcium 20 mg 07/16/23 18:00 07/16/23 18:53 Atorvastatin 40 Mg Tablet PO 20 mg QPM [facility] Administration Calcium Carbonate 500 mg 07/16/23 18:00 07/16/23 18:54 Calcium Carbonate 500 Mg Chew Tablet PO 500 mg BID [facility] Administration Cephalexin HCl 500 mg 07/16/23 21:00 07/16/23 21:27 Cephalexin 500 Mg Capsule PO 500 mg TID [facility] Administration Protocol Docusate Sodium 100 mg 07/16/23 18:44 07/16/23 18:54 Docusate Sodium 100 Mg Capsule PO 100 mg BID [facility] Administration Enoxaparin Sodium 40 mg 07/16/23 18:44 07/16/23 19:42 Enoxaparin 40 Mg/0.4 Ml Syringe SUBCUT 40 mg Q24H [facility] Administration Ergocalciferol 50,000 unit 07/16/23 19:30 07/16/23 19:43 Ergocalciferol (Vitamin D2) 50,000 Unit Capsule PO Not Given Q30D [facility] Lisinopril 40 mg 07/17/23 06:00 07/17/23 06:15 Lisinopril 20 Mg Tablet PO 40 mg QAM [facility] Administration Pantoprazole Sodium 40 mg 07/17/23 06:00 07/17/23 06:[address] 40 Mg Tablet PO 40 mg QAM [place] Administration PFSH Acute 2 PFSH: Medical History Hyperlipidemia Depression Pathologic thoracic fracture Hyponatremia Acute urinary retention Acute hypokalemia Traumatic compression fracture of T12 thoracic vertebra Back pain Chronic lymphocytic leukemia GERD (gastroesophageal reflux disease) History of stroke (04/2018) Dyslipidemia Degenerative arthritis HTN (hypertension) BPH w urinary obs/LUTS Chronic prostatitis Surgical History History of kyphoplasty H/O Mohs micrographic surgery for skin cancer (2018) S/P arthroscopic surgery of left knee Hx of bilateral inguinal hernia repair Family History Father , AT AGE 84 PROSTATE CANCER Cancer Mother , AT AGE 84 Hypertension CAD (coronary artery disease) Sister Dementia Other Hyperlipidemia Stroke Denies family history of Diabetes Clotting disorder Psychiatric illness Chronic kidney disease (CKD) Suicide Anesthesia complication Bleeding disorder Lung disease Social History Smoking and tobacco/nicotine status: never used tobacco/nicotine Alcohol intake: never Substance/Drug Use: unknown Adopted: No Caregiver/support person: No Lives independently: No Household members: spouse Marital status: Current occupational status: employed Vitals/I&O/Wt Last Vital Signs Temp 97.7 F 07/17/23 08:00 Pulse 71 04/07/24 08:00 Resp 19 H 07/17/23 08:00 BP 145/78 07/17/23 08:00 Pulse Ox 91 07/17/23 08:00 O2 Del Method Nasal Cannula 07/17/23 08:00 O2 Flow Rate 2 07/16/23 13:19 07/16/23 07/17/23 07/17/23 22:59 06:59 14:59 Output Total 200 / 200 Balance -200 / -200 Weight last 48 hrs Weight 142 lb 12.8 oz Weight 139 lb Weight 139 lb Physical Exam 2 Narrative: Patient using bedside commode when I arrived. Patient's pain is controlled. Data 07/16/23 15:51 07/17/23 02:46 A&P Assessment and plan (1) Bilateral fracture of pubic rami: Patient has a right pubic rami fracture and a left root rami fracture. The fracture does not go into the joint. Patient can weight-bear as tolerated bilateral. It would likely take 12 weeks to heal treatment will be pain control and using a walker. Qualifiers: Encounter type: initial encounter Fracture type: closed Qualified Code(s): S32.591A - Other specified fracture of right pubis, initial encounter for closed fracture; S32.592A - Other specified fracture of left pubis, initial encounter for closed fracture Coding Level of Care Code Acute Code for Chg Fwd Diagnoses Closed bilateral fracture of pubic rami, initial encounter S32.591A; S32.592A Encounter type: initial encounter Fracture type: closed
[2023-07-17] MEDS: amlodipine 10 mg Tablet PO (09:39)
[2023-07-17] MEDS: cephALEXin 500 mg Capsule PO ×3 (09:39→20:02)
[2023-07-17] MEDS: clopidogrel 75 mg Tablet PO (09:39)
[2023-07-17] MEDS: calcium carbonate 500 mg Chew Tablet PO (09:39)
[2023-07-17] MEDS: tamsulosin 0.4 mg Capsule 0.400000000000000022 MG PO (09:39)
[2023-07-17] MEDS: escitalopram 10 mg Tablet PO (09:39)
--- NOTE | 2023-07-17 11:13 | PC.OT ---
ot eval on hold. patient is feeling unwell at this time. patient is c/onaushea and wants to throw up. nurse is in room.
[2023-07-17] MEDS: ondansetron 2 mg/ML SDV 2 mL 4 MG IVP (11:14)
--- NOTE | 2023-07-17 12:57 | PC.PT ---
Pt declined PT evaluation 3x today. First decline was for fatigue because he had just gotten back in bed from sitting on the bedside commode. We came back 2 hours later, he was c/o nausea which RN had addressed. 1 hour later came back, he was back on the bedside commode but still nauseated. We told him we would be back in the morning. He approved of that plan.
[2023-07-17 13:48] LABS: 25 Hydroxy Vitamin D 40 ng/mL (30-100)
[2023-07-17 13:50] LABS: Calcium 8.4 mg/dL (8.5-10.5)
--- NOTE | 2023-07-17 16:04 | PM.PN ---
Subjective Subjective: Patient and nurse report patient choked on Tums this morning. He felt like they got stuck in his throat. After a while this cleared and he has been able to eat and drink normally. He would like to discontinue Tums Patient and concerned about vitamin D and calcium. See below for explanation Patient and both want to return to intermediate facility for rehab after these 4 fractures identified Vitals/I&O/Wt Last Vital Signs Temp 97.8 F 07/17/23 12:00 Pulse 65 07/17/23 12:00 Resp 20 H 07/17/23 12:00 BP 166/82 07/17/23 12:00 Pulse Ox 92 07/17/23 12:00 O2 Del Method Nasal Cannula 07/17/23 12:00 O2 Flow Rate 2 07/16/23 13:19 07/17/23 07/17/23 07/17/23 06:59 14:59 22:59 Intake Total 720 / 720 Output Total 200 / 200 Balance -200 / -200 720 / 720 Weight last 48 hrs Weight 64.773 kg Weight 63.049 kg Weight 63.049 kg Physical Exam Narrative: Patient is a 77-year-old male who appears older than his stated age. He is in no acute distress at time of examination he has an obvious kyphosis just sitting in hospital bed. Heart regular normal S1-S2 loud 4/6 systolic murmur heard best in the left upper sternal border Lungs: Clear to auscultation without wheezes rales or rhonchi Abdomen soft nontender nondistended positive bowel sounds no hepatosplenomegaly Extremities no clubbing cyanosis or edema Back severe kyphosis of the thoraciolumbar spine, no CVA tenderness Data 07/16/23 15:51 07/17/23 02:46 A&P Assessment and plan (1) Bilateral fracture of pubic rami: Per orthopedics patient can be weightbearing. He requires pain control and physical and Occupational Therapy Qualifiers: Encounter type: initial encounter Fracture type: closed Qualified Code(s): S32.591A - Other specified fracture of right pubis, initial encounter for closed fracture; S32.592A - Other specified fracture of left pubis, initial encounter for closed fracture (2) Fracture of sacrum: Qualifiers: Encounter type: initial encounter Fracture type: closed Zone of sacrum fracture: unspecified portion of sacrum Qualified Code(s): S32.10XA - Unspecified fracture of sacrum, initial encounter for closed fracture (3) Closed fracture of left acetabulum: Qualifiers: Encounter type: initial encounter Fracture alignment: nondisplaced Sublocation of acetabulum: unspecified portion of acetabulum Qualified Code(s): S32.402A - Unspecified fracture of left acetabulum, initial encounter for closed fracture (4) Compression fracture: (5) Osteoporosis: Last vitamin D level was in the 20s. He reportedly took 50,000 IU per week for approximately 5 weeks. And is scheduled to take it once a month. He also takes 2000 IU daily Will check vitamin D level now and can likely change to daily dosing only. Qualifiers: Osteoporosis type: unspecified Presence of current pathological fracture: without current pathological fracture Qualified Code(s): M81.0 - Age-related osteoporosis without current pathological fracture (6) Degenerative arthritis: Qualifiers: Osteoarthritis location: multiple joints Osteoarthritis type: primary Qualified Code(s): M15.9 - Polyosteoarthritis, unspecified (7) Chronic lymphocytic leukemia: Follows with our oncology clinic clinic (8) Hyponatremia: Stable at 130. Plan Patient is admitted for pain control PT and OT evaluation and transfer to intermediate facility. Attestations Medical Necessity Statement*: Patient is currently hospitalized awaiting transfer to SNF. Coding Level of Care Code Acute Code for g Fwd Diagnoses Closed bilateral fracture of pubic rami, initial encounter S32.591A; S32.592A Encounter type: initial encounter Fracture type: closed Closed fracture of sacrum, unspecified portion of sacrum, initial encounter S32.10XA Encounter type: initial encounter Fracture type: closed Zone of sacrum fracture: unspecified portion of sacrum Closed nondisplaced fracture of left acetabulum, unspecified portion of acetabulum, initial encounter S32.402A Encounter type: initial encounter Fracture alignment: nondisplaced Sublocation of acetabulum: unspecified portion of acetabulum Compression fracture Osteoporosis without current pathological fracture, unspecified osteoporosis type M81.0 Osteoporosis type: unspecified Presence of current pathological fracture: without current pathological fracture 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
[2023-07-17] MEDS: atorvastatin 40 mg Tablet 20 MG PO (17:32)
[2023-07-18] VITALS (7 sets, daily range): BP systolic 132–169; BP diastolic 49–83; PULSE 70–80; RESP 16–18; TEMP 36.5–36.8; O2SAT 91–93
[2023-07-18 02:22] LABS: Basophils # 0.1 10^3/uL (0.0-0.1); Basophils % 0.1 %; Eosinophils % 0.1 %; Lymphocytes # 21.9 10^3/uL (0.8-4.8); Lymphocytes % 64.9 %; Mean Corpuscular HGB Conc 32.6 g/dL (30-55); Mean Corpuscular Hemoglobin 32.8 pg (27-33); Mean Corpuscular Volume 100.6 fl (82-101); Mean Platelet Volume 8.9 fL (7.4-10.4); Monocytes # 1.8 10^3/uL (0.2-0.9); Monocytes % 5.2 %; Neutrophils # 9.87 10^3/uL (1.8-7.7); Neutrophils % 29.4 %; Nucleated Red Blood Cells % 0 %; Platelet Count 198 10^3/cmm (157-399); Red Blood Count 3.08 10^6/uL (3.85-5.65); Red Cell Distribution Width 12.7 % (12.1-15.1)
[2023-07-18 02:28] LABS: White Blood Count 33.75 10^3/uL (3.29-11.43)
[2023-07-18 02:35] LABS: Alanine Aminotransferase 19 U/L (0-41); Albumin Level 3.6 g/dL (3.5-5.2); Alkaline Phosphatase 45 U/L (40-130); Aspartate Amino Transferase 15 U/L (0-40); Blood Urea Nitrogen 15 mg/dL (8-23); Calcium 8.4 mg/dL (8.5-10.5); Carbon Dioxide 26 mmol/L (22-29); Chloride 93 mmol/L (98-107); Creatinine Clr Calc Pharmacy 67.1882; Glucose 124 mg/dL (65-115); Osmolality Calculated 266 mOsm/kg (285-295); Phosphorus 3.2 mg/dL (2.5-4.5); Sodium 127 mmol/L (136-145); Total Bilirubin 0.9 mg/dL (0.15-1.2); Total Protein 5.6 g/dL (6.6-8.7)
[2023-07-18] MEDS: HYDROcodone-acetaminophen 5-325 mg Tablet 1 TAB PO ×4 (04:06→22:36)
[2023-07-18] MEDS: aspirin 81 mg EC Tablet PO (06:17)
[2023-07-18] MEDS: lisinopril 20 mg Tablet 40 MG PO (06:17)
[2023-07-18] MEDS: amlodipine 10 mg Tablet PO (09:32)
[2023-07-18] MEDS: clopidogrel 75 mg Tablet PO (09:32)
[2023-07-18] MEDS: cephALEXin 500 mg Capsule PO ×3 (09:32→22:37)
[2023-07-18] MEDS: tamsulosin 0.4 mg Capsule 0.400000000000000022 MG PO (09:32)
[2023-07-18] MEDS: cholecalciferol (vitamin D3) 1,000 unit Tablet 2000 UNIT PO (09:33)
[2023-07-18] MEDS: escitalopram 10 mg Tablet PO (09:33)
--- NOTE | 2023-07-18 10:39 | P.PN_ITS ---
Subjective 2 Subjective: Patient resting in bed comfortably was able to transfer and go to the bedside commode Vitals/I&O/Wt Last Vital Signs Temp 98.2 F 07/18/23 07:50 Pulse 73 07/18/23 07:50 Resp 18 07/18/23 07:50 BP 169/83 07/18/23 07:50 Pulse Ox 91 07/18/23 07:50 O2 Del Method Nasal Cannula 07/18/23 07:50 O2 Flow Rate 2 07/16/23 13:19 07/17/23 07/18/23 07/18/23 22:59 06:59 14:59 Intake Total 240 / 960 240 / 1200 360 / 360 Output Total 650 / 650 150 / 150 Balance -410 / 310 240 / 550 210 / 210 Weight last 48 hrs Weight 140 lb 9.6 oz Weight 142 lb 12.8 oz Weight 139 lb Weight 139 lb Physical Exam 2 Narrative: Resting in bed moving toes moving feet Data 07/18/23 01:49 07/18/23 01:49 A&P Assessment and plan (1) Bilateral fracture of pubic rami: Patient with a right pubic rami fracture and a left pubic root fracture Weight-bear as tolerated Encourage physical therapy and ambulation Pain control DVT prophylaxis with Lovenox Qualifiers: Encounter type: initial encounter Fracture type: closed Qualified Code(s): S32.591A - Other specified fracture of right pubis, initial encounter for closed fracture; S32.592A - Other specified fracture of left pubis, initial encounter for closed fracture Attestations 2 Medical Necessity Statement*: Per primary service Coding Level of Care Code Acute Code for [facility] Fwd Diagnoses Closed bilateral fracture of pubic rami, initial encounter S32.591A; S32.592A Encounter type: initial encounter Fracture type: closed
--- NOTE | 2023-07-18 12:44 | PM.PN ---
Subjective Subjective: Patient was seen this morning, he tells me that his pain is more well-controlled, he unfortunately did not have a chance to work with physical therapy yesterday, as he was in pain, but now his pain is more well-controlled he is motivated to work with physical therapy, Vitals/I&O/Wt Last Vital Signs Temp 98.2 F 07/18/23 07:50 Pulse 73 07/18/23 07:50 Resp 18 07/18/23 07:50 BP 169/83 07/18/23 07:50 Pulse Ox 91 07/18/23 07:50 O2 Del Method Nasal Cannula 07/18/23 07:50 O2 Flow Rate 2 07/16/23 13:19 07/17/23 07/18/23 07/18/23 22:59 06:59 14:59 Intake Total 240 / 960 240 / 1200 360 / 360 Output Total 650 / 650 150 / 150 Balance -410 / 310 240 / 550 210 / 210 Weight last 48 hrs Weight 63.775 kg Weight 64.773 kg Weight 63.049 kg Weight 63.049 kg Physical Exam Const: COMMON NORMALS: no acute distress and patient oriented x3 Resp: COMMON NORMALS: normal respiratory effort, No retractions, No use of accessory muscles and clear to auscultation bilaterally AUSCULTATION: clear to auscultation bilaterally Cardio: COMMON NORMALS: regular rate, regular rhythm, S1 normal heart sound present and S2 normal heart sound present RATE: regular rate RHYTHM: regular rhythm HEART SOUNDS: S1 normal heart sound present and S2 normal heart sound present GI: COMMON NORMALS: Normal to inspection, nondistended, normoactive bowel sounds present and non-tender Extremity: COMMON NORMALS: no pedal edema Neuro: COMMON NORMALS: patient oriented x3 Psych: COMMON NORMALS: mental status grossly normal Data 07/18/23 01:49 07/18/23 01:49 A&P Assessment and plan (1) Bilateral fracture of pubic rami: Per orthopedics patient can be weightbearing. He requires pain control and physical and Occupational Therapy Qualifiers: Encounter type: initial encounter Fracture type: closed Qualified Code(s): S32.591A - Other specified fracture of right pubis, initial encounter for closed fracture; S32.592A - Other specified fracture of left pubis, initial encounter for closed fracture (2) Fracture of sacrum: Qualifiers: Encounter type: initial encounter Fracture type: closed Zone of sacrum fracture: unspecified portion of sacrum Qualified Code(s): S32.10XA - Unspecified fracture of sacrum, initial encounter for closed fracture (3) Closed fracture of left acetabulum: Qualifiers: Encounter type: initial encounter Fracture alignment: nondisplaced Sublocation of acetabulum: unspecified portion of acetabulum Qualified Code(s): S32.402A - Unspecified fracture of left acetabulum, initial encounter for closed fracture (4) Compression fracture: (5) Osteoporosis: Last vitamin D level was in the 20s. He reportedly took 50,000 IU per week for approximately 5 weeks. And is scheduled to take it once a month. He also takes 2000 IU daily Will check vitamin D level now and can likely change to daily dosing only. Qualifiers: Osteoporosis type: unspecified Presence of current pathological fracture: without current pathological fracture Qualified Code(s): M81.0 - Age-related osteoporosis without current pathological fracture (6) Degenerative arthritis: Qualifiers: Osteoarthritis location: multiple joints Osteoarthritis type: primary Qualified Code(s): M15.9 - Polyosteoarthritis, unspecified (7) Chronic lymphocytic leukemia: Follows with our oncology clinic clinic (8) Hyponatremia: 127, monitor. Plan Patient is admitted for pain control PT and OT evaluation and transfer [facility]. Attestations Medical Necessity Statement*: Patient requires hospitalization for pubic rami fracture, deconditioning, spoke to patient, reviewed chart, reviewed prior physicians notes Diagnoses Closed bilateral fracture of pubic rami, initial encounter S32.591A; S32.592A Encounter type: initial encounter Fracture type: closed Closed fracture of sacrum, unspecified portion of sacrum, initial encounter S32.10XA Encounter type: initial encounter Fracture type: closed Zone of sacrum fracture: unspecified portion of sacrum Closed nondisplaced fracture of left acetabulum, unspecified portion of acetabulum, initial encounter S32.402A Encounter type: initial encounter Fracture alignment: nondisplaced Sublocation of acetabulum: unspecified portion of acetabulum Compression fracture Osteoporosis without current pathological fracture, unspecified osteoporosis type M81.0 Osteoporosis type: unspecified Presence of current pathological fracture: without current pathological fracture 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
--- NOTE | 2023-07-18 12:54 | PC.SOCIAL ---
Pg 2 IMM Explained to pt Pg 2 IMM. No questions voiced. Provided pt a copy. Initialed, dated, & timed a copy & placed in chart.
[2023-07-18] MEDS: atorvastatin 40 mg Tablet 20 MG PO (18:17)
[2023-07-18] MEDS: enoxaparin 40 mg/0.4 mL Syringe SUBCUT (18:17)
[2023-07-19 03:55] VITALS: BP 159/71; PULSE 70; RESP 18; TEMP 36.7; O2SAT 94
[2023-07-19 05:19] LABS: Basophils # 0.1 10^3/uL (0.0-0.1); Basophils % 0.2 %; Eosinophils # 0.2 10^3/uL (0.0-0.8); Eosinophils % 0.5 %; Hematocrit 30.1 % (37-53); Lymphocytes # 21.9 10^3/uL (0.8-4.8); Lymphocytes % 66.5 %; Mean Corpuscular HGB Conc 32.9 g/dL (30-55); Mean Corpuscular Volume 100.3 fl (82-101); Mean Platelet Volume 8.8 fL (7.4-10.4); Monocytes # 1.5 10^3/uL (0.2-0.9); Monocytes % 4.7 %; Neutrophils # 9.12 10^3/uL (1.8-7.7); Neutrophils % 27.7 %; Nucleated Red Blood Cells % 0 %; Platelet Count 192 10^3/cmm (157-399); Red Cell Distribution Width 12.7 % (12.1-15.1)
[2023-07-19 05:43] LABS: Slide Review Slide Review Perform
[2023-07-19 05:47] LABS: Alanine Aminotransferase 15 U/L (0-41); Albumin Level 3.5 g/dL (3.5-5.2); Alkaline Phosphatase 43 U/L (40-130); Anion Gap 12.2 (5-19); Aspartate Amino Transferase 12 U/L (0-40); Blood Urea Nitrogen 11 mg/dL (8-23); Calcium 8.1 mg/dL (8.5-10.5); Carbon Dioxide 27 mmol/L (22-29); Chloride 92 mmol/L (98-107); Creatinine Clr Calc Pharmacy 66.5928; Globulin 1.9 g/dL (1.3-4.6); Glucose 102 mg/dL (65-115); Magnesium 1.9 mg/dL (1.7-2.3); Osmolality Calculated 264 mOsm/kg (285-295); Phosphorus 2.5 mg/dL (2.5-4.5); Potassium 4.2 mmol/L (3.5-5.1); Sodium 127 mmol/L (136-145); Total Bilirubin 1.2 mg/dL (0.15-1.2); Total Protein 5.4 g/dL (6.6-8.7); White Blood Count 32.88 10^3/uL (3.29-11.43)
[2023-07-19] MEDS: aspirin 81 mg EC Tablet PO (06:02)
[2023-07-19] MEDS: lisinopril 20 mg Tablet 40 MG PO (06:03)
[2023-07-19 07:26] VITALS: BP 154/78; PULSE 77; RESP 16; TEMP 36.8; O2SAT 92
[2023-07-19] MEDS: cephALEXin 500 mg Capsule PO (08:32)
[2023-07-19] MEDS: tamsulosin 0.4 mg Capsule 0.400000000000000022 MG PO (08:32)
[2023-07-19] MEDS: clopidogrel 75 mg Tablet PO (08:32)
[2023-07-19] MEDS: sodium chloride 1 gm Tablet PO (08:32)
[2023-07-19] MEDS: amlodipine 10 mg Tablet PO (08:33)
[2023-07-19] MEDS: HYDROcodone-acetaminophen 5-325 mg Tablet 1 TAB PO ×2 (08:33→12:06)
[2023-07-19] MEDS: cholecalciferol (vitamin D3) 1,000 unit Tablet 2000 UNIT PO (08:33)
[2023-07-19] MEDS: metoprolol tartrate 25 mg Tablet 12.5 MG PO (08:33)
[2023-07-19] MEDS: docusate sodium 100 mg Capsule PO (08:33)
--- NOTE | 2023-07-19 09:02 | PM.DCS ---
Discharge Providers Date of Admission: 07/16/23 15:33 Date of Discharge: July 19, 2023 Attending Provider at Admission: Augustine Alvarez DO Attending Provider at Discharge: Johnathan Whitehead MD Primary Care Provider: Manolo Centeno DO Diagnoses at Discharge Discharge Diagnosis (1) Bilateral fracture of pubic rami: Status: Acute Qualifiers: Encounter type: initial encounter Fracture type: closed Qualified Code(s): S32.591A - Other specified fracture of right pubis, initial encounter for closed fracture; S32.592A - Other specified fracture of left pubis, initial encounter for closed fracture (2) Fracture of sacrum: Status: Acute Qualifiers: Encounter type: initial encounter Fracture type: closed Zone of sacrum fracture: unspecified portion of sacrum Qualified Code(s): S32.10XA - Unspecified fracture of sacrum, initial encounter for closed fracture (3) Closed fracture of left acetabulum: Status: Acute Qualifiers: Encounter type: initial encounter Fracture alignment: nondisplaced Sublocation of acetabulum: unspecified portion of acetabulum Qualified Code(s): S32.402A - Unspecified fracture of left acetabulum, initial encounter for closed fracture (4) Compression fracture: Status: Acute (5) Osteoporosis: Status: Chronic Qualifiers: Osteoporosis type: unspecified Presence of current pathological fracture: without current pathological fracture Qualified Code(s): M81.0 - Age-related osteoporosis without current pathological fracture (6) Degenerative arthritis: Status: Chronic Qualifiers: Osteoarthritis location: multiple joints Osteoarthritis type: primary Qualified Code(s): M15.9 - Polyosteoarthritis, unspecified (7) Chronic lymphocytic leukemia: Status: Chronic (8) Hyponatremia: Status: Acute Reason for Visit Reason for Visit: LEFT HIP PAIN S/P FALL Hospital Course Hospital Course Reilly Friedman is a 77 year old male With history of CLL and multiple thoracic and lumbar compression fractures, osteoporosis, degenerative arthritis BPH, presents after fall after opening barn door today. He complains of left hip pain. In the emergency room scans were obtained and showed bilateral pubic rami fracture and acetabular fracture. Consult with orthopedics states pain management PT and OT patient [facility]. Patient was admitted to [facility] for bilateral fracture of pubic rami, fracture of sacrum, left acetabulum, orthopedic service was consulted, medically managed with pain control, PT OT, will be discharged to [facility], follow-up with orthopedic service as outpatient, discharged on Lovenox for DVT prophylaxis For acute on chronic hyponatremia, discharged on salt tablets, Lexapro was discontinued recheck serum sodium levels in the 48 hours the patient was advised if he has any lightheadedness, dizziness, episodes of confusion to come back to the hospital, serum sodium on discharge 127 Physical Exam Const: COMMON NORMALS: no acute distress and patient oriented x3 Resp: COMMON NORMALS: normal respiratory effort, No retractions, No use of accessory muscles and clear to auscultation bilaterally AUSCULTATION: clear to auscultation bilaterally Cardio: COMMON NORMALS: regular rate, regular rhythm, S1 normal heart sound present and S2 normal heart sound present RATE: regular rate RHYTHM: regular rhythm HEART SOUNDS: S1 normal heart sound present and S2 normal heart sound present GI: COMMON NORMALS: Normal to inspection, nondistended, normoactive bowel sounds present and non-tender Extremity: COMMON NORMALS: no pedal edema Neuro: COMMON NORMALS: patient oriented x3 Psych: COMMON NORMALS: mental status grossly normal Discharge Data Studies Completed and Pending Completed Studies During Hospitalization Category Date Time Status CT abdomen pelvis wo con [id number] Stat Cat Scan 07/16/23 14:[address] hip LT wo con* [id number] Stat Cat Scan 07/16/23 14:30 Completed XR hip LT 2-3V wo/w pel* [id number] Stat Exams 07/16/23 13:27 Completed Pending at discharge Category Date Time Status Complete Blood Count w/Auto AM LABS Lab 07/20/23 04:00 Ordered Comprehensive Metabolic Panel AM LABS Lab 07/20/23 04:00 Ordered Magnesium AM LABS Lab 07/20/23 04:00 Ordered Phosphorus AM LABS Lab 07/20/23 04:00 Ordered SARS Covid-2 Antigen Stat Lab 07/19/23 09:01 Uncollected Radiology Impressions Hip/Pelvis X-Ray 07/16/23 13:27 IMPRESSION: Fractures of the left acetabulum and right superior pubic ramus with findings suspicious for left inferior pubic ramus fracture. CT recommended for more detailed assessment if clinically warranted. Hip CT 07/16/23 14:30 IMPRESSION: Multiple pelvic fractures including left acetabulum, bilateral pubic rami and left sacrum. Abdomen/Pelvis CT 07/16/23 14:40 IMPRESSION: 1. Multiple pelvic fractures including comminuted left acetabular fracture, bilateral pubic ramus fractures and left sacral fracture. Stable multilevel thoracolumbar spine fractures except for interval increase in loss of height of previously treated L1 vertebral body. 2. Left lower lobe airspace disease and right lower lobe atelectasis and/or scar. Laboratory Results WBC 32.88 10^3/uL (3.29-11.43) H* 07/19/23 04:42 RBC 3.00 10^6/uL (3.85-5.65) L 07/19/23 04:42 Hgb 9.90 g/dL (11.27-16.99) L 07/19/23 04:42 Hct 30.1 % (37-53) L 07/19/23 04:42 MCV 100.3 fl (82-101) 07/19/23 04:42 MCH 33.0 pg (27-33) 07/19/23 04:42 MCHC 32.9 g/dL (30-55) 07/19/23 04:42 RDW 12.7 % (12.1-15.1) 07/19/23 04:42 Plt Count 192 10^3/cmm (157-399) 07/19/23 04:42 MPV 8.8 fL (7.4-10.4) 07/19/23 04:42 Neut % (Auto) 27.7 % 07/19/23 04:42 Lymph % (Auto) 66.5 % 07/19/23 04:42 [place] % (Auto) 4.7 % 07/19/23 04:42 Eos % (Auto) 0.5 % 07/19/23 04:42 Baso % (Auto) 0.2 % 07/19/23 04:42 Neut # (Auto) 9.12 10^3/uL (1.8-7.7) H 07/19/23 04:42 Lymph # (Auto) 21.9 10^3/uL (0.8-4.8) H 07/19/23 04:42 [place] # (Auto) 1.5 10^3/uL (0.2-0.9) H 07/19/23 04:42 Eos # (Auto) 0.2 10^3/uL (0.0-0.8) 07/19/23 04:42 Baso # (Auto) 0.1 10^3/uL (0.0-0.1) 07/19/23 04:42 Nucleated RBC % (auto) 0 % 07/19/23 04:42 Nucleated RBCs # 0.0 /100WBC 07/19/23 04:42 Sodium 127 mmol/L (136-145) L 07/19/23 04:42 Potassium 4.2 mmol/L (3.5-5.1) 07/19/23 04:42 Chloride 92 mmol/L (98-107) L 07/19/23 04:42 Carbon Dioxide 27 mmol/L (22-29) 07/19/23 04:42 Anion Gap 12.2 (5-19) 07/19/23 04:42 BUN 11 mg/dL (8-23) 07/19/23 04:42 Creatinine 0.5 mg/dL (0.7-1.2) L 07/19/23 04:42 GFR Calculation Not Reportable 07/19/23 04:42 Glucose 102 mg/dL (65-115) 07/19/23 04:42 Calculated Osmolality 264 mOsm/kg (285-295) L 07/19/23 04:42 Calcium 8.1 mg/dL (8.5-10.5) L 07/19/23 04:42 Phosphorus 2.5 mg/dL (2.5-4.5) 07/19/23 04:42 Magnesium 1.9 mg/dL (1.7-2.3) 07/19/23 04:42 Total Bilirubin 1.2 mg/dL (0.15-1.2) 07/19/23 04:42 AST 12 U/L (0-40) 07/19/23 04:42 ALT 15 U/L (0-41) 07/19/23 04:42 Alkaline Phosphatase 43 U/L (40-130) 07/19/23 04:42 Total Protein 5.4 g/dL (6.6-8.7) L 07/19/23 04:42 Albumin 3.5 g/dL (3.5-5.2) 07/19/23 04:42 Globulin 1.9 g/dL (1.3-4.6) 07/19/23 04:42 25-OH Vitamin D Total 40 ng/mL (30-100) 07/17/23 02:46 Urine Color Yellow (Yellow) 07/16/23 21:23 Urine Appearance Clear (CLEAR) 07/16/23 21:23 Urine pH 6 (5-7) 07/16/23 21:23 Ur Specific [place] 1.015 (1.005-1.030) 07/16/23 21:23 Urine Protein Neg (Negative) 07/16/23 21:23 Urine Glucose (UA) Norm (Normal) 07/16/23 21:23 Urine Ketones Negative (Negative) 07/16/23 21:23 Urine Blood Neg (Negative) 07/16/23 21:23 Urine Nitrate Negative (Negative) 07/16/23 21:23 Urine Bilirubin Neg (Negative) 07/16/23 21:23 Urine Urobilinogen Neg mg/dL (Negative) 07/16/23 21:23 Ur Leukocyte Esterase Negative (Negative) 07/16/23 21:23 Vitals Last Vital Signs Temp 98.3 F 07/19/23 07:26 Pulse 77 07/19/23 07:26 Resp 16 07/19/23 07:26 BP 154/78 07/19/23 07:26 Pulse Ox 92 07/19/23 07:26 O2 Del Method Nasal Cannula 07/19/23 07:26 O2 Flow Rate 1 07/19/23 07:26 Discharge Plan Discharge Patient Disposition: Xfer [facility] Condition: Stable Prescriptions: New hydrocodone-acetaminophen 5-325 mg Tablet 1 tab PO Q4H PRN (Reason: Moderate To Severe Pain) 7 Days Qty: 42 0RF docusate sodium 100 mg Capsule 100 mg PO BID 30 Days Qty: 60 0RF enoxaparin 40 mg/0.4 mL Syringe 40 mg SUBCUT Q24H 14 Days Qty: 5.6 0RF sodium chloride 1,000 mg Tablet,Soluble 1,000 mg PO Q12H 30 Days Qty: 60 0RF metoprolol tartrate 25 mg Tablet 12.5 mg PO Q12H 30 Days Qty: 30 0RF Continued aspirin [Adult Low Dose Aspirin] 81 mg tablet,delayed release (DR/EC) 81 mg PO QAM docusate sodium 100 mg capsule 100 mg PO BID PRN (Reason: Constipation) lisinopril 40 mg tablet 40 mg PO QAM Qty: 90 3RF amlodipine 10 mg tablet 10 mg PO DAILY Qty: 90 1RF omeprazole 20 mg capsule,delayed release(DR/EC) 20 mg PO QAM Qty: 90 1RF fluticasone propionate 50 mcg/actuation spray,suspension See Rx Instructions .ROUTE .COMPLEX Qty: 16 5RF Dose Instruction: USE 1 SPRAY IN EACH NOSTRIL DAILY Rx Instructions: USE 1 SPRAY IN EACH NOSTRIL DAILY clopidogrel 75 mg tablet See Rx Instructions .ROUTE .COMPLEX Qty: 90 3RF Dose Instruction: TAKE 1 TABLET BY MOUTH EVERY DAY Rx Instructions: TAKE 1 TABLET BY MOUTH EVERY DAY acetaminophen 500 mg Tablet 1,000 mg PO Q6H PRN (Reason: Pain) 14 Days Qty: 25 0RF Calcium 500 500 mg calcium (1,250 mg) Tablet 500 mg PO BID chlorhexidine gluconate 0.12 % mouthwash See Rx Instructions .ROUTE .COMPLEX Rx Instructions: DIRECTED simvastatin 40 mg tablet 40 mg PO QPM tamsulosin 0.4 mg capsule 0.4 mg PO DAILY cholecalciferol (vitamin D3) 1,250 mcg (50,000 unit) tablet 50,000 unit PO BID Discontinued escitalopram oxalate 10 mg tablet 10 mg PO DAILY Qty: 90 1RF cephalexin 500 mg capsule 500 mg PO TID Discharge Orders: Discharge Order (Routine); Ordered 07/19/23 Ordered By: Johnathan Whitehead Referrals: [facility] [Outside] Manolo Centeno DO [Primary Care Provider] - Discharge Diet: Cardiac Discharge Activity: Resume usual activity Patient Instructions: Opioid Safety Activity Restrictions/Additional Instructions: Follow-up orthopedic clinic in 2 weeks DVT prophylaxis with Lovenox Weight-bear as tolerated Follow-up with repeat BMP, in 48 hours, monitor serum sodium level Discharge Attestations Time Spent in Discharge Care*: greater than 30 min Quality Metrics Clinical Quality Measures [ No reported AMI, CVA or VTE this stay] Coding Level of Care Code 33062 Total time (in minutes) for Discharge: 45 Diagnoses Closed bilateral fracture of pubic rami, initial encounter S32.591A; S32.592A Encounter type: initial encounter Fracture type: closed Closed fracture of sacrum, unspecified portion of sacrum, initial encounter S32.10XA Encounter type: initial encounter Fracture type: closed Zone of sacrum fracture: unspecified portion of sacrum Closed nondisplaced fracture of left acetabulum, unspecified portion of acetabulum, initial encounter S32.402A Encounter type: initial encounter Fracture alignment: nondisplaced Sublocation of acetabulum: unspecified portion of acetabulum Compression fracture Osteoporosis without current pathological fracture, unspecified osteoporosis type M81.0 Osteoporosis type: unspecified Presence of current pathological fracture: without current pathological fracture 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
--- NOTE | 2023-07-19 09:05 | PC.CHAP ---
Pastoral Care Encounter/Spiritual Assessment Type of Contact [] Declined sponge clipper visit [] Patient/Family/Request visit [] Outpatient visit [] Follow-up visit [] Physician referral [] Code/Alert [x] Routine visit [] Staff referral [] Actively dying [] Patient sleeping [x] Family support [] [] Out of room [] Palliative care [] [] Receiving care in room [] Pre-surgical visit [] Trauma [] Long length of stay [] ICU visit [] Other: Relational/Emotional Strength [x] Patient feels connected with others/family/visitors/staff [] Distress [] Loneliness/isolation [] Abandonment Spirituality of Patient [x] Person of Aimee [] Attends Lutheran of their Aimee [x] Believes in Prayer [] Reads Bible or Oriental Orthodox materials [] There are Spiritual issues to be addressed Boat Assembler Interventions [x] Prayer [x] Active listening [] Non-anxious presence [x] Spiritual/emotional support [] Crisis/trauma care [] Spiritual counseling [] Bereavement support [] Provided bereavement packet [] Provided Bible/devotional materials [] Provided toy/stuffed animal, coloring book to patient or family member [] Provided Communion [] Anointing/[place] [] Salvation [x] Completed spiritual assessment [] Other: Impact on Illness or Injury [] Angry [] Fearful [] Anxious [] Often cries [] Exhaustion [] Unable to work [] Unable to attend catholic [] Unable to walk/stand [] Unable to read [] Unable to drive [] Unable to eat/drink [] Unable to sleep [] Unable to be with family [] Patient intubated [] Other: Summary Time spent with patient 5 min
--- NOTE | 2023-07-19 10:23 | PM.PN ---
Subjective Subjective: Patient sitting up in chair today. Pain controlled when he sitting in chair. Pain is bad when he transfers. Planning on discharge planning today to senior living. Vitals/I&O/Wt Last Vital Signs Temp 98.3 F 07/19/23 07:26 Pulse 77 07/19/23 07:26 Resp 16 07/19/23 07:26 BP 154/78 07/19/23 07:26 Pulse Ox 92 07/19/23 07:26 O2 Del Method Nasal Cannula 07/19/23 07:26 O2 Flow Rate 1 07/19/23 07:26 07/18/23 07/19/23 07/19/23 22:59 06:59 14:59 Intake Total 660 / 1380 720 / 2100 Output Total 300 / 450 150 / 600 Balance 360 / 930 570 / 1500 Weight last 48 hrs Weight 139 lb 12.8 oz Weight 140 lb 9.6 oz Physical Exam Narrative: Sitting up in chair eating breakfast Data 07/19/23 04:42 07/19/23 04:42 A&P Assessment and plan (1) Bilateral fracture of pubic rami: Patient being discharged to senior living today. Will be discharged on his current and anticoagulant which is Plavix and aspirin. Plan to see the patient back in 2 to 3 weeks in the orthopedic clinic. Qualifiers: Encounter type: initial encounter Fracture type: closed Qualified Code(s): S32.591A - Other specified fracture of right pubis, initial encounter for closed fracture; S32.592A - Other specified fracture of left pubis, initial encounter for closed fracture Attestations Medical Necessity Statement*: Per primary service Coding Level of Care Code Acute Code for [facility] Fwd Diagnoses Closed bilateral fracture of pubic rami, initial encounter S32.591A; S32.592A Encounter type: initial encounter Fracture type: closed
--- NOTE | 2023-07-19 10:37 | PC.NURSE ---
Report called to Norah at [facility]
[2023-07-19 10:52] LABS: SARS Covid-2 Antigen negative (Negative)
[2023-07-19 10:56] VITALS: BP 138/75; PULSE 59; RESP 17; TEMP 36.8; O2SAT 90
[2023-07-19 13:07] VITALS: BP 138/75; PULSE 59; RESP 17; TEMP 36.8; O2SAT 90
== END 2023-07-19 13:08 | DRG 535 ==
LOC: ER 16:24 → MEDSURG 17:34
PROVIDERS: Admitting Provider Internal Medicine; Emergency Provider Family Medicine; PCP Family Medicine; Visit Provider Family Medicine
DX: S32.592A Other specified fracture of left pubis, initial encounter for closed fracture (principal); S32.402A Unspecified fracture of left acetabulum, initial encounter for closed fracture; S32.10XA Unspecified fracture of sacrum, initial encounter for closed fracture; C91.10 Chronic lymphocytic leukemia of B-cell type not having achieved remission; E87.1 Hypo-osmolality and hyponatremia; S32.591A Other specified fracture of right pubis, initial encounter for closed fracture; W18.30XA Fall on same level, unspecified, initial encounter; Y92.89 Other specified places as the place of occurrence of the external cause; M81.0 Age-related osteoporosis without current pathological fracture; M15.9 Polyosteoarthritis, unspecified; N40.0 Benign prostatic hyperplasia without lower urinary tract symptoms; I10 Essential (primary) hypertension; E78.5 Hyperlipidemia, unspecified; F32.A Depression, unspecified; K21.9 Gastro-esophageal reflux disease without esophagitis; Z79.02 Long term (current) use of antithrombotics/antiplatelets; Z79.82 Long term (current) use of aspirin
CPT/HCPCS: 36415; 73502; 73700; 74176; 80048; 80053; 81003; 82306; 82310; 83735; 84100; 85025; 87426; 96372; 97110; 97161; 97167; 97530; 97535; 99285; J1650; J2270; J2405

== ENCOUNTER 2023-08-03 07:24 | Inpatient (IN) | payer MEDICARE, OTHER, SELFPAY ==
[2023-08-03] VITALS (129 sets, daily range): BP systolic 96–187; BP diastolic 64–89; PULSE 60–124; RESP 14–30; TEMP 36.8–37; O2SAT 87–98; BMI 24.0; BMI 22.3
--- NOTE | 2023-08-03 07:37 | XRR_ITS ---
PROCEDURE INFORMATION: Exam: XR Chest Exam date and time: 08/03/2023 7:44 AM Age: 77 years old Clinical indication: Cough and dyspnea and shortness of breath; Prior surgery; Surgery date: 6+ months; Surgery type: Spine; Additional info: Dyspnea/cough TECHNIQUE: Imaging protocol: Radiologic exam of the chest. Views: 1 view. COMPARISON: 1. CR XR chest 1V [id number] 04/28/2018 12:50 PM 2. CR XR chest 1V portable [id number] 12/29/2022 8:12 AM 3. CR XR chest 1V portable [id number] 12/27/2022 11:[address] angio chest PE protcl [id number] 07/13/2022 4:37 PM FINDINGS: Lungs: Incidental azygous fissure/lobe. No consolidation. Pleural spaces: No substantial pleural effusion or pneumothorax. Heart/Mediastinum: Stable cardiomegaly. Vasculature: Aortic atherosclerotic calcification. Bones/joints: Augmentation of multiple vertebral bodies. Degenerative changes along the spine. XR/XR chest 1V portable [id number] IMPRESSION: No acute findings.
--- NOTE | 2023-08-03 07:39 | ECG_ITS ---
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 Measurements Intervals [place] Rate: 91 P: 27 WI: 236 QRS: -17 QRSD: 118 T: 40 QT: 343 QTc: 423 Interpretive Statements SINUS RHYTHM WITH FIRST DEGREE AV BLOCK POSSIBLE LEFT VENTRICULAR HYPERTROPHY [VOLTAGE CRITERIA PLUS LAE OR QRS WIDENING] Compared to ECG 12/31/2022 14:16:43 No significant changes Electronically Signed On 08-03-2023 18:29:49 CDT by Kassy Winston M.D. [email or web address]
--- NOTE | 2023-08-03 07:40 | ED_ITS ---
HPI - SOB/Dyspnea 2 General: Chief Complaint: ER Hold Stated Complaint: Resp distress Time Seen by Provider: 08/03/23 07:36 Source: patient Mode of arrival: ambulatory History of Present Illness: HPI Narrative: 77-year-old male presents emergency room with progressively worsening shortness of breath at the skilled nursing along with fever. He was seen by his primary care doctor yesterday and started on Levaquin and steroids. He has increased work of breathing on arrival here. He denies any chest pain. He is not normally on oxygen and is now requiring 3 L.Report of a fever yesterday up to 102. Patient has extreme kyphosis. Report of a fever yesterday up to 102. No vomiting or diarrhea no productive cough. MD elicited complaint: shortness of breath and cough Pertinent past history: congestive heart failure Onset (ago): day(s) Severity: severe Exacerbating factors: exertion Associated symptoms: Reports fever(s); Deny abdominal pain or chest pain Review of Systems 2 Const: Reports: fever(s) and chills Card: Denies: chest pain Resp: Reports: dyspnea, non-productive cough and wheezing GI: Denies: abdominal pain : Denies: dysuria, urinary frequency or urinary urgency Musc: Denies: neck pain or back pain Skin/Breast: Denies: rash PFSH ED 2 PFSH: Medical History Hyperlipidemia Depression Pathologic thoracic fracture Hyponatremia Acute urinary retention Acute hypokalemia Traumatic compression fracture of T12 thoracic vertebra Back pain Chronic lymphocytic leukemia GERD (gastroesophageal reflux disease) History of stroke (04/2018) Dyslipidemia Degenerative arthritis HTN (hypertension) BPH w urinary obs/LUTS Chronic prostatitis Surgical History History of kyphoplasty H/O Mohs micrographic surgery for skin cancer (2018) S/P arthroscopic surgery of left knee Hx of bilateral inguinal hernia repair Family History Father , AT AGE 84 PROSTATE CANCER Cancer Mother , AT AGE 84 Hypertension CAD (coronary artery disease) Sister Dementia Other Hyperlipidemia Stroke Denies family history of Diabetes Clotting disorder Psychiatric illness Chronic kidney disease (CKD) Suicide Anesthesia complication Bleeding disorder Lung disease Social History Smoking and tobacco/nicotine status: never used tobacco/nicotine Alcohol intake: never Substance/Drug Use: unknown Adopted: No Caregiver/support person: No Lives independently: No Household members: spouse Marital status: Current occupational status: employed Physical Exam 2 Const: GENERAL APPEARANCE: cooperative ORIENTATION/CONSCIOUSNESS: Yes awake, Yes oriented to person, Yes oriented to place and Yes oriented to time HENMT: COMMON NORMALS: normocephalic, atraumatic and hearing grossly normal bilaterally HEAD & SCALP: normocephalic and atraumatic OTHER: Significant stridor. Neck/C-Spine: OTHER: Cervical and thoracic kyphosis Resp: EFFORT & INSPECTION: Yes tachypneic and Yes uses accessory muscles A USCULTATION: rhonchi and wheezes Cardio: COMMON NORMALS: regular rate, regular rhythm and No murmurs present (Cardio) RATE: regular rate RHYTHM: regular rhythm GI: COMMON NORMALS: Soft to palpation and No hepatosplenomegaly present A USCULTATION: Yes normoactive bowel sounds PALPATION: Yes Soft to palpation, No Tenderness to palpation present (GI), No Guarding due to palpation present (GI) and Yes No hepatosplenomegaly present Extremity: COMMON NORMALS: normal to inspection, capillary refill normal, no clubbing, cyanosis or edema, no calf tenderness and no pedal edema Neuro: SENSORIUM/ORIENTATION: Yes oriented to person, Yes oriented to place and Yes oriented to time Skin: COMMON NORMALS: no rashes or lesions noted GENERAL SKIN EXAM: no rashes or lesions noted Course 2 Vital Signs: Vital signs: Vital Signs Temperature 97.8 F 08/05/23 07:21 Pulse Rate 73 08/05/23 12:53 Respiratory Rate 16 08/05/23 12:53 Blood Pressure 167/83 08/05/23 12:53 Pulse Oximetry 93 08/05/23 12:53 Oxygen Delivery Me thod Room Air 08/05/23 11:16 Oxygen Flow Rate 0 08/05/23 06:50 MDM - SOB/Dyspnea Medical Decision Making Pneumonia with sepsis. Patient having significant respiratory distress. Patient has significant stridor. CT shows a lot of swelling and inflammation above the pharynx. We discussed options with the family of transferring that he is Do Not Recussitate and they do not wish to pursue any further treatments beyond what we can provide here they do not want intubation and they would decline tracheostomy. They understand that if he deteriorates further that it may occlude his airway and make it difficult for the patient to survive this condition patient and the family are understanding of this and declined offer for transfer. Will admit treat as able consult ENT to assist with management. Discussed with hospitalist orders written Medical Records I reviewed the patient's medical records. Lab Data I reviewed the patient's lab results. 08/05/23 05:42 08/05/23 10:07 Labs/Radiology: Radiology Impressions Chest X-Ray 08/03/23 13:36 IMPRESSION: 1. Adequately positioned central venous catheter. 2. Mild left lower lung atelectasis. More confluent airspace opacification on comparison chest CT not well visualized on current exam. Laboratory Results WBC 83.65 10^3/uL (3.29-11.43) H* 08/03/23 07:31 RBC 3.48 10^6/uL (3.85-5.65) L 08/03/23 07:31 Hgb 11.20 g/dL (11.27-16.99) L 08/03/23 07:31 Hct 33.1 % (37-53) L 08/03/23 07:31 MCV 95.1 fl (82-101) 08/03/23 07:31 MCH 32.2 pg (27-33) 08/03/23 07:31 MCHC 33.8 g/dL (30-55) 08/03/23 07:31 RDW 12.3 % (12.1-15.1) 08/03/23 07:31 Plt Count 484 10^3/cmm (157-399) H 08/03/23 07:31 MPV 7.9 fL (7.4-10.4) 08/03/23 07:31 Neut % (Auto) 18.2 % 08/03/23 07:31 Lymph % (Auto) 78.6 % 08/03/23 07:31 Storey % (Auto) 2.5 % 08/03/23 07:31 Eos % (Auto) 0.1 % 08/03/23 07:31 Baso % (Auto) 0.0 % 08/03/23 07:31 Neut # (Auto) 15.22 10^3/uL (1.8-7.7) H 08/03/23 07:31 Lymph # (Auto) 65.8 10^3/uL (0.8-4.8) H 08/03/23 07:31 Storey # (Auto) 2.1 10^3/uL (0.2-0.9) H 08/03/23 07:31 Eos # (Auto) 0.1 10^3/uL (0.0-0.8) 08/03/23 07:31 Baso # (Auto) 0.0 10^3/uL (0.0-0.1) 08/03/23 07:31 Nucleated RBC % (auto) 0 % 08/03/23 07:31 Nucleated RBCs # 0.0 /100WBC 08/03/23 07:31 Peripher Smr Path Cons Sent for review 08/03/23 07:31 Specimen Type Arterial 08/03/23 09:12 Sample Site Radial, left 08/03/23 09:12 ABG pH 7.38 (7.35-7.45) 08/03/23 09:12 ABG pCO2 43.8 mmHg (35-45) 08/03/23 09:12 ABG pO2 77.6 mmHg (80.0-100.0) L 08/03/23 09:12 ABG HCO3 26.1 mmol/L (22-26) H 08/03/23 09:12 ABG O2 Saturation 96.1 08/03/23 09:12 ABG Base Excess 0.8 mmol/L (-2.0-2.0) 08/03/23 09:12 Blair Test Pos 08/03/23 09:12 A-a O2 Gradient 2.4 mmHg (5-10) L 08/03/23 09:12 Hematocrit 34.1 % (42-52) L 08/03/23 09:12 Hgb O2 Saturation 94.9 % (95-100) L 08/03/23 09:12 Carboxyhemoglobin 1.4 %THgb (0.4-20.1) 08/03/23 09:12 Methemoglobin < 0.0 % (0.4-1.5) L 08/03/23 09:12 Total Hemoglobin 11.1 g/dL (14-18) L 08/03/23 09:12 Sodium 112.0 mmol/L (131-143) L 08/03/23 09:12 Potassium 3.0 mmol/L (3.5-5.0) L 08/03/23 09:12 Glucose 133.0 mg/dL (70-115) H 08/03/23 09:12 Ionized Calcium 1.1 mmol/L (1.1-1.4) 08/03/23 09:12 O2 Delivery Device Nc 08/03/23 09:12 O2 Liters/Min 3.5 % 08/03/23 09:12 Refractory Specialist ID glc 08/03/23 09:12 Sodium 114 mmol/L (136-145) L* 08/03/23 13:00 Potassium 3.8 mmol/L (3.5-5.1) 08/03/23 13:00 Chloride 76 mmol/L (98-107) L 08/03/23 13:00 Carbon Dioxide 24 mmol/L (22-29) 08/03/23 13:00 Anion Gap 17.8 (5-19) 08/03/23 13:00 BUN 9 mg/dL (8-23) 08/03/23 13:00 Creatinine 0.4 mg/dL (0.7-1.2) L 08/03/23 13:00 GFR Calculation Not Reportable 08/03/23 13:00 Glucose 101 mg/dL (65-115) 08/03/23 13:00 Serum Osmolality 234 mOsm/kg (278-305) L 08/03/23 13:00 Calculated Osmolality 237 mOsm/kg (285-295) L 08/03/23 13:00 Lactic Acid 2.1 mmol/L (0.5-2.2) 08/03/23 13:00 Lactic Acid (Sepsis) 2.7 mmol/L (0.5-2.2) H 08/03/23 09:40 Calcium 7.7 mg/dL (8.5-10.5) L 08/03/23 13:00 Total Bilirubin 1.3 mg/dL (0.15-1.2) H 08/03/23 07:31 AST 49 U/L (0-40) H 08/03/23 07:31 ALT 28 U/L (0-41) 08/03/23 07:31 Alkaline Phosphatase 194 U/L (40-130) H 08/03/23 07:31 Troponin T Baseline 27 ng/L (0-15) H 08/03/23 07:31 Troponin T 120 Minute 30.84 ng/L (0-15) H 08/03/23 09:40 Delta Troponin T 3.84 ABS# (0-10) 08/03/23 09:40 Troponin T Hi Sens 6Hr 32.29 ng/L (0-15) H 08/03/23 13:00 Troponin T Hi Sens 6Hr Delta 5.29 ng/L (0-12) 08/03/23 13:00 NT-Pro-B Natriuret Pep 1365 pg/mL (0-450) H 08/03/23 07:31 Total Protein 6.0 g/dL (6.6-8.7) L 08/03/23 07:31 Albumin 4.1 g/dL (3.5-5.2) 08/03/23 07:31 Globulin 1.9 g/dL (1.3-4.6) 08/03/23 07:31 Procalcitonin 0.06 ng/mL (0-0.5) 08/03/23 07:31 Urine Color Saida (Yellow) 08/03/23 08:58 Urine Appearance Clear (CLEAR) 08/03/23 08:58 Urine pH 6 (5-7) 08/03/23 08:58 Ur Specific [place] 1.025 (1.005-1.030) 08/03/23 08:58 Urine Protein Neg (Negative) 08/03/23 08:58 Urine Glucose (UA) Norm (Normal) 08/03/23 08:58 Urine Ketones Negative (Negative) 08/03/23 08:58 Urine Blood Neg (Negative) 08/03/23 08:58 Urine Nitrate Negative (Negative) 08/03/23 08:58 Urine Bilirubin Neg (Negative) 08/03/23 08:58 Urine Urobilinogen Norm mg/dL (Negative) 08/03/23 08:58 Ur Leukocyte Esterase Negative (Negative) 08/03/23 08:58 Urine Osmolality 538 mOsm/kg (50-1200) 08/03/23 08:58 Ur Random Sodium 18 mmol/L 08/03/23 08:58 Ur Random Potassium 31 mmol/L 08/03/23 08:58 Ur Random Chloride 30 mmol/L 08/03/23 08:58 Immunophenotype Interp See report 08/03/23 07:31 Adenovirus (PCR) Not detected (NOT DETECT) 08/03/23 07:55 C. pneumoniae DNA (PCR) Not detected (NOT DETECT) 08/03/23 07:55 Coronavirus 229E (PCR) Not detected (NOT DETECT) 08/03/23 07:55 Human Metapneumovir PCR Not detected (NOT DETECT) 08/03/23 07:55 Influenza A (H1) PCR Not detected (NOT DETECT) 08/03/23 07:55 Influ A (H1/09) PCR Not detected (NOT DETECT) 08/03/23 07:55 Influenza A (H3) PCR Not detected (NOT DETECT) 08/03/23 07:55 Influenza Type A (PCR) Not detected (NOT DETECT) 08/03/23 07:55 Influenza Type B (PCR) Not detected (NOT DETECT) 08/03/23 07:55 M. pneumoniae (PCR) Not detected (NOT DETECT) 08/03/23 07:55 Parainfluenza 1 (PCR) Not detected (NOT DETECT) 08/03/23 07:55 Parainfluenza 2 (PCR) Not detected (NOT DETECT) 08/03/23 07:55 Parainfluenza 3 (PCR) Not detected (NOT DETECT) 08/03/23 07:55 Parainfluenza 4 (PCR) Not detected (NOT DETECT) 08/03/23 07:55 RSV Type A (PCR) Not detected (NOT DETECT) 08/03/23 07:55 RSV Type B (PCR) Not detected (NOT DETECT) 08/03/23 07:55 Entero/Rhino (PCR) Not detected (NOT DETECT) 08/03/23 07:55 SARS-CoV-2 (PCR) Not detected (NOT DETECT) 08/03/23 07:55 All radiology interpretation(s) finalized by discharge Discharge Plan Discharge Patient Disposition: Admitted As Inpatient Admit Provider: Cathy Ball Clinical Impression: Acute hyponatremia, Pneumonia, Sepsis, Laryngeal stenosis Condition: Stable Discharge Diet: Cardiac Discharge Activity: Use walker/crutches as instructed and As per PT/OT instructions Coding Level of Care Code ED Community Nutrition Educator for Sena Ching
[2023-08-03 07:48] LABS: Eosinophils # 0.1 10^3/uL (0.0-0.8); Eosinophils % 0.1 %; Hematocrit 33.1 % (37-53); Lymphocytes # 65.8 10^3/uL (0.8-4.8); Lymphocytes % 78.6 %; Mean Corpuscular HGB Conc 33.8 g/dL (30-55); Mean Corpuscular Hemoglobin 32.2 pg (27-33); Mean Corpuscular Volume 95.1 fl (82-101); Mean Platelet Volume 7.9 fL (7.4-10.4); Monocytes # 2.1 10^3/uL (0.2-0.9); Monocytes % 2.5 %; Neutrophils # 15.22 10^3/uL (1.8-7.7); Neutrophils % 18.2 %; Nucleated Red Blood Cells % 0 %; Platelet Count 484 10^3/cmm (157-399); Red Blood Count 3.48 10^6/uL (3.85-5.65); Red Cell Distribution Width 12.3 % (12.1-15.1)
[2023-08-03 08:02] LABS: Alanine Aminotransferase 28 U/L (0-41); Albumin Level 4.1 g/dL (3.5-5.2); Alkaline Phosphatase 194 U/L (40-130); Anion Gap 15.6 (5-19); Aspartate Amino Transferase 49 U/L (0-40); Blood Urea Nitrogen 10 mg/dL (8-23); Carbon Dioxide 24 mmol/L (22-29); Chloride 77 mmol/L (98-107); Creatinine Clr Calc Pharmacy 66.6326; Globulin 1.9 g/dL (1.3-4.6); Glucose 133 mg/dL (65-115); Osmolality Calculated 237 mOsm/kg (285-295); Potassium 3.6 mmol/L (3.5-5.1); Total Bilirubin 1.3 mg/dL (0.15-1.2); Troponin(5th) Baseline 27 ng/L (0-15)
[2023-08-03 08:07] LABS: Lactic Sepsis W/Reflex 2.1 mmol/L (0.5-2.2)
[2023-08-03 08:22] LABS: Sodium 113 mmol/L (136-145)
[2023-08-03 08:24] LABS: Slide Review Slide Review Perform; White Blood Count 83.65 10^3/uL (3.29-11.43)
--- NOTE | 2023-08-03 08:30 | PC.PHAR ---
PT IS FROM [facility]
[2023-08-03] MEDS: FUROsemide 10 mg/mL SDV 4mL 40 MG IVP (08:32)
[2023-08-03] MEDS: ipratropium-albuterol 3 mL Neb INHALATION (08:34)
[2023-08-03 08:40] LABS: NT Pro B Type Natriuretic Pept 1365 pg/mL (0-450); Procalcitonin 0.06 ng/mL (0-0.5)
[2023-08-03 09:09] LABS: Add Urine Microscopic? NO; Charge for UA Resulting for Rev
[2023-08-03 09:16] LABS: Bilirubin Urine Neg (Negative); Blood Urine Neg (Negative); Glucose Urine UA Norm (Normal); Ketones Urine Negative (Negative); Leukocyte Esterase Urine Negative (Negative); Nitrate Urine Negative (Negative); Protein Urine Neg (Negative); Specific Gravity, Urine 1.025 (1.005-1.030); Urine Appearance Clear (CLEAR); Urine Color Amber (Yellow); Urobilinogen Urine Norm (Negative); pH Urine 6 (5-7)
[2023-08-03 09:26] LABS: ABG PCO2 43.8 mmHg (35-45); ABG PH Result 7.38 (7.35-7.45); Alveolar-Arterial Oxygen Gradi 2.4 mmHg (5-10); Arterial Blood Gas Hematocrit 34.1 % (42-52); Base Excess ABG 0.8 mmol/L (-2.0-2.0); Blood Gas Allen Test Pos; Blood Gas LPM 3.5 %; Blood Gas Operator Identificat glc; Blood Gas Sample Site Radial, left; Blood Gas Sample Type Arterial; Carboxyhemoglobin 1.4 %THgb (0.4-20.1); HCO3 ABG 26.1 mmol/L (22-26); HGB O2 Sat 94.9 % (95-100); Ionized Calcium Level - ABG 1.1 mmol/L (1.1-1.4); Methemoglobin < 0.0 % (0.4-1.5); Oxygen Device NC; Oxygen Saturation ABG 96.1; PO2 ABG 77.6 mmHg (80.0-100.0); Total Hemoglobin 11.1 g/dL (14-18)
[2023-08-03 09:31] LABS: Reflex Lactate Order REFLEX LACTIC ORDERD
--- NOTE | 2023-08-03 10:00 | ECG_ITS ---
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 Measurements Intervals [place] Rate: 85 P: 24 MD: 236 QRS: -20 QRSD: 107 T: 45 QT: 329 QTc: 392 Interpretive Statements SINUS RHYTHM WITH FIRST DEGREE AV BLOCK VOLTAGE CRITERIA FOR LVH [MEETS CRITERIA IN ONE OF: R(aVL), S(V1), R(V5), R(V5/V6)+S(V1)] NONSPECIFIC T-WAVE ABNORMALITY Compared to ECG 08/03/2023 07:34:16 T-wave abnormality now present Electronically Signed On 08-03-2023 18:50:48 CDT by Kassy Winston M.D. [id number]
[2023-08-03 10:01] LABS: Lactic Acid level (Lactate) 2.7 mmol/L (0.5-2.2)
[2023-08-03 10:03] LABS: Troponin 5 2HR 30.84 ng/L (0-15); Troponin 5 2HR Delta 3.84 ABS# (0-10)
[2023-08-03 10:23] LABS: Adenovirus Not Detected (NOT DETECT); Chlamydia Pneumoniae Not Detected (NOT DETECT); Coronavirus 229E,HKU1,NL63,OC4 Not Detected (NOT DETECT); Human Metapneumovirus Not Detected (NOT DETECT); Human Rhinovirus/Enterovirus Not Detected (NOT DETECT); Influenza A Not Detected (NOT DETECT); Influenza A H1 Not Detected (NOT DETECT); Influenza A H1-2009 Not Detected (NOT DETECT); Influenza A H3 Not Detected (NOT DETECT); Influenza B Not Detected (NOT DETECT); Mycoplasma Pneumoniae Not Detected (NOT DETECT); Parainfluenza Virus Type 1 Not Detected (NOT DETECT); Parainfluenza Virus Type 2 Not Detected (NOT DETECT); Parainfluenza Virus Type 3 Not Detected (NOT DETECT); Parainfluenza Virus Type 4 Not Detected (NOT DETECT); Respiratory Syncytial Virus A Not Detected (NOT DETECT); Respiratory Syncytial Virus B Not Detected (NOT DETECT); SARS-COV-2 Not Detected (NOT DETECT)
[2023-08-03] MEDS: morphine 4 mg/mL SDV 1 mL 2 MG IVP (10:46)
[2023-08-03] MEDS: levofloxacin-dextrose 5 % 750 MG/150 ML PREMIX 100 MG IV (10:52)
--- NOTE | 2023-08-03 11:16 | CT_ITS ---
WS: [id number] CT NECK WITH CONTRAST HISTORY: stridor, hx CLL TECHNIQUE: Contiguous 2 mm axial images are performed through the neck with intravenous contrast. Sag ittal and coronal reformats are also submitted. All CT scans at [facility] use at least one o f these dose optimization techniques: automated exposure control; mA and/or kV adjustment per patient size (includes targeted exams where dose is matched to clinical indication); or iterative reconstruc tion. CONTRAST: CONTRAST: Omnipaque 350; 100 mL IV. DLP: 607.29 mGy.cm COMPARISON: None available. The study is significantly compromised by patient's position. Head is held in marked forward flexion due to the kyphosis. Extremely limited evaluation of the soft tissue structures. No compromise of the airway. No soft tissue masses. No adenopathy is appreciated. Small lymph nodes would easily be not v isualized due to the marked kyphosis and cachexia. Mild atherosclerosis aorta. IMPRESSION: 1. Extremely limited evaluation of the neck structures due to patient's condition and position. 2. No compromise of the airway. No adenopathy identified.
--- NOTE | 2023-08-03 12:17 | CT_ITS ---
WS: [id number] CT chest w con* [id number] HISTORY: hypoxia, resp distress TECHNIQUE: Axial imaging performed through the thorax. Coronal and sagittal reformats are submitted. All CT scans at [facility] use at least one of these dose optimization techniques: automated exposure control; mA and/or kV adjustment per patient size (includes targeted exams where dose is mat ched to clinical indication); or iterative reconstruction. CONTRAST: Omnipaque 350; 100 mL IV. DLP: 607.29 mGy.cm COMPARISON: 07/13/2022 Motion artifact. Distortion of the imaging due to position of the patient. Marked kyphosis. Lungs and central airway: Diffuse motion artifact. Mild dependent changes at the lung bases from atel ectasis, pneumonia at the LEFT lung base is not excluded. No pneumothorax. No significant effusion. Atherosclerosis aorta. Heart is enlarged. Mediastinum and alisha: No adenopathy identified taking into consideration the motion artifact. Small a mount of dependent debris in the esophagus. Vessels: Mild atherosclerosis aorta. No aneurysm. Normal size pulmonary artery. Chest wall and lower neck: No soft tissue masses. Upper abdomen: Limited by motion. Osseous structures: Severe thoracic kyphosis. Numerous compression fractures. Some of these compressi on fractures have undergone prior vertebroplasty. IMPRESSION: 1. This study is compromised by motion artifact and patient's marked kyphosis. 2. Bilateral lower lobe airspace disease most consistent with atelectasis. Pneumonia at the LEFT callie g base is not excluded. 3. No pleural effusion. 4. No adenopathy. 5. Severe thoracic kyphosis. Numerous vertebral body fractures. Some of these vertebral body fractur es of undergone kyphoplasty.
--- NOTE | 2023-08-03 12:25 | P.HP_ITS ---
Providers/Chief Complaint 2 Primary Care Provider: Manolo Centeno DO Chief Complaint: Resp distress History of Present Illness Reilly Friedman is a 77 year old male Blood culture with past medical history of depression, hyperlipidemia, CLL, traumatic compression fracture of T12, GERD, CVA 2019, hypertension, chronic prostatitis who presented to the hospital today for complaint of shortness of breath. Patient was at rehab 2 days ago patient developed confusion, disorientation, shortness of breath. Denies nausea vomiting diarrhea. He does have a cough which is nonproductive at this time. Had a fever 102 yesterday however is afebrile today. Patient is normally on room air however now requiring 3 L of oxygen. When seen in person it seems that the patient has stridor. His neck is extended forward and he has a very clear stridor at this time. CT neck, CT chest are pending. Patient's states that he is strictly to be a DNR/DNI and patient has the same. I talked with him about intubation however they are not agreeable to this at this time. I did inform them that if we will continue to provide supportive care and he is unable to protect his airway he may pass away from that. Patient is not drooling. He does have kyphosis which he usually does and says he has his neck extended when he sits up or when he lies down he lays flat. Patient able to carry out a conversation and provide limited history. He is a poor historian. also goes on to tell me that patient did have a fall in last few weeks however his breathing was not compromised and he was okay. At this time ENT consult has been requested however our hospital does not have a flexible laryngoscope in order to examine the patient. Regardless of such patient and his both refuse any further aggressive management at this time and would like supportive care. They have only agreed for steroids for now. 156/64, 16, 86, temperature 98.6, saturating 96% on 3.5 L nasal cannula, chest x-ray shows no acute findings. WBC 83,000, hemoglobin 11.2, platelet 44, sodium 112, potassium 3.0, chloride 77, anion gap 15.6, creatinine 0.4, lactic acid 2.1 bilirubin 1.3, baseline troponin 27, delta troponin 3.84, BNP 1365, respiratory viral panel negative. CT neck CT chest pending at this time. Medications/Allergies Home Medications Medication Instructions Recorded Confirmed Last Taken Type aspirin 81 mg tablet,delayed 81 mg PO QAM 10/09/19 08/03/23 08/02/23 History release (Adult Low Dose Aspirin) acetaminophen 500 mg tablet 1,000 mg (2 x 500 mg) PO Q6H PRN 07/20/22 08/03/23 12/28/22 Rx Pain 14 days #25 tabs docusate sodium 100 mg capsule 100 mg PO BID PRN Constipation 02/24/23 08/03/23 Unknown History amlodipine 10 mg tablet 10 mg PO DAILY #90 tabs 05/30/23 08/03/23 07/16/23 Rx omeprazole 20 mg capsule,delayed 20 mg PO QAM #90 caps 06/09/23 08/03/23 07/16/23 Rx release calcium carbonate 500 mg PO BID 07/16/23 08/03/23 07/16/23 History chlorhexidine gluconate 0.12 % See Rx Instructions .Route .COMPLEX 07/16/23 08/03/23 07/16/23 History mouthwash simvastatin 40 mg tablet 40 mg PO QPM 07/16/23 08/03/23 07/15/23 History tamsulosin 0.4 mg capsule 0.4 mg PO DAILY 07/16/23 08/03/23 07/16/23 History docusate sodium 100 mg capsule 100 mg PO BID 30 days #60 caps 07/19/23 08/03/23 Unknown Rx metoprolol tartrate 25 mg tablet 12.5 mg (1/2 x 25 mg) PO Q12H 30 07/19/23 08/03/23 Unknown Rx days #30 tabs cholecalciferol (vitamin D3) 1,250 50,000 unit PO BID #180 tabs 07/26/23 08/03/23 Unknown Rx mcg (50,000 unit) tablet Lactobacillus rhamnosus GG 10 1 cap PO DAILY 08/03/23 08/03/23 08/02/23 History billion cell capsule (Culturelle) albuterol sulfate 2.5 mg/3 mL 2.5 mg continuous nebulization Q4H 08/03/23 08/03/23 Unknown History (0.083 %) solution for nebulization PRN Shortness Of Breath bisacodyl 10 mg rectal suppository 10 mg MN DAILY PRN Constipation 08/03/23 08/03/23 Unknown History (Dulcolax (bisacodyl)) clopidogrel 75 mg tablet 75 mg PO DAILY 08/03/23 08/03/23 Unknown History fluticasone propionate 50 1 spray intranasal DAILY 08/03/23 08/03/23 Unknown History mcg/actuation nasal spray,suspension levofloxacin 750 mg tablet 750 mg PO DAILY 08/03/23 08/03/23 Unknown History lisinopril 20 mg tablet 20 mg PO DAILY 08/03/23 08/03/23 Unknown History magnesium hydroxide 400 mg/5 mL 30 ml PO DAILY PRN Constipation 08/03/23 08/03/23 Unknown History oral suspension (Milk of Magnesia) prednisone 20 mg tablet 40 mg PO DAILY 08/03/23 08/03/23 08/02/23 History sodium phosphates 19 gram-7 118 ml MN DAILY PRN Constipation 08/03/23 08/03/23 Unknown History gram/197 mL enema (Fleet Enema Extra) Allergies Allergy/AdvReac Type Severity Reaction Status Date / Time meperidine [From Demerol] Allergy Unknown UNKNOWN Verified 07/16/23 14:02 Penicillins Allergy Unknown Unknown Verified 07/16/23 14:02 Sulfa (Sulfonamide Allergy Unknown UNKNOWN Verified 07/16/23 14:02 Antibiotics) CELERY SEED Allergy Severe ALGY-Difficulty Uncoded 06/23/23 11:54 Breathing PFSH Acute 2 PFSH: Medical History Hyperlipidemia Depression Pathologic thoracic fracture Hyponatremia Acute urinary retention Acute hypokalemia Traumatic compression fracture of T12 thoracic vertebra Back pain Chronic lymphocytic leukemia GERD (gastroesophageal reflux disease) History of stroke (04/2018) Dyslipidemia Degenerative arthritis HTN (hypertension) BPH w urinary obs/LUTS Chronic prostatitis Surgical History History of kyphoplasty H/O Mohs micrographic surgery for skin cancer (2018) S/P arthroscopic surgery of left knee Hx of bilateral inguinal hernia repair Family History Father , AT AGE 84 PROSTATE CANCER Cancer Mother , AT AGE 84 Hypertension CAD (coronary artery disease) Sister Dementia Other Hyperlipidemia Stroke Denies family history of Diabetes Clotting disorder Psychiatric illness Chronic kidney disease (CKD) Suicide Anesthesia complication Bleeding disorder Lung disease Social History Smoking and tobacco/nicotine status: never used tobacco/nicotine Alcohol intake: never Substance/Drug Use: unknown Adopted: No Caregiver/support person: No Lives independently: No Household members: spouse Marital status: Current occupational status: employed Vitals/I&O/Wt Last Vital Signs Temp 98.6 F 08/03/23 07:25 Pulse 86 08/03/23 11:05 Resp 16 08/03/23 10:46 BP 156/64 08/03/23 11:05 Pulse Ox 96 08/03/23 11:05 O2 Del Method Nasal Cannula 08/03/23 11:05 O2 Flow Rate 3.5 08/03/23 10:01 Weight last 48 hrs Weight 63.503 kg Physical Exam 2 Narrative: General: Alert oriented x3, patient seen sitting up in bed with neck extended forward position, has audible stridor, able to carry out a conversation, no drooling noted. Able to maintain saturations at 94% with 3 L nasal cannula. Is not desaturating. HEENT: Normocephalic, atraumatic, EOMI Cardio: Regular rate rhythm, normal S1-S2, Respiratory: Fair bilateral air entry severely diminished at bases, no gross crackles or wheezing appreciated. Mild diffuse rhonchi throughout the lung souza. GI: Abdomen soft, nontender, nondistended, bowel sounds + Behavior: Appropriate and cooperative Extremities: No bilateral lower extremity edema at this time, possibly trace. Data 08/04/23 04:00 08/04/23 04:00 Micro: Microbiology 08/03/23 07:55 Blood Culture - Preliminary Blood SPECIMEN COLLECTED 08/03/23 07:50 Blood Culture - Preliminary Blood SPECIMEN COLLECTED A&P Assessment and plan (1) Hyponatremia: (2) Chronic prostatitis: (3) Chronic lymphocytic leukemia: (4) Compression fracture: (5) Heart failure: Plan # Stridor, shortness of breath, unsure etiology #Possibly laryngeal stenosis?, Mild narrowing at larynx on neck CT, unsure etiology #Shortness of breath 2/2 to above #Severe hyponatremia #Chronic congestive heart failure, not previously diagnosed? #Arthritis, Back pain, kyphosis #CLL #HLD, HTN #GERD - Repeat BMP to confirm low NA - Admit to ICU - Place central line for potentially hypertonic saline - Lasix 40 IV given in ER - Place on lasix 40 IV BID - Check cardiac ECHO - Chest chest CT, neck CT, PE protocol - Check urine sodium, serum osm, urine osm - Check peripheral blood smear - Flow cytometry leukemia/lymphoma panel - Check resp viral panel - Place on levofloxacin 750 daily for empiric coverage - Order BIPAP if needed. - Patient DNR/DNI as per patient and family - Check CBC, CMP, MAG in AM - COntinue aspirin, plavix, - COntinue lisnopril - First 2 trops complete, delta 3.84, await 6 hour troponin. - Check urine lytes ? Request ENT consult for further evaluation however patient and refuse intubation at this time. ? Anesthesia was requested by ER for possible intubation however family has declined at this time. They are okay with supportive care. ? Placed on Solu-Medrol 60 twice daily. Dexamethasone 10 IV x 1 given in ER ? Frequent suctioning as needed ? Check sodium every 4 hours. Goal correction no more than 6-8 with hard max of 10 in 24-hour period. -Discussed all the above multiple times with , patient, RN, ER physician, ENT . DNR/DNI DVT PPX: Heparin Subc BID Attestations 2 Medical Necessity Statement*: > 2 midnight stay for mgmt of hyponatremia, resp distress, sob Diagnoses Hyponatremia E87.1 Chronic prostatitis N41.1 Chronic lymphocytic leukemia C91.10 Compression fracture Heart failure I50.9
[2023-08-03] MEDS: iohexol 350 mg/mL 500 mL Btl (per mL) IV (12:44)
--- NOTE | 2023-08-03 12:53 | USCV_ITS ---
Reilly Friedman Age: 77 Gender: M : 1945 Exam Date: 08/03/2023 14:07 Ordering Phys: Cathy Ball MD Technologist: Exam Location: [facility] [place] Indication: sob BP: 166 / 72 HR: Rhythm: Sinus Technical Quality: Adequate MEASUREMENTS (Male / Female) Normal Values 2D ECHO LVOT Diameter 2.3 cm LV Ejection Fraction MOD 2C 61.9 % LV Ejection Fraction 2C AL 63.1 % LA Diameter 3.6 cm RA Systolic Volume 4C AL 88.9 ml RA Systolic Volume 4C MOD 88.0 ml Aorta at Sinotubular Diameter 3.1 cm DOPPLER PV Peak Velocity 143.0 cm/s FINDINGS Left Ventricle Study is limited to two-dimensional exam only. No M-mode or Doppler. The ventricle is normal in size and function. Ejection fraction 60%. No wall motion disturbances. Right Ventricle Normal right ventricular size and systolic function. Right Atrium The right atrium is normal in size. Left Atrium Moderately increased left atrial size. Mitral Valve Structurally normal mitral valve. Aortic Valve Structurally normal trileaflet aortic valve. Tricuspid Valve Structurally normal tricuspid valve. Pulmonic Valve Pulmonic valve not well visualized. Pericardium Normal pericardium without effusion. Aorta Normal ascending aorta dimension. IVC The inferior vena cava appears normal. CONCLUSIONS Study is limited to two-dimensional exam only. No M-mode or Doppler. The ventricle is normal in size and function. Ejection fraction 60%. No wall motion disturbances. Moderately increased left atrial size. No change from the previous study 04/29/2018 Dr. Inder Brown MD (Electronically Signed) Final Date: 03 August 2023 16:23 S
[2023-08-03] MEDS: dexamethasone 10 mg/mL INJ IM (13:16)
[2023-08-03 13:29] LABS: Lactic Sepsis W/Reflex 2.1 mmol/L (0.5-2.2)
[2023-08-03 13:36] LABS: Potassium, Radom Urine 31 mmol/L; Urine Random Chloride 30 mmol/L; Urine Random Sodium 18 mmol/L
--- NOTE | 2023-08-03 13:36 | XRR_ITS ---
PROCEDURE INFORMATION: Exam: XR Chest Exam date and time: 08/03/2023 1:38 PM Age: 77 years old Clinical indication: Device placement; Other: Central line placement TECHNIQUE: Imaging protocol: Radiologic exam of the chest. Views: 1 view. COMPARISON: 1. CT chest w con* [id number] 08/03/2023 12:34 PM 2. CR XR chest 1V portable [id number] 08/03/2023 7:44 AM 3. CR XR chest 1V portable [id number] 12/29/2022 8:12 AM FINDINGS: Tubes, catheters and devices: Right subclavian central venous catheter terminates near the superior cavoatrial junction. Lungs: Incidental azygous fissure/lobe. Mild streaky bandlike opacities at the left lower lung zone. More confluent airspace opacification on comparison chest CT not confidently visualized on current exam. Pleural spaces: No substantial pleural effusion or pneumothorax. Heart/Mediastinum: Stable cardiomegaly. Vasculature: Aortic atherosclerotic calcification. Bones/joints: Augmentation of multiple vertebral bodies. Degenerative changes along the spine. XR/XR chest 1V portable [id number] IMPRESSION: 1. Adequately positioned central venous catheter. 2. Mild left lower lung atelectasis. More confluent airspace opacification on comparison chest CT not well visualized on current exam.
--- NOTE | 2023-08-03 13:39 | ECG_ITS ---
[facility] Test Date: 2023-08-03 Pat Name: Reilly Friedman Department: Room: ED Gender: Male Account Officer: : 1945 Requested By: Khang Syed Order Number: [id number] Burton MD: Kassy Winston M.D. Measurements Intervals Mobile Rate: 86 P: 111 NE: 235 QRS: -25 QRSD: 110 T: 30 QT: 313 QTc: 376 Interpretive Statements SINUS RHYTHM WITH FIRST DEGREE AV BLOCK BORDERLINE LEFT AXIS DEVIATION [QRS AXIS < -20] VOLTAGE CRITERIA FOR LVH [MEETS CRITERIA IN ONE OF: R(aVL), S(V1), R(V5), R(V5/V6)+S(V1)] NONSPECIFIC T-WAVE ABNORMALITY Compared to ECG 08/03/2023 10:00:34 No significant changes Electronically Signed On 08-03-2023 18:54:50 CDT by Kassy Winston M.D. [id number]
[2023-08-03 13:47] LABS: Troponin 5 6HR 32.29 ng/L (0-15); Troponin 5 6HR Delta 5.29 ng/L (0-12)
[2023-08-03 13:53] LABS: Anion Gap 17.8 (5-19); Blood Urea Nitrogen 9 mg/dL (8-23); Calcium 7.7 mg/dL (8.5-10.5); Carbon Dioxide 24 mmol/L (22-29); Chloride 76 mmol/L (98-107); Creatinine Clr Calc Pharmacy 66.6326; Glucose 101 mg/dL (65-115); Osmolality Calculated 237 mOsm/kg (285-295); Potassium 3.8 mmol/L (3.5-5.1)
[2023-08-03 13:55] LABS: Sodium 114 mmol/L (136-145)
[2023-08-03 13:59] LABS: LAB Peripheral Smear Sent for Review
[2023-08-03 14:51] LABS: Reflex Lactate Order REFLEX LACTIC ORDERD
--- NOTE | 2023-08-03 16:07 | P.CONIM_ITS ---
Providers/Reason For Consult 2 Consulting Physician/Specialty*: kommana/Nephrology Reason for Consult*: Hyponatremia Attending Physician: Cathy Ball MD Primary Care Provider: Manolo Centeno DO History of Present Illness History of Present Illness Reilly Friedman is a 77 year old male 77-year-old male with past medical history of hypertension dyslipidemia CLL, depression includes a history of CVA, presented to the hospital due to complaints of shortness of breath. Patient was also noted to be altered with confusion. Chest x-ray was unremarkable, lab data significant for elevated WBC count, platelet count of 44,. Patient was noted to have low sodium of 112 on presentation with potassium 3.0. He was started on normal saline at 75 cc an hour and repeat potassium has risen to 124. Patient do not have any mental status changes currently. Urine osmolality and urine sodium are pending. Medications/Allergies Home Medications Medication Instructions Recorded Confirmed Last Taken Type aspirin 81 mg tablet,delayed 81 mg PO QAM 10/09/19 08/03/23 08/02/23 History release (Adult Low Dose Aspirin) acetaminophen 500 mg tablet 1,000 mg (2 x 500 mg) PO Q6H PRN 07/20/22 08/03/23 12/28/22 Rx Pain 14 days #25 tabs docusate sodium 100 mg capsule 100 mg PO BID PRN Constipation 02/24/23 08/03/23 Unknown History amlodipine 10 mg tablet 10 mg PO DAILY #90 tabs 05/30/23 08/03/23 07/16/23 Rx omeprazole 20 mg capsule,delayed 20 mg PO QAM #90 caps 06/09/23 08/03/23 07/16/23 Rx release calcium carbonate 500 mg PO BID 07/16/23 08/03/23 07/16/23 History chlorhexidine gluconate 0.12 % See Rx Instructions .Route .COMPLEX 07/16/23 08/03/23 07/16/23 History mouthwash simvastatin 40 mg tablet 40 mg PO QPM 07/16/23 08/03/23 07/15/23 History tamsulosin 0.4 mg capsule 0.4 mg PO DAILY 07/16/23 08/03/23 07/16/23 History docusate sodium 100 mg capsule 100 mg PO BID 30 days #60 caps 07/19/23 08/03/23 Unknown Rx metoprolol tartrate 25 mg tablet 12.5 mg (1/2 x 25 mg) PO Q12H 30 07/19/23 08/03/23 Unknown Rx days #30 tabs cholecalciferol (vitamin D3) 1,250 50,000 unit PO BID #180 tabs 07/26/23 08/03/23 Unknown Rx mcg (50,000 unit) tablet Lactobacillus rhamnosus GG 10 1 cap PO DAILY 08/03/23 08/03/23 08/02/23 History billion cell capsule (Culturelle) albuterol sulfate 2.5 mg/3 mL 2.5 mg continuous nebulization Q4H 08/03/23 08/03/23 Unknown History (0.083 %) solution for nebulization PRN Shortness Of Breath bisacodyl 10 mg rectal suppository 10 mg NC DAILY PRN Constipation 08/03/23 08/03/23 Unknown History (Dulcolax (bisacodyl)) clopidogrel 75 mg tablet 75 mg PO DAILY 08/03/23 08/03/23 Unknown History fluticasone propionate 50 1 spray intranasal DAILY 08/03/23 08/03/23 Unknown History mcg/actuation nasal spray,suspension levofloxacin 750 mg tablet 750 mg PO DAILY 08/03/23 08/03/23 Unknown History lisinopril 20 mg tablet 20 mg PO DAILY 08/03/23 08/03/23 Unknown History magnesium hydroxide 400 mg/5 mL 30 ml PO DAILY PRN Constipation 08/03/23 08/03/23 Unknown History oral suspension (Milk of Magnesia) prednisone 20 mg tablet 40 mg PO DAILY 08/03/23 08/03/23 08/02/23 History sodium phosphates 19 gram-7 118 ml NC DAILY PRN Constipation 08/03/23 08/03/23 Unknown History gram/197 mL enema (Fleet Enema Extra) Allergies Allergy/AdvReac Type Severity Reaction Status Date / Time meperidine [From Demerol] Allergy Unknown UNKNOWN Verified 07/16/23 14:02 Penicillins Allergy Unknown Unknown Verified 07/16/23 14:02 Sulfa (Sulfonamide Allergy Unknown UNKNOWN Verified 07/16/23 14:02 Antibiotics) CELERY SEED Allergy Severe ALGY-Difficulty Uncoded 06/23/23 11:54 Breathing PFSH Acute 2 PFSH: Medical History Hyperlipidemia Depression Pathologic thoracic fracture Hyponatremia Acute urinary retention Acute hypokalemia Traumatic compression fracture of T12 thoracic vertebra Back pain Chronic lymphocytic leukemia GERD (gastroesophageal reflux disease) History of stroke (04/2018) Dyslipidemia Degenerative arthritis HTN (hypertension) BPH w urinary obs/LUTS Chronic prostatitis Surgical History History of kyphoplasty H/O Mohs micrographic surgery for skin cancer (2018) S/P arthroscopic surgery of left knee Hx of bilateral inguinal hernia repair Family History Father , AT AGE 84 PROSTATE CANCER Cancer Mother , AT AGE 84 Hypertension CAD (coronary artery disease) Sister Dementia Other Hyperlipidemia Stroke Denies family history of Diabetes Clotting disorder Psychiatric illness Chronic kidney disease (CKD) Suicide Anesthesia complication Bleeding disorder Lung disease Social History Smoking and tobacco/nicotine status: never used tobacco/nicotine Alcohol intake: never Substance/Drug Use: unknown Adopted: No Caregiver/support person: No Lives independently: No Household members: spouse Marital status: Current occupational status: employed Vitals/I&O/Wt Last Vital Signs Temp 98.6 F 08/03/23 07:25 Pulse 90 08/03/23 14:05 Resp 16 08/03/23 10:46 BP 166/72 08/03/23 14:20 Pulse Ox 93 08/03/23 14:20 O2 Del Method Nasal Cannula 08/03/23 11:05 O2 Flow Rate 3.5 08/03/23 10:01 Weight last 48 hrs Weight 63.503 kg Data 08/04/23 04:00 08/04/23 14:47 Micro: Microbiology 08/03/23 07:55 Blood Culture - Preliminary Blood SPECIMEN COLLECTED 08/03/23 07:50 Blood Culture - Preliminary Blood SPECIMEN COLLECTED A&P Assessment and plan (1) Hyponatremia: 1. Hyponatremia: Likely hypovolemic, sodium 113 on presentation, increased up to 124 currently. Continue to monitor. Check urine sodium and urine osmolality, added IV albumin. Avoid correction of more than 10 mEq in 24 hours.. Continue fluid restriction 2. Hypokalemia: Replete potassium 3. Metabolic alkalosis, possible contraction alkalosis, monitor 4. History of CLL Patient evaluated using audiovisual cart. Time spent 40 minutes Consult Attestations 2 Medical Necessity Statement: per helena Coding Level of Care Code Acute Code for Chg Fwd Diagnoses Hyponatremia E87.1
[2023-08-03] MEDS: sodium chloride 0.9% 1,000 ML 75 ML IV (16:39)
[2023-08-03] MEDS: heparin 5,000 unit/mL INJ 1 mL 5000 UNIT SUBCUT (16:43)
--- NOTE | 2023-08-03 17:11 | P.CONIM_ITS ---
Providers/Reason For Consult 2 Consulting Physician/Specialty*: Del Jennings MD/otolaryngology Reason for Consult*: Airway compromise Requesting Physician: Dr. Asher Attending Physician: Cathy Ball MD Primary Care Provider: Manolo Centeno DO History of Present Illness History of Present Illness Reilly rFiedman is a 77 year old male who presents to the emergency room today with airway compromise. Stridor and difficulty breathing. Patient has significant kyphosis and his neck is bent significantly with his chin anterior and his anterior neck and a significant compromise position. Patient had a CT scan performed with airway obstruction in the region of the glottis and emanating from the posterior aspect. There is significant airway compromise in this location. Review of Systems 2 General: Reports: Other (Patient able to talk with a gravelly voice. Significant stridor on inspira) Narrative: 77-year-old male patient with airway obs truction which appears to be at the glottis location. ENMT: Reports: hoarseness Resp: Reports: stridor Medications/Allergies Home Medications Medication Instructions Recorded Confirmed Last Taken Type aspirin 81 mg tablet,delayed 81 mg PO QAM 10/09/19 08/03/23 08/02/23 History release (Adult Low Dose Aspirin) acetaminophen 500 mg tablet 1,000 mg (2 x 500 mg) PO Q6H PRN 07/20/22 08/03/23 12/28/22 Rx Pain 14 days #25 tabs docusate sodium 100 mg capsule 100 mg PO BID PRN Constipation 02/24/23 08/03/23 Unknown History amlodipine 10 mg tablet 10 mg PO DAILY #90 tabs 05/30/23 08/03/23 07/16/23 Rx omeprazole 20 mg capsule,delayed 20 mg PO QAM #90 caps 06/09/23 08/03/23 07/16/23 Rx release calcium carbonate 500 mg PO BID 07/16/23 08/03/23 07/16/23 History chlorhexidine gluconate 0.12 % See Rx Instructions .Route .COMPLEX 07/16/23 08/03/23 07/16/23 History mouthwash simvastatin 40 mg tablet 40 mg PO QPM 07/16/23 08/03/23 07/15/23 History tamsulosin 0.4 mg capsule 0.4 mg PO DAILY 07/16/23 08/03/23 07/16/23 History docusate sodium 100 mg capsule 100 mg PO BID 30 days #60 caps 07/19/23 08/03/23 Unknown Rx metoprolol tartrate 25 mg tablet 12.5 mg (1/2 x 25 mg) PO Q12H 30 07/19/23 08/03/23 Unknown Rx days #30 tabs cholecalciferol (vitamin D3) 1,250 50,000 unit PO BID #180 tabs 07/26/23 08/03/23 Unknown Rx mcg (50,000 unit) tablet Lactobacillus rhamnosus GG 10 1 cap PO DAILY 08/03/23 08/03/23 08/02/23 History billion cell capsule (Culturelle) albuterol sulfate 2.5 mg/3 mL 2.5 mg continuous nebulization Q4H 08/03/23 08/03/23 Unknown History (0.083 %) solution for nebulization PRN Shortness Of Breath bisacodyl 10 mg rectal suppository 10 mg IA DAILY PRN Constipation 08/03/23 08/03/23 Unknown History (Dulcolax (bisacodyl)) clopidogrel 75 mg tablet 75 mg PO DAILY 08/03/23 08/03/23 Unknown History fluticasone propionate 50 1 spray intranasal DAILY 08/03/23 08/03/23 Unknown History mcg/actuation nasal spray,suspension levofloxacin 750 mg tablet 750 mg PO DAILY 08/03/23 08/03/23 Unknown History lisinopril 20 mg tablet 20 mg PO DAILY 08/03/23 08/03/23 Unknown History magnesium hydroxide 400 mg/5 mL 30 ml PO DAILY PRN Constipation 08/03/23 08/03/23 Unknown History oral suspension (Milk of Magnesia) prednisone 20 mg tablet 40 mg PO DAILY 08/03/23 08/03/23 08/02/23 History sodium phosphates 19 gram-7 118 ml IA DAILY PRN Constipation 08/03/23 08/03/23 Unknown History gram/197 mL enema (Fleet Enema Extra) Allergies Allergy/AdvReac Type Severity Reaction Status Date / Time meperidine [From Demerol] Allergy Unknown UNKNOWN Verified 07/16/23 14:02 Penicillins Allergy Unknown Unknown Verified 07/16/23 14:02 Sulfa (Sulfonamide Allergy Unknown UNKNOWN Verified 07/16/23 14:02 Antibiotics) CELERY SEED Allergy Severe ALGY-Difficulty Uncoded 06/23/23 11:54 Breathing Current Medications Generic Name Dose Route Start Last Admin Trade Name Ernieq PRN Reason Stop Dose Admin Heparin Sodium (Porcine) 5,000 unit 08/03/23 16:45 08/03/23 16:43 Heparin 5,000 Unit/Ml Inj 1 Ml SUBCUT 5,000 unit Q12H FLORINA Administration Sodium Chloride 1,000 mls @ 75 mls/hr 08/03/23 14:05 08/03/23 16:39 Sodium Chloride 0.9% IV 75 mls/hr .[id number] FLORINA Administration PFSH Acute 2 PFSH: Medical History Hyperlipidemia Depression Pathologic thoracic fracture Hyponatremia Acute urinary retention Acute hypokalemia Traumatic compression fracture of T12 thoracic vertebra Back pain Chronic lymphocytic leukemia GERD (gastroesophageal reflux disease) History of stroke (04/2018) Dyslipidemia Degenerative arthritis HTN (hypertension) BPH w urinary obs/LUTS Chronic prostatitis Surgical History History of kyphoplasty H/O Mohs micrographic surgery for skin cancer (2018) S/P arthroscopic surgery of left knee Hx of bilateral inguinal hernia repair Family History Father , AT AGE 84 PROSTATE CANCER Cancer Mother , AT AGE 84 Hypertension CAD (coronary artery disease) Sister Dementia Other Hyperlipidemia Stroke Denies family history of Diabetes Clotting disorder Psychiatric illness Chronic kidney disease (CKD) Suicide Anesthesia complication Bleeding disorder Lung disease Social History Smoking and tobacco/nicotine status: never used tobacco/nicotine Alcohol intake: never Substance/Drug Use: unknown Adopted: No Caregiver/support person: No Lives independently: No Household members: spouse Marital status: Current occupational status: employed Vitals/I&O/Wt Last Vital Signs Temp 98.6 F 08/03/23 07:25 Pulse 124 H 08/03/23 16:25 Resp 16 08/03/23 10:46 BP 146/73 08/03/23 16:25 Pulse Ox 95 08/03/23 16:25 O2 Del Method Nasal Cannula 08/03/23 11:05 O2 Flow Rate 3.5 08/03/23 10:01 08/03/23 08/03/23 08/03/23 06:59 14:59 22:59 Intake Total 150 / 150 Balance 150 / 150 Weight last 48 hrs Weight 140 lb Physical Exam 2 Narrative: Patient breathing with significant stridor. Patient's voice is gravelly but able to converse. Const: COMMON NORMALS: patient oriented x3 OTHER: Patient is confined to bed with his kyphosis significant causing hunch back and bend of his neck and head anteriorly compromising his anterior neck. HENMT: COMMON NORMALS: normocephalic, atraumatic, hearing grossly normal bilaterally, external ears normal, Normal external nose present and oropharynx normal HEAD & SCALP: normocephalic and atraumatic FACE & SINUS: normal facial exam and face symmetric NOSE: Normal external nose present, Normal nares present and No nasal polyps present EXTERNAL EAR: Yes external ears normal MOUTH: Normal oral and palatal mucosa present, lip normal and tongue normal THROAT: posterior oropharynx normal and uvula midline (With mild edema probably from snoring.) Eye: COMMON NORMALS: Equal, round and reactive pupils present, EOMs intact bilaterally, conjunctivae normal and no scleral icterus CONJUNCTIVA: Yes conjunctivae normal PUPIL: Yes Equal, round and reactive pupils present Neck/C-Spine: OTHER: The patient's neck is very difficult to assess as he is bent so much at the neck with a head and chin forward and the kyphosis causing virtually no access to the larynx and tracheal region. The sternal notch can be appreciated and virtually the body of the laryngeal framework is immediately above that. There is no access point for a potential tracheotomy. Resp: OTHER: Significant stridor which appears to be at the glottic and possibly supraglottic region. Seems to be emanating based on CT scan at the glottis and posterior glottic tissue. Neuro: COMMON NORMALS: patient oriented x3 Data 08/03/23 07:31 08/03/23 13:00 Micro: Microbiology 08/03/23 07:55 Blood Culture - Preliminary Blood SPECIMEN COLLECTED 08/03/23 07:50 Blood Culture - Preliminary Blood SPECIMEN COLLECTED Other data: I read the CT scan myself. The airway compromise appears to be at the glottis and there is a soft tissue fullness at the aspect of the glottis and projecting anteriorly. It is possible that this is a mass effect or hypertrophic cricopharyngeus muscle. 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 Evidence of soft tissue fullness involving the glottis emanating from posterior to anterior. Patient able to communicate with voice that shows gravelly quality. Inspiratory stridor present. Qualifiers: Kyphosis type: other Spinal region: cervicothoracic Qualified Code(s): M40.293 - Other kyphosis, cervicothoracic region (2) Inspiratory stridor: Plan Plan: There is no flexible laryngoscope available for evaluation of the patient's laryngeal airway region. The patient and his have chosen a DNR status with no extraordinary care such as intubation or tracheotomy attempt. Anesthesia was previously called and was present to try and intubate the patient. The chose not to pursue that. Any attempt to perform a tracheostomy would be extremely difficult and potentially hazardous. The patient and his are choosing not to proceed with any further treatment other than use of steroids and see if his airway improves. Therefore no further evaluation or treatment will be rendered at this time. Coding Level of Care Code Acute Code for Chg Fwd Diagnoses Other kyphosis of cervicothoracic region M40.293 Kyphosis type: other Spinal region: cervicothoracic Inspiratory stridor R06.1
[2023-08-03 17:26] LABS: Lactic Acid level (Lactate) 1.2 mmol/L (0.5-2.2)
--- NOTE | 2023-08-03 18:25 | PC.NURSE ---
CALLED DR. HERNÁNDEZ ABOUT SCHEDULED ATORVASTATIN. PATIENT DID NOT TOLERATE DRINKING WATER WELL EARLIER. DR HERNÁNDEZ AGREED TO HOLD ORAL MED UNTIL TOMORROW WHEN SWALLOW STUDY CAN BE COMPLETED.
[2023-08-03] MEDS: methylPREDNISolone sod succ 125 mg/2 mL INJ 60 MG IVP (18:38)
--- NOTE | 2023-08-03 20:41 | PC.NURSE ---
Report was called to GABRIELA Reynaga in ICU. All questions and concerns were addressed at time of report.
[2023-08-03 21:03] LABS: Blood Urea Nitrogen 8 mg/dL (8-23); Calcium 8.5 mg/dL (8.5-10.5); Carbon Dioxide 28 mmol/L (22-29); Chloride 87 mmol/L (98-107); Creatinine Clr Calc Pharmacy 66.6326; Glucose 123 mg/dL (65-115); Osmolality Calculated 258 mOsm/kg (285-295); Sodium 124 mmol/L (136-145)
[2023-08-03 22:26] LABS: Blood Urea Nitrogen 8 mg/dL (8-23); Calcium 8.5 mg/dL (8.5-10.5); Carbon Dioxide 29 mmol/L (22-29); Chloride 87 mmol/L (98-107); Creatinine Clr Calc Pharmacy 66.6326; Glucose 126 mg/dL (65-115); Osmolality Calculated 262 mOsm/kg (285-295); Sodium 126 mmol/L (136-145)
[2023-08-03 22:32] LABS: Anion Gap 13.7 (5-19); Potassium 3.7 mmol/L (3.5-5.1)
[2023-08-04] VITALS (43 sets, daily range): BP systolic 111–175; BP diastolic 61–99; PULSE 73–91; RESP 14–23; TEMP 36.6–37; O2SAT 90–98; BMI 22.3
[2023-08-04 01:22] LABS: Sodium 127 mmol/L (136-145)
[2023-08-04] MEDS: methylPREDNISolone sod succ 125 mg/2 mL INJ 60 MG IVP ×3 (02:26→17:19)
--- NOTE | 2023-08-04 02:37 | PC.NURSE ---
Dr. Raman ordered for fluids to be stopped and to re draw a sodium in 2 hours.
[2023-08-04 03:00] LABS: Anion Gap 11.6 (5-19); Blood Urea Nitrogen 9 mg/dL (8-23); Calcium 8.2 mg/dL (8.5-10.5); Carbon Dioxide 30 mmol/L (22-29); Chloride 88 mmol/L (98-107); Creatinine Clr Calc Pharmacy 64.6975; Glucose 123 mg/dL (65-115); Osmolality Calculated 262 mOsm/kg (285-295); Potassium 3.6 mmol/L (3.5-5.1); Sodium 126 mmol/L (136-145)
[2023-08-04 04:14] LABS: Hematocrit 31.7 % (37-53); Lymphocytes # 48.4 10^3/uL (0.8-4.8); Lymphocytes % 86.2 %; Mean Corpuscular HGB Conc 34.4 g/dL (30-55); Mean Corpuscular Hemoglobin 32.2 pg (27-33); Mean Corpuscular Volume 93.8 fl (82-101); Mean Platelet Volume 8.1 fL (7.4-10.4); Monocytes # 0.8 10^3/uL (0.2-0.9); Monocytes % 1.4 %; Neutrophils # 6.84 10^3/uL (1.8-7.7); Neutrophils % 12.2 %; Nucleated Red Blood Cells % 0 %; Platelet Count 457 10^3/cmm (157-399); Red Blood Count 3.38 10^6/uL (3.85-5.65); Red Cell Distribution Width 12.1 % (12.1-15.1)
[2023-08-04 04:35] LABS: Alanine Aminotransferase 27 U/L (0-41); Albumin Level 3.6 g/dL (3.5-5.2); Alkaline Phosphatase 175 U/L (40-130); Anion Gap 10.7 (5-19); Aspartate Amino Transferase 42 U/L (0-40); Blood Urea Nitrogen 10 mg/dL (8-23); Calcium 8.3 mg/dL (8.5-10.5); Carbon Dioxide 31 mmol/L (22-29); Chloride 89 mmol/L (98-107); Creatinine Clr Calc Pharmacy 64.6975; Glucose 128 mg/dL (65-115); Magnesium 2.2 mg/dL (1.7-2.3); Osmolality Calculated 265 mOsm/kg (285-295); Potassium 3.7 mmol/L (3.5-5.1); Sodium 127 mmol/L (136-145); Total Protein 5.6 g/dL (6.6-8.7)
[2023-08-04 05:03] LABS: Slide Review Slide Review Perform
[2023-08-04 05:04] LABS: White Blood Count 56.12 10^3/uL (3.29-11.43)
[2023-08-04] MEDS: heparin 5,000 unit/mL INJ 1 mL 5000 UNIT SUBCUT ×2 (05:39→16:29)
[2023-08-04] MEDS: aspirin 81 mg EC Tablet PO (05:53)
--- NOTE | 2023-08-04 06:38 | P.PN_ITS ---
Documented by User: Cathy Ball MD 08/04/23 12:19 Subjective 2 Subjective: Patient appears better than yesterday. ? Unable to appreciate audible stridor when visiting him in the room. ? at bedside ? Patient endorses feeling better. Sodium 127 this a.m., potassium 3.4. States he looks forward to work with physical therapy today. Vitals/I&O/Wt Last Vital Signs Temp 98.3 F 08/03/23 19:10 Pulse 75 08/04/23 06:00 Resp 14 08/04/23 06:00 BP 156/76 08/04/23 06:00 Pulse Ox 91 08/04/23 06:00 O2 Del Method Nasal Cannula 08/04/23 06:00 O2 Flow Rate 2 08/04/23 06:00 08/03/23 08/03/23 08/04/23 14:59 22:59 06:59 Intake Total 590 / 590 Output Total 1400 / 1400 650 / 2050 Balance -810 / -810 -650 / -1460 Weight last 48 hrs Weight 59.08 kg Weight 59.08 kg Weight 59.08 kg Weight 63.503 kg Physical Exam 2 Narrative: General: Comfortable appearing patient, resting in bed, alert and oriented x 3, speech appropriate, unable to appreciate stridor today. HEENT: Head atraumatic, normocephalic to visual inspection, PERRL, no scleral injection or icterus noted, neck supple, no thyromegaly noted. CV: Normal rate and rhythm, S1-S2 noted, no murmurs rubs or gallops noted. Pulm: Stridor present, audible without stethoscope, bilateral lung bases diminished, upper lobes clear to auscultation bilaterally. GI: Abdomen soft and nontende tender, bowel sounds present all quadrants. Extremities: Mild edema noted in lower extremities bilaterally, otherwise normal. Data 08/04/23 04:00 08/04/23 10:05 Micro: Microbiology 08/03/23 07:55 Blood Culture - Preliminary Blood SPECIMEN COLLECTED 08/03/23 07:50 Blood Culture - Preliminary Blood SPECIMEN COLLECTED A&P Assessment and plan (1) Hyponatremia: (2) Chronic prostatitis: (3) Chronic lymphocytic leukemia: (4) Compression fracture: (5) Heart failure: Plan # Stridor, shortness of breath, unsure etiology #Possibly laryngeal stenosis?, Mild narrowing at larynx on neck CT, unsure etiology #Shortness of breath 2/2 to above #Severe hyponatremia #Chronic congestive heart failure, not previously diagnosed? #Arthritis, Back pain, kyphosis #CLL #HLD, HTN #GERD - Repeat BMP to confirm low NA - Admit to ICU - Place central line for potentially hypertonic saline - Lasix 40 IV given in ER - Place on lasix 40 IV BID - Check cardiac ECHO - Chest chest CT, neck CT, PE protocol - Check urine sodium, serum osm, urine osm - Check peripheral blood smear - Flow cytometry leukemia/lymphoma panel - Check resp viral panel?negative - Place on levofloxacin 750 daily for empiric coverage - Order BIPAP if needed. - Patient DNR/DNI as per patient and family - Check CBC, CMP, MAG in AM - COntinue aspirin, plavix, - COntinue lisnopril - First 2 trops complete, delta 3.84, 6 hour troponin 32.29, delta 5.29. - Check urine lytes ?ENT consult, appreciated. ENT reports that they are unable to scope him at this time. ? Anesthesia was requested by ER for possible intubation however family has declined at this time. They are okay with supportive care. ? Placed on Solu-Medrol 60 twice daily. Dexamethasone 10 IV x 1 given in ER ? Frequent suctioning as needed ? Check sodium every 4 hours. Goal correction no more than 6-8 with hard max of 10 in 24-hour period. ??Sodium this morning 127?will administer D5W to prevent overcorrection. -Discussed all the above multiple times with , patient, RN, ER physician, ENT Dr. ?Will move the patient from ICU care to floor today. As patient's respiratory status is improving, will continue steroid therapy and fluids. DNR/DNI DVT PPX: Heparin Subc BID Today's plan 08/03 ? Neck CT shows narrowing of airway at level of larynx which may be resulting in patient's stridor. Concerning for laryngeal stenosis. Unknown etiology at this time however has improved with steroids started are no longer appreciated. ? Continue Solu-Medrol 60 twice daily. Will transition to oral prednisone at discharge x 5 days ? Continue levofloxacin 750 daily for possible pneumonia and left lower lobe. ? Sodium 127 closer to patient's baseline. Patient self corrected. Fluids were stopped yesterday. ? Continue to monitor sodiums. ? Discussed with nephrology. We do not need to use D5 to reverse the overcorrection as patient self corrected. ? Patient's symptoms have improved and he is back to his baseline. ? However we will keep him in the hospital for another 24 hours for monitoring. ? Transfer to medical surgical floor today. Potentially discharge home in a.m. as long as he continues to progress in a positive direction. Diagnoses Hyponatremia E87.1 Chronic prostatitis N41.1 Chronic lymphocytic leukemia C91.10 Compression fracture Heart failure I50.9 Documented by User: Jose A Aburto [facility] 08/04/23 10:49 Subjective 2 Subjective: Mr. Friedman reports that he is breathing little easier today, his stridor is less prominent. He states he is able to converse easier, and his shortness of breath has improved. He denies any confusion, audiovisual hallucinations, and is alert and oriented today. No acute events overnight. He denies any headache, dizziness, changes in vision, chest pain or palpitations, shortness of breath, nausea, vomiting, diarrhea, or extremity concerns. He reports no other concerns. Medications: Reviewed: Yes Physical Exam 2 Narrative: General: Comfortable appearing patient, resting in bed, alert and oriented x 3, speech appropriate, stridor still audible?improved from yesterday. HEENT: Head atraumatic, normocephalic to visual inspection, PERRL, no scleral injection or icterus noted, neck supple, no thyromegaly noted. CV: Normal rate and rhythm, S1-S2 noted, no murmurs rubs or gallops noted. Pulm: Stridor present, audible without stethoscope, bilateral lung bases diminished, upper lobes clear to auscultation bilaterally. GI: Abdomen soft and nontende tender, bowel sounds present all quadrants. Extremities: Mild edema noted in lower extremities bilaterally, otherwise normal. Data 08/04/23 04:00 08/04/23 10:05 Other data: I read the CT scan myself. The airway compromise appears to be at the glottis and there is a soft tissue fullness at the aspect of the glottis and projecting anteriorly. It is possible that this is a mass effect or hypertrophic cricopharyngeus muscle. A&P Assessment and plan (1) Hyponatremia: (2) Chronic prostatitis: (3) Chronic lymphocytic leukemia: (4) Compression fracture: (5) Heart failure: Plan # Stridor, shortness of breath, unsure etiology #Possibly laryngeal stenosis?, Mild narrowing at larynx on neck CT, unsure etiology #Shortness of breath 2/2 to above #Severe hyponatremia #Chronic congestive heart failure, not previously diagnosed? #Arthritis, Back pain, kyphosis #CLL #HLD, HTN #GERD - Repeat BMP to confirm low NA - Admit to ICU - Place central line for potentially hypertonic saline - Lasix 40 IV given in ER - Place on lasix 40 IV BID - Check cardiac ECHO - Chest chest CT, neck CT, PE protocol - Check urine sodium, serum osm, urine osm - Check peripheral blood smear - Flow cytometry leukemia/lymphoma panel - Check resp viral panel?negative - Place on levofloxacin 750 daily for empiric coverage - Order BIPAP if needed. - Patient DNR/DNI as per patient and family - Check CBC, CMP, MAG in AM - COntinue aspirin, plavix, - COntinue lisnopril - First 2 trops complete, delta 3.84, 6 hour troponin 32.29, delta 5.29. - Check urine lytes ?ENT consult, appreciated. ENT reports that they are unable to scope him at this time. ? Anesthesia was requested by ER for possible intubation however family has declined at this time. They are okay with supportive care. ? Placed on Solu-Medrol 60 twice daily. Dexamethasone 10 IV x 1 given in ER ? Frequent suctioning as needed ? Check sodium every 4 hours. Goal correction no more than 6-8 with hard max of 10 in 24-hour period. ??Sodium this morning 127?will administer D5W to prevent overcorrection. -Discussed all the above multiple times with , patient, RN, ER physician, ENT Dr. ?Will move the patient from ICU care to floor today. As patient's respiratory status is improving, will continue steroid therapy and fluids. DNR/DNI DVT PPX: Heparin Subc BID Attestations 2 Medical Necessity Statement*: > 2 midnight stay for mgmt of hyponatremia, resp distress, sob Coding Level of Care Code 18605 Diagnoses Hyponatremia E87.1 Chronic prostatitis N41.1 Chronic lymphocytic leukemia C91.10 Compression fracture Heart failure I50.9
[2023-08-04 07:07] LABS: Anion Gap 12.6 (5-19); Blood Urea Nitrogen 9 mg/dL (8-23); Calcium 8.3 mg/dL (8.5-10.5); Carbon Dioxide 29 mmol/L (22-29); Chloride 89 mmol/L (98-107); Creatinine Clr Calc Pharmacy 64.6975; Glucose 147 mg/dL (65-115); Osmolality Calculated 265 mOsm/kg (285-295); Potassium 3.6 mmol/L (3.5-5.1); Sodium 127 mmol/L (136-145)
[2023-08-04] MEDS: clopidogrel 75 mg Tablet PO (08:29)
[2023-08-04] MEDS: pantoprazole 40 mg SDV IVP (08:29)
[2023-08-04] MEDS: lisinopril 20 mg Tablet PO (08:29)
[2023-08-04] MEDS: levofloxacin-dextrose 5 % 750 MG/150 ML PREMIX 100 MG IV (08:29)
[2023-08-04 10:42] LABS: Anion Gap 10.4 (5-19); Blood Urea Nitrogen 10 mg/dL (8-23); Calcium 8.1 mg/dL (8.5-10.5); Carbon Dioxide 31 mmol/L (22-29); Chloride 89 mmol/L (98-107); Creatinine Clr Calc Pharmacy 64.6975; Glucose 147 mg/dL (65-115); Osmolality Calculated 266 mOsm/kg (285-295); Potassium 3.4 mmol/L (3.5-5.1); Sodium 127 mmol/L (136-145)
--- NOTE | 2023-08-04 12:04 | P.CONIM_ITS ---
Providers/Reason For Consult 2 Consulting Physician/Specialty*: Del Jennings MD/otolaryngology Reason for Consult*: Airway compromise Requesting Physician: Dr. Asher Attending Physician: Cathy Ball MD Primary Care Provider: Manolo Centeno DO History of Present Illness History of Present Illness Reilly Friedman is a 77 year old male who had respiratory stridor and airway compromise seen in emergency room yesterday. Patient and his refused any significant intervention. Did not want intubation. I completed the consultation yesterday. Nothing more to add. Medications/Allergies Home Medications Medication Instructions Recorded Confirmed Last Taken Type aspirin 81 mg tablet,delayed 81 mg PO QAM 10/09/19 08/03/23 08/02/23 History release (Adult Low Dose Aspirin) acetaminophen 500 mg tablet 1,000 mg (2 x 500 mg) PO Q6H PRN 07/20/22 08/03/23 12/28/22 Rx Pain 14 days #25 tabs docusate sodium 100 mg capsule 100 mg PO BID PRN Constipation 02/24/23 08/03/23 Unknown History amlodipine 10 mg tablet 10 mg PO DAILY #90 tabs 05/30/23 08/03/23 07/16/23 Rx omeprazole 20 mg capsule,delayed 20 mg PO QAM #90 caps 06/09/23 08/03/23 07/16/23 Rx release calcium carbonate 500 mg PO BID 07/16/23 08/03/23 07/16/23 History chlorhexidine gluconate 0.12 % See Rx Instructions .Route .COMPLEX 07/16/23 08/03/23 07/16/23 History mouthwash simvastatin 40 mg tablet 40 mg PO QPM 07/16/23 08/03/23 07/15/23 History tamsulosin 0.4 mg capsule 0.4 mg PO DAILY 07/16/23 08/03/23 07/16/23 History docusate sodium 100 mg capsule 100 mg PO BID 30 days #60 caps 07/19/23 08/03/23 Unknown Rx metoprolol tartrate 25 mg tablet 12.5 mg (1/2 x 25 mg) PO Q12H 30 07/19/23 08/03/23 Unknown Rx days #30 tabs cholecalciferol (vitamin D3) 1,250 50,000 unit PO BID #180 tabs 07/26/23 08/03/23 Unknown Rx mcg (50,000 unit) tablet Lactobacillus rhamnosus GG 10 1 cap PO DAILY 08/03/23 08/03/23 08/02/23 History billion cell capsule (Culturelle) albuterol sulfate 2.5 mg/3 mL 2.5 mg continuous nebulization Q4H 08/03/23 08/03/23 Unknown History (0.083 %) solution for nebulization PRN Shortness Of Breath bisacodyl 10 mg rectal suppository 10 mg NV DAILY PRN Constipation 08/03/23 08/03/23 Unknown History (Dulcolax (bisacodyl)) clopidogrel 75 mg tablet 75 mg PO DAILY 08/03/23 08/03/23 Unknown History fluticasone propionate 50 1 spray intranasal DAILY 08/03/23 08/03/23 Unknown History mcg/actuation nasal spray,suspension levofloxacin 750 mg tablet 750 mg PO DAILY 08/03/23 08/03/23 Unknown History lisinopril 20 mg tablet 20 mg PO DAILY 08/03/23 08/03/23 Unknown History magnesium hydroxide 400 mg/5 mL 30 ml PO DAILY PRN Constipation 08/03/23 08/03/23 Unknown History oral suspension (Milk of Magnesia) prednisone 20 mg tablet 40 mg PO DAILY 08/03/23 08/03/23 08/02/23 History sodium phosphates 19 gram-7 118 ml NV DAILY PRN Constipation 08/03/23 08/03/23 Unknown History gram/197 mL enema (Fleet Enema Extra) Allergies Allergy/AdvReac Type Severity Reaction Status Date / Time meperidine [From Demerol] Allergy Unknown UNKNOWN Verified 07/16/23 14:02 Penicillins Allergy Unknown Unknown Verified 07/16/23 14:02 Sulfa (Sulfonamide Allergy Unknown UNKNOWN Verified 07/16/23 14:02 Antibiotics) CELERY SEED Allergy Severe ALGY-Difficulty Uncoded 06/23/23 11:54 Breathing Current Medications Generic Name Dose Route Start Last Admin Trade Name Freq PRN Reason Stop Dose Admin Aspirin 81 mg 08/04/23 06:00 08/04/23 05:53 Aspirin 81 Mg Ec Tablet PO 81 mg QAM FLORINA Administration Atorvastatin Calcium 40 mg 08/03/23 18:00 08/03/23 18:27 Atorvastatin 40 Mg Tablet PO Not Given QPM FLORINA Clopidogrel Bisulfate 75 mg 08/04/23 09:00 08/04/23 08:29 Clopidogrel 75 Mg Tablet PO 75 mg DAILY FLORINA Administration Heparin Sodium (Porcine) 5,000 unit 08/03/23 16:45 08/04/23 05:39 Heparin 5,000 Unit/Ml Inj 1 Ml SUBCUT 5,000 unit Q12H FLORINA Administration Levofloxacin/Dextrose 750 mg in 150 mls @ 100 mls/hr 08/04/23 09:00 08/04/23 08:29 Levaquin-D5w IV 100 mls/hr DAILY FLORINA Administration Protocol Lisinopril 20 mg 08/04/23 09:00 08/04/23 08:29 Lisinopril 20 Mg Tablet PO 20 mg DAILY FLORINA Administration Methylprednisolone Sodium Succinate 60 mg 08/03/23 18:30 08/04/23 02:26 Methylprednisolone Sod Succ 125 Mg/2 Ml Inj IVP 60 mg Q8H FLORINA Administration Pantoprazole Sodium 40 mg 08/04/23 09:00 08/04/23 08:29 Pantoprazole 40 Mg Sdv IVP 40 mg DAILY FLORINA Administration PFSH Acute 2 PFSH: Medical History Hyperlipidemia Depression Pathologic thoracic fracture Hyponatremia Acute urinary retention Acute hypokalemia Traumatic compression fracture of T12 thoracic vertebra Back pain Chronic lymphocytic leukemia GERD (gastroesophageal reflux disease) History of stroke (04/2018) Dyslipidemia Degenerative arthritis HTN (hypertension) BPH w urinary obs/LUTS Chronic prostatitis Surgical History History of kyphoplasty H/O Mohs micrographic surgery for skin cancer (2018) S/P arthroscopic surgery of left knee Hx of bilateral inguinal hernia repair Family History Father , AT AGE 84 PROSTATE CANCER Cancer Mother , AT AGE 84 Hypertension CAD (coronary artery disease) Sister Dementia Other Hyperlipidemia Stroke Denies family history of Diabetes Clotting disorder Psychiatric illness Chronic kidney disease (CKD) Suicide Anesthesia complication Bleeding disorder Lung disease Social History Smoking and tobacco/nicotine status: never used tobacco/nicotine Alcohol intake: never Substance/Drug Use: unknown Adopted: No Caregiver/support person: No Lives independently: No Household members: spouse Marital status: Current occupational status: employed Vitals/I&O/Wt Last Vital Signs Temp 98.0 F 08/04/23 07:41 Pulse 78 08/04/23 10:00 Resp 17 08/04/23 10:00 BP 142/81 08/04/23 10:00 Pulse Ox 94 08/04/23 10:00 O2 Del Method Nasal Cannula 08/04/23 06:00 O2 Flow Rate 2 08/04/23 06:00 08/03/23 08/04/23 08/04/23 22:59 06:59 14:59 Intake Total 590 / 590 Output Total 1400 / 1400 650 / 2050 700 / 700 Balance -810 / -810 -650 / -1460 -700 / -700 Weight last 48 hrs Weight 130 lb 4 oz Weight 130 lb 4 oz Weight 130 lb 4 oz Weight 140 lb Data 08/04/23 04:00 08/04/23 10:05 Micro: Microbiology 08/03/23 07:55 Blood Culture - Preliminary Blood NEGATIVE TO DATE 08/03/23 07:50 Blood Culture - Preliminary Blood NEGATIVE TO DATE Coding Level of Care Code Acute Code for Chg Fwd
[2023-08-04 13:01] LABS: Leukemia Profile (BBPL) See Report
[2023-08-04 14:58] LABS: Osmolality Serum 234 mOsm/kg (278-305)
[2023-08-04 14:58] LABS: Osmolality Urine 538 mOsm/kg (50-1200)
[2023-08-04 15:11] LABS: Anion Gap 12.5 (5-19); Blood Urea Nitrogen 12 mg/dL (8-23); Calcium 8.2 mg/dL (8.5-10.5); Carbon Dioxide 28 mmol/L (22-29); Chloride 89 mmol/L (98-107); Creatinine Clr Calc Pharmacy 64.6975; Glucose 128 mg/dL (65-115); Osmolality Calculated 263 mOsm/kg (285-295); Potassium 3.5 mmol/L (3.5-5.1); Sodium 126 mmol/L (136-145)
[2023-08-04] MEDS: atorvastatin 40 mg Tablet PO (17:19)
[2023-08-04 18:36] LABS: Anion Gap 9.4 (5-19); Blood Urea Nitrogen 12 mg/dL (8-23); Calcium 7.7 mg/dL (8.5-10.5); Carbon Dioxide 30 mmol/L (22-29); Chloride 92 mmol/L (98-107); Creatinine Clr Calc Pharmacy 64.6975; Glucose 153 mg/dL (65-115); Osmolality Calculated 269 mOsm/kg (285-295); Potassium 3.4 mmol/L (3.5-5.1); Sodium 128 mmol/L (136-145)
[2023-08-04 23:29] LABS: Anion Gap 10.5 (5-19); Blood Urea Nitrogen 13 mg/dL (8-23); Calcium 8.5 mg/dL (8.5-10.5); Carbon Dioxide 29 mmol/L (22-29); Chloride 88 mmol/L (98-107); Creatinine Clr Calc Pharmacy 64.6975; Glucose 146 mg/dL (65-115); Osmolality Calculated 261 mOsm/kg (285-295); Potassium 3.5 mmol/L (3.5-5.1); Sodium 124 mmol/L (136-145)
[2023-08-05] VITALS (7 sets, daily range): BP systolic 152–169; BP diastolic 78–83; PULSE 62–90; RESP 16–18; TEMP 36.5–36.7; O2SAT 90–97
[2023-08-05] MEDS: methylPREDNISolone sod succ 125 mg/2 mL INJ 60 MG IVP ×2 (01:49→11:03)
[2023-08-05 03:25] LABS: Anion Gap 9.5 (5-19); Blood Urea Nitrogen 12 mg/dL (8-23); Calcium 8.2 mg/dL (8.5-10.5); Carbon Dioxide 30 mmol/L (22-29); Chloride 88 mmol/L (98-107); Creatinine Clr Calc Pharmacy 64.6975; Glucose 133 mg/dL (65-115); Osmolality Calculated 260 mOsm/kg (285-295); Potassium 3.5 mmol/L (3.5-5.1); Sodium 124 mmol/L (136-145)
[2023-08-05] MEDS: aspirin 81 mg EC Tablet PO (05:13)
[2023-08-05] MEDS: heparin 5,000 unit/mL INJ 1 mL 5000 UNIT SUBCUT (05:13)
[2023-08-05 05:55] LABS: Hematocrit 32.7 % (37-53); Mean Corpuscular Hemoglobin 32.1 pg (27-33); Mean Corpuscular Volume 97.3 fl (82-101); Mean Platelet Volume 8.3 fL (7.4-10.4); Platelet Count 441 10^3/cmm (157-399); Red Blood Count 3.36 10^6/uL (3.85-5.65); Red Cell Distribution Width 12.5 % (12.1-15.1)
[2023-08-05 06:12] LABS: Alanine Aminotransferase 26 U/L (0-41); Albumin Level 3.4 g/dL (3.5-5.2); Alkaline Phosphatase 156 U/L (40-130); Blood Urea Nitrogen 12 mg/dL (8-23); Calcium 8.2 mg/dL (8.5-10.5); Carbon Dioxide 28 mmol/L (22-29); Chloride 91 mmol/L (98-107); Glucose 145 mg/dL (65-115); Osmolality Calculated 268 mOsm/kg (285-295); Sodium 128 mmol/L (136-145); Total Bilirubin 0.8 mg/dL (0.15-1.2); Total Protein 5.4 g/dL (6.6-8.7)
[2023-08-05 06:17] LABS: Anion Gap 12.9 (5-19); Aspartate Amino Transferase 28 U/L (0-40); Creatinine Clr Calc Pharmacy 40.1363; Potassium 3.9 mmol/L (3.5-5.1)
[2023-08-05 06:53] LABS: Slide Review Slide Review Perform
[2023-08-05 06:54] LABS: Absolute Segmented Neutrophil 13.9 10/cmm (1.6-7.1); Segmented Neutrophils 21 %; Total Cells Counted 100 (0-100); White Blood Count 66.37 10^3/uL (3.29-11.43)
[2023-08-05 06:55] LABS: Absolute Neutrophil 13.9 10^3/cmm (1.4-6.5); Eosinophils 0 %; Lymphocytes 79 %; Lymphocytes Absolute 52.4 10^3/cmm (1.2-3.4); Platelet Estimate Increased (Normal)
[2023-08-05] MEDS: levofloxacin-dextrose 5 % 750 MG/150 ML PREMIX 100 MG IV (08:30)
[2023-08-05] MEDS: clopidogrel 75 mg Tablet PO (08:31)
[2023-08-05] MEDS: pantoprazole 40 mg SDV IVP (08:31)
[2023-08-05] MEDS: lisinopril 20 mg Tablet PO (08:31)
[2023-08-05 10:27] LABS: Anion Gap 11.7 (5-19); Blood Urea Nitrogen 12 mg/dL (8-23); Calcium 8.2 mg/dL (8.5-10.5); Carbon Dioxide 29 mmol/L (22-29); Chloride 89 mmol/L (98-107); Glucose 147 mg/dL (65-115); Osmolality Calculated 264 mOsm/kg (285-295); Potassium 3.7 mmol/L (3.5-5.1); Sodium 126 mmol/L (136-145)
[2023-08-05 10:29] LABS: Creatinine Clr Calc Pharmacy 40.1363
[2023-08-05] MEDS: acetaminophen 500 mg Tablet 1000 MG PO (11:03)
[2023-08-05 11:19] LABS: SARS Covid-2 Antigen negative (Negative)
--- NOTE | 2023-08-05 11:41 | PM.DCS ---
Discharge Providers Date of Admission: 08/03/23 13:20 Date of Discharge: August 05, 2023 Attending Provider at Admission: Cathy Ball MD Attending Provider at Discharge: Catyh Ball MD Primary Care Provider: Manolo Centeno DO Diagnoses at Discharge Discharge Diagnosis (1) Hyponatremia: Status: Acute Reason for Visit Reason for Visit: Resp distress Hospital Course Hospital Course Initially presented for shortness of breath and stridor. Etiology unknown. ENT was also consulted however flexible laryngoscopy was not available. Patient elected to be DNR/DNI status and declined to pursue aggressive management. He was kept on IV steroids which helped with stridor and it resolved. 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 Patient discharged home on oral prednisone taper and to follow-up with primary care doctor as an outpatient. Secondly patient was severely hyponatremic with sodium of 114. He was kept on IV fluids and later on on fluid restriction. Patient was corrected. Nephrology was on board and following. Sodium back to baseline 127 128 range. Patient discharged home. Physical Exam Narrative: General: Comfortable appearing patient, resting in bed, alert and oriented x 3, speech appropriate, unable to appreciate stridor today. HEENT: Head atraumatic, normocephalic to visual inspection, PERRL, no scleral injection or icterus noted, neck supple, no thyromegaly noted. CV: Normal rate and rhythm, S1-S2 noted, no murmurs rubs or gallops noted. Pulm: Stridor present, audible without stethoscope, bilateral lung bases diminished, upper lobes clear to auscultation bilaterally. GI: Abdomen soft and nontende tender, bowel sounds present all quadrants. Extremities: Mild edema noted in lower extremities bilaterally, otherwise normal. Discharge Data Studies Completed and Pending Completed Studies During Hospitalization Category Date Time Status CT chest w con* [id number] Stat Cat Scan 08/03/23 12:[address] neck w con* [id number] Stat Cat Scan 08/03/23 11:16 Completed XR chest 1V portable [id number] Stat Exams 08/03/23 07:37 Completed XR chest 1V portable [id number] Stat Exams 08/03/23 13:36 Completed CV. echo limited [id number] Stat Ultrasound 08/03/23 12:53 Completed Pending at discharge Category Date Time Status BMP [Basic Metabolic Panel] Q4H Lab 08/05/23 14:21 Ordered Blood Culture Stat Lab 08/03/23 07:55 Results Complete Blood Count w/Auto DAILY Lab 08/06/23 10:00 Ordered Comprehensive Metabolic Panel AM LABS Lab 08/06/23 04:00 Ordered Sputum Culture and Gram Stain Stat Lab 08/03/23 12:17 Uncollected Radiology Impressions Chest X-Ray 08/03/23 13:36 IMPRESSION: 1. Adequately positioned central venous catheter. 2. Mild left lower lung atelectasis. More confluent airspace opacification on comparison chest CT not well visualized on current exam. Laboratory Results WBC 66.37 10^3/uL (3.29-11.43) H* 08/05/23 05:42 RBC 3.36 10^6/uL (3.85-5.65) L 08/05/23 05:42 Hgb 10.80 g/dL (11.27-16.99) L 08/05/23 05:42 Hct 32.7 % (37-53) L 08/05/23 05:42 MCV 97.3 fl (82-101) 08/05/23 05:42 MCH 32.1 pg (27-33) 08/05/23 05:42 MCHC 33.0 g/dL (30-55) 08/05/23 05:42 RDW 12.5 % (12.1-15.1) 08/05/23 05:42 Plt Count 441 10^3/cmm (157-399) H 08/05/23 05:42 MPV 8.3 fL (7.4-10.4) 08/05/23 05:42 Neut % (Auto) Anesthesiologist Physician 08/05/23 05:42 Lymph % (Auto) Anesthesiologist Physician 08/05/23 05:42 [place] % (Auto) Anesthesiologist Physician 08/05/23 05:42 Eos % (Auto) Anesthesiologist Physician 08/05/23 05:42 Baso % (Auto) Anesthesiologist Physician 08/05/23 05:42 Neut # (Auto) Anesthesiologist Physician 08/05/23 05:42 Lymph # (Auto) Anesthesiologist Physician 08/05/23 05:42 [place] # (Auto) Anesthesiologist Physician 08/05/23 05:42 Eos # (Auto) Anesthesiologist Physician 08/05/23 05:42 Baso # (Auto) Anesthesiologist Physician 08/05/23 05:42 Nucleated RBC % (auto) Anesthesiologist Physician 08/05/23 05:42 Total Counted 100 (0-100) 08/05/23 05:42 Atypical Lymphs % 0.0 % (0-5) 08/05/23 05:42 Absolute Neutrophils 13.9 10^3/cmm (1.4-6.5) H 08/05/23 05:42 Segmented Neutrophils 21 % 08/05/23 05:42 Abs Segm Neuts (Man) 13.9 10/cmm (1.6-7.1) H 08/05/23 05:42 Band Neutrophils 0.0 % 08/05/23 05:42 Abs Band Neuts (Man) 0.0 10^3/cmm (0.0-1.2) 08/05/23 05:42 Absolute Lymphocytes 52.4 10^3/cmm (1.2-3.4) H 08/05/23 05:42 Lymphocytes (Manual) 79 % 08/05/23 05:42 Monocytes (Manual) 0.0 % 08/05/23 05:42 Absolute Monocytes 0.0 10^3/cmm (0.1-0.6) L 08/05/23 05:42 Eosinophils (Manual) 0 % 08/05/23 05:42 Absolute Eosinophils 0.0 10^3/cmm (0.0-0.7) 08/05/23 05:42 Basophils (Manual) 0.0 % 08/05/23 05:42 Absolute Basophils 0.0 10^3/cmm (0.0-0.2) 08/05/23 05:42 Nucleated RBCs # Anesthesiologist Physician 08/05/23 05:42 Platelet Estimate Increased (Normal) 08/05/23 05:42 Peripher Smr Path Cons Sent for review 08/03/23 07:31 Specimen Type Arterial 08/03/23 09:12 Sample Site Radial, left 08/03/23 09:12 ABG pH 7.38 (7.35-7.45) 08/03/23 09:12 ABG pCO2 43.8 mmHg (35-45) 08/03/23 09:12 ABG pO2 77.6 mmHg (80.0-100.0) L 08/03/23 09:12 ABG HCO3 26.1 mmol/L (22-26) H 08/03/23 09:12 ABG O2 Saturation 96.1 08/03/23 09:12 ABG Base Excess 0.8 mmol/L (-2.0-2.0) 08/03/23 09:12 [place] Test Pos 08/03/23 09:12 A-a O2 Gradient 2.4 mmHg (5-10) L 08/03/23 09:12 Hematocrit 34.1 % (42-52) L 08/03/23 09:12 Hgb O2 Saturation 94.9 % (95-100) L 08/03/23 09:12 Carboxyhemoglobin 1.4 %THgb (0.4-20.1) 08/03/23 09:12 Methemoglobin < 0.0 % (0.4-1.5) L 08/03/23 09:12 Total Hemoglobin 11.1 g/dL (14-18) L 08/03/23 09:12 Sodium 112.0 mmol/L (131-143) L 08/03/23 09:12 Potassium 3.0 mmol/L (3.5-5.0) L 08/03/23 09:12 Glucose 133.0 mg/dL (70-115) H 08/03/23 09:12 Ionized Calcium 1.1 mmol/L (1.1-1.4) 08/03/23 09:12 O2 Delivery Device Nc 08/03/23 09:12 O2 Liters/Min 3.5 % 08/03/23 09:12 Sonar Subsystem Equipment Operator ID glc 08/03/23 09:12 Sodium 126 mmol/L (136-145) L 08/05/23 10:07 Potassium 3.7 mmol/L (3.5-5.1) 08/05/23 10:07 Chloride 89 mmol/L (98-107) L 08/05/23 10:07 Carbon Dioxide 29 mmol/L (22-29) 08/05/23 10:07 Anion Gap 11.7 (5-19) 08/05/23 10:07 BUN 12 mg/dL (8-23) 08/05/23 10:07 Creatinine 0.5 mg/dL (0.7-1.2) L 08/05/23 10:07 GFR Calculation Not Reportable 08/05/23 10:07 Glucose 147 mg/dL (65-115) H 08/05/23 10:07 Serum Osmolality 234 mOsm/kg (278-305) L 08/03/23 13:00 Calculated Osmolality 264 mOsm/kg (285-295) L 08/05/23 10:07 Lactic Acid 2.1 mmol/L (0.5-2.2) 08/03/23 13:00 Lactic Acid (Sepsis) 1.2 mmol/L (0.5-2.2) 08/03/23 16:39 Calcium 8.2 mg/dL (8.5-10.5) L 08/05/23 10:07 Magnesium 2.2 mg/dL (1.7-2.3) 08/04/23 04:00 Total Bilirubin 0.8 mg/dL (0.15-1.2) 08/05/23 05:42 AST 28 U/L (0-40) 08/05/23 05:42 ALT 26 U/L (0-41) 08/05/23 05:42 Alkaline Phosphatase 156 U/L (40-130) H 08/05/23 05:42 Troponin T Baseline 27 ng/L (0-15) H 08/03/23 07:31 Troponin T 120 Minute 30.84 ng/L (0-15) H 08/03/23 09:40 Delta Troponin T 3.84 ABS# (0-10) 08/03/23 09:40 Troponin T Hi Sens 6Hr 32.29 ng/L (0-15) H 08/03/23 13:00 Troponin T Hi Sens 6Hr Delta 5.29 ng/L (0-12) 08/03/23 13:00 NT-Pro-B Natriuret Pep 1365 pg/mL (0-450) H 08/03/23 07:31 Total Protein 5.4 g/dL (6.6-8.7) L 08/05/23 05:42 Albumin 3.4 g/dL (3.5-5.2) L 08/05/23 05:42 Globulin 2.0 g/dL (1.3-4.6) 08/05/23 05:42 Procalcitonin 0.06 ng/mL (0-0.5) 08/03/23 07:31 Urine Color [place] (Yellow) 08/03/23 08:58 Urine Appearance Clear (CLEAR) 08/03/23 08:58 Urine pH 6 (5-7) 08/03/23 08:58 Ur Specific [place] 1.025 (1.005-1.030) 08/03/23 08:58 Urine Protein Neg (Negative) 08/03/23 08:58 Urine Glucose (UA) Norm (Normal) 08/03/23 08:58 Urine Ketones Negative (Negative) 08/03/23 08:58 Urine Blood Neg (Negative) 08/03/23 08:58 Urine Nitrate Negative (Negative) 08/03/23 08:58 Urine Bilirubin Neg (Negative) 08/03/23 08:58 Urine Urobilinogen Norm mg/dL (Negative) 08/03/23 08:58 Ur Leukocyte Esterase Negative (Negative) 08/03/23 08:58 Urine Osmolality 538 mOsm/kg (50-1200) 08/03/23 08:58 Ur Random Sodium 18 mmol/L 08/03/23 08:58 Ur Random Potassium 31 mmol/L 08/03/23 08:58 Ur Random Chloride 30 mmol/L 08/03/23 08:58 Immunophenotype Interp See report 08/03/23 07:31 Adenovirus (PCR) Not detected (NOT DETECT) 08/03/23 07:55 C. pneumoniae DNA (PCR) Not detected (NOT DETECT) 08/03/23 07:55 Coronavirus 229E (PCR) Not detected (NOT DETECT) 08/03/23 07:55 Human Metapneumovir PCR Not detected (NOT DETECT) 08/03/23 07:55 Influenza A (H1) PCR Not detected (NOT DETECT) 08/03/23 07:55 Influ A (H1/09) PCR Not detected (NOT DETECT) 08/03/23 07:55 Influenza A (H3) PCR Not detected (NOT DETECT) 08/03/23 07:55 Influenza Type A (PCR) Not detected (NOT DETECT) 08/03/23 07:55 Influenza Type B (PCR) Not detected (NOT DETECT) 08/03/23 07:55 M. pneumoniae (PCR) Not detected (NOT DETECT) 08/03/23 07:55 Parainfluenza 1 (PCR) Not detected (NOT DETECT) 08/03/23 07:55 Parainfluenza 2 (PCR) Not detected (NOT DETECT) 08/03/23 07:55 Parainfluenza 3 (PCR) Not detected (NOT DETECT) 08/03/23 07:55 Parainfluenza 4 (PCR) Not detected (NOT DETECT) 08/03/23 07:55 RSV Type A (PCR) Not detected (NOT DETECT) 08/03/23 07:55 RSV Type B (PCR) Not detected (NOT DETECT) 08/03/23 07:55 Entero/Rhino (PCR) Not detected (NOT DETECT) 08/03/23 07:55 SARS-CoV-2 (PCR) Not detected (NOT DETECT) 08/03/23 07:55 SARS-CoV-2 Ag (Rapid) negative (Negative) 08/05/23 10:55 Vitals Last Vital Signs Temp 97.8 F 08/05/23 07:21 Pulse 73 08/05/23 11:16 Resp 16 08/05/23 11:16 BP 167/83 08/05/23 11:16 Pulse Ox 93 08/05/23 11:16 O2 Del Method Room Air 08/05/23 11:16 O2 Flow Rate 0 08/05/23 06:50 Discharge Plan Discharge Patient Disposition: Xfer SNF Condition: Stable Prescriptions: Continued aspirin [Adult Low Dose Aspirin] 81 mg tablet,delayed release (DR/EC) 81 mg PO QAM docusate sodium 100 mg capsule 100 mg PO BID PRN (Reason: Constipation) amlodipine 10 mg tablet 10 mg PO DAILY Qty: 90 1RF omeprazole 20 mg capsule,delayed release(DR/EC) 20 mg PO QAM Qty: 90 1RF cholecalciferol (vitamin D3) 1,250 mcg (50,000 unit) tablet 50,000 unit PO BID Qty: 180 3RF acetaminophen 500 mg Tablet 1,000 mg PO Q6H PRN (Reason: Pain) 14 Days Qty: 25 0RF calcium carbonate 500 mg calcium (1,250 mg) Tablet 500 mg PO BID chlorhexidine gluconate 0.12 % mouthwash See Rx Instructions .ROUTE .COMPLEX Rx Instructions: USE TOPICALLY NEEDED. simvastatin 40 mg tablet 40 mg PO QPM tamsulosin 0.4 mg capsule 0.4 mg PO DAILY docusate sodium 100 mg Capsule 100 mg PO BID 30 Days Qty: 60 0RF metoprolol tartrate 25 mg Tablet 12.5 mg PO Q12H 30 Days Qty: 30 0RF Milk of Magnesia 400 mg/5 mL Suspension 30 ml PO DAILY PRN (Reason: Constipation) Dulcolax (bisacodyl) 10 mg Suppository 10 mg NE DAILY PRN (Reason: Constipation) albuterol sulfate 2.5 mg /3 mL (0.083 %) solution for nebulization 2.5 mg continuous nebulization Q4H PRN (Reason: Shortness Of Breath) lisinopril 20 mg Tablet 20 mg PO DAILY Culturelle 10 billion cell Capsule 1 cap PO DAILY Fleet Enema Extra 19-7 gram/197 mL Enema 118 ml NE DAILY PRN (Reason: Constipation) clopidogrel 75 mg tablet 75 mg PO DAILY fluticasone propionate 50 mcg/actuation spray,suspension 1 spray intranasal DAILY levofloxacin 750 mg Tablet 750 mg PO DAILY Qty: 4 0RF Changed prednisone 20 mg Tablet See Rx Instructions .ROUTE .COMPLEX Qty: 12 0RF Rx Instructions: 40 mg orally ;40 mg [id number] mg x3d10 mg x3d Discharge Orders: Discharge Order (Routine); Ordered 08/05/23 Ordered By: Cathy Ball Referrals: [facility] [Outside] Manolo Centeno DO [Primary Care Provider] - 4-7 days Discharge Diet: Cardiac Discharge Activity: Use walker/crutches as instructed and As per PT/OT instructions Patient Instructions: Prednisone (By mouth), Hyponatremia (ED), Opioid Safety Discharge Attestations Time Spent in Discharge Care*: greater than 30 min Quality Metrics Clinical Quality Measures [ No reported AMI, CVA or VTE this stay] Coding Level of Care Code Acute Code for Chg Fwd Diagnoses Hyponatremia E87.1
--- NOTE | 2023-08-05 12:23 | PC.SOCIAL ---
IMM Update pg 2 of IMM updated and reviewed w/ patient. Copy provided and copy dated, initialed and placed in chart.
--- NOTE | 2023-08-05 12:52 | P.PN_ITS ---
Subjective 2 Subjective: doing well no complaints Medications: Reviewed: Yes Vitals/I&O/Wt Last Vital Signs Temp 97.8 F 08/05/23 07:21 Pulse 73 08/05/23 11:16 Resp 16 08/05/23 11:16 BP 167/83 08/05/23 11:16 Pulse Ox 93 08/05/23 11:16 O2 Del Method Room Air 08/05/23 11:16 O2 Flow Rate 0 08/05/23 06:50 08/04/23 08/05/23 08/05/23 22:59 06:59 14:59 Intake Total 370 / 490 0 / 490 150 / 150 Balance 370 / -210 0 / -210 150 / 150 Weight last 48 hrs Weight 36.696 kg Weight 59.08 kg Weight 59.08 kg Weight 59.08 kg Physical Exam 2 Narrative: awake , alert HEENT S1S2 RRR Lungs clear per report no edema Data 08/05/23 05:42 08/05/23 10:07 Micro: Microbiology 08/03/23 07:55 Blood Culture - Preliminary Blood NEGATIVE TO DATE 08/03/23 07:50 Blood Culture - Preliminary Blood NEGATIVE TO DATE A&P Assessment and plan (1) Hyponatremia: 1. 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 Continue to monitor. Noted urine sodium and urine osmolality, added IV albumin. . Continue fluid restriction- 1500 ml/day, can add salt tabs Na 126-128 range 2. Hypokalemia: Replete potassium 3. Metabolic alkalosis, possible contraction alkalosis, monitor 4. History of CLL Patient evaluated using audiovisual cart. Time spent 40 minutes Attestations 2 Medical Necessity Statement*: per report Coding Level of Care Code Acute Code for Chg Fwd Diagnoses Hyponatremia E87.1
--- NOTE | 2023-08-05 12:52 | PC.NURSE ---
Report called to Rosa Isela OLIVA at [facility]. They will send transport to pick pt. up.
--- NOTE | 2023-08-05 13:13 | PC.NURSE ---
Emelia Gonzales here to tow picker pt. at side.
== END 2023-08-05 13:13 | disposition skilled nursing facility (03) | DRG 641 ==
LOC: ER 12:46 → ER IP 13:20 → ICU 18:33 → MEDSURG 08-04 20:10
PROVIDERS: Hospitalist; Admitting Provider Internal Medicine; Emergency Provider Family Medicine; PCP Family Medicine; Visit Provider Internal Medicine
DX: E87.1 Hypo-osmolality and hyponatremia (principal); I50.32 Chronic diastolic (congestive) heart failure; E87.20 Acidosis, unspecified; E87.6 Hypokalemia; F32.A Depression, unspecified; E78.5 Hyperlipidemia, unspecified; K21.9 Gastro-esophageal reflux disease without esophagitis; I11.0 Hypertensive heart disease with heart failure; N41.1 Chronic prostatitis; N40.1 Benign prostatic hyperplasia with lower urinary tract symptoms; Z66 Do not resuscitate; M40.203 Unspecified kyphosis, cervicothoracic region; J38.6 Stenosis of larynx; Z79.82 Long term (current) use of aspirin; Z79.02 Long term (current) use of antithrombotics/antiplatelets; Z11.52 Encounter for screening for COVID-19; Z85.6 Personal history of leukemia; Z86.73 Personal history of transient ischemic attack (TIA), and cerebral infarction without residual deficits
CPT/HCPCS: 36415; 36592; 36600; 70491; 71045; 71260; 80048; 80051; 80053; 80503; 81003; 82330; 82436; 82805; 83605; 83735; 83880; 83930; 83935; 84133; 84145; 84295; 84300; 84484; 85007; 85025; 87040; 87426; 87486; 87581; 87633; 88184; 88185; 93005; 93308; 94640; 94664; 96365; 96372; 96375; 97161; 97166; 97530; 99291; C9113; J1100; J1644; J1940; J1956; J2270; J2919; J7030; Q3014; Q9967

== ENCOUNTER → 2023-08-18 16:11 | Outpatient (BNVA) | payer MEDICARE, OTHER, SELFPAY | PROVIDERS: PCP Family Medicine; Visit Provider Orthopaedic Surgery | DX: S72.002A Fracture of unspecified part of neck of left femur, initial encounter for closed fracture (principal); W19.XXXA Unspecified fall, initial encounter | CPT/HCPCS: 73502; 99213 ==

== ENCOUNTER → 2023-08-23 14:15 | Outpatient (BNVA) | payer MEDICARE, OTHER, SELFPAY | PROVIDERS: PCP Family Medicine; Visit Provider Family Medicine | DX: I50.9 Heart failure, unspecified (principal); E87.6 Hypokalemia; C91.10 Chronic lymphocytic leukemia of B-cell type not having achieved remission | CPT/HCPCS: 80053; 85007; 85025 ==

== ENCOUNTER → 2023-09-16 11:38 | Outpatient (BNVA) | payer MEDICARE, OTHER, SELFPAY | PROVIDERS: PCP Family Medicine; Visit Provider Family Medicine | DX: N28.9 Disorder of kidney and ureter, unspecified (principal) | CPT/HCPCS: 80048 ==

== ENCOUNTER → 2023-09-29 13:01 | Outpatient (BNVA) | payer MEDICARE, OTHER, SELFPAY | PROVIDERS: PCP Family Medicine; Visit Provider Orthopaedic Surgery | DX: S72.002A Fracture of unspecified part of neck of left femur, initial encounter for closed fracture (principal); S32.591A Other specified fracture of right pubis, initial encounter for closed fracture; S32.592A Other specified fracture of left pubis, initial encounter for closed fracture; X58.XXXA Exposure to other specified factors, initial encounter | CPT/HCPCS: 73502; 99213 ==

== ENCOUNTER 2023-10-11 17:13 | Observation (INO) | payer MEDICARE, OTHER, SELFPAY ==
[2023-10-11] VITALS (8 sets, daily range): BP systolic 198–212; BP diastolic 85–92; PULSE 52–56; RESP 16–19; TEMP 36.5–37.1; O2SAT 93–95; BMI 22.3
[2023-10-11 17:32] LABS: Glucose Point of Care 97 mg/dL (70-110)
--- NOTE | 2023-10-11 17:34 | CTR_ITS ---
PROCEDURE INFORMATION: Exam: CT Head Without Contrast Exam date and time: 10/11/2023 5:45 PM Age: 77 years old Clinical indication: Stroke-like symptoms; Other: See below; Additional info: Symptoms of acute stroke TECHNIQUE: Imaging protocol: Computed tomography of the head without contrast. Radiation optimization: All CT scans at this facility use at least one of these dose optimization techniques: automated exposure control; mA and/or kV adjustment per patient size (includes targeted exams where dose is matched to clinical indication); or iterative reconstruction. Other technique: STROKE PROTOCOL was implemented. COMPARISON: CT head wo con* [id number] 12/29/2022 8:22 AM RADIATION DOSE METRICS: Total DLP (mGy-cm): 1080 FINDINGS: Brain: There is moderate cortical atrophy. Low-density changes in the white matter are consistent with nonspecific small vessel chronic ischemic change. There is no intracranial mass, hemorrhage or edema. Cerebral ventricles: No ventriculomegaly. Paranasal sinuses: Visualized sinuses are unremarkable. No fluid levels. Mastoid air cells: Visualized mastoid air cells are well aerated. Bones: Unremarkable. No acute fracture. Soft tissues: Unremarkable. CT/CT head thrombolytic [id number] IMPRESSION: No acute intracranial finding. ASSESSMENT: ASPECTS ([place] Stroke Program Early CT Score) is 10.
--- NOTE | 2023-10-11 17:34 | ECG_ITS ---
[facility] Test Date: 2023-10-11 Pat Name: Reilly Friedman Department: Room: Gender: Male Level Designer: : 1945 Requested By: Khang Syed Order Number: [id number] Burton MD: Kassy Winston M.D. Measurements Intervals [place] Rate: 53 P: 18 [place]: 269 QRS: -24 QRSD: 102 T: 16 QT: 475 QTc: 448 Interpretive Statements SINUS BRADYCARDIA WITH FIRST DEGREE AV BLOCK BORDERLINE LEFT AXIS DEVIATION [QRS AXIS < -20] VOLTAGE CRITERIA FOR LVH [MEETS CRITERIA IN ONE OF: R(aVL), S(V1), R(V5), R(V5/V6)+S(V1)] Compared to ECG 08/03/2023 13:43:46 Sinus rhythm no longer present T-wave abnormality no longer present Electronically Signed On 10-11-2023 22:02:27 CDT by Kassy Winston M.D. [email or web address]
[2023-10-11 17:48] LABS: Basophils # 0.1 10^3/uL (0.0-0.1); Basophils % 0.3 %; Eosinophils # 0.3 10^3/uL (0.0-0.8); Eosinophils % 0.9 %; Hematocrit 36.8 % (37-53); Lymphocytes # 24.1 10^3/uL (0.8-4.8); Lymphocytes % 81.5 %; Mean Corpuscular HGB Conc 33.2 g/dL (30-55); Mean Corpuscular Hemoglobin 33.2 pg (27-33); Mean Corpuscular Volume 100.3 fl (82-101); Mean Platelet Volume 8.5 fL (7.4-10.4); Monocytes # 1.1 10^3/uL (0.2-0.9); Monocytes % 3.7 %; Neutrophils # 3.99 10^3/uL (1.8-7.7); Neutrophils % 13.4 %; Nucleated Red Blood Cells % 0 %; Platelet Count 284 10^3/cmm (157-399); Red Blood Count 3.67 10^6/uL (3.85-5.65); Red Cell Distribution Width 13.4 % (12.1-15.1); White Blood Count 29.56 10^3/uL (3.29-11.43)
[2023-10-11 18:01] LABS: INR 0.95 (0.8-1.2)
[2023-10-11 18:06] LABS: Alanine Aminotransferase 56 U/L (0-41); Albumin Level 4.2 g/dL (3.5-5.2); Alkaline Phosphatase 88 U/L (40-130); Anion Gap 12.3 (5-19); Aspartate Amino Transferase 24 U/L (0-40); Blood Urea Nitrogen 9 mg/dL (8-23); Calcium 9.2 mg/dL (8.5-10.5); Carbon Dioxide 29 mmol/L (22-29); Chloride 94 mmol/L (98-107); Creatinine Clr Calc Pharmacy 64.8467; Globulin 1.8 g/dL (1.3-4.6); Glucose 92 mg/dL (65-115); Osmolality Calculated 270 mOsm/kg (285-295); Potassium 4.3 mmol/L (3.5-5.1); Sodium 131 mmol/L (136-145); Total Bilirubin 0.6 mg/dL (0.15-1.2)
--- NOTE | 2023-10-11 18:12 | W.ED.DIZZY ---
HPI - Dizziness General: Chief Complaint: Dizziness Stated Complaint: confusion, trouble finding words Time Seen by Provider: 10/11/23 17:33 PFSH ED PFSH: Medical History Hyperlipidemia Depression Pathologic thoracic fracture Hyponatremia Acute urinary retention Acute hypokalemia Traumatic compression fracture of T12 thoracic vertebra Back pain Chronic lymphocytic leukemia GERD (gastroesophageal reflux disease) History of stroke (04/2018) Dyslipidemia Degenerative arthritis HTN (hypertension) BPH w urinary obs/LUTS Chronic prostatitis Surgical History History of kyphoplasty H/O Mohs micrographic surgery for skin cancer (2018) S/P arthroscopic surgery of left knee Hx of bilateral inguinal hernia repair Family History Father , AT AGE 84 PROSTATE CANCER Cancer Mother , AT AGE 84 Hypertension CAD (coronary artery disease) Sister Dementia Other Hyperlipidemia Stroke Denies family history of Diabetes Clotting disorder Psychiatric illness Chronic kidney disease (CKD) Suicide Anesthesia complication Bleeding disorder Lung disease Social History Smoking and tobacco/nicotine status: never used tobacco/nicotine Alcohol intake: never Substance/Drug Use: unknown Adopted: No Caregiver/support person: No Lives independently: No Household members: spouse Marital status: Current occupational status: employed Course Vital Signs: Vital signs: Vital Signs Temperature 97.9 F 10/11/23 17:21 Pulse Rate 54 L 10/11/23 17:21 Respiratory Rate 18 10/11/23 17:21 Blood Pressure 210/91 10/11/23 17:21 Pulse Oximetry 95 10/11/23 17:21 MDM - Dizziness Lab Data 10/11/23 17:39 10/11/23 17:[address] 10/11/23 17:34 IMPRESSION: No acute intracranial finding. ASSESSMENT: ASPECTS ([place] Stroke Program Early CT Score) is 10. Laboratory Results WBC 29.56 10^3/uL (3.29-11.43) H 10/11/23 17:39 RBC 3.67 10^6/uL (3.85-5.65) L 10/11/23 17:39 Hgb 12.20 g/dL (11.27-16.99) 10/11/23 17:39 Hct 36.8 % (37-53) L 10/11/23 17:39 MCV 100.3 fl (82-101) 10/11/23 17:39 MCH 33.2 pg (27-33) H 10/11/23 17:39 MCHC 33.2 g/dL (30-55) 10/11/23 17:39 RDW 13.4 % (12.1-15.1) 10/11/23 17:39 Plt Count 284 10^3/cmm (157-399) 10/11/23 17:39 MPV 8.5 fL (7.4-10.4) 10/11/23 17:39 Neut % (Auto) 13.4 % 10/11/23 17:39 Lymph % (Auto) 81.5 % 10/11/23 17:39 [place] % (Auto) 3.7 % 10/11/23 17:39 Eos % (Auto) 0.9 % 10/11/23 17:39 Baso % (Auto) 0.3 % 10/11/23 17:39 Neut # (Auto) 3.99 10^3/uL (1.8-7.7) 10/11/23 17:39 Lymph # (Auto) 24.1 10^3/uL (0.8-4.8) H 10/11/23 17:39 [place] # (Auto) 1.1 10^3/uL (0.2-0.9) H 10/11/23 17:39 Eos # (Auto) 0.3 10^3/uL (0.0-0.8) 10/11/23 17:39 Baso # (Auto) 0.1 10^3/uL (0.0-0.1) 10/11/23 17:39 Nucleated RBC % (auto) 0 % 10/11/23 17:39 Nucleated RBCs # 0.0 /100WBC 10/11/23 17:39 PT 13.00 SECONDS (12.1-14.9) 10/11/23 17:39 INR 0.95 (0.8-1.2) 10/11/23 17:39 APTT 27.0 SECONDS (23.9-36.7) 10/11/23 17:39 Potassium 4.3 mmol/L (3.5-5.1) 10/11/23 17:39 Carbon Dioxide 29 mmol/L (22-29) 10/11/23 17:39 Anion Gap 12.3 (5-19) 10/11/23 17:39 BUN 9 mg/dL (8-23) 10/11/23 17:39 GFR Calculation Not Reportable 10/11/23 17:39 Glucose 92 mg/dL (65-115) 10/11/23 17:39 POC Glucose 97 mg/dL (70-110) 10/11/23 17:30 Calcium 9.2 mg/dL (8.5-10.5) 10/11/23 17:39 Total Bilirubin 0.6 mg/dL (0.15-1.2) 10/11/23 17:39 AST 24 U/L (0-40) 10/11/23 17:39 Alkaline Phosphatase 88 U/L (40-130) 10/11/23 17:39 Albumin 4.2 g/dL (3.5-5.2) 10/11/23 17:39 Globulin 1.8 g/dL (1.3-4.6) 10/11/23 17:39 Discharge Plan Discharge Condition: Stable Prescriptions: No Action aspirin [Adult Low Dose Aspirin] 81 mg tablet,delayed release (DR/EC) 81 mg PO QAM docusate sodium 100 mg capsule 100 mg PO BID PRN (Reason: Constipation) potassium chloride 10 mEq capsule, extended release 10 meq PO DAILY Qty: 30 1RF metoprolol tartrate 25 mg tablet 12.5 mg PO BID Qty: 90 1RF cholecalciferol (vitamin D3) 25 mcg (1,000 unit) capsule 25 mcg PO DAILY Qty: 90 1RF amlodipine 10 mg tablet 10 mg PO DAILY Qty: 90 1RF Hold Instructions: Adverse Reaction omeprazole 20 mg capsule,delayed release(DR/EC) 20 mg PO QAM Qty: 90 1RF cholecalciferol (vitamin D3) 1,250 mcg (50,000 unit) tablet 50,000 unit PO BID Qty: 180 3RF acetaminophen 500 mg Tablet 1,000 mg PO Q6H PRN (Reason: Pain) 14 Days Qty: 25 0RF calcium carbonate 500 mg calcium (1,250 mg) Tablet 500 mg PO BID chlorhexidine gluconate 0.12 % mouthwash See Rx Instructions .ROUTE .COMPLEX Rx Instructions: USE TOPICALLY NEEDED. simvastatin 40 mg tablet 40 mg PO QPM tamsulosin 0.4 mg capsule 0.4 mg PO DAILY Culturelle 10 billion cell Capsule 1 cap PO DAILY clopidogrel 75 mg tablet 75 mg PO DAILY fluticasone propionate 50 mcg/actuation spray,suspension 1 spray intranasal DAILY levofloxacin 750 mg Tablet 750 mg PO DAILY Qty: 4 0RF Referrals: Manolo Centeno DO [Primary Care Provider] - Coding Level of Care Code ED Automotive Diagnostic Technician for Sena Ching
--- NOTE | 2023-10-11 18:18 | ED_ITS ---
HPI - Neuro Symptoms/Deficit 2 General: Chief Complaint: Dizziness Stated Complaint: confusion, trouble finding words Time Seen by Provider: 10/11/23 17:33 Source: patient Mode of arrival: ambulatory History of Present Illness: 77-year-old male presents emergency room with difficulty word finding began about 2 hours prior to arrival at 1500. Stroke alert was called. However when I examined the patient mostly given for an NIH score was 1 based on his report of aphasia earlier but that seems has resolved. Seen this patient multiple times before his speech and word finding were at his usual baseline when I seen him in the past. His blood pressure is mildly elevated denies any shortness of breath or chest pain at this time. He also complained a little bit of weakness in his right side that has resolved as well. Location: speech and right arm Context: sudden onset [facility] 2 PFSH: Medical History (Updated 10/12/23 @ 06:06 by Khang Asher DO) Hyperlipidemia Depression Pathologic thoracic fracture Hyponatremia Acute urinary retention Acute hypokalemia Traumatic compression fracture of T12 thoracic vertebra Back pain Chronic lymphocytic leukemia GERD (gastroesophageal reflux disease) History of stroke (04/2018) Dyslipidemia Degenerative arthritis HTN (hypertension) BPH w urinary obs/LUTS Chronic prostatitis Surgical History History of kyphoplasty H/O Mohs micrographic surgery for skin cancer (2018) S/P arthroscopic surgery of left knee Hx of bilateral inguinal hernia repair Family History Father , AT AGE 84 PROSTATE CANCER Cancer Mother , AT AGE 84 Hypertension CAD (coronary artery disease) Sister Dementia Other Hyperlipidemia Stroke Denies family history of Diabetes Clotting disorder Psychiatric illness Chronic kidney disease (CKD) Suicide Anesthesia complication Bleeding disorder Lung disease Social History Smoking and tobacco/nicotine status: never used tobacco/nicotine Alcohol intake: never Substance/Drug Use: unknown Adopted: No Caregiver/support person: No Lives independently: No Household members: spouse Marital status: Current occupational status: employed NIH stroke score 2 NIHSS: Level Of Consciousness - 1a: 0 Level Of Consciousness Questions - 1b: Both Correct Level Of Consciousness Commands - 1c: Both Correct Best Gaze - 2: Normal Visual Sow - 3: No Visual Loss Facial Palsy - 4: N ormal Motor Arm Right - 5: No Drift Motor Arm Left - 5: No Drift Motor Leg Right - 6: No Drift Motor Leg Left - 6: No Drift Limb Ataxia - 7: A bsent Sensory - 8: Normal Best Language - 9: Mild/Moderate Aphasia (resolved ) Dysarthia - 10: Normal Extinction And Inattention - 11: 0 Score: Total Score: 1 Physical Exam 2 Const: GENERAL APPEARANCE: cooperative and comfortable O RIENTATION/CONSCIOUSNESS: Yes awake, Yes oriented to person, Yes oriented to place and Yes oriented to time HENMT: COMMON NORMALS: normocephalic, atraumatic and hearing grossly normal bilaterally HEAD & SCALP: normocephalic and atraumatic Neck/C-Spine: OTHER: Extremely kyphotic -chronic Resp: COMMON NORMALS: normal respiratory effort, No retractions, No use of accessory muscles and clear to auscultation bilaterally AUSCULTATION: clear to auscultation bilaterally Cardio: COMMON NORMALS: regular rate, regular rhythm and No murmurs present (Cardio) RATE: regular rate RHYTHM: regular rhythm GI: COMMON NORMALS: Soft to palpation and No hepatosplenomegaly present A USCULTATION: Yes normoactive bowel sounds PALPATION: Yes Soft to palpation, No Tenderness to palpation present (GI), No Guarding due to palpation present (GI) and Yes No hepatosplenomegaly present Extremity: COMMON NORMALS: normal to inspection, capillary refill normal, no clubbing, cyanosis or edema, no calf tenderness and no pedal edema Neuro: SENSORIUM/ORIENTATION: Yes oriented to person, Yes oriented to place and Yes oriented to time Skin: COMMON NORMALS: no rashes or lesions noted GENERAL SKIN EXAM: no rashes or lesions noted Course 2 Vital Signs: Vital signs: Vital Signs Temperature 98.8 F 10/12/23 02:36 Pulse Rate 54 L 10/12/23 02:36 Respiratory Rate 17 10/12/23 02:36 Blood Pressure 202/87 10/12/23 02:36 Pulse Oximetry 93 10/12/23 00:10 Oxygen Delivery Me thod Room Air 10/12/23 00:10 MDM - Neuro Symptoms/Deficit Medical Decision Making Place patient on observation. He is significantly bradycardic likely will need his metoprolol stopped and further adjustments to manage his hypertension. Reviewed the case Dr. Solano since it was a stroke alert. He is not a candidate for thrombolytics based on his score he is not a candidate for embolectomy based on his score either. Dr. Solano recommended permissive hypertension at his current level. May need adjustments to relieve his bradycardia. Place patient on observation discussed with hospitalist orders written. Late in the visit patient complained of some numbness in his arm but it was only in the third fourth and fifth fingers of his right arm. On repeat exam it is minimal and seems to be more of a peripheral nerve impingement than central based on his symptoms. Medical Records I reviewed the patient's medical records. Lab Data I reviewed the patient's lab results. 10/11/23 17:39 10/11/23 17:[address] 10/11/23 17:34 IMPRESSION: No acute intracranial finding. ASSESSMENT: ASPECTS (Jess Stroke Program Early CT Score) is 10. Laboratory Results WBC 29.56 10^3/uL (3.29-11.43) H 10/11/23 17:39 RBC 3.67 10^6/uL (3.85-5.65) L 10/11/23 17:39 Hgb 12.20 g/dL (11.27-16.99) 10/11/23 17:39 Hct 36.8 % (37-53) L 10/11/23 17:39 MCV 100.3 fl (82-101) 10/11/23 17:39 MCH 33.2 pg (27-33) H 10/11/23 17:39 MCHC 33.2 g/dL (30-55) 10/11/23 17:39 RDW 13.4 % (12.1-15.1) 10/11/23 17:39 Plt Count 284 10^3/cmm (157-399) 10/11/23 17:39 MPV 8.5 fL (7.4-10.4) 10/11/23 17:39 Neut % (Auto) 13.4 % 10/11/23 17:39 Lymph % (Auto) 81.5 % 10/11/23 17:39 Boundary % (Auto) 3.7 % 10/11/23 17:39 Eos % (Auto) 0.9 % 10/11/23 17:39 Baso % (Auto) 0.3 % 10/11/23 17:39 Neut # (Auto) 3.99 10^3/uL (1.8-7.7) 10/11/23 17:39 Lymph # (Auto) 24.1 10^3/uL (0.8-4.8) H 10/11/23 17:39 Boundary # (Auto) 1.1 10^3/uL (0.2-0.9) H 10/11/23 17:39 Eos # (Auto) 0.3 10^3/uL (0.0-0.8) 10/11/23 17:39 Baso # (Auto) 0.1 10^3/uL (0.0-0.1) 10/11/23 17:39 Nucleated RBC % (auto) 0 % 10/11/23 17:39 Nucleated RBCs # 0.0 /100WBC 10/11/23 17:39 PT 13.00 SECONDS (12.1-14.9) 10/11/23 17:39 INR 0.95 (0.8-1.2) 10/11/23 17:39 APTT 27.0 SECONDS (23.9-36.7) 10/11/23 17:39 Sodium 131 mmol/L (136-145) L 10/11/23 17:39 Potassium 4.3 mmol/L (3.5-5.1) 10/11/23 17:39 Chloride 94 mmol/L (98-107) L 10/11/23 17:39 Carbon Dioxide 29 mmol/L (22-29) 10/11/23 17:39 Anion Gap 12.3 (5-19) 10/11/23 17:39 BUN 9 mg/dL (8-23) 10/11/23 17:39 Creatinine 0.6 mg/dL (0.7-1.2) L 10/11/23 17:39 GFR Calculation Not Reportable 10/11/23 17:39 Glucose 92 mg/dL (65-115) 10/11/23 17:39 POC Glucose 97 mg/dL (70-110) 10/11/23 17:30 Estimat Average Glucose 117 10/11/23 17:39 Hemoglobin A1c 5.7 % (4.0-6.0) 10/11/23 17:39 Calculated Osmolality 270 mOsm/kg (285-295) L 10/11/23 17:39 Calcium 9.2 mg/dL (8.5-10.5) 10/11/23 17:39 Total Bilirubin 0.6 mg/dL (0.15-1.2) 10/11/23 17:39 AST 24 U/L (0-40) 10/11/23 17:39 ALT 56 U/L (0-41) H 10/11/23 17:39 Alkaline Phosphatase 88 U/L (40-130) 10/11/23 17:39 Total Protein 6.0 g/dL (6.6-8.7) L 10/11/23 17:39 Albumin 4.2 g/dL (3.5-5.2) 10/11/23 17:39 Globulin 1.8 g/dL (1.3-4.6) 10/11/23 17:39 Procalcitonin 0.04 ng/mL (0-0.5) 10/11/23 17:39 TSH 1.70 uIU/mL (0.27-4.20) 10/11/23 17:39 Urine Color Yellow (Yellow) 10/11/23 19:09 Urine Appearance Clear (CLEAR) 10/11/23 19:09 Urine pH 7 (5-7) 10/11/23 19:09 Ur Specific [place] 1.010 (1.005-1.030) 10/11/23 19:09 Urine Protein Neg (Negative) 10/11/23 19:09 Urine Glucose (UA) Norm (Normal) 10/11/23 19:09 Urine Ketones Negative (Negative) 10/11/23 19:09 Urine Blood Neg (Negative) 10/11/23 19:09 Urine Nitrate Negative (Negative) 10/11/23 19:09 Urine Bilirubin Neg (Negative) 10/11/23 19:09 Urine Urobilinogen Norm mg/dL (Negative) 10/11/23 19:09 Ur Leukocyte Esterase Negative (Negative) 10/11/23 19:09 Urine Opiates Screen Negative ng/mL (Negative) 10/11/23 19:09 Ur Barbiturates Screen Negative ng/mL (Negative) 10/11/23 19:09 Ur Phencyclidine Scrn Negative ng/mL (Negative) 10/11/23 19:09 Ur Amphetamines Screen Negative ng/mL (Negative) 10/11/23 19:09 U Benzodiazepines Scrn Negative ng/mL (Negative) 10/11/23 19:09 Urine Cocaine Screen Negative ng/mL (Negative) 10/11/23 19:09 U Marijuana (THC) Screen Negative ng/mL (Negative) 10/11/23 19:09 All radiology interpretation(s) finalized by discharge Discharge Plan Discharge Patient Disposition: Admitted As Inpatient Admit Provider: Cathy Ball Clinical Impression: HTN (hypertension), History of stroke, Chronic lymphocytic leukemia, Transient ischemic attack, acute, Bradycardia Condition: Stable Coding Level of Care Code ED [employer] And [employer] Technician for Sena Ching
[2023-10-11 19:15] LABS: Add Urine Microscopic? NO; Charge for UA Resulting for Rev
[2023-10-11 19:18] LABS: Bilirubin Urine Neg (Negative); Blood Urine Neg (Negative); Glucose Urine UA Norm (Normal); Ketones Urine Negative (Negative); Leukocyte Esterase Urine Negative (Negative); Nitrate Urine Negative (Negative); Protein Urine Neg (Negative); Urine Appearance Clear (CLEAR); Urine Color Yellow (Yellow); Urobilinogen Urine Norm (Negative); pH Urine 7 (5-7)
--- NOTE | 2023-10-11 19:18 | P.HP_ITS ---
Providers/Chief Complaint 2 Primary Care Provider: Manolo Centeno DO Chief Complaint: confusion, trouble finding words History of Present Illness Reilly Friedman is a 77 year old male with past medical history of depression, hyperlipidemia, CLL, traumatic compression fracture of T12, GERD, CVA 2019, hypertension, chronic prostatitis who presented to the hospital today for complaint of word finding difficulty that started about 2 hours before arriving to the hospital. [place] very long. He did drink a lot of water today. Does not believe he was dehydrated. He states his words were not coming out correctly and he felt some right-sided weakness. Code stroke was called. Initially NIH score was 1 based on his report of aphasia however by the time he was evaluated this had resolved. Patient was seen multiple times in the ER and no longer was having that issue. Apparently patient did have some speech and word finding difficulty even before he presented to the ER today. Blood pressure on arrival 210/91, history of 818, pulse 54, temperature 97.9 saturating 95% on room air. Patient did complain of mild right-sided weakness upon arrival however that also resolved. Patient denies chest pain, shortness of breath, nausea vomiting diarrhea. He does have a history of prior stroke in the past. Patient was admitted here few months ago and at that time he presented with shortness of breath. He was found to have stridor at the time which resolved with IV steroids. Today he presents with WBC 29.56, hemoglobin 12, sodium 131, creatinine 0.6. Urine drug screen is pending at this time. Code stroke was called. Patient was not a candidate for any thrombolytics. Dr. Solano was consulted from the ER. CT head negative. Neurology has advised to allow for permissive hypertension. Medications/Allergies Home Medications Medication Instructions Recorded Confirmed Last Taken Type aspirin 81 mg tablet,delayed 81 mg PO QAM 10/09/19 10/11/23 10/11/23 History release (Adult Low Dose Aspirin) acetaminophen 500 mg tablet 1,000 mg (2 x 500 mg) PO Q6H PRN 07/20/22 10/11/23 12/28/22 Rx Pain 14 days #25 tabs docusate sodium 100 mg capsule 100 mg PO BID PRN Constipation 02/24/23 10/11/23 10/11/23 History omeprazole 20 mg capsule,delayed 20 mg PO QAM #90 caps 06/09/23 10/11/23 10/11/23 Rx release calcium carbonate 500 mg PO BID 07/16/23 10/11/23 10/11/23 History chlorhexidine gluconate 0.12 % See Rx Instructions .Route .COMPLEX 07/16/23 10/11/23 07/16/23 History mouthwash simvastatin 40 mg tablet 40 mg PO QPM 07/16/23 10/11/23 10/11/23 History tamsulosin 0.4 mg capsule 0.4 mg PO DAILY 07/16/23 10/11/23 10/11/23 History cholecalciferol (vitamin D3) 1,250 50,000 unit PO BID #180 tabs 07/26/23 10/11/23 10/11/23 Rx mcg (50,000 unit) tablet clopidogrel 75 mg tablet 75 mg PO DAILY 08/03/23 10/11/23 10/11/23 History fluticasone propionate 50 1 spray intranasal DAILY 08/03/23 10/11/23 10/11/23 History mcg/actuation nasal spray,suspension levofloxacin 750 mg tablet 750 mg PO DAILY #4 tabs 08/05/23 10/11/23 10/11/23 Rx cholecalciferol (vitamin D3) 25 25 mcg PO DAILY bone health #90 08/25/23 10/11/23 10/11/23 Rx mcg (1,000 unit) capsule caps metoprolol tartrate 25 mg tablet 12.5 mg (1/2 x 25 mg) PO BID heart 08/25/23 10/11/23 10/11/23 Rx and bp #90 tabs potassium chloride 10 mEq 10 meq PO DAILY #30 caps 08/25/23 10/11/23 10/11/23 Rx capsule,extended release Allergies Allergy/AdvReac Type Severity Reaction Status Date / Time meperidine [From Demerol] Allergy Unknown UNKNOWN Verified 10/11/23 17:28 Penicillins Allergy Unknown Unknown Verified 10/11/23 17:28 Sulfa (Sulfonamide Allergy Unknown UNKNOWN Verified 10/11/23 17:28 Antibiotics) cephalexin AdvReac angioedema Verified 10/11/23 17:28 celery Allergy Severe swelling Uncoded 10/11/23 17:28 CELERY SEED Allergy Severe ALGY-Difficulty Uncoded 10/11/23 17:28 Breathing PFSH Acute 2 PFSH: Medical History (Updated 10/11/23 @ 19:30 by Cathy Ball MD) Hyperlipidemia Depression Pathologic thoracic fracture Hyponatremia Acute urinary retention Acute hypokalemia Traumatic compression fracture of T12 thoracic vertebra Back pain Chronic lymphocytic leukemia GERD (gastroesophageal reflux disease) History of stroke (04/2018) Dyslipidemia Degenerative arthritis HTN (hypertension) BPH w urinary obs/LUTS Chronic prostatitis Surgical History History of kyphoplasty H/O Mohs micrographic surgery for skin cancer (2018) S/P arthroscopic surgery of left knee Hx of bilateral inguinal hernia repair Family History Father , AT AGE 84 PROSTATE CANCER Cancer Mother , AT AGE 84 Hypertension CAD (coronary artery disease) Sister Dementia Other Hyperlipidemia Stroke Denies family history of Diabetes Clotting disorder Psychiatric illness Chronic kidney disease (CKD) Suicide Anesthesia complication Bleeding disorder Lung disease Social History Smoking and tobacco/nicotine status: never used tobacco/nicotine Alcohol intake: never Substance/Drug Use: unknown Adopted: No Caregiver/support person: No Lives independently: No Household members: spouse Marital status: Current occupational status: employed Vitals/I&O/Wt Last Vital Signs Temp 97.9 F 10/11/23 17:21 Pulse 54 L 10/11/23 17:21 Resp 18 10/11/23 17:21 BP 210/91 10/11/23 17:21 Pulse Ox 95 10/11/23 17:21 Weight last 48 hrs Weight 59.421 kg Physical Exam 2 Narrative: General: Alert oriented x3, patient seen sitting up in bed appearing comfortable at this times saturating 95% on room air. HEENT: Normocephalic, atraumatic, EOMI, breathing comfortably, no stridor. Cardio: Regular rate rhythm, normal S1-S2 Respiratory: Good bilateral air entry, no wheezes no rhonchi appreciated GI: Abdomen soft, nontender, nondistended, bowel sounds + Extremities: no edema, no cyanosis Neuro: No focal neurological deficits at this time. NIH 0. Data 10/11/23 17:39 10/11/23 17:39 A&P Assessment and plan (1) Heart failure: (2) Osteoporosis: Qualifiers: Osteoporosis type: unspecified Presence of current pathological fracture: without current pathological fracture Qualified Code(s): M81.0 - Age- related osteoporosis without current pathological fracture (3) Chronic lymphocytic leukemia: (4) Laryngeal stenosis: (5) HTN (hypertension): Plan #TIA #History of previous CVA 2019 #History of laryngeal cancer in the past #Chronic congestive heart failure, not previously diagnosed? #Arthritis, Back pain, kyphosis #CLL #HLD, HTN #GERD #History of CLL, chronic leukocytosis -Allow for permissive hypertension. Neurology consulted in the ER. Patient not a candidate for thrombolytics at this time. Will have blood pressure goal of 180/110. Patient's BP 210 on arrival. His symptoms may have been attributed to hypertensive crisis. ? Hold off on home antihypertensives namely amlodipine 10, metoprolol tartrate. ? Continue aspirin, Plavix ? Patient had an echo August 03, 2023. EF preserved. I will not repeat at this time. We may order a limited 1 if clinically warranted. Please reassess for this in AM. ? Check lipid panel, hemoglobin A1c, TSH ? Neurochecks every 2 hours ? Leukocytosis, WBC 29.5. Patient does have history of CLL. Elevation may be secondary to that versus possibly reactive versus true infection. Patient's white count is at his baseline. Monitor for fever. Did not complain of any illness or fever prior to arrival. I would probably hold off on antibiotics for now and observe. ? Will check sputum Gram stain culture, urinalysis. ? Patient does have a history of chronic prostatitis. If UA indicative of infectious process may start antibiotics. Will check for urine culture at that point. ? Check bladder scan. Patient does carry history of urinary retention in the past. ? CT head negative at this time. ? Check nursing dysphagia screen. -Patient has no known history of atrial fibrillation in the past. Patient may benefit from an event monitor at discharge. DNR/DNI DVT prophylaxis: Heparin SQ twice daily Attestations 2 Medical Necessity Statement*: Less than 48 hours stay. Patient to be admitted under observation for TIA. Diagnoses Heart failure I50.9 Osteoporosis without current pathological fracture, unspecified osteoporosis type M81.0 Osteoporosis type: unspecified Presence of current pathological fracture: without current pathological fracture Chronic lymphocytic leukemia C91.10 Laryngeal stenosis J38.6 HTN (hypertension) I10
[2023-10-11 19:27] LABS: Amphetamines Screen Urine Negative (Negative); Barbiturates Screen Urine Negative (Negative); Benzodiazepines Screen Urine Negative (Negative); Cocaine Screen Urine Negative (Negative); Opiate Screen Urine Negative (Negative); PCP Screen Urine Negative (Negative); THC Screen Urine Negative (Negative)
[2023-10-11 20:07] LABS: Procalcitonin 0.04 ng/mL (0-0.5)
[2023-10-11] MEDS: heparin 5,000 unit/mL INJ 1 mL 5000 UNIT SUBCUT (20:49)
[2023-10-11] MEDS: sodium chloride 0.9% 1,000 ML 75 ML IV (20:52)
[2023-10-11 23:38] LABS: Estmated Average Glucose 117; Hemoglobin A1C 5.7 % (4.0-6.0)
[2023-10-12] VITALS (14 sets, daily range): BP systolic 132–202; BP diastolic 69–92; PULSE 51–62; RESP 16–18; TEMP 36.3–37.1; O2SAT 93–95; BMI 22.3
[2023-10-12 07:10] LABS: Basophils # 0.1 10^3/uL (0.0-0.1); Basophils % 0.3 %; Eosinophils # 0.3 10^3/uL (0.0-0.8); Hematocrit 37.5 % (37-53); Lymphocytes # 21.4 10^3/uL (0.8-4.8); Mean Corpuscular HGB Conc 32.5 g/dL (30-55); Mean Corpuscular Hemoglobin 33.4 pg (27-33); Mean Corpuscular Volume 102.7 fl (82-101); Mean Platelet Volume 8.7 fL (7.4-10.4); Monocytes # 0.8 10^3/uL (0.2-0.9); Monocytes % 2.9 %; Neutrophils # 4.18 10^3/uL (1.8-7.7); Neutrophils % 15.6 %; Nucleated Red Blood Cells % 0.1 %; Platelet Count 249 10^3/cmm (157-399); Red Blood Count 3.65 10^6/uL (3.85-5.65); Red Cell Distribution Width 13.3 % (12.1-15.1); White Blood Count 26.72 10^3/uL (3.29-11.43)
[2023-10-12 07:35] LABS: Anion Gap 12.8 (5-19); Blood Urea Nitrogen 6 mg/dL (8-23); Calcium 8.7 mg/dL (8.5-10.5); Carbon Dioxide 25 mmol/L (22-29); Chloride 99 mmol/L (98-107); Creatinine Clr Calc Pharmacy 64.6481; Glucose 86 mg/dL (65-115); Magnesium 1.8 mg/dL (1.7-2.3); Osmolality Calculated 273 mOsm/kg (285-295); Potassium 3.8 mmol/L (3.5-5.1); Sodium 133 mmol/L (136-145)
[2023-10-12] MEDS: aspirin 81 mg EC Tablet PO (10:05)
[2023-10-12] MEDS: amlodipine 10 mg Tablet PO (10:05)
[2023-10-12] MEDS: lisinopril 10 mg Tablet PO (10:05)
[2023-10-12] MEDS: clopidogrel 75 mg Tablet PO (10:05)
[2023-10-12] MEDS: pantoprazole DR 40 mg Tablet PO (10:05)
--- NOTE | 2023-10-12 10:07 | P.PN_ITS ---
Subjective 2 Subjective: Patient is hypertensive I have added amlodipine along lisinopril, Symptoms resolved Patient wants to go home however I would like to keep him until his blood pressure is slightly better Discontinue IV fluids able to tolerate diet PT OT is pending No word finding difficulty Vitals/I&O/Wt Last Vital Signs Temp 97.4 F L 10/12/23 08:29 Pulse 59 L 10/12/23 09:22 Resp 18 10/12/23 09:22 BP 194/92 10/12/23 08:29 Pulse Ox 95 10/12/23 09:22 O2 Del Method Room Air 10/12/23 09:22 10/11/23 10/12/23 10/12/23 22:59 06:59 14:59 Intake Total 240 / 240 240 / 480 240 / 240 Output Total 400 / 400 800 / 1200 Balance -160 / -160 -560 / -720 240 / 240 Weight last 48 hrs Weight 58.967 kg Weight 58.967 kg Weight 59.421 kg Physical Exam 2 Narrative: NIH 0 Pleasant cough Signs of dehydration present Muscle mass loss No active pain at the bedside Hypertensive GCS 15 Currently on room air Data 10/12/23 06:24 10/12/23 06:24 A&P Assessment and plan (1) HTN (hypertension): (2) Bradycardia: (3) GERD (gastroesophageal reflux disease): (4) Chronic lymphocytic leukemia: (5) History of stroke: (6) Transient ischemic attack, acute: Plan TIA NIH 0 PT OT Add amlodipine and lisinopril for hypertension Plan to discharge later today versus tomorrow morning Patient wanting to go home not interested in rehab DNR/DNI CLL related leukocytosis No sign of infection Bradycardia, no signs of hemorrhagic stroke Discontinue metoprolol Continue aspirin, Patient was bleeding around hyper injection site hold Plavix for now Attestations 2 Medical Necessity Statement*: Discharge today versus tomorrow Diagnoses HTN (hypertension) I10 Bradycardia R00.1 GERD (gastroesophageal reflux disease) K21.9 Chronic lymphocytic leukemia C91.10 History of stroke Z86.73 Transient ischemic attack, acute G45.9
--- NOTE | 2023-10-12 15:34 | P.DS_ITS ---
Discharge Providers Date of Admission: 10/11/23 20:43 Date of Discharge: October 12, 2023 Attending Provider at Admission: Cathy Ball MD Attending Provider at Discharge: Luiz Ramsay MD Primary Care Provider: Manolo Centeno DO Diagnoses at Discharge Discharge Diagnosis (1) HTN (hypertension): Status: Inactive (2) Bradycardia: Status: Inactive (3) GERD (gastroesophageal reflux disease): Status: Inactive (4) Chronic lymphocytic leukemia: Status: Inactive (5) History of stroke: Status: Inactive (6) Transient ischemic attack, acute: Status: Inactive Reason for Visit Reason for Visit: confusion, trouble finding words Hospital Course Hospital Course 77-year male who was admitted for management evaluation of fluid from difficulty right-sided weakness which improved by the time he was evaluated in the ER his NIH score was only 1 he was not a candidate for TNKase, he was evaluated by Dr. Solano, patient symptoms improved CT head unremarkable, patient stating that he is fairly active for his age, [place], he was hypertensive during hospitalization we had to add to antihypertensive regimen to control his blood pressure, please note he was bleeding at heparin injection site which was controlled with conservative measures such as ice packs and compression dressing which improved by the time he was discharged from the hospital, patient was asked to hold off on taking aspirin and Plavix for next 48 hours his anion score was 0 at the time of discharge. Physical Exam Narrative: Pleasant cooperative No active pain Discharge Data Studies Completed and Pending Completed Studies During Hospitalization Category Date Time Status CT head thrombolytic 36699 Stat Cat Scan 10/11/23 17:34 Completed Pending at discharge Category Date Time Status Sputum Culture and Gram Stain Stat Lab 10/11/23 19:32 Uncollected Radiology Impressions Head CT 10/11/23 17:34 IMPRESSION: No acute intracranial finding. ASSESSMENT: ASPECTS ([place] Stroke Program Early CT Score) is 10. Laboratory Results WBC 26.72 10^3/uL (3.29-11.43) H 10/12/23 06:24 RBC 3.65 10^6/uL (3.85-5.65) L 10/12/23 06:24 Hgb 12.20 g/dL (11.27-16.99) 10/12/23 06:24 Hct 37.5 % (37-53) 10/12/23 06:24 MCV 102.7 fl (82-101) H 10/12/23 06:24 MCH 33.4 pg (27-33) H 10/12/23 06:24 MCHC 32.5 g/dL (30-55) 10/12/23 06:24 RDW 13.3 % (12.1-15.1) 10/12/23 06:24 Plt Count 249 10^3/cmm (157-399) 10/12/23 06:24 MPV 8.7 fL (7.4-10.4) 10/12/23 06:24 Neut % (Auto) 15.6 % 10/12/23 06:24 Lymph % (Auto) 80.0 % 10/12/23 06:24 [place] % (Auto) 2.9 % 10/12/23 06:24 Eos % (Auto) 1.0 % 10/12/23 06:24 Baso % (Auto) 0.3 % 10/12/23 06:24 Neut # (Auto) 4.18 10^3/uL (1.8-7.7) 10/12/23 06:24 Lymph # (Auto) 21.4 10^3/uL (0.8-4.8) H 10/12/23 06:24 [place] # (Auto) 0.8 10^3/uL (0.2-0.9) 10/12/23 06:24 Eos # (Auto) 0.3 10^3/uL (0.0-0.8) 10/12/23 06:24 Baso # (Auto) 0.1 10^3/uL (0.0-0.1) 10/12/23 06:24 Nucleated RBC % (auto) 0.1 % 10/12/23 06:24 Nucleated RBCs # 0.0 /100WBC 10/12/23 06:24 PT 13.00 SECONDS (12.1-14.9) 10/11/23 17:39 INR 0.95 (0.8-1.2) 10/11/23 17:39 APTT 27.0 SECONDS (23.9-36.7) 10/11/23 17:39 Sodium 133 mmol/L (136-145) L 10/12/23 06:24 Potassium 3.8 mmol/L (3.5-5.1) 10/12/23 06:24 Chloride 99 mmol/L (98-107) 10/12/23 06:24 Carbon Dioxide 25 mmol/L (22-29) 10/12/23 06:24 Anion Gap 12.8 (5-19) 10/12/23 06:24 BUN 6 mg/dL (8-23) L 10/12/23 06:24 Creatinine 0.5 mg/dL (0.7-1.2) L 10/12/23 06:24 GFR Calculation Not Reportable 10/12/23 06:24 Glucose 86 mg/dL (65-115) 10/12/23 06:24 POC Glucose 97 mg/dL (70-110) 10/11/23 17:30 Estimat Average Glucose 117 10/11/23 17:39 Hemoglobin A1c 5.7 % (4.0-6.0) 10/11/23 17:39 Calculated Osmolality 273 mOsm/kg (285-295) L 10/12/23 06:24 Calcium 8.7 mg/dL (8.5-10.5) 10/12/23 06:24 Magnesium 1.8 mg/dL (1.7-2.3) 10/12/23 06:24 Total Bilirubin 0.6 mg/dL (0.15-1.2) 10/11/23 17:39 AST 24 U/L (0-40) 10/11/23 17:39 ALT 56 U/L (0-41) H 10/11/23 17:39 Alkaline Phosphatase 88 U/L (40-130) 10/11/23 17:39 Total Protein 6.0 g/dL (6.6-8.7) L 10/11/23 17:39 Albumin 4.2 g/dL (3.5-5.2) 10/11/23 17:39 Globulin 1.8 g/dL (1.3-4.6) 10/11/23 17:39 Procalcitonin 0.04 ng/mL (0-0.5) 10/11/23 17:39 TSH 1.70 uIU/mL (0.27-4.20) 10/11/23 17:39 Urine Color Yellow (Yellow) 10/11/23 19:09 Urine Appearance Clear (CLEAR) 10/11/23 19:09 Urine pH 7 (5-7) 10/11/23 19:09 Ur Specific [place] 1.010 (1.005-1.030) 10/11/23 19:09 Urine Protein Neg (Negative) 10/11/23 19:09 Urine Glucose (UA) Norm (Normal) 10/11/23 19:09 Urine Ketones Negative (Negative) 10/11/23 19:09 Urine Blood Neg (Negative) 10/11/23 19:09 Urine Nitrate Negative (Negative) 10/11/23 19:09 Urine Bilirubin Neg (Negative) 10/11/23 19:09 Urine Urobilinogen Norm mg/dL (Negative) 10/11/23 19:09 Ur Leukocyte Esterase Negative (Negative) 10/11/23 19:09 Urine Opiates Screen Negative ng/mL (Negative) 10/11/23 19:09 Ur Barbiturates Screen Negative ng/mL (Negative) 10/11/23 19:09 Ur Phencyclidine Scrn Negative ng/mL (Negative) 10/11/23 19:09 Ur Amphetamines Screen Negative ng/mL (Negative) 10/11/23 19:09 U Benzodiazepines Scrn Negative ng/mL (Negative) 10/11/23 19:09 Urine Cocaine Screen Negative ng/mL (Negative) 10/11/23 19:09 U Marijuana (THC) Screen Negative ng/mL (Negative) 10/11/23 19:09 Vitals Last Vital Signs Temp 97.6 F 10/12/23 12:05 Pulse 62 10/12/23 12:05 Resp 18 10/12/23 12:05 BP 137/69 10/12/23 14:36 Pulse Ox 94 10/12/23 12:05 O2 Del Method Room Air 10/12/23 12:05 Discharge Plan Discharge Patient Disposition: Home Condition: Stable Prescriptions: New amlodipine 10 mg Tablet 10 mg PO DAILY Qty: 30 3RF lisinopril 10 mg Tablet 10 mg PO DAILY Qty: 60 4RF Continued docusate sodium 100 mg capsule 100 mg PO BID PRN (Reason: Constipation) potassium chloride 10 mEq capsule, extended release 10 meq PO DAILY Qty: 30 1RF cholecalciferol (vitamin D3) 25 mcg (1,000 unit) capsule 25 mcg PO DAILY Qty: 90 1RF omeprazole 20 mg capsule,delayed release(DR/EC) 20 mg PO QAM Qty: 90 1RF cholecalciferol (vitamin D3) 1,250 mcg (50,000 unit) tablet 50,000 unit PO BID Qty: 180 3RF acetaminophen 500 mg Tablet 1,000 mg PO Q6H PRN (Reason: Pain) 14 Days Qty: 25 0RF calcium carbonate 500 mg calcium (1,250 mg) Tablet 500 mg PO BID chlorhexidine gluconate 0.12 % mouthwash See Rx Instructions .ROUTE .COMPLEX Rx Instructions: USE TOPICALLY NEEDED. simvastatin 40 mg tablet 40 mg PO QPM tamsulosin 0.4 mg capsule 0.4 mg PO DAILY fluticasone propionate 50 mcg/actuation spray,suspension 1 spray intranasal DAILY levofloxacin 750 mg Tablet 750 mg PO DAILY Qty: 4 0RF Held aspirin [Adult Low Dose Aspirin] 81 mg tablet,delayed release (DR/EC) 81 mg PO QAM Hold Instructions: Resume on 10/15/23. clopidogrel 75 mg tablet 75 mg PO DAILY Hold Instructions: Resume on 10/15/23. Discontinued metoprolol tartrate 25 mg tablet 12.5 mg PO BID Qty: 90 1RF Discharge Orders: Discharge Order (Routine); Ordered 10/12/23 Ordered By: Luiz Ramsay Referrals: Manolo Centeno, [Primary Care Provider] - 4-7 days (We have notified your physician's clinic of the need for a follow-up appointment to be scheduled. If you have not heard from them within the next 2 business days, please call them directly. ) Discharge Diet: Cardiac Discharge Activity: Increase activity as tolerated Patient Instructions: Bradycardia, Lisinopril (By mouth), Amlodipine (By mouth), Transient Ischemic Attack (DC), Opioid Safety Activity Restrictions/Additional Instructions: Do not take metoprolol because pulse was below 60 For BP I have added lisinopril and amlodipine Avoid aspirin and plavix for 3 days then only take one medication either aspirin or plavix Discharge Attestations Time Spent in Discharge Care*: greater than 30 min Quality Metrics Clinical Quality Measures [ No reported AMI, CVA or VTE this stay] Coding Level of Care Code Acute Code for Chg Fwd Diagnoses HTN (hypertension) I10 Bradycardia R00.1 GERD (gastroesophageal reflux disease) K21.9 Chronic lymphocytic leukemia C91.10 History of stroke Z86.73 Transient ischemic attack, acute G45.9
== END 2023-10-12 16:14 | disposition home or self-care (01) ==
LOC: ER 20:19 → MEDSURG 21:03
PROVIDERS: Admitting Provider Internal Medicine; Emergency Provider Family Medicine; PCP Family Medicine; Visit Provider Internal Medicine
DX: G45.9 Transient cerebral ischemic attack, unspecified (principal); I10 Essential (primary) hypertension; R00.1 Bradycardia, unspecified; K21.9 Gastro-esophageal reflux disease without esophagitis; C91.10 Chronic lymphocytic leukemia of B-cell type not having achieved remission; Z86.73 Personal history of transient ischemic attack (TIA), and cerebral infarction without residual deficits; Z66 Do not resuscitate; F32.A Depression, unspecified; Z79.82 Long term (current) use of aspirin; E78.5 Hyperlipidemia, unspecified; N40.1 Benign prostatic hyperplasia with lower urinary tract symptoms; N13.8 Other obstructive and reflux uropathy; M81.0 Age-related osteoporosis without current pathological fracture
CPT/HCPCS: 36415; 36416; 70450; 80048; 80053; 80306; 81003; 82962; 83036; 83735; 84145; 84443; 85025; 85610; 85730; 93005; 96361; 96372; 96374; 97161; 97165; 99285; G0378; J1644; J7030

== ENCOUNTER → 2023-10-14 11:20 | Outpatient (BNVA) | payer MEDICARE, OTHER, SELFPAY | PROVIDERS: PCP Family Medicine; Visit Provider Family Medicine | DX: E87.1 Hypo-osmolality and hyponatremia (principal) | CPT/HCPCS: 80048 ==

== ENCOUNTER → 2023-12-06 11:20 | Outpatient (BNVA) | payer MEDICARE, OTHER, SELFPAY | PROVIDERS: PCP Family Medicine; Visit Provider Family Medicine | DX: Z86.73 Personal history of transient ischemic attack (TIA), and cerebral infarction without residual deficits (principal); E78.5 Hyperlipidemia, unspecified; E87.1 Hypo-osmolality and hyponatremia | CPT/HCPCS: 80053; 85025 ==

== ENCOUNTER 2023-12-11 06:00 | Outpatient (RCR) | payer MEDICARE, OTHER, SELFPAY | END 2024-01-09 23:59 | disposition home or self-care (01) | LOC: APT 06:00 | PROVIDERS: PCP Family Medicine; Visit Provider Family Medicine | DX: M53.82 Other specified dorsopathies, cervical region (principal); R49.0 Dysphonia | CPT/HCPCS: 97110; 97112; 97161; 97530 ==

== ENCOUNTER 2024-01-10 06:00 | Outpatient (RCR) | payer MEDICARE, OTHER, SELFPAY | END 2024-02-09 23:59 | disposition home or self-care (01) | LOC: APT 06:00 | PROVIDERS: PCP Family Medicine; Visit Provider Family Medicine | DX: M53.82 Other specified dorsopathies, cervical region (principal); R49.0 Dysphonia | CPT/HCPCS: 97110; 97112; 97530 ==

== ENCOUNTER → 2024-02-13 11:46 | Outpatient (BNVA) | payer MEDICARE, OTHER, SELFPAY | PROVIDERS: PCP Family Medicine; Visit Provider Family Medicine | DX: E78.5 Hyperlipidemia, unspecified (principal); E87.1 Hypo-osmolality and hyponatremia; R60.9 Edema, unspecified; E87.6 Hypokalemia | CPT/HCPCS: 80053; 85025 ==

== ENCOUNTER 2024-02-14 14:40 | Outpatient (RCR) | payer MEDICARE, OTHER, SELFPAY | END 2024-03-10 23:59 | disposition home or self-care (01) | LOC: APT 14:40 | PROVIDERS: PCP Family Medicine; Visit Provider Family Medicine | DX: M54.2 Cervicalgia (principal); M54.6 Pain in thoracic spine | CPT/HCPCS: 97110; 97112; 97530 ==

== ENCOUNTER → 2024-02-15 10:58 | Outpatient (BNVA) | payer MEDICARE, OTHER, SELFPAY | PROVIDERS: PCP Family Medicine; Visit Provider Family Medicine | DX: R60.9 Edema, unspecified (principal) | CPT/HCPCS: 80048 ==

== ENCOUNTER → 2024-02-17 11:13 | Outpatient (BNVA) | payer MEDICARE, OTHER, SELFPAY | PROVIDERS: PCP Family Medicine; Visit Provider Family Medicine | DX: N28.9 Disorder of kidney and ureter, unspecified (principal) | CPT/HCPCS: 80048 ==

== ENCOUNTER → 2024-02-22 10:53 | Outpatient (BNVA) | payer MEDICARE, OTHER, SELFPAY | PROVIDERS: PCP Family Medicine; Visit Provider Family Medicine | DX: E87.1 Hypo-osmolality and hyponatremia (principal); N28.9 Disorder of kidney and ureter, unspecified | CPT/HCPCS: 80048 ==

== ENCOUNTER → 2024-03-05 10:46 | Outpatient (BNVA) | payer MEDICARE, OTHER, SELFPAY | PROVIDERS: PCP Family Medicine; Visit Provider Family Medicine | DX: R60.9 Edema, unspecified (principal); E87.6 Hypokalemia | CPT/HCPCS: 80048 ==

== ENCOUNTER 2024-03-11 06:00 | Outpatient (RCR) | payer MEDICARE, OTHER, SELFPAY | END 2024-04-10 23:59 | disposition home or self-care (01) | LOC: APT 06:00 | PROVIDERS: PCP Family Medicine; Visit Provider Family Medicine | DX: M53.82 Other specified dorsopathies, cervical region (principal); R49.0 Dysphonia | CPT/HCPCS: 97110; 97112; 97530 ==

== ENCOUNTER → 2024-03-16 11:34 | Outpatient (BNVA) | payer MEDICARE, OTHER, SELFPAY | PROVIDERS: PCP Family Medicine; Visit Provider Family Medicine | DX: R60.9 Edema, unspecified (principal) | CPT/HCPCS: 80048 ==

== ENCOUNTER → 2024-03-26 11:04 | Outpatient (BNVA) | payer MEDICARE, OTHER, SELFPAY | PROVIDERS: PCP Family Medicine; Visit Provider Family Medicine | DX: E87.1 Hypo-osmolality and hyponatremia (principal) | CPT/HCPCS: 80048 ==

== ENCOUNTER 2024-04-11 06:00 | Outpatient (RCR) | payer MEDICARE, OTHER, SELFPAY | END 2024-05-11 23:59 | disposition home or self-care (01) | LOC: APT 06:00 | PROVIDERS: PCP Family Medicine; Visit Provider Family Medicine | DX: M53.82 Other specified dorsopathies, cervical region (principal); R49.0 Dysphonia | CPT/HCPCS: 97110; 97112; 97530 ==

== ENCOUNTER → 2024-04-16 12:07 | Outpatient (BNVA) | payer MEDICARE, OTHER, SELFPAY | PROVIDERS: PCP Family Medicine; Visit Provider Family Medicine | DX: R60.9 Edema, unspecified | CPT/HCPCS: 80053 ==

== ENCOUNTER → 2024-06-04 14:29 | Outpatient (BNVA) | payer MEDICARE, OTHER, SELFPAY | PROVIDERS: PCP Family Medicine; Visit Provider Family Medicine | DX: I10 Essential (primary) hypertension (principal) | CPT/HCPCS: 80053 ==

== ENCOUNTER → 2024-07-03 13:39 | Outpatient (BNVA) | payer MEDICARE, OTHER, SELFPAY | PROVIDERS: PCP Family Medicine; Visit Provider Family Medicine | DX: N28.9 Disorder of kidney and ureter, unspecified (principal); E87.1 Hypo-osmolality and hyponatremia | CPT/HCPCS: 80048 ==

== ENCOUNTER → 2024-07-24 14:46 | Outpatient (BNVA) | payer MEDICARE, OTHER, SELFPAY | PROVIDERS: PCP Family Medicine; Visit Provider Family Medicine | DX: N18.9 Chronic kidney disease, unspecified (principal); Z80.42 Family history of malignant neoplasm of prostate; R33.8 Other retention of urine | CPT/HCPCS: 80048; 85025 ==

== ENCOUNTER → 2024-08-20 11:31 | Outpatient (BNVA) | payer MEDICARE, OTHER, SELFPAY | PROVIDERS: PCP Family Medicine; Visit Provider Family Medicine | DX: I10 Essential (primary) hypertension (principal) | CPT/HCPCS: 80053 ==

== ENCOUNTER → 2024-09-20 14:22 | Outpatient (BNVA) | payer MEDICARE, OTHER, SELFPAY | PROVIDERS: PCP Family Medicine; Visit Provider Family Medicine | DX: E87.1 Hypo-osmolality and hyponatremia (principal); E87.6 Hypokalemia; R09.89 Other specified symptoms and signs involving the circulatory and respiratory systems | CPT/HCPCS: 80053; 85025 ==

== ENCOUNTER → 2024-10-15 13:54 | Outpatient (BNVA) | payer MEDICARE, OTHER, SELFPAY | PROVIDERS: PCP Family Medicine; Visit Provider Family Medicine | DX: N18.9 Chronic kidney disease, unspecified (principal); Z80.42 Family history of malignant neoplasm of prostate; E87.6 Hypokalemia | CPT/HCPCS: 80048; 85025 ==

== ENCOUNTER → 2024-10-18 14:28 | Outpatient (BNVA) | payer MEDICARE, OTHER, SELFPAY | PROVIDERS: PCP Family Medicine; Visit Provider Family Medicine | DX: E87.1 Hypo-osmolality and hyponatremia (principal); E87.6 Hypokalemia | CPT/HCPCS: 80053 ==

== ENCOUNTER → 2024-11-27 11:40 | Outpatient (BNVA) | payer MEDICARE, OTHER, SELFPAY | PROVIDERS: PCP Family Medicine; Visit Provider Family Medicine | DX: N18.9 Chronic kidney disease, unspecified (principal); I10 Essential (primary) hypertension | CPT/HCPCS: 80053; 85025 ==

== ENCOUNTER → 2024-12-17 12:26 | Outpatient (BNVA) | payer MEDICARE, OTHER, SELFPAY | PROVIDERS: PCP Family Medicine; Visit Provider Family Medicine | DX: E87.1 Hypo-osmolality and hyponatremia (principal); E87.6 Hypokalemia; R60.9 Edema, unspecified; R54 Age-related physical debility | CPT/HCPCS: 80053; 85025 ==

== ENCOUNTER 2024-12-20 15:44 | Emergency (ER) | payer MEDICARE, OTHER, SELFPAY ==
[2024-12-20 15:47] VITALS: BP 170/90; PULSE 73; RESP 20; TEMP 36.7; O2SAT 96; BMI 20.9
--- NOTE | 2024-12-20 15:55 | CTR_ITS ---
PROCEDURE INFORMATION: Exam: CT Chest Without Contrast; Diagnostic Exam date and time: 12/20/2024 4:24 PM Age: 79 years old Clinical indication: Chest wall pain; Additional info: Traumatic chest pain, anterior central TECHNIQUE: Imaging protocol: Diagnostic computed tomography of the chest without contrast. Radiation optimization: All CT scans at this facility use at least one of these dose optimization techniques: automated exposure control; mA and/or kV adjustment per patient size (includes targeted exams where dose is matched to clinical indication); or iterative reconstruction. COMPARISON: CT chest w con* [id number] 08/03/2023 12:34 PM RADIATION DOSE METRICS: Total DLP (mGy-cm): 384.21 FINDINGS: Limitations: Evaluation of solid organs, viscera, and vasculature is limited without intravenous contrast. Tubes, catheters and devices: None. Thyroid: Not well visualized. Trachea: Trachea and central airways are patent. Lungs: No consolidation. Bibasilar atelectasis. Lung nodules: A 4 mm nodule and a 3 mm nodule in the posterior right lung base are stable since 07/13/2022 and likely benign. Pleural spaces: No pneumothorax. No pleural effusion. Heart: No cardiomegaly. No pericardial effusion. Coronary arteries: Coronary artery calcifications are present. Esophagus: Gaseous distension of the esophagus. Mediastinal space: Unremarkable. No fluid collection. Lymph nodes: No mediastinal or axillary lymphadenopathy. Vasculature: Ectatic ascending thoracic aorta measuring 4.0 cm in diameter. Moderate atherosclerotic calcification of the aortic arch. Bones/joints: Diffusely decreased bone density. Hyperkyphosis of the thoracic spine. Acute angulated stair-like fracture of the body of the sternum (series 7, image 37). Multiple old vertebral compression fractures, with kyphoplasty changes at T9, T10, T12, and L1. Soft tissues: Unremarkable. CT/CT chest wo con [id number] IMPRESSION: 1. Acute angulated stair-like fracture of the body of the sternum (series 7, image 37). 2. No other acute findings.
--- NOTE | 2024-12-20 15:56 | ED_ITS ---
HPI - Fall General: Chief Complaint: Fall Stated Complaint: Fall Time Seen by Provider: 12/20/24 15:51 History of Present Illness: 79-year-old male with a history of strok e, congestive heart failure, hyperlipidemia, depression, CLL, GERD, hypertension and BPH who presents to the emergency room after having had a fall. He did not hit his head. He lost his balance. He hit his chest. He is having pain in his central chest wall. He says he felt a pop. No shortness of breath. No new oxygen requirements. No loss of consciousness. No altered mental status. No focal motor deficits. Related Data Home Medications ?Medication ?Instructions ?Recorded ?Confirmed aspirin 81 mg tablet,delayed 81 mg PO QAM 10/09/1904/04 release (Adult Low Dose Aspirin) Held on 10/12/23. Instructions: Resume on 10/15/23. docusate sodium 100 mg capsule 100 mg PO BID PRN Const ipation 02/24/23 09/20/24 calcium carbonate 500 mg PO BID 07/16/2309/20 chlorhexidine gluconate 0.12 % See Rx Instructions .Ro king salmon .COMPLEX 07/16/23 09/20/24 mouthwash Previous Rx's ?Medication ?Instructions ?Recorded acetaminophen 500 mg tablet 1,000 mg (2 x 500 mg) PO Q 6H PRN 07/20/22 Pain 14 days #25 tabs cholecalciferol (vitamin D3) 1,250 50,000 unit PO BID #180 tabs 07/26/23 mcg (50,000 unit) tablet levofloxacin 750 mg tablet 750 mg PO DAILY #4 tabs cholecalciferol (vitamin D3) 25 25 mcg PO DAILY bone h ealth #90 08/25/23 mcg (1,000 unit) capsule caps doxycycline hyclate 100 mg tablet 100 mg PO BID #14 ta bs 12/01/23 tamsulosin 0.4 mg capsule See Rx Instructions .Route 0 05/31/24 .COMPLEX #90 caps escitalopram oxalate 10 mg tablet 10 mg PO DAILY mood #90 tabs 07/24/24 fluticasone propionate 50 See Rx Instructions .Route 0 08/23/24 mcg/actuation nasal .COMPLEX #16 mL spray,suspension doxycycline hyclate 100 mg capsule 100 mg PO BID lung infection 7 09/20/24 days #14 caps prednisone 5 mg tablet 5 mg PO DAILY lung inflammat ion 10 09/20/24 days #10 tabs potassium chloride 20 mEq 30 meq (1.5 x 20 mEq) PO BRIA LY K+ 10/15/24 tablet,extended release replacement #135 tabs clopidogrel 75 mg tablet 75 mg PO DAILY #90 tabs 10/09 omeprazole 20 mg capsule,delayed See Rx Instructions . Route 11/09/24 release .COMPLEX #90 caps prednisone 10 mg tablet See Rx Instructions .Route 0 11/09/24 .COMPLEX #30 tabs simvastatin 40 mg tablet 40 mg PO QPM cholesterol #90 tabs 11/19/24 clindamycin HCl 300 mg capsule 300 mg PO BID infection #20 caps 11/27/24 furosemide 80 mg tablet 80 mg PO DAILY edema #45 tab s 12/07/24 oxycodone 5 mg tablet 5 mg PO Q8H PRN pain #20 tab s 12/20/24 Allergies Allergy/AdvReac Type Severity Reaction Status Date / Time celery Allergy Severe Swelling/Difficulty Verified 12/17/24 11:44 breathing meperidine (From Demerol) Allergy Unknown UNKNOWN Verified 12/17/24 11:44 Penicillins Allergy Unknown Unknown Verified 12/17/24 11:44 Sulfa (Sulfonamide Allergy Unknown UNKNOWN Verified 12/17/24 11:44 Antibiotics) cephalexin AdvReac angioedema Verified 12/17/24 11:44 Review of Systems Narrative: Constitutional symptoms: Negative except as documented in HPI. Skin symptoms: Negative except as documented in HPI. Eye symptoms: Negative except as documented in HPI. ENMT symptoms: Negative except as documented in HPI. Respiratory symptoms: Negative except as documented in HPI. Cardiovascular symptoms: Negative except as documented in HPI. Gastrointestinal symptoms: Negative except as documented in HPI. Genitourinary symptoms: Negative except as documented in HPI. Musculoskeletal symptoms: Negative except as documented in HPI. Neurologic symptoms: Negative except as documented in HPI. Psychiatric symptoms: Negative except as documented in HPI. Endocrine symptoms: Negative except as documented in HPI. [facility] ED PFSH: Medical History (Updated 12/20/24 @ 18:11 by Anika Wren MD) History of stroke (04/2018) Bradycardia Transient ischemic attack, acute Laryngeal stenosis Heart failure Osteoporosis Hyperlipidemia Depression Pathologic thoracic fracture Hyponatremia Acute urinary retention Acute hypokalemia Traumatic compression fracture of T12 thoracic vertebra Back pain Chronic lymphocytic leukemia GERD (gastroesophageal reflux disease) Dyslipidemia Degenerative arthritis HTN (hypertension) BPH w urinary obs/LUTS Chronic prostatitis Surgical History History of kyphoplasty H/O Mohs micrographic surgery for skin cancer (2019) S/P arthroscopic surgery of left knee Hx of bilateral inguinal hernia repair Family History Father , AT AGE 84 PROSTATE CANCER Cancer Mother , AT AGE 84 Hypertension CAD (coronary artery disease) Sister Dementia Other Hyperlipidemia Stroke Denies family history of Diabetes Clotting disorder Psychiatric illness Chronic kidney disease (CKD) Suicide Anesthesia complication Bleeding disorder Lung disease Social History Smoking and tobacco/nicotine status: never used tobacco/nicotine Alcohol intake: never Substance/Drug Use: unknown Adopted: No Caregiver/support person: No Lives independently: No Household members: spouse Marital status: Current occupational status: employed Physical Exam Narrative: EXAM NARRATIVE: General: Alert, no acute distress. Skin: Warm, dry. Head: Normocephalic, atraumatic. Neck: Patient has a cervical collar in place. Severe cervical hyperlordosis Eye: Extraocular movements are intact. Ears, nose, mouth and throat: mucosa moist. Cardiovascular: Regular, Normal peripheral perfusion. Respiratory: Lungs are clear to auscultation, respirations are non-labored, breath sounds are equal, Symmetrical chest wall expansion. Sternal pain with palpation Gastrointestinal: Soft, Nontender, Non distended Musculoskeletal: Normal ROM, no deformity. Neurological: Alert and oriented, No focal neurological deficit observed. Psychiatric: Cooperative, appropriate mood & affect. Course Vital Signs: Vital signs: Vital Signs Temperature 98.1 F 12/20/24 15:47 Pulse Rate 67 12/20/24 17:21 Respiratory Rate 20 H 12/20/24 15:47 Blood Pressure 141/89 12/20/24 17:21 Pulse Oximetry 92 12/20/24 17:21 Oxygen Delivery Me thod Room Air 12/20/24 15:47 MDM - Fall Medical Decision Making Medical decision making: Differential diagnosis including but not limited to and based on the above HPI, review of systems and physical exam: In this patient with a traumatic central chest injury. Would have concern for sternal fracture, pulmonary contusions, rib fractures. Pneumothorax. Orders placed to evaluate differential diagnosis based on the above differential, HPI and physical exam CT of the chest shows an acute angulated stair like fracture of the body of the sternum. This was reviewed and interpreted by myself the emergency room physician. I also reviewed the radiology report. I reviewed the patient's medical record. 79-year-old male with a history of stroke, congestive heart failure, hyperlipide violet, depression, CLL, GERD, hypertension and BPH Reexamination: Pain medicine has helped greatly. Patient is already using incentive spirometry at home. He wants to go home. Consultation: I spoke with pulmonology and he agrees that aggressive pulmonary toilet and good pain control with low threshold to return to the emergency room if he develops any pulmonary symptoms. The patient already has incentive spirometer ready etc. at home because of his kypolordosis. He does not recommend upfront antibiotics Consultation: I spoke with trauma surgeon at [facility]. Dr. Nola Leslie. She agrees with plan of good pulmonary toilet and pain medications. Assessment and plan: Sternal fracture ?Renwick relieved pain quite a bit. Patient is already using an incentive spirometer regularly at home - Discharged home - Discussed plan with patient. Answered any questions. - Evaluation and treatment of this problem were appropriate in the emergency setting. Lab Data Radiology Impressions Chest CT 12/20/24 15:55 IMPRESSION: 1. Acute angulated stair-like fracture of the body of the sternum (series 7, image 37). 2. No other acute findings. All radiology interpretation(s) finalized by discharge Discharge Plan Discharge Patient Disposition: Home Clinical Impression: Sternal fracture Condition: Stable Prescriptions: New oxycodone 5 mg tablet 5 mg PO Q8H PRN (Reason: pain) Qty: 20 0RF No Action aspirin [Adult Low Dose Aspirin] 81 mg tablet,delayed release (DR/EC) 81 mg PO QAM doxycycline hyclate 100 mg tablet 100 mg PO BID Qty: 14 0RF prednisone 5 mg tablet 5 mg PO DAILY 10 Days Qty: 10 0RF Rx Instructions: take with 10mg tab x 10 days to total 15mg per day. doxycycline hyclate 100 mg capsule 100 mg PO BID 7 Days Qty: 14 0RF docusate sodium 100 mg capsule 100 mg PO BID PRN (Reason: Constipation) cholecalciferol (vitamin D3) 25 mcg (1,000 unit) capsule 25 mcg PO DAILY Qty: 90 1RF fluticasone propionate 50 mcg/actuation spray,suspension See Rx Instructions .ROUTE .COMPLEX Qty: 16 5RF Dose Instruction: USE 1 SPRAY INTO EACH NOSTRIL DAILY Rx Instructions: USE 1 SPRAY INTO EACH NOSTRIL DAILY clopidogrel 75 mg tablet 75 mg PO DAILY Qty: 90 3RF cholecalciferol (vitamin D3) 1,250 mcg (50,000 unit) tablet 50,000 unit PO BID Qty: 180 3RF tamsulosin 0.4 mg capsule See Rx Instructions .ROUTE .COMPLEX Qty: 90 3RF Dose Instruction: TAKE 1 CAPSULE BY MOUTH EVERY DAY Rx Instructions: TAKE 1 CAPSULE BY MOUTH EVERY DAY escitalopram oxalate 10 mg tablet 10 mg PO DAILY Qty: 90 1RF potassium chloride 20 mEq tablet extended release 30 meq PO DAILY Qty: 135 3RF prednisone 10 mg tablet See Rx Instructions .ROUTE .COMPLEX Qty: 30 5RF Dose Instruction: TAKE 1 TABLET BY MOUTH DAILY NEEDED FOR INFLAMMATION, JOINTS, THROAT. Rx Instructions: TAKE 1 TABLET BY MOUTH DAILY NEEDED FOR INFLAMMATION, JOINTS, THROAT. omeprazole 20 mg capsule,delayed release(DR/EC) See Rx Instructions .ROUTE .COMPLEX Qty: 90 1RF Dose Instruction: TAKE 1 CAPSULE BY MOUTH EVERY MORNING Rx Instructions: TAKE 1 CAPSULE BY MOUTH EVERY MORNING simvastatin 40 mg tablet 40 mg PO QPM Qty: 90 0RF clindamycin HCl 300 mg capsule 300 mg PO BID Qty: 20 3RF furosemide 80 mg tablet 80 mg PO DAILY Qty: 45 1RF acetaminophen 500 mg Tablet 1,000 mg PO Q6H PRN (Reason: Pain) 14 Days Qty: 25 0RF calcium carbonate 500 mg calcium (1,250 mg) Tablet 500 mg PO BID chlorhexidine gluconate 0.12 % mouthwash See Rx Instructions .ROUTE .COMPLEX Rx Instructions: USE TOPICALLY NEEDED. levofloxacin 750 mg Tablet 750 mg PO DAILY Qty: 4 0RF Discharge Orders: Discharge ED (Routine); Ordered 12/20/24 Ordered By: Anika Wren Referrals: Manolo Centeno DO [Primary Care Provider, Family Practice] Discharge Diet: Usual diet Discharge Activity: Increase activity as tolerated Patient Instructions: Opioid Safety, Pain Management, Patient Portal & Elijah Instructions Activity Restrictions/Additional Instructions: Thank you for choosing [facility] for your healthcare needs today. You have been screened and evaluated and felt safe for discharge. Health conditions do change or evolve sometimes and as such it is important that you follow up with your Primary Doctor to be re checked, 3-5 days is a general good time frame for follow up. You are always welcome to return to the ED for re assessment if your symptoms are worsening or you have new concerns Print Language: Faroese Coding Level of Care Code ED Dredge Lever Operator for Sena Ching
--- OUTSIDE RECORDS SUMMARY | 2024-12-20 16:01 | XMS_ITS | Encounter Summary ---
Author Organization [facility] Address [address] [place] [address] Care Team Providers Care Methods Specialist Engineer Name Role Phone Manolo Centeno DO Primary Care Provider [phone] Encounter Details Date Type Department Care Team (Latest Contact Info) Description 09/20/2001 Outpatient Historical [facility] MarionScott MD [address] [facility] [address] [place] [address] UNILAT INGUINAL HERNIA (Primary Dx) Social History Tobacco Use Types Packs/Day Years Used Date Smoking Tobacco: Never Assessed Sex and Gender Information Value Date Recorded Sex Assigned at Not on file Legal Sex Male [address] Gender Identity Not on file Sexual Orientation Not on file documented as of this encounter Plan of Treatment Not on file documented as of this encounter Visit Diagnoses Diagnosis Inguinal hernia without mention of obstruction or gangrene, unilateral or unspecified, (not specified as recurrent)- Primary documented in this encounter Care Teams Methods Specialist Engineer Relationship Specialty Start Date End Date Manolo Centeno DO [address] [place] [id number] PCP - General Family Practice 08/08/17 documented as of this encounter
--- OUTSIDE RECORDS SUMMARY | 2024-12-20 16:01 | XMS_ITS | Encounter Summary ---
Author Organization [facility] Address [address] [place] [address] Care Team Providers Care Warehouse Clerk Name Role Phone Manolo Centeno DO Primary Care Provider [phone] Encounter Details Date Type Department Care Team (Latest Contact Info) Description 11/01/2001 Outpatient Historical [facility] MarionScott MD [address] [address] SURGERY FOLLOWUP, UNSPEC (Primary Dx) Social History Tobacco Use Types Packs/Day Years Used Date Smoking Tobacco: Never Assessed Sex and Gender Information Value Date Recorded Sex Assigned at Not on file 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
--- OUTSIDE RECORDS SUMMARY | 2024-12-20 16:01 | XMS_ITS | Encounter Summary ---
Author Organization [facility] Address [address] Ha: [place] [address] Care Team Providers Care Seed Sales Manager Name Role Phone Manolo Centeno DO Primary Care Provider [phone] Encounter Details Date Type Department Care Team (Late st Contact Info) Description 10/24/2000 Outpatient Historical Jeronimo Bloom MD [address] [place] [address] Social History Tobacco Use Types Packs/Day Years Used Date Smoking Tobacco: Never Assessed Sex and Gender Information Value Date Recorded Sex Assigned at Not on file Legal Sex Male 5:27 AM BUSINESS UNIT DIRECTOR Gender Identity Not on file Sexual Orientation Not on file documented as of this encounter Plan of Treatment Not on file documented as of this encounter Visit Diagnoses Not on filedocumented in this encounter Care Teams Seed Sales Manager Relationship Specialty Start Date End Date Manolo Centeno DO [address] [place] [phone] PCP - General Family Practice 08/08/17 documented as of this encounter
--- OUTSIDE RECORDS SUMMARY | 2024-12-20 16:01 | XMS_ITS | Encounter Summary ---
Author Organization [facility] Address [address] [place] [address] Care Team Providers Care Delivery Stock Clerk Name Role Phone Manolo Centeno DO Primary Care Provider [phone] Encounter Details Date Type Department Care Team (Late st Contact Info) Description 08/31/2001 Outpatient Historical [facility] Dermatology- [address] [place] [address] Jeronimo Bloom MD [address] [place] [address] ACTINIC KERATOSIS (Primary Dx); DYSCHROMIA OTHER; Inflamed seborr keratos Social History Tobacco Use Types Packs/Day Years Used Date Smoking Tobacco: Never Assessed Sex and Gender Information Value Date Recorded Sex Assigned at Not on file Legal Sex Male 5:27 AM HOSPITALIST Gender Identity Not on file Sexual Orientation Not on file documented as of this encounter Plan of Treatment Not on file documented as of this encounter Visit Diagnoses Diagnosis Actinic keratosis- Primary Other dyschromia Inflamed seborr keratos Inflamed seborrheic keratosis documented in this encounter Care Teams Delivery Stock Clerk Relationship Specialty Start Date End Date Manolo Centeno DO [address] [place] [address] PCP - General Family Practice 08/08/17 documented as of this encounter
--- OUTSIDE RECORDS SUMMARY | 2024-12-20 16:01 | XMS_ITS | Encounter Summary ---
Author Organization [facility] Address [address] [place] [address] Care Team Providers Care [place] Boatman Name Role Phone Manolo Centeno DO Primary Care Provider [phone] Encounter Details Date Type Department Care Team (Latest Contact Info) Description 09/01/2000 Outpatient Historical [facility] Simba Brandt MD [address] [place] [id number] Actinic keratosis (Primary Dx) Social History Tobacco Use Types Packs/Day Years Used Date Smoking Tobacco: Never Assessed Sex and Gender Information Value Date Recorded Sex Assigned at Not on file Legal Sex Male 5:27 AM TIMBER MANAGEMENT ASSISTANT Gender Identity Not on file Sexual Orientation Not on file documented as of this encounter Plan of Treatment Not on file documented as of this encounter Visit Diagnoses Diagnosis Actinic keratosis- Primary documented in this encounter Care Teams [place] Boatman Relationship Specialty Start Date End Date Manolo Centeno DO [facility] [place] [phone] PCP - General Family Practice 08/08/17 documented as of this encounter
--- OUTSIDE RECORDS SUMMARY | 2024-12-20 16:01 | XMS_ITS | Encounter Summary ---
Author Organization [facility] Address [address] [place] [address] Care Team Providers Care Head Athletic Trainer Name Role Phone Manolo Centeno DO Primary Care Provider [phone] Encounter Details Date Type Department Care Team (Latest Contact Info) Description 03/20/1999 Outpatient Historical [facility] Dermatology- [facility] [place] [address] [place] [address] Octavio French NO ADDRESS ON FILE Actinic keratosis (Primary Dx) Social History Tobacco Use Types Packs/Day Years Used Date Smoking Tobacco: Never Assessed Sex and Gender Information Value Date Recorded Sex Assigned at Not on file Legal Sex Male 5:27 AM FIBERGLASS LAMINATOR Gender Identity Not on file Sexual Orientation Not on file documented as of this encounter Plan of Treatment Not on file documented as of this encounter Visit Diagnoses Diagnosis Actinic keratosis- Primary documented in this encounter Care Teams Head Athletic Trainer Relationship Specialty Start Date End Date Manolo Centeno DO [address] [place] [phone] PCP - General Family Practice 08/08/17 documented as of this encounter
--- OUTSIDE RECORDS SUMMARY | 2024-12-20 16:01 | XMS_ITS | Encounter Summary ---
Author Organization [facility] Address [address] [place] [address] Care Team Providers Care Vice President Biostatistics Name Role Phone Manolo Centeno DO Primary Care Provider Encounter Details Date Type Department Care Team (Late st Contact Info) Description 10/24/2000 Outpatient Historical [facility] Dermatology- [address] [place] [address] Jeronimo Bloom MD [address] [place] [address] Actinic keratosis (Primary Dx); Foreign body granuloma of skin and subcutaneous tissue Social History Tobacco Use Types Packs/Day Years Used Date Smoking Tobacco: Never Assessed Sex and Gender Information Value Date Recorded Sex Assigned at Not on file Legal Sex Male 5:27 AM NANOSYSTEMS ENGINEER Gender Identity Not on file Sexual Orientation Not on file documented as of this encounter Plan of Treatment Not on file documented as of this encounter Visit Diagnoses Diagnosis Actinic keratosis- Primary Foreign body granuloma of skin and subcutaneous tissue documented in this encounter Care Teams Vice President Biostatistics Relationship Specialty Start Date End Date Manolo Centeno DO [address] [place] [address] PCP - General Family Practice 08/08/17 documented as of this encounter
--- OUTSIDE RECORDS SUMMARY | 2024-12-20 16:02 | XMS_ITS ---
Author Organization [facility] Address [address] [place] [address] Care Team Providers Care Director Of Patient Safety Name Role Phone JacoboManolo valles Primary Care Provider [phone] Active Problems Problem Noted Date Diagnosed Date CLL (chronic lymphocytic leukemia) 04/20/2018 Pulmonary nodule 10/03/2017 History of use of hearing aid in both ears 01/14 Impacted cerumen of right ear 11/04/2015 Current Treatment and Therapy Plans No current plan information found. Past Treatment and Therapy Plans No past plan information found. Lifetime Dose Tracking * Chemical Lifetime Dose Automatic Entry Manual Entr y Effective Dose 17.7 mSv 17.7 mSv 0 mSv Total DLP 1,396 DLP 1,396 DLP 0 DLP CTDIvol Max 20.5 mGy 20.5 mGy 0 mGy CTDIvol Min 16.1 mGy 16.1 mGy 0 mGy
--- OUTSIDE RECORDS SUMMARY | 2024-12-20 16:02 | XMS_ITS | Encounter Summary ---
Author Organization [facility] Address [address] [place] [address] Care Team Providers Care Mill Tender Washing Name Role Phone Manolo Centeno DO Primary Care Provider [phone] Encounter Details Date Type Department Care Team (Late st Contact Info) Description 02/08/2003 Outpatient Historical [facility] Family Medicine- [address] [place] [address] Poornima Sen, SHARONC [address] [place] [address] ACTINIC KERATOSIS (Primary Dx) Social History Tobacco Use Types Packs/Day Years Used Date Smoking Tobacco: Never Assessed Sex and Gender Information Value Date Recorded Sex Assigned at Not on file Legal Sex Male 5:27 AM TRAIN DISPATCHER Gender Identity Not on file Sexual Orientation Not on file documented as of this encounter Plan of Treatment Not on file documented as of this encounter Visit Diagnoses Diagnosis Actinic keratosis- Primary documented in this encounter Care Teams Mill Tender Washing Relationship Specialty Start Date End Date Manolo Centeno DO [address] [place] [phone] PCP - General Family Practice 08/08/17 documented as of this encounter
--- OUTSIDE RECORDS SUMMARY | 2024-12-20 16:02 | XMS_ITS | Encounter Summary ---
Author Organization [facility] Address [address] [place] [address] Care Team Providers Care Staff Field Engineer Name Role Phone Manolo Centeno DO Primary Care Provider [phone] Encounter Details Date Type Department Care Team (Late st Contact Info) Description 07/29/2003 Outpatient Historical [facility] Family Medicine- [address] [place] [address] Poornima Sen, SHARONC [address] [place] [address] ACTINIC KERATOSIS (Primary Dx) Social History Tobacco Use Types Packs/Day Years Used Date Smoking Tobacco: Never Assessed Sex and Gender Information Value Date Recorded Sex Assigned at Not on file Legal Sex Male 5:27 AM CLINIC SCHEDULER Gender Identity Not on file Sexual Orientation Not on file documented as of this encounter Plan of Treatment Not on file documented as of this encounter Visit Diagnoses Diagnosis Actinic keratosis- Primary documented in this encounter Care Teams Staff Field Engineer Relationship Specialty Start Date End Date Manolo Centeno DO [address] [place] [phone] PCP - General Family Practice 08/08/17 documented as of this encounter
--- OUTSIDE RECORDS SUMMARY | 2024-12-20 16:02 | XMS_ITS | Encounter Summary ---
Author Organization [facility] Address [address] [place] [address] Care Team Providers Care Screw Machine Set Up Operator Name Role Phone Manolo Centeno DO Primary Care Provider [phone] Encounter Details Date Type Department Care Team (Late st Contact Info) Description 02/19/2002 Outpatient Historical [facility] Dermatology- [address] [place] [address] Jeronimo Bloom MD [address] [place] [address] ACTINIC KERATOSIS (Primary Dx) Social History Tobacco Use Types Packs/Day Years Used Date Smoking Tobacco: Never Assessed Sex and Gender Information Value Date Recorded Sex Assigned at Not on file Legal Sex Male 5:27 AM HOTEL CLERK Gender Identity Not on file Sexual Orientation Not on file documented as of this encounter Plan of Treatment Not on file documented as of this encounter Visit Diagnoses Diagnosis Actinic keratosis- Primary documented in this encounter Care Teams Screw Machine Set Up Operator Relationship Specialty [place] [address] [place] [phone] PCP - General Family Practice 08/08/17 documented as of this encounter
--- OUTSIDE RECORDS SUMMARY | 2024-12-20 16:02 | XMS_ITS | Encounter Summary ---
Author Organization [facility] Address [address] [place] [address] Care Team Providers Care Skein Yarn Dyer Helper Name Role Phone Manolo Centeno DO Primary Care Provider [phone] Encounter Details Date Type Department Care Team (Latest Contact Info) Description 11/06/2001 Outpatient Historical [facility] MarionScott MD [address] [address] SURGERY FOLLOWUP, UNSPEC (Primary Dx) Social History Tobacco Use Types Packs/Day Years Used Date Smoking Tobacco: Never Assessed Sex and Gender Information Value Date Recorded Sex Assigned at Not on file Legal Sex Male 5:27 AM GARNETT FIXER Gender Identity Not on file Sexual Orientation Not on file documented as of this encounter Plan of Treatment Not on file documented as of this encounter Visit Diagnoses Diagnosis Follow-up examination, following unspecified surgery- Primary documented in this encounter Care Teams Skein Yarn Dyer Helper Relationship Specialty Start Date End Date Manolo Centeno DO [facility] [place] [phone] PCP - General Family Practice 08/08/17 documented as of this encounter
--- OUTSIDE RECORDS SUMMARY | 2024-12-20 16:02 | XMS_ITS ---
Author Organization [facility] Address [address] [place] [address] Care Team Providers Care Retoucher Name Role Phone Manolo Centeno DO Primary Care Provider [phone] Active Problems Problem Noted Date Diagnosed Date [...] Manual Entr y Effective Dose 17.7 mSv 0 mSv 17.7 mSv Total DLP 1,396 DLP 0 DLP 1,396 DLP CTDIvol Max 20.5 mGy 0 mGy 20.5 mGy CTDIvol Min 16.1 mGy 0 mGy 16.1 mGy
--- OUTSIDE RECORDS SUMMARY | 2024-12-20 16:02 | XMS_ITS | Encounter Summary ---
Author Organization [facility] Address [address] [place] [address] Phone Care Team Providers Care Ceramics Teacher Name Role Phone Manolo Centeno DO Primary Care Provider [phone] Encounter Details Date Type Department Care Team (Late st Contact Info) Description 02/25/2023 Orders Only [facility] [address] [place] [address] Hyposmolality and/or hyponatremia Social History Tobacco Use Types Packs/Day Years Used Date Smoking Tobacco: Never Assessed Sex and Gender Information Value Date Recorded Sex Assigned at Not on file Legal Sex Male 1:52 PM EST Gender Identity Not on file Sexual Orientation Not on file documented as of this encounter Plan of Treatment Not on file documented as of this encounter Visit Diagnoses Diagnosis Hyposmolality and/or hyponatremia documented in this encounter Care Teams Ceramics Teacher Relationship Specialty Start Date End Date Manolo Centeno DO PCP - General Family Medicine 02/25/23 documented as of this encounter
--- OUTSIDE RECORDS SUMMARY | 2024-12-20 16:02 | XMS_ITS | Clinical Summary ---
Author Organization [facility] Address [address] [place] [address] Care Team Providers Care Drapery Maker Name Role Phone JacoboManolo valles Primary Care Provider [phone] Social History Tobacco Use Types Packs/Day Years Used Date Smoking Tobacco: Never Assessed Sex and Gender Information Value Date Recorded Sex Assigned at Not on file Legal Sex Male 1:52 PM EST Gender Identity Not on file Sexual Orientation Not on file Plan of Treatment Health Maintenance Due Date Last Done Comments Pneumococcal Vaccine: 50+ Ye ars (1 of 1 - PCV) 11/21/1995 Influenza Vaccine (#1) 2024 Hepatitis B Vaccine Aged Out No longe r eligible based on patient's age to complete this topic Insurance Medicare Old Surety Life Care Teams Drapery Maker Relationship Specialty Start Date End Date Manolo Centeno DO PCP - General Family Medicine 02/25/23
--- OUTSIDE RECORDS SUMMARY | 2024-12-20 16:02 | XMS_ITS | Encounter Summary ---
Author Organization [facility] Address [address] [place] [address] Care Team Providers Care Pathologist Assistant Name Role Phone Manolo Centeno DO Primary Care Provider [phone] Encounter Details Date Type Department Care Team (Latest Contact Info) Description 11/15/2001 Outpatient Historical [facility] MarionScott MD [address] [facility] [address] [place] [address] SURGERY FOLLOWUP, UNSPEC (Primary Dx) Social History Tobacco Use Types Packs/Day Years Used Date Smoking Tobacco: Never Assessed Sex and Gender Information Value Date Recorded Sex Assigned at Not on file Legal Sex Male 5:27 AM FRONT OFFICE ADMINISTRATOR Gender Identity Not on file Sexual Orientation Not on file documented as of this encounter Plan of Treatment Not on file documented as of this encounter Visit Diagnoses Diagnosis Follow-up examination, following unspecified surgery- Primary documented in this encounter Care Teams Pathologist Assistant Relationship Specialty Start Date End Date Manolo Centeno DO [facility] [place] [phone] PCP - General Family Practice 08/08/17 documented as of this encounter
--- OUTSIDE RECORDS SUMMARY | 2024-12-20 16:02 | XMS_ITS | Clinical Summary ---
Author Organization [facility] Address [address] [place] [address] Care Team Providers Care Director Employee Safety And Health Name Role Phone Manolo Centeno Primary Care Provider [phone] Allergies Active Allergy Reactions Criticality Noted Date Comments Celery Anaphylaxis High 10/03/2017 Meperidine Other (See Comments) 11/04/2015 Made him feel funny Penicillins Other (See Comments) 11/04/2015 Passed out Medications aspirin (ECOTRIN EC) 81 mg Tablet, Delayed Release (E.C.) Take 81 mg by mouth daily. 9 Active amLODIPine (NORVASC) 5 mg tablet Take 5 mg by mouth daily. 9 Active clopidogreL (PLAVIX) 75 mg Tablet Take 75 mg by mouth. 9 Active acetaminophen (TYLENOL) 325 mg tablet Take 325 mg by mouth every 4 hours as needed. 9 Active tamsulosin (FLOMAX) 0.4 mg capsule Take 0.4 mg by mouth daily. 9 Active simvastatin (ZOCOR) 40 mg tablet Take 40 mg by mouth daily with supper. 9 Active fluticasone propionate (FLONASE) 50 mcg/spray [place], Suspension nasal inhaler Administer 2 Sprays in each nostril daily. 16 Gram 0 6 Active omeprazole (PriLOSEC) 20 mg Capsule, Delayed Release(E.C.) 6 Active lisinopriL (PRINIVIL) 20 mg tablet 6 Active Active Problems Problem Noted Date Diagnosed Date CLL (chronic lymphocytic leukemia) 04/20/2018 Pulmonary nodule 10/03/2017 History of use of hearing aid in both ears 01/14 Impacted cerumen of right ear 11/04/2015 Social History Tobacco Use Types Packs/Day Years Used Date Smoking Tobacco: Never Alcohol Use Standard Drinks/Week Comments No 0 (1 standard drink = 0.6 oz pur e alcohol) Sex and Gender Information Value Date Recorded Sex Assigned at Not on file Legal Sex Male 10:31 AM GAS WELDING MACHINE OPERATOR Gender Identity Not on file Sexual Orientation Not on file Last Filed Vital Signs Vital Sign Reading Time Taken Comments Blood Pressure 124/74 03/01/2019 10:44 AM GAS WELDING MACHINE OPERATOR Pulse 73 03/01/2019 10:44 AM GAS WELDING MACHINE OPERATOR Temperature 36.4 C (97.6 F) 03/01/2019 10:44 AM GAS WELDING MACHINE OPERATOR Respiratory Rate - - Oxygen Saturation - - Inhaled Oxygen Concentration - - Weight 78.7 kg (173 lb 9.6 oz) 03/01/2019 10:44 AM GAS WELDING MACHINE OPERATOR Height 182.9 cm (6') 03/01/2019 10:44 AM GAS WELDING MACHINE OPERATOR Body Mass Index 23.54 03/01/2019 10:44 AM GAS WELDING MACHINE OPERATOR Plan of Treatment Health Maintenance Due Date Last Done Comments DTAP/TDAP/TD VACCINES (1 - Tdap) 1964 PNEUMOCOCCAL VACCINE 50+ YEARS (1 of 1 - PCV) 11/20/18 96 ZOSTER VACCINE (1 of 2) 11/21/1995 RSV VACCINE (60+ or ) (1 - 1-dose 75+ series) 2020 INFLUENZA VACCINE (#1) 2024 Care Teams Director Employee Safety And Health Relationship Specialty Start Date End Date Manolo Centeno DO [address] [place] [address] PCP - General 07/10/20
--- OUTSIDE RECORDS SUMMARY | 2024-12-20 16:02 | XMS_ITS | Clinical Summary ---
Author Organization [facility] Address [address] [place] [address] Care Team Providers Care Automation Qa Analyst Name Role Phone Manolo Centeno Primary Care Provider Allergies Active Allergy Reactions Criticality Noted Date Comments Celery Anaphylaxis High 10/03/2017 Meperidine Other (See Comments) 11/04/2015 Made him feel funny Penicillins Other (See Comments) 11/04/2015 Passed out Medications omeprazole (PriLOSEC) 20 mg Capsule, Delayed Release(E.C.) 6 Active lisinopril (PRINIVIL) 20 mg tablet 6 Active fluticasone (FLONASE) 50 mcg/spray [place], Suspension Administer 2 Sprays in each nostril daily. 16 Gram 0 6 Active acetaminophen (TYLENOL) 325 mg tablet Take 325 mg by mouth every 4 hours as needed. Active aspirin (ECOTRIN EC) 81 mg Tablet, Delayed Release (E.C.) Take 81 mg by mouth daily. Active tamsulosin (FLOMAX) 0.4 mg capsule Take 0.4 mg by mouth daily. Active amLODIPine (NORVASC) 5 mg tablet Take 5 mg by mouth daily. Active simvastatin (ZOCOR) 40 mg tablet Take 40 mg by mouth daily with supper. Active clopidogrel (PLAVIX) 75 mg Tablet Take 75 mg by mouth. Active Active Problems Problem Noted Date Diagnosed [...] on file Legal Sex Male 5:27 AM MANAGER FLOAT Gender Identity Not on file Sexual Orientation Not on file Last Filed Vital Signs Vital Sign Reading Time Taken Comments Blood Pressure 124/74 03/01/2019 10:44 AM MANAGER FLOAT Pulse 73 03/01/2019 10:44 AM MANAGER FLOAT Temperature 36.4 C (97.6 F) 03/01/2019 10:44 AM MANAGER FLOAT Respiratory Rate - - Oxygen Saturation 98% 03/01/2019 10:44 AM MANAGER FLOAT Inhaled Oxygen Concentration - - Weight 78.7 kg (173 lb 9.6 oz) 03/01/2019 10:44 AM MANAGER FLOAT Height 182.9 cm (6') 03/01/2019 10:44 AM MANAGER FLOAT Body Mass Index 23.54 03/01/2019 10:44 AM MANAGER FLOAT Plan of Treatment Health Maintenance Due Date Last Done Comments DTAP/TDAP/TD VACCINES (1 - Tdap) 1964 PNEUMOCOCCAL VACCINE 50+ YEARS (1 of 2 - PCV) 11/20/18 65 ZOSTER VACCINE (1 of 2) 1964 RSV VACCINE (60+ or ) (1 - 1-dose 75+ series) 2020 INFLUENZA VACCINE (#1) 2024 Insurance MEDICARE PART A AND B [place] Advance Directives For more information, please contact: [phone] Documents on File Type Date Recorded Patient Virtual Customer Assistant Expl anation Advance Directive POA 11/04/2015 3:08 PM Advance Directive Living Will 11/04/2015 3:08 PM Care Teams Automation Qa Analyst Relationship Specialty Start Date End Date Manolo Centeno DO [address] [place] [address] PCP - General Family Practice 08/08/17
--- OUTSIDE RECORDS SUMMARY | 2024-12-20 16:02 | XMS_ITS | Encounter Summary ---
Author Organization [facility] Address [address] [place] [address] Care Team Providers Care As400 Programmer Analyst Name Role Phone Manolo Centeno DO Primary Care Provider [phone] Encounter Details Date Type Department Care Team (Late st Contact Info) Description 08/06/2002 Outpatient Historical [facility] Dermatology- [address] [place] [address] Jeronimo Bloom MD [address] [place] [address] ACTINIC KERATOSIS (Primary Dx); DYSCHROMIA OTHER Social History Tobacco Use Types Packs/Day Years Used Date Smoking Tobacco: Never Assessed Sex and Gender Information Value Date Recorded Sex Assigned at Not on file Legal Sex Male 5:27 AM CHIEF INNOVATION OFFICER Gender Identity Not on file Sexual Orientation Not on file documented as of this encounter Plan of Treatment Not on file documented as of this encounter Visit Diagnoses Diagnosis Actinic keratosis- Primary Other dyschromia documented in this encounter Care Teams As400 Programmer Analyst Relationship Specialty Start Date End Date Manolo Centeno DO [address] [place] [phone] PCP - General Family Practice 08/08/17 documented as of this encounter
[2024-12-20] MEDS: HYDROcodone-acetaminophen 5-325 mg Tablet 1 TAB PO (16:11)
[2024-12-20 17:21] VITALS: BP 141/89; PULSE 67; O2SAT 92
[2024-12-20 18:28] VITALS: BP 162/89; PULSE 83; O2SAT 94
== END 2024-12-20 18:29 | disposition home or self-care (01) ==
PROVIDERS: Emergency Provider Emergency Medicine; PCP Family Medicine
DX: S22.22XA Fracture of body of sternum, initial encounter for closed fracture (principal); Z79.82 Long term (current) use of aspirin; Z79.02 Long term (current) use of antithrombotics/antiplatelets; Z86.73 Personal history of transient ischemic attack (TIA), and cerebral infarction without residual deficits; E78.5 Hyperlipidemia, unspecified; I11.0 Hypertensive heart disease with heart failure; I50.9 Heart failure, unspecified
CPT/HCPCS: 71250; 99284; J9999

== ENCOUNTER 2024-12-21 12:52 | Inpatient (IN) | payer MEDICARE, OTHER, SELFPAY ==
[2024-12-21] VITALS (19 sets, daily range): BP systolic 144–190; BP diastolic 72–91; PULSE 66–80; RESP 16–22; TEMP 36.6–37.8; O2SAT 95–99; BMI 17.8; BMI 19.9
--- OUTSIDE RECORDS SUMMARY | 2024-12-21 13:01 | XMS_ITS | Clinical Summary ---
Author Organization [facility] Address [address] [place] [address] Care Team Providers Care Facility Designer Name Role Phone Manolo Centeno Primary Care Provider [phone] Allergies Active Allergy Reactions Criticality Noted Date [...] 9 Active fluticasone propionate (FLONASE) 50 mcg/spray Malone, Suspension nasal inhaler Administer 2 Sprays in [...] on file Legal Sex Male 10:31 AM PAD EXTRACTOR TENDER Gender Identity Not on file Sexual Orientation Not on file Last Filed Vital Signs Vital Sign Reading Time Taken Comments Blood Pressure 124/74 03/01/2019 10:44 AM PAD EXTRACTOR TENDER Pulse 73 03/01/2019 10:44 AM PAD EXTRACTOR TENDER Temperature 36.4 C (97.6 F) 03/01/2019 10:44 AM PAD EXTRACTOR TENDER Respiratory Rate - - Oxygen Saturation - - Inhaled Oxygen Concentration - - Weight 78.7 kg (173 lb 9.6 oz) 03/01/2019 10:44 AM PAD EXTRACTOR TENDER Height 182.9 cm (6') 03/01/2019 10:44 AM PAD EXTRACTOR TENDER Body Mass Index 23.54 03/01/2019 10:44 AM PAD EXTRACTOR TENDER Plan of Treatment Health Maintenance Due Date Last Done Comments DTAP/TDAP/TD VACCINES (1 - Tdap) 1964 PNEUMOCOCCAL VACCINE 50+ YEARS (1 of 1 - PCV) 11/20/18 96 ZOSTER VACCINE (1 of 2) 11/21/1995 RSV VACCINE (60+ or ) (1 - 1-dose 75+ series) 2020 INFLUENZA VACCINE (#1) 2024 Care Teams Facility Designer Relationship Specialty Start Date End Date Manolo Centeno DO [address] [place] [address] PCP - General 07/10/20
--- OUTSIDE RECORDS SUMMARY | 2024-12-21 13:01 | XMS_ITS | Clinical Summary ---
Author Organization [facility] Facility Address [address] [place] [address] Care Team Providers Care Workers Compensation Adjuster Name Role Phone JacoboManolo valles Primary Care Provider [phone] Social History Tobacco Use Types Packs/Day Years [...] this topic Insurance Medicare [place] [id number] Care Teams Workers Compensation Adjuster Relationship Specialty Start Date End Date Manolo Centeno DO PCP - General Family Medicine 02/25/23
--- OUTSIDE RECORDS SUMMARY | 2024-12-21 13:01 | XMS_ITS | Encounter Summary ---
Author Organization [facility] Address [address] [place] [address] Phone Care Team Providers Care Development Editor Name Role Phone Manolo Centeno DO Primary Care Provider [phone] Encounter Details Date Type Department Care Team (Late st Contact Info) Description 02/25/2023 Orders Only [facility] [address] [place] [address] Hyposmolality and/or hyponatremia Social History [...] hyponatremia documented in this encounter Care Teams Development Editor Relationship Specialty Start Date End Date Manolo Centeno DO PCP - General Family Medicine 02/25/23 documented as of this encounter
--- OUTSIDE RECORDS SUMMARY | 2024-12-21 13:01 | XMS_ITS ---
Author Organization [facility] Address [address] [place] [address] Care Team Providers Care Tobacco Farmworker Name Role Phone Manolo Centeno DO Primary Care Provider [phone] Active Problems Problem Noted Date Diagnosed Date [...]
--- NOTE | 2024-12-21 13:10 | ECG_ITS ---
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: : 1945 Requested By: Khang Syed Order Number: [id number] Reading MD: FAY ORDAZ Measurements Intervals [place] Rate: 78 P: 17 IA: 239 QRS: -37 QRSD: 120 T: -18 QT: 358 QTc: 408 Interpretive Statements SINUS RHYTHM WITH FIRST DEGREE AV BLOCK WITH OCCASIONAL SUPRAVENTRICULAR PREMATURE COMPLEXES LEFT AXIS DEVIATION [QRS AXIS < -30] VOLTAGE CRITERIA FOR LVH [MEETS CRITERIA IN ONE OF: R(aVL), S(V1), R(V5), R(V5/V6)+S(V1)] POSSIBLE LATERAL MYOCARDIAL INFARCTION , OF INDETERMINATE AGE [30 ms Q WAVE IN I/aVL/V5/V6] Compared to ECG 10/11/2023 17:46:16 Myocardial infarct finding now present Sinus bradycardia no longer present Electronically Signed On 12-21-2024 20:09:44 CDT by FAY ORDAZ [email or web address]
[2024-12-21 13:15] LABS: Hematocrit 32.2 % (37-53); Hemoglobin 11.40 g/dL (11.27-16.99); Mean Corpuscular HGB Conc 35.4 g/dL (30-55); Mean Corpuscular Hemoglobin 34.4 pg (27-33); Mean Corpuscular Volume 97.3 fl (82-101); Platelet Count 257 10^3/cmm (157-399); Red Blood Count 3.31 10^6/uL (3.85-5.65)
[2024-12-21 13:24] LABS: Alanine Aminotransferase 36 U/L (0-41); Albumin Level 3.9 g/dL (3.5-5.2); Alkaline Phosphatase 39 U/L (40-130); Anion Gap 12.5 (5-19); Aspartate Amino Transferase 49 U/L (0-40); Blood Urea Nitrogen 12 mg/dL (8-23); Calcium 8.8 mg/dL (8.5-10.5); Carbon Dioxide 31 mmol/L (22-29); Chloride 85 mmol/L (98-107); Creatinine Clr Calc Pharmacy 49.9586; Globulin 1.8 g/dL (1.3-4.6); Glucose 123 mg/dL (65-115); Osmolality Calculated 261 mOsm/kg (285-295); Potassium 3.5 mmol/L (3.5-5.1); Sodium 125 mmol/L (136-145); Total Protein 5.7 g/dL (6.6-8.7)
[2024-12-21 13:25] LABS: ABG PH Result 7.36 (7.35-7.45); Arterial Blood Gas Hematocrit 36.4 % (42-52); Blood Gas Allen Test Pos; Blood Gas LPM 10.0 %; Blood Gas Operator Identificat AMH; Blood Gas Sample Site Radial, right; Blood Gas Sample Type Arterial; Carboxyhemoglobin 1.6 %THgb (0.4-20.1); Glucose Level-ABG 122.0 mg/dL (70-115); HCO3 ABG 34.4 mmol/L (22-26); Ionized Calcium Level - ABG 1.2 mmol/L (1.1-1.4); Methemoglobin 0.9 % (0.4-1.5); Oxygen Saturation ABG 95.6; PO2 ABG 80.3 mmHg (80.0-100.0); Potassium Level - ABG 3.4 mmol/L (3.5-5.0); Sodium Level - ABG 124.0 mmol/L (131-143)
[2024-12-21 13:26] LABS: ABG PCO2 60.9 mmHg (35-45)
[2024-12-21 13:31] LABS: Glucose Urine UA Negative (Normal); Nitrate Urine Negative (Negative); Specific Gravity, Urine 1.019 (1.005-1.030)
[2024-12-21 13:34] LABS: Add Urine Microscopic? YES
--- NOTE | 2024-12-21 13:35 | ED_ITS ---
HPI - Altered Mental Status 2 General: Chief Complaint: Altered Mental Status Stated Complaint: ams History of Present Illness: 79-year-old male presents to the emergen cy room altered mental status. He was seen yesterday he had fallen at home CT was done yesterday and he had a sternal fracture. At that time he was awake and alert family just wanted to treated at home with pain medications. Patient has severe thoracic kyphosis to the point it impinges on his lung volumes. He took 2 hydrocodone since the fracture now is completely nonresponsive having labored breathing. Mild facial swelling increase edema to his lower extremities. Patient has a soft c-collar in place. Family reports he has a Do Not Recussitate. Patient has been seen multiple times in the past in the emergency room. Related Data Home Medications ?Medication ?Instructions ?Recorded ?Confirmed aspirin 81 mg tablet,delayed 81 mg PO QAM 10/09/1904/04 release (Adult Low Dose Aspirin) Held on 10/12/23. Instructions: Resume on 10/15/23. docusate sodium 100 mg capsule 100 mg PO BID PRN Const ipation 02/24/23 12/21/24 calcium carbonate 500 mg PO BID 07/16/2312/21 fluticasone propionate 50 1 spray intranasal DAILY 04/0412/21/24 mcg/actuation nasal spray,suspension hydrocodone 5 mg-acetaminophen 325 0.5 - 1 tab PO Q6H PRN Pain 12/21/24 12/21/24 mg tablet omeprazole 20 mg capsule,delayed 20 mg PO QAM 12/21/24 12/21/24 release tamsulosin 0.4 mg capsule 0.4 mg PO DAILY 12/21/2404/04 Previous Rx's ?Medication ?Instructions ?Recorded acetaminophen 500 mg tablet 1,000 mg (2 x 500 mg) PO Q 6H PRN 07/20/22 Pain 14 days #25 tabs cholecalciferol (vitamin D3) 25 25 mcg PO DAILY bone h ealth #90 08/25/23 mcg (1,000 unit) capsule caps escitalopram oxalate 10 mg tablet 10 mg PO DAILY mood #90 tabs 07/24/24 potassium chloride 20 mEq 30 meq (1.5 x 20 mEq) PO BRIA LY K+ 10/15/24 tablet,extended release replacement #135 tabs clopidogrel 75 mg tablet 75 mg PO DAILY #90 tabs 10/09 prednisone 10 mg tablet See Rx Instructions .Route 0 11/09/24 .COMPLEX #30 tabs simvastatin 40 mg tablet 40 mg PO QPM cholesterol #90 tabs 11/19/24 furosemide 80 mg tablet 80 mg PO DAILY edema #45 tab s 12/07/24 oxycodone 5 mg tablet 5 mg PO Q8H PRN pain #20 tab s 12/20/24 Allergies Allergy/AdvReac Type Severity Reaction Status Date / Time celery Allergy Severe Swelling/Difficulty Verified 12/17/24 11:44 breathing meperidine (From Demerol) Allergy Unknown UNKNOWN Verified 12/17/24 11:44 Penicillins Allergy Unknown Unknown Verified 12/17/24 11:44 Sulfa (Sulfonamide Allergy Unknown UNKNOWN Verified 12/17/24 11:44 Antibiotics) cephalexin AdvReac angioedema Verified 12/17/24 11:44 Review of Systems 2 General: Reports: ROS unobtainable due to mental status PFSH ED 2 PFSH: Medical History History of stroke (04/2018) Bradycardia Transient ischemic attack, acute Laryngeal stenosis Heart failure Osteoporosis Hyperlipidemia Depression Pathologic thoracic fracture Hyponatremia Acute urinary retention Acute hypokalemia Traumatic compression fracture of T12 thoracic vertebra Back pain Chronic lymphocytic leukemia GERD (gastroesophageal reflux disease) Dyslipidemia Degenerative arthritis HTN (hypertension) BPH w urinary obs/LUTS Chronic prostatitis Surgical History History of kyphoplasty H/O Mohs micrographic surgery for skin cancer (2018) S/P arthroscopic surgery of left knee Hx of bilateral inguinal hernia repair Family History Father , AT AGE 84 PROSTATE CANCER Cancer Mother , AT AGE 84 Hypertension CAD (coronary artery disease) Sister Dementia Other Hyperlipidemia Stroke Denies family history of Diabetes Clotting disorder Psychiatric illness Chronic kidney disease (CKD) Suicide Anesthesia complication Bleeding disorder Lung disease Social History Smoking and tobacco/nicotine status: never used tobacco/nicotine Alcohol intake: never Substance/Drug Use: unknown Adopted: No Caregiver/support person: No Lives independently: No Household members: spouse Marital status: Current occupational status: employed Physical Exam 2 Const: GENERAL APPEARANCE: lethargic ORIENTATION/CONSCIOUSNESS: Yes patient obtunded and Yes lethargic HENMT: COMMON NORMALS: normocephalic and atraumatic HEAD & SCALP: n ormocephalic and atraumatic Neck/C-Spine: OTHER: Severe cervical and thoracic kyphosis Resp: COMMON NORMALS: No retractions and No use of accessory muscles EFFORT & INSPECTION: Yes tachypneic AUSCULTATION: rhonchi Cardio: COMMON NORMALS: regular rate, regular rhythm and No murmurs present (Cardio) RATE: regular rate RHYTHM: regular rhythm GI: COMMON NORMALS: Soft to palpation and No hepatosplenomegaly present A USCULTATION: Yes normoactive bowel sounds PALPATION: Yes Soft to palpation, No Tenderness to palpation present (GI), No Guarding due to palpation present (GI) and Yes No hepatosplenomegaly present Extremity: COMMON NORMALS: normal to inspection, capillary refill normal, no clubbing, cyanosis or edema, no calf tenderness and no pedal edema Neuro: SENSORIUM/ORIENTATION: Yes lethargic Skin: COMMON NORMALS: no rashes or lesions noted GENERAL SKIN EXAM: no rashes or lesions noted Course 2 Vital Signs: Vital signs: Vital Signs Temperature 97.6 F 12/22/24 07:46 Pulse Rate 71 12/22/24 07:46 Respiratory Rate 20 H 12/22/24 07:46 Blood Pressure 165/93 12/22/24 07:46 Pulse Oximetry 97 12/22/24 07:46 Oxygen Delivery Me thod BiPAP 12/22/24 07:46 Oxygen Flow Rate 4 12/21/24 18:00 Fraction of Inspir ed Oxygen 35 12/22/24 07:24 MDM - Altered Mental Status Medical Decision Making Labs reviewed. We are going to do a CT patient family opted not to. They do not wish to pursue any surgical options that are more interested in treatment with conservative care they want to have the patient remain Do Not Recussitate they realize he may continue to decline. Patient was placed in the left lateral recumbent position with BiPAP which did seem to improve slightly. He still remains unresponsive discussed with the hospitalist will admit Medical Records I reviewed the patient's medical records. Lab Data I reviewed the patient's lab results. 12/21/24 12:58 12/21/24 12:58 Laboratory Results WBC 46.81 10^3/uL (3.29-11.43) H* 12/21/24 12:58 RBC 3.31 10^6/uL (3.85-5.65) L 12/21/24 12:58 Hgb 11.40 g/dL (11.27-16.99) 12/21/24 12:58 Hct 32.2 % (37-53) L 12/21/24 12:58 MCV 97.3 fl (82-101) 12/21/24 12:58 MCH 34.4 pg (27-33) H 12/21/24 12:58 MCHC 35.4 g/dL (30-55) 12/21/24 12:58 RDW 13.7 % (12.1-15.1) 12/21/24 12:58 Plt Count 257 10^3/cmm (157-399) 12/21/24 12:58 MPV 8.1 fL (7.4-10.4) 12/21/24 12:58 Lymph % (Auto) Not Reportable 12/21/24 12:58 Stearns % (Auto) Not Reportable 12/21/24 12:58 Lymph # (Auto) Not Reportable 12/21/24 12:58 Stearns # (Auto) Not Reportable 12/21/24 12:58 Total Counted 100 (0-100) 12/21/24 12:58 Atypical Lymphs % 12.0 % (0-5) H 12/21/24 12:58 Absolute Neutrophils 12.2 10^3/cmm (1.4-6.5) H 12/21/24 12:58 Segmented Neutrophils 26 % 12/21/24 12:58 Band Neutrophils 0.0 % 12/21/24 12:58 Absolute Lymphocytes 33.2 10^3/cmm (1.2-3.4) H 12/21/24 12:58 Lymphocytes (Manual) 59 % 12/21/24 12:58 Monocytes (Manual) 3.0 % 12/21/24 12:58 Absolute Monocytes 1.4 10^3/cmm (0.1-0.6) H 12/21/24 12:58 Eosinophils (Manual) 0 % 12/21/24 12:58 Absolute Eosinophils 0.0 10^3/cmm (0.0-0.7) 12/21/24 12:58 Basophils (Manual) 0.0 % 12/21/24 12:58 Absolute Basophils 0.0 10^3/cmm (0.0-0.2) 12/21/24 12:58 Platelet Estimate Normal (Normal) 12/21/24 12:58 Macrocytosis 1+ H 12/21/24 12:58 Specimen Type Arterial 12/21/24 13:13 Sample Site Radial, right 12/21/24 13:13 ABG pH 7.36 (7.35-7.45) 12/21/24 13:13 ABG pCO2 60.9 mmHg (35-45) H* 12/21/24 13:13 ABG pO2 80.3 mmHg (80.0-100.0) 12/21/24 13:13 ABG HCO3 34.4 mmol/L (22-26) H 12/21/24 13:13 ABG O2 Saturation 95.6 12/21/24 13:13 ABG Base Excess 7.2 mmol/L (-2.0-2.0) H 12/21/24 13:13 Blair Test Pos 12/21/24 13:13 A-a O2 Gradient Not Reportable 12/21/24 13:13 Hematocrit 36.4 % (42-52) L 12/21/24 13:13 Hgb O2 Saturation 93.2 % (95-100) L 12/21/24 13:13 Carboxyhemoglobin 1.6 %THgb (0.4-20.1) 12/21/24 13:13 Methemoglobin 0.9 % (0.4-1.5) 12/21/24 13:13 Total Hemoglobin 11.9 g/dL (14-18) L 12/21/24 13:13 Sodium 124.0 mmol/L (131-143) L 12/21/24 13:13 Potassium 3.4 mmol/L (3.5-5.0) L 12/21/24 13:13 Glucose 122.0 mg/dL (70-115) H 12/21/24 13:13 Ionized Calcium 1.2 mmol/L (1.1-1.4) 12/21/24 13:13 O2 Delivery Device Nrb 12/21/24 13:13 O2 Liters/Min 10.0 % 12/21/24 13:13 Commercial Real Estate Broker ID Amh 12/21/24 13:13 Sodium 125 mmol/L (136-145) L 12/21/24 12:58 Potassium 3.5 mmol/L (3.5-5.1) 12/21/24 12:58 Chloride 85 mmol/L (98-107) L 12/21/24 12:58 Carbon Dioxide 31 mmol/L (22-29) H 12/21/24 12:58 Anion Gap 12.5 (5-19) 12/21/24 12:58 BUN 12 mg/dL (8-23) 12/21/24 12:58 Creatinine 0.4 mg/dL (0.7-1.2) L 12/21/24 12:58 GFR Calculation Not Reportable 12/21/24 12:58 Glucose 123 mg/dL (65-115) H 12/21/24 12:58 Calculated Osmolality 261 mOsm/kg (285-295) L 12/21/24 12:58 Calcium 8.8 mg/dL (8.5-10.5) 12/21/24 12:58 Total Bilirubin 1.5 mg/dL (0.15-1.2) H 12/21/24 12:58 AST 49 U/L (0-40) H 12/21/24 12:58 ALT 36 U/L (0-41) 12/21/24 12:58 Alkaline Phosphatase 39 U/L (40-130) L 12/21/24 12:58 Total Protein 5.7 g/dL (6.6-8.7) L 12/21/24 12:58 Albumin 3.9 g/dL (3.5-5.2) 12/21/24 12:58 Globulin 1.8 g/dL (1.3-4.6) 12/21/24 12:58 Urine Color Yellow (Yellow) 12/21/24 13:20 Urine Appearance Clear (CLEAR) 12/21/24 13:20 Urine pH 6.0 (5-7) 12/21/24 13:20 Ur Specific [place] 1.019 (1.005-1.030) 12/21/24 13:20 Urine Protein Trace (Negative) A 12/21/24 13:20 Urine Glucose (UA) Negative (Normal) 12/21/24 13:20 Urine Ketones Negative (Negative) 12/21/24 13:20 Urine Blood 1+ (Negative) A 12/21/24 13:20 Urine Nitrate Negative (Negative) 12/21/24 13:20 Urine Bilirubin Negative (Negative) 12/21/24 13:20 Urine Urobilinogen 1.0 mg/dL (Negative) 12/21/24 13:20 Ur Leukocyte Esterase Negative (Negative) 12/21/24 13:20 Urine RBC 11-20 /hpf (0-2) H 12/21/24 13:20 Urine WBC 0-5 /hpf (0-5) 12/21/24 13:20 Ur Squamous Epith Cells 0-5 /hpf (0-5) 12/21/24 13:20 Amorphous Sediment Not Reportable 12/21/24 13:20 Urine Bacteria None seen /hpf (NONE) 12/21/24 13:20 Hyaline Casts 1.65 /lpf 12/21/24 13:20 All radiology interpretation(s) finalized by discharge Discharge Plan Discharge Patient Disposition: Admitted As Inpatient Admit Provider: Augustine Alvarez Clinical Impression: Acute respiratory failure with hypoxia and hypercapnia, Sternal fracture, Altered mental status, Kyphosis deformity of spine Condition: Stable Coding Level of Care Code ED Driver Lifter Of Sanitation Truck for Sena Ching
[2024-12-21 13:55] LABS: Slide Review Slide Review Perform
[2024-12-21 13:56] LABS: Total Cells Counted 100 (0-100); White Blood Count 46.81 10^3/uL (3.29-11.43)
[2024-12-21 13:57] LABS: Absolute Segmented Neutrophil 12.2 10/cmm (1.6-7.1); Atypical Lymphs 12.0 % (0-5); Band Neutrophils Absolute 0.0 10^3/cmm (0.0-1.2); Macrocytosis 1+
--- NOTE | 2024-12-21 14:05 | PC.PHAR ---
Family states pt was here yesterday and discharged with new rx for Oxycodone 5mg. Pt did not take anything yesterday but Hydrocodone 5-325 and tylenol. Pt has not taken maintenance meds for a couple days. 12/21/24. Med rec was not done yesterday but is completed today.
--- NOTE | 2024-12-21 14:21 | PC.NURSE ---
pt changed out of clothes, gown placed, pt incontinent of urine, bed changed and placed in pull up. Pt repositioned on left side. pillows placed to float pt legs and placed under side for comfort.
--- NOTE | 2024-12-21 15:21 | P.HP_ITS ---
Providers/Chief Complaint 2 Admitting Physician: Dr. Alvarez Primary Care Provider: Manolo Centeno DO Chief Complaint: ams History of Present Illness Reilly Friedman is a 79 year old male with history of stroke CHF hyperlipidemia depression CLL hypertension presents status post fall yesterday. He went to the emergency room last night he was found to have a acute fracture of the body of the sternum. He was discharged home with stable vital signs on oral pain medications. This morning patient was no longer alert unable to hold his head up and the family called 911. In the emergency room he was found to have CO2 of 60 although his pH was 7.36. He was concerned due to his severe kyphosis and pain medications and he was placed on BiPAP. I spoke with the patient's son and he is aware of the severity of his father's case. The stepped out however son says there was going to be no aggressive measures. They want to keep him comfortable. No need for further workup. He will be admitted to continue BiPAP. I will give him IV dose of Bumex and provide comfort measures Review of Systems 2 General: Reports: ROS unobtainable due to medical condition Medications/Allergies Home Medications ?Medication ?Instructions ?Recorded ?Confirmed ?Last Taken ?Type aspirin 81 mg tablet,delayed 81 mg PO QAM 10/09/1904/0410/11/23 History release (Adult Low Dose Aspirin) Held on 10/12/23. Instructions: Resume on 10/15/23. acetaminophen 500 mg tablet 1,000 mg (2 x 500 mg) PO Q 6H PRN 07/20/22 12/21/24 12/20/24 Rx Pain 14 days #25 tabs docusate sodium 100 mg capsule 100 mg PO BID PRN Const ipation 02/24/23 12/21/24 10/11/23 History calcium carbonate 500 mg PO BID 07/16/2312/2110/11/23 History cholecalciferol (vitamin D3) 25 25 mcg PO DAILY bone h ealth #90 08/25/23 12/21/24 10/11/23 Rx mcg (1,000 unit) capsule caps escitalopram oxalate 10 mg tablet 10 mg PO DAILY mood #90 tabs 07/24/24 12/21/24 Unknown Rx potassium chloride 20 mEq 30 meq (1.5 x 20 mEq) PO BRIA LY K+ 10/15/24 12/21/24 Unknown Rx tablet,extended release replacement #135 tabs clopidogrel 75 mg tablet 75 mg PO DAILY #90 tabs 10/0912/21/24 Unknown Rx prednisone 10 mg tablet See Rx Instructions .Route 0 11/09/24 12/21/24 Unknown Rx .COMPLEX #30 tabs simvastatin 40 mg tablet 40 mg PO QPM cholesterol #90 tabs 11/19/24 12/21/24 Unknown Rx furosemide 80 mg tablet 80 mg PO DAILY edema #45 tab s 12/07/24 12/21/24 Unknown Rx oxycodone 5 mg tablet 5 mg PO Q8H PRN pain #20 tab s 12/20/24 12/21/24 12/20/24 Rx fluticasone propionate 50 1 spray intranasal DAILY 04/0412/21/24 Unknown History mcg/actuation nasal spray,suspension hydrocodone 5 mg-acetaminophen 325 0.5 - 1 tab PO Q6H PRN Pain 12/21/24 12/21/24 12/20/24 History mg tablet omeprazole 20 mg capsule,delayed 20 mg PO QAM 12/21/24 12/21/24 Unknown History release tamsulosin 0.4 mg capsule 0.4 mg PO DAILY 12/21/2404/04 Unknown History Allergies Allergy/AdvReac Type Severity Reaction Status Date / Time celery Allergy Severe Swelling/Difficulty Verified 12/17/24 11:44 breathing meperidine (From Demerol) Allergy Unknown UNKNOWN Verified 12/17/24 11:44 Penicillins Allergy Unknown Unknown Verified 12/17/24 11:44 Sulfa (Sulfonamide Allergy Unknown UNKNOWN Verified 12/17/24 11:44 Antibiotics) cephalexin AdvReac angioedema Verified 12/17/24 11:44 PFSH Acute 2 PFSH: Medical History History of stroke (04/2018) Bradycardia Transient ischemic attack, acute Laryngeal stenosis Heart failure Osteoporosis Hyperlipidemia Depression Pathologic thoracic fracture Hyponatremia Acute urinary retention Acute hypokalemia Traumatic compression fracture of T12 thoracic vertebra Back pain Chronic lymphocytic leukemia GERD (gastroesophageal reflux disease) Dyslipidemia Degenerative arthritis HTN (hypertension) BPH w urinary obs/LUTS Chronic prostatitis Surgical History History of kyphoplasty H/O Mohs micrographic surgery for skin cancer (2019) S/P arthroscopic surgery of left knee Hx of bilateral inguinal hernia repair Family History Father , AT AGE 84 PROSTATE CANCER Cancer Mother , AT AGE 84 Hypertension CAD (coronary artery disease) Sister Dementia Other Hyperlipidemia Stroke Denies family history of Diabetes Clotting disorder Psychiatric illness Chronic kidney disease (CKD) Suicide Anesthesia complication Bleeding disorder Lung disease Social History Smoking and tobacco/nicotine status: never used tobacco/nicotine Alcohol intake: never Substance/Drug Use: unknown Adopted: No Caregiver/support person: No Lives independently: No Household members: spouse Marital status: Current occupational status: employed Vitals/I&O/Wt Last Vital Signs Temp 99.2 F 12/21/24 12:54 Pulse 70 12/21/24 15:00 Resp 18 12/21/24 12:54 BP 159/91 12/21/24 15:00 Pulse Ox 96 12/21/24 15:00 O2 Del Method BiPAP 12/21/24 15:00 O2 Flow Rate 10 12/21/24 13:15 FiO2 40 12/21/24 14:30 12/21/24 12/21/24 12/21/24 06:59 14:59 22:59 Intake Total 0 / 0 Balance 0 / 0 Weight last 48 hrs Weight 47.174 kg Physical Exam 2 Narrative: Elderly very pale male severely kyphotic. His head is being held up by a neck brace and he is leading on a pillow. He is obtunded does not respond to touch or voice. Due to patient/family wishes did not perform sternal rub or attempt to create alertness. Head is normocephalic atraumatic pupils round and reactive to light and accommodation there is no scleral icterus mucous membranes are not assessed due to the BiPAP machine neck is thin no noticeable JVD Heart distant heart sounds unable to hear with BiPAP and his auditory wheezing Lungs diminished air movement upper airway wheezing noted Chest bruising on the sternum Abdomen soft nontender nondistended positive bowel sounds Extremities 1+ edema to the mid bonds Data 12/21/24 12:58 12/21/24 12:58 A&P Assessment and plan 1. Unresponsive: 2. Sternal fracture: 3. Frail elderly: 4. Kyphosis deformity of spine: 5. Angioedema: 6. Hyponatremia: 7. Pulmonary congestion: Plan: Patient is admitted for unresponsive state and hypercapnea. He is placed on BiPAP. He has significant facial swelling questionable angioedema. The only note drug is hydro codon. He also has significant swelling in his lower extremities and usually takes Lasix 80 mg a day. Patient with severe kyphosis and multiple complications including compression fractures over the years that have been surgically repaired and he has underwent aggressive physical therapy in the past. However the sternal fracture is likely to be the culprit of further complication. Family requests DO NOT RESUSCITATE and keep comfortable. There is has no desire for aggressive treatment therefore no further testing will be done at this time. I suspect he may have a hematoma and thus antiplatelets and anticoagulants will be held at this time. He also appears to be volume overloaded and will give Bumex 2 mg IV x 1. And for the edema will give Solu-Cortef. He will be observed and followed expectantly. PDMP PDMP Reviewed: Not Reviewed Attestations 2 Medical Necessity Statement*: Patient is admitted with unresponsiveness due to unknown etiology. Medical management only will be pursued for comfort measures. Coding Level of Care Code Acute Code for [facility] Fwd Diagnoses Unresponsive R41.89 Sternal fracture S22.20XA Frail elderly R54 Kyphosis deformity of spine M40.209 Angioedema T78.3XXA Hyponatremia E87.1 Pulmonary congestion R09.89
[2024-12-21] MEDS: bumetanide 0.25 mg/mL SDV 4 mL 2 MG IVP (16:34)
[2024-12-21] MEDS: hydrocortisone 100 mg/2 mL SDV IVP ×2 (16:34→21:59)
[2024-12-22] VITALS (8 sets, daily range): BP systolic 131–172; BP diastolic 78–93; PULSE 71–80; RESP 16–20; TEMP 36.4–36.9; O2SAT 94–98
[2024-12-22] MEDS: hydrocortisone 100 mg/2 mL SDV IVP ×4 (04:05→21:29)
--- NOTE | 2024-12-22 09:36 | PC.NURSE ---
Dr. Ferrera gave verbal orders to discontinue morphine and add tylenol 500 mg Q6H PRN
--- NOTE | 2024-12-22 10:48 | P.PN_ITS ---
Subjective 2 Subjective: Patient has awake periods of time. He is tolerating liquid diet. He denies pain and daughter present. They request case management speak with the patient's son regarding senior living placement Vitals/I&O/Wt Last Vital Signs Temp 97.6 F 12/22/24 07:46 Pulse 71 12/22/24 08:55 Resp 20 H 12/22/24 07:46 BP 165/93 12/22/24 07:46 Pulse Ox 96 12/22/24 08:55 O2 Del Method BiPAP 12/22/24 07:46 O2 Flow Rate 4 12/21/24 18:00 FiO2 35 12/22/24 08:55 12/21/24 12/22/24 12/22/24 22:59 06:59 14:59 Output Total 1999 450 / 2450 Balance -1999 / -450 / -2450 Weight last 48 hrs Weight 51.755 kg Weight 52.662 kg Weight 47.174 kg Physical Exam 2 Narrative: Elderly very pale male severely kyphotic. His head is being held up by a neck brace. Today he is able to hold it up somewhat himself Lethargic. Will respond to name. But falls asleep easily. Patient is off the BiPAP on 2 to 3 L nasal cannula Heart distant heart sounds difficult to auscultate due to the severity of kyphosis in the abdomen above the chest. Lungs diminished air movement upper airway wheezing noted; this is normal per the family Abdomen soft nontender nondistended positive bowel sounds Extremities edema resolved after Lasix dose yesterday Data 12/21/24 12:58 12/21/24 12:58 A&P Assessment and plan 1. Unresponsive: 2. Sternal fracture: 3. Frail elderly: 4. Kyphosis deformity of spine: 5. Angioedema: 6. Hyponatremia: 7. Pulmonary congestion: Plan: Patient's altered mental status is most likely due to the opioid given status post sternal fracture. Discussed with family that we should avoid this medication as it side effects of may have resulted in the patient's hypercapnia. Will restart patient's home medications if tolerated. No further aggressive treatment. Family would like to try rehabilitation if he tolerates. Will order PT OT today. Wean Solu-Cortef today. May need to continue Bumex IV if he is unable to tolerate p.o. Tylenol for pain. DC planning for care home facility probably Tuesday PDMP PDMP Reviewed: Not Reviewed Attestations 2 Medical Necessity Statement*: Patient requires continued hospitalization to assess physical needs and to continue aggressive treatment for acute exacerbation of CHF. Coding Level of Care Code Acute Code for Chg Fwd Diagnoses Unresponsive R41.89 Sternal fracture S22.20XA Frail elderly R54 Kyphosis deformity of spine M40.209 Angioedema T78.3XXA Hyponatremia E87.1 Pulmonary congestion R09.89
[2024-12-22] MEDS: bumetanide 0.25 mg/mL SDV 10 mL 2 MG IVP ×2 (11:24→23:49)
[2024-12-23] VITALS (7 sets, daily range): BP systolic 119–149; BP diastolic 71–82; PULSE 70–85; RESP 18–22; TEMP 36.6–37.1; O2SAT 93–97
[2024-12-23] MEDS: hydrocortisone 100 mg/2 mL SDV IVP ×2 (03:56→09:48)
--- NOTE | 2024-12-23 10:41 | P.PN_ITS ---
Subjective 2 Subjective: Patient awake and alert. present. Tolerating diet. Although he did walk to the bathroom yesterday he remains very weak. Per the he can usually perform all ADLs. He is requiring assistance. He is not usually on home oxygen and he is requiring 2 to 3 L. Vitals/I&O/Wt Last Vital Signs Temp 98.5 F 12/23/24 07:46 Pulse 79 12/23/24 08:20 Resp 18 12/23/24 07:46 BP 123/75 12/23/24 07:46 Pulse Ox 93 12/23/24 08:20 O2 Del Method Nasal Cannula 12/23/24 08:20 O2 Flow Rate 2 12/23/24 08:20 FiO2 35 12/22/24 08:55 12/22/24 12/23/24 12/23/24 22:59 06:59 14:59 Intake Total 480 / 480 Output Total 1750 / 1750 1525 / 3275 Balance -1750 / -1750 -1525 / -3275 480 / 480 Weight last 48 hrs Weight 53.524 kg Weight 51.755 kg Weight 52.662 kg Weight 47.174 kg Physical Exam 2 Narrative: Elderly very pale male severely kyphotic. His head is being held up by a neck brace. Edema of face resolved Awake and alert answering questions 2 to 3 L nasal cannula Heart distant heart sounds difficult to auscultate due to the severity of kyphosis in the abdomen above the chest. Lungs diminished air movement upper airway wheezing noted; this is normal per the family Abdomen soft nontender nondistended positive bowel sounds Extremities no edema resolved Data 12/21/24 12:58 12/21/24 12:58 A&P Assessment and plan 1. Unresponsive: 2. Sternal fracture: 3. Frail elderly: 4. Kyphosis deformity of spine: 5. Angioedema: 6. Hyponatremia: 7. Pulmonary congestion: Plan: Patient's altered mental status is most likely due to the opioid given status post sternal fracture. Discussed with family that we should avoid this medication as it side effects of may have resulted in the patient's hypercapnia. Wean Solu-Cortef in half. Swelling diminished will likely discontinue tomorrow Continue Bumex IV as I believe part of his symptoms were due to fluid overload; as he had not taken his Bumex dose at home for 2 days. Tylenol for pain. Patient should avoid opioid usage as it caused excessive somnolence and likely hypercapnia. DC planning for jail facility tomorrow. Discussed with case management and RN PDMP PDMP Reviewed: Not Reviewed Attestations 2 Medical Necessity Statement*: Patient requires continued hospitalization to assess physical needs and to continue aggressive treatment for acute exacerbation of CHF, angioedema and hypercapnia. Coding Level of Care Code Acute Code for Chg Fwd Diagnoses Unresponsive R41.89 Sternal fracture S22.20XA Frail elderly R54 Kyphosis deformity of spine M40.209 Angioedema T78.3XXA Hyponatremia E87.1 Pulmonary congestion R09.89
[2024-12-23] MEDS: bumetanide 0.25 mg/mL SDV 10 mL 2 MG IVP (12:36)
[2024-12-23 13:45] LABS: Anion Gap 11.6 (5-19); Blood Urea Nitrogen 14 mg/dL (8-23); Calcium 8.7 mg/dL (8.5-10.5); Carbon Dioxide 38 mmol/L (22-29); Chloride 80 mmol/L (98-107); Creatinine Clr Calc Pharmacy 60.2900; Glucose 225 mg/dL (65-115); Magnesium 1.9 mg/dL (1.7-2.3); Osmolality Calculated 272 mOsm/kg (285-295); Sodium 127 mmol/L (136-145)
[2024-12-23 13:51] LABS: Potassium 2.6 mmol/L (3.5-5.1)
[2024-12-23] MEDS: lidocaine 1% 5 ML in potassium chloride premix 100 ML 52.5 ML IV ×2 (16:24→19:13)
[2024-12-23] MEDS: hydrocortisone 100 mg/2 mL SDV 50 MG IVP ×2 (16:25→21:46)
[2024-12-23 18:32] LABS: ABG PCO2 56.3 mmHg (35-45); ABG PH Result 7.52 (7.35-7.45); Alveolar-Arterial Oxygen Gradi 1.3 mmHg (5-10); Arterial Blood Gas Hematocrit 41.9 % (42-52); Blood Gas Allen Test Pos; Blood Gas LPM 2.0 %; Blood Gas Operator Identificat CAK; Blood Gas Sample Site Radial, left; Blood Gas Sample Type Arterial; Carboxyhemoglobin 1.3 %THgb (0.4-20.1); Glucose Level-ABG 189.0 mg/dL (70-115); HCO3 ABG 45.6 mmol/L (22-26); Ionized Calcium Level - ABG 1.1 mmol/L (1.1-1.4); Methemoglobin 0.9 % (0.4-1.5); Oxygen Saturation ABG 95.8; PO2 ABG 71.0 mmHg (80.0-100.0); Potassium Level - ABG 3.4 mmol/L (3.5-5.0); Sodium Level - ABG 127.0 mmol/L (131-143)
[2024-12-24] VITALS (12 sets, daily range): BP systolic 114–164; BP diastolic 77–85; PULSE 72–94; RESP 18–34; TEMP 36.4–37.1; O2SAT 93–98
--- NOTE | 2024-12-24 00:32 | XRR_ITS ---
PROCEDURE INFORMATION: Exam: XR Chest Exam date and time: 12/24/2024 12:38 AM Age: 79 years old Clinical indication: Shortness of breath; Prior surgery; Surgery date: 6+ months; Surgery type: Kyphoplasty; Worsening SOB despite bipap. ; Additional info: Increased work of breathing and coarse lung sounds TECHNIQUE: Imaging protocol: Radiologic exam of the chest. Views: 1 view. COMPARISON: CT chest con [id number] 12/20/2024 4:24 PM FINDINGS: Lungs: Emphysematous changes. Bilateral hilar to lower lobe atelectasis versus minimal infiltrate. Pleural spaces: Unremarkable. No pleural effusion. No pneumothorax. Heart/Mediastinum: Cardiomegaly. Bones/joints: Unremarkable. XR/XR chest 1V portable [id number] IMPRESSION: 1. Cardiomegaly. 2. Emphysematous changes. 3. Bilateral hilar to lower lobe atelectasis versus minimal infiltrate.
[2024-12-24] MEDS: hydrocortisone 100 mg/2 mL SDV 50 MG IVP ×3 (03:12→16:16)
[2024-12-24 03:42] LABS: Anion Gap 9.5 (5-19); Blood Urea Nitrogen 16 mg/dL (8-23); Calcium 9.2 mg/dL (8.5-10.5); Chloride 87 mmol/L (98-107); Glucose 150 mg/dL (65-115); Osmolality Calculated 282 mOsm/kg (285-295); Potassium 3.5 mmol/L (3.5-5.1); Sodium 134 mmol/L (136-145)
[2024-12-24 03:43] LABS: Creatinine Clr Calc Pharmacy 60.2900
[2024-12-24 03:46] LABS: Carbon Dioxide 41 mmol/L (22-29)
[2024-12-24 04:30] LABS: ABG PCO2 59.9 mmHg (35-45); ABG PH Result 7.50 (7.35-7.45); Arterial Blood Gas Hematocrit 41.7 % (42-52); Blood Gas Operator Identificat SAM; Blood Gas Sample Site Brachial, right; Carboxyhemoglobin 1.3 %THgb (0.4-20.1); Glucose Level-ABG 137.0 mg/dL (70-115); HCO3 ABG 46.6 mmol/L (22-26); Ionized Calcium Level - ABG 1.2 mmol/L (1.1-1.4); Methemoglobin 0.0 % (0.4-1.5); Oxygen Saturation ABG 96.4; PEEP 6.0 cmH20; PO2 ABG 75.5 mmHg (80.0-100.0); PO2 FiO2 Ratio Arterial Blood 235; Potassium Level - ABG 3.4 mmol/L (3.5-5.0); Sodium Level - ABG 131.0 mmol/L (131-143)
[2024-12-24 04:32] LABS: Alveolar-Arterial Oxygen Gradi 0.2 mmHg (5-10); Blood Gas Allen Test Pos; Blood Gas Sample Type Arterial
[2024-12-24] MEDS: bumetanide 0.25 mg/mL SDV 10 mL 2 MG IVP (06:18)
--- NOTE | 2024-12-24 11:18 | PC.SOCIAL ---
IMM Updated Updated pt's on IMM. No questions voiced. Provided pt a copy. Initialed, dated, & timed a copy & placed in chart.
--- NOTE | 2024-12-24 18:50 | P.PN_ITS ---
Subjective 2 Subjective: extensive GOC dicussion with family today Medications: Reviewed: Yes Vitals/I&O/Wt Last Vital Signs Temp 98.7 F 12/24/24 16:58 Pulse 85 12/24/24 16:58 Resp 18 12/24/24 16:58 BP 164/78 12/24/24 16:58 Pulse Ox 93 12/24/24 16:58 O2 Del Method Nasal Cannula 12/24/24 16:58 O2 Flow Rate 1 12/24/24 14:44 FiO2 32 12/24/24 04:00 12/24/24 12/24/24 12/24/24 06:59 14:59 22:59 Output Total 200 / 1300 1000 / 1000 Balance -200 / -130 -1000 / -1000 Weight last 48 hrs Weight 49.64 kg Weight 53.524 kg Physical Exam 2 Narrative: General: chronically ill appearing, severe kyphosis, C collar in place.Noted to be gurgling on taking sips of water HEENT: PERRLA, pupils bilaterally equal and reactive, pallors not present Chest: crackles bilaterally Neuro: confused, disoriented Extremities: cachexia Data 12/21/24 12:58 12/24/24 02:34 Other Labs: Radiology Impressions Chest X-Ray 12/24/24 00:32 IMPRESSION: 1. Cardiomegaly. 2. Emphysematous changes. 3. Bilateral hilar to lower lobe atelectasis versus minimal infiltrate. Laboratory Results WBC 46.81 10^3/uL (3.29-11.43) H* 12/21/24 12:58 RBC 3.31 10^6/uL (3.85-5.65) L 12/21/24 12:58 Hgb 11.40 g/dL (11.27-16.99) 12/21/24 12:58 Hct 32.2 % (37-53) L 12/21/24 12:58 MCV 97.3 fl (82-101) 12/21/24 12:58 MCH 34.4 pg (27-33) H 12/21/24 12:58 MCHC 35.4 g/dL (30-55) 12/21/24 12:58 RDW 13.7 % (12.1-15.1) 12/21/24 12:58 Plt Count 257 10^3/cmm (157-399) 12/21/24 12:58 MPV 8.1 fL (7.4-10.4) 12/21/24 12:58 Lymph % (Auto) Not Reportable 12/21/24 12:58 Burnett % (Auto) Not Reportable 12/21/24 12:58 Lymph # (Auto) Not Reportable 12/21/24 12:58 Burnett # (Auto) Not Reportable 12/21/24 12:58 Total Counted 100 (0-100) 12/21/24 12:58 Atypical Lymphs % 12.0 % (0-5) H 12/21/24 12:58 Absolute Neutrophils 12.2 10^3/cmm (1.4-6.5) H 12/21/24 12:58 Segmented Neutrophils 26 % 12/21/24 12:58 Band Neutrophils 0.0 % 12/21/24 12:58 Absolute Lymphocytes 33.2 10^3/cmm (1.2-3.4) H 12/21/24 12:58 Lymphocytes (Manual) 59 % 12/21/24 12:58 Monocytes (Manual) 3.0 % 12/21/24 12:58 Absolute Monocytes 1.4 10^3/cmm (0.1-0.6) H 12/21/24 12:58 Eosinophils (Manual) 0 % 12/21/24 12:58 Absolute Eosinophils 0.0 10^3/cmm (0.0-0.7) 12/21/24 12:58 Basophils (Manual) 0.0 % 12/21/24 12:58 Absolute Basophils 0.0 10^3/cmm (0.0-0.2) 12/21/24 12:58 Platelet Estimate Normal (Normal) 12/21/24 12:58 Macrocytosis 1+ H 12/21/24 12:58 Specimen Type Arterial 12/24/24 04:18 Sample Site Brachial, right 12/24/24 04:18 ABG pH 7.50 (7.35-7.45) H 12/24/24 04:18 ABG pCO2 59.9 mmHg (35-45) H 12/24/24 04:18 ABG pO2 75.5 mmHg (80.0-100.0) L 12/24/24 04:18 ABG PO2/FiO2 Ratio 235 12/24/24 04:18 ABG HCO3 46.6 mmol/L (22-26) H 12/24/24 04:18 ABG O2 Saturation 96.4 12/24/24 04:18 ABG Base Excess 19.8 mmol/L (-2.0-2.0) H 12/24/24 04:18 Blair Test Pos 12/24/24 04:18 A-a O2 Gradient 0.2 mmHg (5-10) L 12/24/24 04:18 Hematocrit 41.7 % (42-52) L 12/24/24 04:18 Hgb O2 Saturation 95.2 % (95-100) 12/24/24 04:18 Carboxyhemoglobin 1.3 %THgb (0.4-20.1) 12/24/24 04:18 Methemoglobin 0.0 % (0.4-1.5) L 12/24/24 04:18 Total Hemoglobin 13.6 g/dL (14-18) L 12/24/24 04:18 Sodium 131.0 mmol/L (131-143) 12/24/24 04:18 Potassium 3.4 mmol/L (3.5-5.0) L 12/24/24 04:18 Glucose 137.0 mg/dL (70-115) H 12/24/24 04:18 Ionized Calcium 1.2 mmol/L (1.1-1.4) 12/24/24 04:18 O2 Delivery Device 12/24/24 04:18 O2 Liters/Min 2.0 % 12/23/24 18:20 FiO2 32.0 % 12/24/24 04:18 PEEP 6.0 cmH20 12/24/24 04:18 Director Operations Broadcast ID [place] 12/24/24 04:18 Sodium 134 mmol/L (136-145) L 12/24/24 02:34 Potassium 3.5 mmol/L (3.5-5.1) 12/24/24 02:34 Chloride 87 mmol/L (98-107) L 12/24/24 02:34 Carbon Dioxide 41 mmol/L (22-29) H 12/24/24 02:34 Anion Gap 9.5 (5-19) 12/24/24 02:34 BUN 16 mg/dL (8-23) 12/24/24 02:34 Creatinine 0.6 mg/dL (0.7-1.2) L 12/24/24 02:34 GFR Calculation Not Reportable 12/24/24 02:34 Glucose 150 mg/dL (65-115) H 12/24/24 02:34 Calculated Osmolality 282 mOsm/kg (285-295) L 12/24/24 02:34 Calcium 9.2 mg/dL (8.5-10.5) 12/24/24 02:34 Magnesium 1.9 mg/dL (1.7-2.3) 12/23/24 13:17 Total Bilirubin 1.5 mg/dL (0.15-1.2) H 12/21/24 12:58 AST 49 U/L (0-40) H 12/21/24 12:58 ALT 36 U/L (0-41) 12/21/24 12:58 Alkaline Phosphatase 39 U/L (40-130) L 12/21/24 12:58 Total Protein 5.7 g/dL (6.6-8.7) L 12/21/24 12:58 Albumin 3.9 g/dL (3.5-5.2) 12/21/24 12:58 Globulin 1.8 g/dL (1.3-4.6) 12/21/24 12:58 Urine Color Yellow (Yellow) 12/21/24 13:20 Urine Appearance Clear (CLEAR) 12/21/24 13:20 Urine pH 6.0 (5-7) 12/21/24 13:20 Ur Specific [place] 1.019 (1.005-1.030) 12/21/24 13:20 Urine Protein Trace (Negative) A 12/21/24 13:20 Urine Glucose (UA) Negative (Normal) 12/21/24 13:20 Urine Ketones Negative (Negative) 12/21/24 13:20 Urine Blood 1+ (Negative) A 12/21/24 13:20 Urine Nitrate Negative (Negative) 12/21/24 13:20 Urine Bilirubin Negative (Negative) 12/21/24 13:20 Urine Urobilinogen 1.0 mg/dL (Negative) 12/21/24 13:20 Ur Leukocyte Esterase Negative (Negative) 12/21/24 13:20 Urine RBC 11-20 /hpf (0-2) H 12/21/24 13:20 Urine WBC 0-5 /hpf (0-5) 12/21/24 13:20 Ur Squamous Epith Cells 0-5 /hpf (0-5) 12/21/24 13:20 Amorphous Sediment Not Reportable 12/21/24 13:20 Urine Bacteria None seen /hpf (NONE) 12/21/24 13:20 Hyaline Casts 1.65 /lpf 12/21/24 13:20 A&P Assessment and plan 1. Hospice care: 2. Aspiration into airway: 3. Kyphosis deformity of spine: 4. Restrictive lung disease: 5. Chronic respiratory failure with hypercapnia: 6. Hypoxia: 7. Sternal fracture: Plan: Chart reviewed in great detail. Family at bedside providing extensive history. Patient is an elderly male who has a past medical history of severe kyphosis, history of CLL who has elected not to start any treatment prioritizing his comfort. He recently underwent a dental extraction 2 weeks ago under general anesthesia. Per family since then he has been having increased lethargy somnolence generalized aches and pains. His family reports that patient has had more of a decline over the past year. He has had episodes of daytime somnolence where he would fall asleep in the middle of a sentence. Often he would be asleep and forgets the events that happened during the day. He has had increasing kyphosis to the point where he is no longer able to hold his head up and has been recommended to wear a cervical collar for this reason. Patient was brought to the emergency room due to increasing generalized weakness and altered mentation. It was thought that his lethargy may be related to hypercapnia with pCO2 of 60 though he did have evidence of respiratory alkalosis with also elevated bicarb levels. In reviewing his past ABG, the last ABG dates back to 07/2023 without any interveing comparator. Given family's history of increased somnolence, worsening kyphosis, respiratory alkalosis, elevated bicarb, with alkalosis, suspect that his hypercapnia has been more chronic issue and did not develop acutely. Family reports patient is typically not on supplemental oxygen, is currently requiring 3 L/min. It appears after the initial use of BiPAP on admission patient was able to be more awake and was able to participate with physical therapy on Tuesday however today (Tuesday) he is obtunded. He speaks a few words which are out of context. He is barely able to raise his head to make eye contact. He is lethargic, cachectic, sitting slumped at edge of the bed. Overall he is chronically ill- appearing. I witnessed Patient's attempting to feed the patient, he attempted to take a few sips of water however immediately afterwards he had gurgling and a weak cough. He was unable to swallow safely. I suspect he has been aspirating and this may be contributing to his overall lethargy. On arrival, patient was presumptively diagnosed with CHF, he has been on iv Bumex since then. His edema is much improved. Today he is appearing to be dehydrated. Will discontinue iv Bumex. There is no echo currently in the system. Potentially may have cor pulmonale. He has known CLL, possibility of PE not excluded. Discussed overall assessment and poor prognosis with and brother in law at bedside today. Patient has significant comorbidities including underlying malignancy, severe kyphosis, high possibility of restrictive lung disease, noted aspiration, ongoing deterioration over the past 2 weeks That makes his prognosis extremely guarded. Patient has also been diagnosed with a sternal fracture related to a mechanical fall therefore his pulmonary expansion is even further compromised. Discussed with patient's family that going forward if patient and family's wishes are to continue full treatment, next steps would include obtaining a swallow assessment and consideration for PEG tube should patient continue swallow test, and also obtain echocardiogram and possibly a CTA to assess for PE. Alternatively we could proceed with palliative/hospice care with focus on comfort only. His family reports that in keeping with his last known wishes patient would not have wanted any aggressive interventions or life-prolonging interventions such as a feeding tube therefore a swallow test may not provide any usable information. Additionally for an echocardiogram, should we discover cardiomyopathy or severe right heart failure, they would only be keen on symptomatic management with diuresis, nothing further. Patient is exceedingly frail and unlikely to tolerate any anticoagulation especially with his increased risk of falls and recent sternal fracture. Patient's family requested discussion with Patient's children and eventually by the evening decided to transition to hospice management only at this time. This documentation was created by [employer] credit processor software. Every effort was made to ensure accuracy of credit processor. Any obvious errors or omissions should be clarified with the author of the document. PDMP PDMP Reviewed: Not Reviewed Attestations 2 Medical Necessity Statement*: Extensive goals of care discussion, transition to palliative/hospice care only. Coding Level of Care Code Acute Code for Chg Fwd High Time for a total of 60 minutes, includes reviewing past or interval history, examining/interviewing patient, placing orders, counseling patient/family/other support, updating patient/family/other support, discussing plan of care with staff, documenting encounter and coordinating care Other Coding Information Prolonged care (total time indicated above or notated here) extensive goals of care discussion with family, reviewing prior chart, histiry taking, reviewing labs and all available data, patient exam and assessment Diagnoses Hospice care Z51.5 Aspiration into airway T17.908A Kyphosis deformity of spine M40.209 Restrictive lung disease J98.4 Chronic respiratory failure with hypercapnia J96.12 Hypoxia R09.02 Sternal fracture S22.20XA
[2024-12-25] VITALS: BP 143/72; PULSE 78; RESP 19; TEMP 36.7; O2SAT 94
[2024-12-25 04:00] VITALS: BP 165/85; PULSE 80; RESP 20; TEMP 36.3; O2SAT 92
[2024-12-25 08:07] VITALS: BP 167/81; PULSE 75; RESP 24; TEMP 36.1; O2SAT 91
[2024-12-25 09:36] VITALS: PULSE 81; O2SAT 94
[2024-12-25 11:30] VITALS: BP 149/77; PULSE 83; RESP 22; TEMP 36.7; O2SAT 95
[2024-12-25 13:11] LABS: SARS Covid-2 Antigen Negative (Negative)
[2024-12-25 13:22] VITALS: BP 149/77; PULSE 83; RESP 22; TEMP 36.7; O2SAT 95
--- NOTE | 2024-12-25 14:52 | PC.NURSE ---
Called report to Frank Ball LPN at [facility]
--- NOTE | 2024-12-25 15:48 | P.DS_ITS ---
Discharge Providers Date of Admission: 12/21/24 17:24 Date of Discharge: December 25, 2024 Attending Provider at Admission: Augustine Alvarez DO Attending Provider at Discharge: Christine Ambriz MD Primary Care Provider: Manolo Centeno DO Diagnoses at Discharge Discharge Diagnosis 1. Hospice care: 2. Aspiration into airway: 3. Other kyphosis of cervicothoracic region: 4. Restrictive lung disease: 5. Chronic respiratory failure with hypercapnia: 6. Hypoxia: 7. Sternal fracture: 8. Failure to thrive: 9. Chronic lymphocytic leukemia: Reason for Visit Reason for Visit: [facility] Hospital Course Hospital Course Patient is an elderly male who has a past medical history of severe kyphosis, CLL not on any treatment, failure to thrive diagnosed over the past year, history of CVA in the past, currently kyphosis severe to the point where he is unable to hold up his head and needs to wear a cervical collar at all times. Patient was brought to the hospital after having had a more subacute decline over the last 2 weeks after undergoing a dental extraction. Initially his symptoms were thought to be related to hypercapnia and he received BiPAP ventilation leading to some improvement over the weekend, however over the next 48 hours he started to deteriorate again. CABG was reviewed and extensively discussed with the family. Patient is showing signs of chronic hypercapnic respiratory failure with compensated metabolic alkalosis which points to chronicity of the problem. He is chronically ill-appearing, frail, cachectic, weighing only 45 kg. He had a recent fall which resulted in a sternal fracture. Patient likely has underlying restrictive lung disease related to the severe kyphosis and now with a sternal fracture his respiratory status has decompensated even further. Patient was witnessed to have aspiration on family attempting to feed him. He had several episodes of gurgling, weak cough, and inability to swallow safely. Patient also carries a presumptive diagnosis of CHF for which he is on furosemide at home and did receive IV Bumex here. Overall patient has had a gradual decline over the past year, more acutely decompensating now over the last 2 weeks related to his sternal fracture and outpatient surgery. Case was discussed additionally with patient's primary care physician Dr. Centeno who had been managing his failure to thrive over the past year. After extensive goals of care discussion with family, they came to a decision to transition to hospice measures only and focus on patient comfort rather than further testing as this is what patient would have wanted to the best of their knowledge. Patient has previously expressed his desire of remaining comfortable at end-of-life to the family and did not want any life-prolonging interventions. Patient is currently intermittently confused and unable to participate in the decision making in any meaningful way therefore all discussions were undertaken with his who remained at bedside. Patient has been transitioned to hospice care and is being discharged to SNF for continued hospice management. He has been allowed comfort feeding at this time, family understands the high risk of aspiration. Physical Exam Narrative: General: Chronically ill-appearing cachectic male with severe kyphosis laying in bed. HEENT: PERRLA, pupils bilaterally equal and reactive, pallors not present Chest: coarse crackles bilaterally. Neuro: consfused, disoriented Extremities: cachetic, severe kyphosis, C collar in place Discharge Data Studies Completed and Pending Completed Studies During Hospitalization Category Date Time Status CXRP [XR chest 1V portable [id number]] Routine Exams 12/24/24 00:32 Completed Radiology Impressions Chest X-Ray 12/24/24 00:32 IMPRESSION: 1. Cardiomegaly. 2. Emphysematous changes. 3. Bilateral hilar to lower lobe atelectasis versus minimal infiltrate. Laboratory Results WBC 46.81 10^3/uL (3.29-11.43) H* 12/21/24 12:58 RBC 3.31 10^6/uL (3.85-5.65) L 12/21/24 12:58 Hgb 11.40 g/dL (11.27-16.99) 12/21/24 12:58 Hct 32.2 % (37-53) L 12/21/24 12:58 MCV 97.3 fl (82-101) 12/21/24 12:58 MCH 34.4 pg (27-33) H 12/21/24 12:58 MCHC 35.4 g/dL (30-55) 12/21/24 12:58 RDW 13.7 % (12.1-15.1) 12/21/24 12:58 Plt Count 257 10^3/cmm (157-399) 12/21/24 12:58 MPV 8.1 fL (7.4-10.4) 12/21/24 12:58 Lymph % (Auto) Not Reportable 12/21/24 12:58 Beckham % (Auto) Not Reportable 12/21/24 12:58 Lymph # (Auto) Not Reportable 12/21/24 12:58 Beckham # (Auto) Not Reportable 12/21/24 12:58 Total Counted 100 (0-100) 12/21/24 12:58 Atypical Lymphs % 12.0 % (0-5) H 12/21/24 12:58 Absolute Neutrophils 12.2 10^3/cmm (1.4-6.5) H 12/21/24 12:58 Segmented Neutrophils 26 % 12/21/24 12:58 Band Neutrophils 0.0 % 12/21/24 12:58 Absolute Lymphocytes 33.2 10^3/cmm (1.2-3.4) H 12/21/24 12:58 Lymphocytes (Manual) 59 % 12/21/24 12:58 Monocytes (Manual) 3.0 % 12/21/24 12:58 Absolute Monocytes 1.4 10^3/cmm (0.1-0.6) H 12/21/24 12:58 Eosinophils (Manual) 0 % 12/21/24 12:58 Absolute Eosinophils 0.0 10^3/cmm (0.0-0.7) 12/21/24 12:58 Basophils (Manual) 0.0 % 12/21/24 12:58 Absolute Basophils 0.0 10^3/cmm (0.0-0.2) 12/21/24 12:58 Platelet Estimate Normal (Normal) 12/21/24 12:58 Macrocytosis 1+ H 12/21/24 12:58 Specimen Type Arterial 12/24/24 04:18 Sample Site Brachial, right 12/24/24 04:18 ABG pH 7.50 (7.35-7.45) H 12/24/24 04:18 ABG pCO2 59.9 mmHg (35-45) H 12/24/24 04:18 ABG pO2 75.5 mmHg (80.0-100.0) L 12/24/24 04:18 ABG PO2/FiO2 Ratio 235 12/24/24 04:18 ABG HCO3 46.6 mmol/L (22-26) H 12/24/24 04:18 ABG O2 Saturation 96.4 12/24/24 04:18 ABG Base Excess 19.8 mmol/L (-2.0-2.0) H 12/24/24 04:18 Blair Test Pos 12/24/24 04:18 A-a O2 Gradient 0.2 mmHg (5-10) L 12/24/24 04:18 Hematocrit 41.7 % (42-52) L 12/24/24 04:18 Hgb O2 Saturation 95.2 % (95-100) 12/24/24 04:18 Carboxyhemoglobin 1.3 %THgb (0.4-20.1) 12/24/24 04:18 Methemoglobin 0.0 % (0.4-1.5) L 12/24/24 04:18 Total Hemoglobin 13.6 g/dL (14-18) L 12/24/24 04:18 Sodium 131.0 mmol/L (131-143) 12/24/24 04:18 Potassium 3.4 mmol/L (3.5-5.0) L 12/24/24 04:18 Glucose 137.0 mg/dL (70-115) H 12/24/24 04:18 Ionized Calcium 1.2 mmol/L (1.1-1.4) 12/24/24 04:18 O2 Delivery Device 12/24/24 04:18 O2 Liters/Min 2.0 % 12/23/24 18:20 FiO2 32.0 % 12/24/24 04:18 PEEP 6.0 cmH20 12/24/24 04:18 Photofinishing Laboratory Worker ID [place] 12/24/24 04:18 Sodium 134 mmol/L (136-145) L 12/24/24 02:34 Potassium 3.5 mmol/L (3.5-5.1) 12/24/24 02:34 Chloride 87 mmol/L (98-107) L 12/24/24 02:34 Carbon Dioxide 41 mmol/L (22-29) H 12/24/24 02:34 Anion Gap 9.5 (5-19) 12/24/24 02:34 BUN 16 mg/dL (8-23) 12/24/24 02:34 Creatinine 0.6 mg/dL (0.7-1.2) L 12/24/24 02:34 GFR Calculation Not Reportable 12/24/24 02:34 Glucose 150 mg/dL (65-115) H 12/24/24 02:34 Calculated Osmolality 282 mOsm/kg (285-295) L 12/24/24 02:34 Calcium 9.2 mg/dL (8.5-10.5) 12/24/24 02:34 Magnesium 1.9 mg/dL (1.7-2.3) 12/23/24 13:17 Total Bilirubin 1.5 mg/dL (0.15-1.2) H 12/21/24 12:58 AST 49 U/L (0-40) H 12/21/24 12:58 ALT 36 U/L (0-41) 12/21/24 12:58 Alkaline Phosphatase 39 U/L (40-130) L 12/21/24 12:58 Total Protein 5.7 g/dL (6.6-8.7) L 12/21/24 12:58 Albumin 3.9 g/dL (3.5-5.2) 12/21/24 12:58 Globulin 1.8 g/dL (1.3-4.6) 12/21/24 12:58 Urine Color Yellow (Yellow) 12/21/24 13:20 Urine Appearance Clear (CLEAR) 12/21/24 13:20 Urine pH 6.0 (5-7) 12/21/24 13:20 Ur Specific [place] 1.019 (1.005-1.030) 12/21/24 13:20 Urine Protein Trace (Negative) A 12/21/24 13:20 Urine Glucose (UA) Negative (Normal) 12/21/24 13:20 Urine Ketones Negative (Negative) 12/21/24 13:20 Urine Blood 1+ (Negative) A 12/21/24 13:20 Urine Nitrate Negative (Negative) 12/21/24 13:20 Urine Bilirubin Negative (Negative) 12/21/24 13:20 Urine Urobilinogen 1.0 mg/dL (Negative) 12/21/24 13:20 Ur Leukocyte Esterase Negative (Negative) 12/21/24 13:20 Urine RBC 11-20 /hpf (0-2) H 12/21/24 13:20 Urine WBC 0-5 /hpf (0-5) 12/21/24 13:20 Ur Squamous Epith Cells 0-5 /hpf (0-5) 12/21/24 13:20 Amorphous Sediment Not Reportable 12/21/24 13:20 Urine Bacteria None seen /hpf (NONE) 12/21/24 13:20 Hyaline Casts 1.65 /lpf 12/21/24 13:20 SARS-CoV-2 Ag (Rapid) Negative (Negative) 12/25/24 12:36 Vitals Last Vital Signs Temp 98.1 F 12/25/24 13:22 Pulse 83 12/25/24 13:22 Resp 22 H 12/25/24 13:22 BP 149/77 12/25/24 13:22 Pulse Ox 95 12/25/24 13:22 O2 Del Method Nasal Cannula 12/25/24 11:30 O2 Flow Rate 0.5 12/24/24 20:00 FiO2 28 12/25/24 09:36 Discharge Plan Discharge Patient Disposition: Hospice - Medical Facility Condition: Stable Prescriptions: New lidocaine 5 % Adhesive Patch,Medicated 1 patch topical [id number] 30 Days Qty: 30 0RF Continued aspirin [Adult Low Dose Aspirin] 81 mg tablet,delayed release (DR/EC) 81 mg PO QAM docusate sodium 100 mg capsule 100 mg PO BID PRN (Reason: Constipation) escitalopram oxalate 10 mg tablet 10 mg PO DAILY Qty: 90 1RF potassium chloride 20 mEq tablet extended release 30 meq PO DAILY Qty: 135 3RF simvastatin 40 mg tablet 40 mg PO QPM Qty: 90 0RF acetaminophen 500 mg Tablet 1,000 mg PO Q6H PRN (Reason: Pain) 14 Days Qty: 25 0RF oxycodone 5 mg tablet 5 mg PO Q8H PRN (Reason: pain) Qty: 20 0RF tamsulosin 0.4 mg capsule 0.4 mg PO DAILY omeprazole 20 mg capsule,delayed release(DR/EC) 20 mg PO QAM fluticasone propionate 50 mcg/actuation spray,suspension 1 spray intranasal DAILY hydrocodone-acetaminophen 5-325 mg tablet 0.5 - 1 tab PO Q6H PRN (Reason: Pain) Changed furosemide 80 mg tablet 80 mg PO DAILY PRN (Reason: edema) Qty: 45 1RF Discontinued cholecalciferol (vitamin D3) 25 mcg (1,000 unit) capsule 25 mcg PO DAILY Qty: 90 1RF clopidogrel 75 mg tablet 75 mg PO DAILY Qty: 90 3RF prednisone 10 mg tablet See Rx Instructions .ROUTE .COMPLEX Qty: 30 5RF Dose Instruction: TAKE 1 TABLET BY MOUTH DAILY NEEDED FOR INFLAMMATION, JOINTS, THROAT. Rx Instructions: TAKE 1 TABLET BY MOUTH DAILY NEEDED FOR INFLAMMATION, JOINTS, THROAT. calcium carbonate 500 mg calcium (1,250 mg) Tablet 500 mg PO BID Discharge Order = DC NOW: Discharge Order (Routine); Ordered 12/25/24 Ordered By: Christine Ambriz Referrals: [facility] [Outside] [facility] [Outside] Manolo Centeno DO [Primary Care Provider, Family Practice] Patient Instructions: Lidocaine Patch (On the skin), Hospice Care (GEN), Altered Mental Status (ED), Opioid Safety, Patient Portal & Elijah Instructions Discharge Attestations Time Spent in Discharge Care*: greater than 30 min Quality Metrics Clinical Quality Measures [ No reported AMI, CVA or VTE this stay] Coding Level of Care Code Acute Code for Chg Fwd Diagnoses Hospice care Z51.5 Aspiration into airway T17.908A Other kyphosis of cervicothoracic region M40.293 Kyphosis type: other Spinal region: cervicothoracic Restrictive lung disease J98.4 Chronic respiratory failure with hypercapnia J96.12 Hypoxia R09.02 Sternal fracture S22.20XA Failure to thrive Chronic lymphocytic leukemia C91.10
== END 2024-12-25 14:18 | disposition hospice, inpatient (51) | DRG 189 ==
LOC: ER 13:36 → MEDSURG 17:24
PROVIDERS: Internal Medicine; Admitting Provider Internal Medicine; Emergency Provider Family Medicine; PCP Family Medicine; Visit Provider Student in an Organized Health Care Education/Training Program
DX: J96.12 Chronic respiratory failure with hypercapnia (principal); C91.10 Chronic lymphocytic leukemia of B-cell type not having achieved remission; S22.20XA Unspecified fracture of sternum, initial encounter for closed fracture; Z68.1 Body mass index [BMI] 19.9 or less, adult; E87.3 Alkalosis; E87.1 Hypo-osmolality and hyponatremia; I11.0 Hypertensive heart disease with heart failure; J96.11 Chronic respiratory failure with hypoxia; M40.203 Unspecified kyphosis, cervicothoracic region; J98.4 Other disorders of lung; X58.XXXA Exposure to other specified factors, initial encounter; R62.7 Adult failure to thrive; I50.9 Heart failure, unspecified; Z51.5 Encounter for palliative care; N40.0 Benign prostatic hyperplasia without lower urinary tract symptoms; K21.9 Gastro-esophageal reflux disease without esophagitis; E78.5 Hyperlipidemia, unspecified; Z86.73 Personal history of transient ischemic attack (TIA), and cerebral infarction without residual deficits; Z79.02 Long term (current) use of antithrombotics/antiplatelets; Z79.82 Long term (current) use of aspirin
CPT/HCPCS: 36415; 36600; 71045; 71250; 80048; 80051; 80053; 81001; 82330; 82805; 83735; 85007; 85025; 87426; 93005; 94660; 94664; 96374; 96375; 97116; 97161; 97167; 99284; 99291; J1720; J3480; J3490; J9999